=== PATIENT | female | born 1960 | race Caucasian/White ===

== ENCOUNTER → 2022-06-29 | Outpatient (CLI) | payer MEDICARE, MEDICAID, SELFPAY ==
--- NOTE | 2022-06-29 17:26 | RAD_ITS ---
STUDY: X-RAY - LUMBAR SPINE REASON FOR EXAM: Female, 61 years old. FALL WITH INJURY TECHNIQUE: XR Spine Lumbar Min 4 Views COMPARISON: None FINDINGS: Normal lumbar lordosis. There is no substantial scoliosis. There is a normal alignment of the vertebrae. There is multilevel endplate spondylosis of the lumbar vertebrae. There is multi-level degenerative disc disease with multi-level disc space narrowing. There are atherosclerotic vascular calcifications. The soft tissue structures are unremarkable. RAD/L/S Spine Min 4 Views IMPRESSION: Degenerative changes of the spine, as detailed above. Electronically Signed: Gustavo Higuera MD at 17:49 EDT ,
--- NOTE | 2022-06-29 17:26 | RAD_ITS ---
STUDY: X-RAY - PELVIS AND BILATERAL HIP REASON FOR EXAM: Female, 61 years old. FALL WITH INJURY TECHNIQUE: XR Hips Bilateral with Pelvis when performed; 2 Views COMPARISON: None. FINDINGS: There is a non-specific bowel gas pattern. There are multiple calcified phleboliths. There are degenerative changes of the lumbar spine. Normal bilateral iliac wings, sacroiliac joints and visualized sacrum. Normal bilateral superior and inferior pubic rami. Normal pubic symphysis. Normal bilateral ischial tuberosities. Normal visualized femoral head. Normal acetabulum. Normal hip joint. RAD/Hips B/L min 2 views w/ Pelvis IMPRESSION: No acute findings. Electronically Signed: Gustavo Higuera MD at 17:48 EDT ,
== END | disposition home or self-care (01) ==
LOC: MTRAD 17:23
PROVIDERS: PCP Family Medicine; Referring Provider Family Medicine; Visit Provider Family Medicine
DX: S79.911A Unspecified injury of right hip, initial encounter (principal); M47.816 Spondylosis without myelopathy or radiculopathy, lumbar region; M51.36 Other intervertebral disc degeneration, lumbar region; S79.912A Unspecified injury of left hip, initial encounter; S39.92XA Unspecified injury of lower back, initial encounter; I87.8 Other specified disorders of veins
CPT/HCPCS: 72110; 73521

== ENCOUNTER 2022-07-10 06:51 | Outpatient (RCR) | payer MEDICARE, MEDICAID, SELFPAY ==
--- NOTE | 2022-07-10 07:52 | HP.PTEVAL ---
Patient's Visit Information GERBER BANGURA is a 61 year old F referred to Physical Therapy by Dr. Aaron Chandler MD with a diagnosis of Back pain. Date of Evaluation: 07/10/22 Physical Therapist: Ciaran Chavez, DPT, OCS, CSCS - Visit Plan Frequency: 2-3x /Week Duration: 4-6 Weeks Plan: 2-3x/week for 4 weeks for(copay may be a problem for patient). 1. R hip STOM rollout (prirformis/ITB and paraspinals)A/PROM. 2. LB AROM and ROM ex and core strength. 3. Ensure appropriate balance once ambulating better. 4 TENS and MH as helpful to hip and LB(as helpful) - Subjective h/o Guillan Novelty. Feel two weeks ago and landed on R butt and it hurts. Had no feeling in her legs that morning(Guillan barre) and that is why she fell. 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 Uses cane all the time but had cat dish in hand. Has neurologist at [facility] and has appointment next month and every two months. Sleep is poor and wakes every two hours, once per night baseline. Had pain prior in LB and butt down R leg is chronic. This is far worse now. Had x rays and no breaks. Pain is different in that it grabs her in all positions and gets to 8/10. Is on pain meds hydrocodone and muscle relaxers due to this fall. Disabled form guillan barre. Lives alone, one story with no steps. Basic ADLs are done herself but more painful now. Lives in apartment for disabled and handicap accessible with grab bars. No hobbies, spends day sleeping. Has been going to [employer] but off since fall. Does crunches, sitting elliptical, machines for legs and stomach. - Pain LBP, R butt and leg Pain Intensity (Out of 10): 8 Pain Intensity Range: 8 Comment: baseline is 5/10 for her prior to fall - Objective Walks with cane slowly and painful especialy WB R but mod I on firm flat surface. Trasnfers I, painful to sit. LB AROM ext painful in R buttock and LB and max limited, L SB > R SB pain(soft tissue lateral hip), flexion 75% limited. Pt hard time lying on back but OK on L side. Pt does not wish to use a walker despite my education on its possible benefits of safety and taking weight off spine. reflexes 3/3 patella and achilles. sensation LE feels numby B LE distal but this is normal for her. strength LE L 4/5 and R 3+ knee flexion and ext and hip flexion and ankle Df limited due to pain more than any inability to contract. Very hard for her to move around and tolerate much today. - Balance/Special Test Scores Oswestry Low Back Score: 40 - Goals Goal 1:: Patient feel LBP back to baseline of 4-5/10 throughout day. Goal Time Frame: 2-4 Weeks Goal 2:: Pateint feel 75% better in overall mobnility and pain Goal Time Frame: 2-4 Weeks Goal 3:: Able to trasnition and walk back to PT without antalgia or facial evidence of discomfort Goal Time Frame: 2-4 Weeks Goal 4:: I management of condition Goal Time Frame: 2-4 Weeks Goal Time Frame: 6-8 Weeks - Rehabilitation Potential Physical Therapy Diagnosis: back pain and lateral hip pain from recent fall limiting mobility. Rehabilitation Potential: Fair - Anticipated Interventions Patient/Client Instruction: Educate patient on: Condition, Plan of Care For the Purpose of:: To decrease pain, To increase ROM, To improve muscle performance and motor function Therapeutic Exercise to Include: Strength training, Postural training, Flexibilty training, Passive ROM, Active ROM For the Purpose of:: To decrease pain, To increase ROM, To improve muscle performance and motor function Manual Therapy Techniques to Include: Mobilization, Passive ROM, Soft tissue mobilization For the Purpose of:: To decrease pain, To increase ROM TENS: Yes Thermo therapy (hot pack): Yes For the Purpose of:: To decrease pain Thank you for the opportunity to evaluate your patient. For Medicare and Medicare HMO plans, please review the plan of care and approve it. It will need to be FAXED BACK to us at [phone] for Medicare purposes. For Medicare only, by signing this I certify the plan of care. Please let me know if there are questions or concerns regarding this plan of care. Physician Signature: Date:
--- NOTE | 2022-07-13 13:11 | HP.PTDCNRP_ITS ---
GERBER BANGURA was seen in my office for initial evaluation on 07/10/22. The following Plan of Care was established for this patient: Initial Frequency: 2-3x /Week Initial Duration: 4-6 Weeks Patient/Client Instruction: Educate patient on: Condition, Plan of Care For the Purpose of:: To decrease pain, To increase ROM, To improve muscle performance and motor function Therapeutic Exercise to Include: Strength training, Postural training, Flexibilty training, Passive ROM, Active ROM For the Purpose of:: To decrease pain, To increase ROM, To improve muscle performance and motor function Manual Therapy Techniques to Include: Mobilization, Passive ROM, Soft tissue mobilization For the Purpose of:: To decrease pain, To increase ROM TENS: Yes Thermo therapy (hot pack): Yes For the Purpose of:: To decrease pain This patient was last seen in our office 07/10/22. Pertinent comments regarding their Physical therapy will appear below: Pt seen for initial evaluation and POC established. Pt called to cancel all visits stating she cannot afford therapy. I will discontinue her at her reques t. At this point I will be discontinuing this patient from physical therapy. I would be happy to see this patient again in the future if found appropriate by the physician. Thank you! Ciaran Chavez, DPT, OCS, CSCS Balance/Gait/Functional tests - Balance/Special Test Scores Oswestry Low Back Score: 40
== END 2022-07-10 19:00 | disposition home or self-care (01) ==
LOC: PT 06:51
PROVIDERS: PCP Family Medicine; Referring Provider Family Medicine; Visit Provider Family Medicine
DX: M54.9 Dorsalgia, unspecified (principal)
CPT/HCPCS: 97110; 97162

== ENCOUNTER → 2022-08-17 | Outpatient (CLI) | payer MEDICARE, MEDICAID, SELFPAY | END | disposition home or self-care (01) | LOC: LABSPEC 13:43 | PROVIDERS: PCP Family Medicine; Visit Provider Nurse Practitioner Family | DX: N39.0 Urinary tract infection, site not specified (principal) | CPT/HCPCS: 87086; 87088; 87186 ==

== ENCOUNTER → 2022-09-15 | Outpatient (CLI) | payer MEDICARE, SELFPAY ==
[2022-09-15 18:34] LABS: ALB/GLOB Ratio 0.8 RATIO (0.9-2.4); AST(SGOT) 64 U/L (15-37); Alanine Aminotransfer ALT/SGPT 90 U/L (13-56); Albumin, Serum 3.8 g/dL (3.2-5.0); Alkaline Phosphatase 139 U/L (45-117); Anion Gap 8 (5-15); BUN 17 mg/dL (7-18); BUN/Creat Ratio 24.3 RATIO (10-20); Calcium,Total 9.7 mg/dL (8.5-10.1); Chloride 103 mmol/L (98-107); Cholesterol 197 mg/dL (200); EST Glomerular Filtration Rate 90 mL/min (>60); Est Glom Filt Rate - Afr Amer 109 mL/min (>60); Globulin 4.5 g/dL (2.2-4.2); Glucose 118 mg/dL (74-106); High Density Lipoprotein 44 mg/dL; Potassium 4.3 mmol/L (3.5-5.1); Protein, Total 8.3 g/dL (6.4-8.2); Sodium Level 140 mmol/L (136-145); Triglycerides 243 mg/dL; Very Low Density Lipoprotein 49 mg/dL (5-40)
== END | disposition home or self-care (01) ==
LOC: MFPLAB 16:01
PROVIDERS: PCP Family Medicine; Visit Provider Family Medicine
DX: E11.9 Type 2 diabetes mellitus without complications (principal); E78.00 Pure hypercholesterolemia, unspecified
CPT/HCPCS: 36415; 80053; 80061

== ENCOUNTER → 2023-03-17 | Outpatient (CLI) | payer MEDICARE, SELFPAY ==
[2023-03-17 15:26] LABS: ALB/GLOB Ratio 0.8 RATIO (0.9-2.4); AST(SGOT) 60 U/L (15-37); Alanine Aminotransfer ALT/SGPT 71 U/L (13-56); Albumin, Serum 3.9 g/dL (3.2-5.0); Alkaline Phosphatase 111 U/L (45-117); Anion Gap 4 (5-15); BUN 13 mg/dL (7-18); BUN/Creat Ratio 16.3 RATIO (10-20); Calcium,Total 9.5 mg/dL (8.5-10.1); Chloride 104 mmol/L (98-107); Cholesterol 116 mg/dL (200); EST Glomerular Filtration Rate 77 mL/min (>60); Est Glom Filt Rate - Afr Amer 94 mL/min (>60); Glucose 96 mg/dL (74-106); High Density Lipoprotein 41 mg/dL; Potassium 3.9 mmol/L (3.5-5.1); Protein, Total 8.9 g/dL (6.4-8.2); Sodium Level 135 mmol/L (136-145); Triglycerides 189 mg/dL; Very Low Density Lipoprotein 38 mg/dL (5-40)
== END | disposition home or self-care (01) ==
LOC: MFPLAB 10:53
PROVIDERS: PCP Family Medicine; Visit Provider Family Medicine
DX: E11.9 Type 2 diabetes mellitus without complications (principal); E78.00 Pure hypercholesterolemia, unspecified
CPT/HCPCS: 36415; 80053; 80061

== ENCOUNTER 2023-06-11 22:47 | Emergency (ER) | payer MEDICARE, SELFPAY ==
[2023-06-11 22:50] VITALS: BP 129/84; PULSE 75; RESP 16; TEMP 36.8; O2SAT 95; BMI 28.0
--- NOTE | 2023-06-11 23:10 | EX.ED.VIS.HA ---
HPI History of Present Illness Chief Complaint: Headache Informant: patient Onset/Context/Timing Onset: Today Context: Gradual Timing: Continuous Quality -Headache: Positive for Similar Prior Headaches Current Severity: Moderate Maximum Severity: Moderate Associated Symptoms/Injury Associated Symptoms: Positive for Nausea Injury - BATISTA: Negative for Direct Trauma, Fall or Assault Narrative Narrative: 62-year-old female history of migraine headaches, diabetes and prior diabetic neuropathy. Onset of a left-sided headache about an hour ago. Associated nausea. No vomiting. No diarrhea. No fever. No recent trauma. She is on no blood thinners. She has had similar headaches in the past. She took one of her migraine medications at home called Anabelle but has not had any significant relief as of yet. No history of intracranial bleed nor stroke. No history of brain aneurysm. 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 Migraines Neuropathy Home Medications citalopram 40 mg tablet 40 mg PO DAILY 02/20/16 [History Last Taken Unknown] diphenhydramine HCl 25 mg capsule (Banophen) 25 mg PO Q6H ##30 02/20/16 [Rx Last Taken Unknown] epinephrine 0.3 mg/0.3 mL injection, auto-injector 0.3 mg (0.3 mL) IM X1 ##1 02/20/16 [Rx Last Taken Unknown] famotidine 20 mg tablet 20 mg PO BID ##10 02/20/16 [Rx Last Taken Unknown] prednisone 20 mg tablet 60 mg (3 x 20 mg) PO DAILY ##15 02/20/16 [Rx Last Taken Unknown] Allergy/AdvReac Type Severity Reaction Status Date / Time meperidine HCl [From Demerol] Allergy Hives Verified 06/11/23 22:52 gabapentin AdvReac HALLUCINATI Verified 06/11/23 22:52 ONS Social History Smoking Status: Never smoker ROS ROS ED ROS Narrative Headache. Nausea. No recent illness. Review of Systems ROS Unobtainable: Denies due to encephalopathy Constitutional Constitutional ED: Denies chills or fever(s) Eyes Eyes: Denies blurry vision ENT ENT ED: Denies ear pain Cardiovascular Cardiovascular: Denies chest pain Respiratory/Chest Respiratory/Chest: Denies cough or dyspnea Gastrointestinal Gastrointestinal: Reports nausea; Denies abdominal pain, constipation, diarrhea, melena or vomiting Genitourinary Genitourinary ED: Denies dysuria or hematuria Musculoskeletal Musculoskeletal: Denies arthralgias, back pain, myalgias or neck pain Integumentary Denies abscess, Abrasions or rash Neurologic Neurologic: Reports headache(s) Psychiatric Psychiatric: Denies anxiety or depression Endocrine Endocrinology: Denies polydipsia Hematologic/Lymphatic Hematologic/Lymphatic: Denies easy bleeding, easy bruising or lymphadenopathy Allergic/Immunologic Allergic/Immunologic ED: Denies mouth swelling, tongue swelling or urticaria EXAM Physical Exam Narrative Exam Narrative: 62-year-old female with her eyes covered with a wet rag. Sitting in darkened room. Vital signs are stable. She is afebrile. She does not look septic or toxic. HEENT exam unremarkable other than photophobia. Pupils round react light. Extra motions are intact. No facial droop. Normal speech. No signs of trauma to the face or scalp. Nontender. Neck nontender no meningismus. No lymphadenopathy. Lungs clear to auscultation bilaterally. Heart regular rhythm no murmur. Chest were nontender. Abdomen soft nontender. Moving all 4 extremities. Equal symmetrical 5-5 automatic spinning lathe setter strength. Dorsi plantarflexion intact. Neurologic exam she does have a diabetic neuropathies of her hands and feet as not new or changed. She has normal motor strength. She is awake alert. Answering questions following commands. Const Vital Signs: 06/11/23 22:50 06/12/23 02:48 Temperature 98.2 F Temperature Source Oral Pulse Rate 75 80 Respiratory Rate 16 16 Blood Pressure 129/84 H 122/70 H Blood Pressure Mean 99 87 Pulse Ox 95 98 Oxygen Delivery Method Room Air Room Air Positive well nourished and well developed; Negative for obese, cachectic, contractures or unkempt General Appearance ED: well developed and NAD; Negative for unkempt, cachectic, contractures, cyanotic or diaphoretic Nutritional Appearance: Negative for cachectic or obese HEENT Reports normocephalic and moist mucous membranes atraumatic; Negative for trauma, tenderness, temporal artery tenderness or vesicular rash Face and Sinus: Negative for sinus tenderness Eyes EOMs intact bilaterally General Eye ED: Negative for pale conjunctiva or scleral icterus Neck no lymphadenopathy, supple, no meningeal signs and no JVD General: Negative for tenderness Resp normal respiratory effort and clear to auscultation bilaterally Effort and Inspection: Negative for retractions Auscultation: Negative for rales, rhonchi or wheezes Cardio regular rate, regular rhythm, S1 normal heart sound, S2 normal heart sound and no murmurs Rate: Negative for bradycardia or tachycardic Rhythm: Negative for abnormal rhythm GI non-tender and non-distended Auscultation: normoactive bowel sounds Palpation: soft; Negative for firm or tender Back/Spine no CVA tenderness General Back: Negative for CVA tenderness Extremity normal to inspection and full ROM General Extremety ED: Negative for edema or tenderness General Extremity: Negative for edema Neuro oriented x3, CN's II-XII intact bilaterally and No no sensory deficits noted Neuro Narrative: Diabetic neuropathy disease of hand and feet. [place] Coma Scale: document GCS findings Sensorium / Orientation: awake, alert, oriented to person, oriented to place and oriented to time; Negative for orientation impaired, lethargic, stuporous or other Speech: speech normal Motor Exam: strength 5/5 throughout Psych mental status grossly normal Appearance: Negative for unkempt Attitude: No agitated Mood & Affect: Negative for depressed, anxious or tearful Skin General Skin Exam: elasticity normal Lesions: no lesions Rashes: no rashes Trauma: Negative for abrasion MDM MDM MDM Narrative Medical decision making narrative: 62-year-old female. Left-sided headache with a history of migraines. She will be treated as a migraine. Treated with IV fluid bolus, Toradol, Benadryl and Zofran. Reassessed. Repeat exam at 1:30 AM patient clinically looks well but states her headache is not significantly improved. Her neurologic exam remains normal. I am obtaining a CT of her brain. She did not want a thing additional at this time for pain. Exam at 3:36 AM. She is improving. She was given 25 mg IV of fentanyl for pain. Her headache is resolving. Her neurologic exam remains normal. Her CAT scan was unremarkable. No intracranial bleed. She will be discharged home with outpatient follow-up. History & Record Review Discussion w/independent historian: Patient Additional record(s) reviewed:: Prior inpatient record, Prior outpatient record, Prior ED visit and Prior labs Radiography Diagnostic Testing: Clinical Impression(s) from Imaging Studies Brain CT 10/07/23 01:30 IMPRESSION: No CT evidence of acute intracranial hemorrhage. Electronically Signed: Gabriella Bermudez MD at 3:22 EDT , Discharge Plan Triage Chief Complaint: Headache ED Provider: Juan Antonio Null Dx/Rx/DC Orders Clinical Impression: History of migraine, Headache, History of diabetes mellitus Instructions: ED Headache Unspecified Prescriptions: No Action citalopram 40 MG tablet 40 mg PO DAILY prednisone 20 MG tablet 60 mg PO DAILY Qty: 15 0RF famotidine 20 MG tablet 20 mg PO BID Qty: 10 0RF diphenhydramine HCl [Banophen] 25 MG capsule 25 mg PO Q6H Qty: 30 0RF Rx Instructions: take for 5 days for allergic reaction epinephrine 0.3 MG syringe 0.3 mg IM X1 Qty: 1 0RF Primary Care Provider: Arleen Lazar Referrals: Arleen Lazar, DO [Primary Care Provider] - 3-5 Days if not improving Activity Restrictions/Additional Instructions: Plenty of fluids and rest. Motrin and Tylenol for pain. With your doctor if not improving or return if feeling worse. Disposition Disposition: Home, Self Care
[2023-06-11] MEDS: DiphenhydrAMINE 50 MG/ML Syringe 25 MG IV (23:40)
[2023-06-11] MEDS: Ondansetron 4 MG/2 ML Vial IV (23:40)
[2023-06-11] MEDS: Ketorolac 15 MG/ML Vial IV (23:40)
[2023-06-11] MEDS: 0.9% Normal Saline (1000mL) 1,000 ML 1000 ML IV (23:40)
--- NOTE | 2023-06-12 01:30 | CT_ITS ---
STUDY: CT BRAIN WITHOUT CONTRAST REASON FOR EXAM: Female, 62 years old patient with headache. RADIATION DOSAGE (If Supplied By Facility): CTDIvol = ( 44.99 ) mGy, DLP = ( 812.98 ) mGycm TECHNIQUE: Transaxial CT imaging of the brain was performed without administration of intravenous contrast material. Multiplanar reformations are submitted for interpretation. Individualized dose optimization techniques were used for this CT. COMPARISON: No relevant priors. FINDINGS: Normal soft tissue structures. Normal calvarium. Normal size ventricles and extra-axial spaces for the patient''s age. Normal white matter tracts of the cerebral hemispheres. Normal basal ganglia and thalami. Normal brainstem. Normal cerebellum. There is no intracranial hemorrhage. There are no findings of an acute ischemic infarction. There is a left maxillary sinus mucous retention cyst. CT/Brain/Head without Contrast IMPRESSION: No CT evidence of acute intracranial hemorrhage. Electronically Signed: Gabriella Bermudez MD at 3:22 EDT ,
[2023-06-12 02:48] VITALS: BP 122/70; PULSE 80; RESP 16; O2SAT 98
[2023-06-12] MEDS: fentaNYL 100 MCG/2 ML Ampul 50 MCG IV (03:07)
[2023-06-12 03:49] VITALS: BP 117/65; PULSE 71; RESP 14; O2SAT 100
== END 2023-06-12 03:49 | disposition home or self-care (01) ==
PROVIDERS: Emergency Provider Emergency Medicine; PCP Family Medicine; Visit Provider Emergency Medicine
DX: G43.909 Migraine, unspecified, not intractable, without status migrainosus (principal); E11.40 Type 2 diabetes mellitus with diabetic neuropathy, unspecified; Z79.899 Other long term (current) drug therapy
CPT/HCPCS: 70450; 96361; 96374; 96375; 99285; J7030; A4216; J2405

== ENCOUNTER → 2023-11-08 | Outpatient (CLI) | payer MEDICARE, SELFPAY ==
--- NOTE | 2023-11-08 08:57 | RAD_ITS ---
STUDY: X-RAY - RIGHT WRIST REASON FOR EXAM: Female, 62 years old. Injury. TECHNIQUE: 3 views of the right wrist were obtained. COMPARISON: None. FINDINGS: There are smooth well ossified fragments adjacent to the ulnar styloid, probably the sequelae of old avulsion injuries. Normal visualized distal radius. Normal radiocarpal articulation. Normal distal radioulnar articulation. Normal carpal bones. Normal carpal articulations. Normal carpometacarpal articulation of the thumb. Normal second through fifth carpometacarpal articulations. Normal visualized metacarpal bones. The soft tissue structures are unremarkable. There is no demonstrated acute fracture. RAD/Wrist min 3 Views IMPRESSION: Smooth well ossified fragments adjacent to the ulnar styloid, probably the sequelae of old avulsion injuries. Electronically Signed: Tacos Naranjo MD at 9:32 EST ,
--- OUTSIDE RECORDS SUMMARY | 2023-11-08 09:16 | XMS RPT_ITS | CCD ---
Author Name Unknown Address [address] [place] [address] Organization [facility] Care Team Providers Care Transit [employer] Police Officer Name Role Phone Adam Dixon (Historical) Primary Care [facility] ider Unavailable Sultan MCKENZIE, Amy Unavailable Murray Campa Unavailable JUDY NIELSEN Referring Unavailable ADAM DIXON (HISTORICAL) Primary Care U navailable Murray Campa MD Unavailable YULIYA AGRAWAL Attending Unavailable ADAM DIXON (HISTORICAL) Primary Care U navailable UI, JUDY Pugh Referring Unavailable HILTON CUMMINS Attending Unavailable ADAM DIXON (HISTORICAL) Primary Care U navailable UI, JUDY Pugh Attending Unavailable ADAM DIXON (HISTORICAL) Primary Care U navailable DULCE, JUAN EDMONDS Referring Unavailable ADAM DIXON (HISTORICAL) Primary Care U navailable DULCE, JUAN EDMONDS Attending Unavailable ADAM DIXON (HISTORICAL) Primary Care U navailable DULCE, JUAN EDMONDS Attending Unavailable YULIYA AGRAWAL Referring Unavailable YULIYA AGRAWAL Attending Unavailable ADAM DIXON (HISTORICAL) Primary Care U navailable UI, JUDY Pugh Attending Unavailable ADAM DIXON (HISTORICAL) Primary Care U navailable UI, JUDY Pugh Attending Unavailable ADAM DIXON (HISTORICAL) Primary Care U navailable Allergies Allergy Classification Reported Allergen(s) Allergy Type Date of Onset Reaction(s) Facility (13 sources) Meperidine; Translations: [MEPERIDINE (PF)] Drug Allergy 01-05-2014 [facility] Medications Current Medications Medication Drug Class(es) Dates Sig (Normalized) Sig (Original) 1 ml erenumab-aooe 140 mg/ml auto-injector (10 sources) Start: 11-10-2022 End: 02-21-2024 inject 1 mL by subcutaneous injection every month erenumab-aooe (AIMOVIG AUTOINJECTOR) 140 mg/mL auto-injector Inject 1 mL under the skin once every month. Do not shake. 3 mL 3 02/26/2023 02/21/2024 Active Completed/Discontinued Medications Medication Drug Class(es) Dates Sig (Normalized) Sig (Original) acetaminophen 325 mg / HYDROcodone bitartrate 5 mg oral tablet (2 sources) Opioid Agonist End: 11-10-2022 take 1 tablet by mouth every six hours as needed HYDROcodone-acetami nophen (NORCO) 5-325 mg per tablet Take 1 tablet by mouth every 6 hours as needed. 0 11/10/2022 Discontinued Problems Problem Classification Problem Date Documented Da te Episodic/Chronic Diabetes mellitus with complications (5 sources) Type 2 diabetes mellitus; Translations: [Type 2 diabetes mellitus with diabetic neuropathy, unspecified] Onset: 12-01-2022 Chronic Headache; including migraine (2 sources) Refractory migraine without aura; Translations: [Chronic migraine without aura, intractable, with status migrainosus] Chronic Other hereditary and degenerative nervous system conditions (5 sources) Motor neuron disease; Translations: [Motor neuron disease, unspecified] Onset: 04-12-2023 04-12-2023 Chronic Other nervous system disorders (2 sources) Neuropathy; Translations: [Polyneuropathy, unspecified] Chronic Other nervous system disorders (2 sources) Polyneuropathy, unspecified; Translations: [Neuropathy] Onset: 12-01-2022 Chronic Other nervous system disorders (1 source) Idiopathic peripheral neuropathy; Translations: [Hereditary and idiopathic neuropathy, unspecified] 04-12-2023 Chronic Other nervous system disorders (5 sources) Inflammatory neuropathy ; 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] Onset: 04-12-2023 04-12-2023 Chronic Other nervous system disorders (1 source) Chronic pain; Translations: [Other chronic pain] 08-23-2023 Chronic Results Test Name Value Interpretation Reference Range Facil ity Vital Signs Date Time Vital Sign Value Performing Clinician Faci lity 08-23-2023 13:13-0500 Diastolic blood pressure 86 mm[Hg] Judy Nielsen MD Work Phone: [facility] 08-23-2023 13:13-0500 Systolic blood pressure 104 mm[Hg] Judy Nielsen MD Work Phone: [facility] 04-12-2023 12:22-0400 Diastolic blood pressure 77 mm[Hg] Judy Nielsen MD Work Phone: [facility] 04-12-2023 12:22-0400 Heart rate 87 /min Judy Nielsen MD Work Phone: [facility] 04-12-2023 12:22-0400 Systolic blood pressure 103 mm[Hg] Judy Nielsen MD Work Phone: [facility] 02-26-2023 09:24-0400 Body height 170.2 cm Mohammad Hamdan PARKING PATROLLER.REFRIGERATION UNIT REPAIRER Work Phone: [facility] 02-26-2023 09:24-0400 Body weight 83.92 kg Mohammad Hamdan PARKING PATROLLER.REFRIGERATION UNIT REPAIRER Work Phone: [facility] 02-26-2023 09:24-0400 Diastolic blood pressure 75 mm[Hg] Mohammad Hamdan PARKING PATROLLER.REFRIGERATION UNIT REPAIRER Work Phone: [facility] 02-26-2023 09:24-0400 Heart rate 80 /min Mohammad Pedrodan PARKING PATROLLER.REFRIGERATION UNIT REPAIRER Work Phone: [facility] 02-26-2023 09:24-0400 SaO2% (BldA) [Mass fraction] 100 % Mohammad Hamdan PARKING PATROLLER.REFRIGERATION UNIT REPAIRER Work Phone: [facility] 02-26-2023 09:24-0400 Systolic blood pressure 119 mm[Hg] Mohammad Hamdan PARKING PATROLLER.REFRIGERATION UNIT REPAIRER Work Phone: [facility] 12-01-2022 09:04-0400 Diastolic blood pressure 73 mm[Hg] Judy Nielsen MD Work Phone: [facility] 12-01-2022 09:04-0400 Heart rate 80 /min Judy Nielsen MD Work Phone: [facility] 12-01-2022 09:04-0400 Systolic blood pressure 125 mm[Hg] Judy Nielsen MD Work Phone: [facility] 11-10-2022 10:03-0500 Body weight 89.4 kg Juan Cardona MD Work Phone: [facility] 11-10-2022 10:03-0500 Diastolic blood pressure 71 mm[Hg] Juan Cardona MD Work Phone: [facility] 11-10-2022 10:03-0500 Heart rate 84 /min Juan Cardona MD Work Phone: [facility] 11-10-2022 10:03-0500 SaO2% (BldA) [Mass fraction] 95 % Juan Cardona MD Work Phone: [facility] 11-10-2022 10:03-0500 Systolic blood pressure 120 mm[Hg] Juan Cardona MD Work Phone: [facility] Encounters Encounter Date Encounter Type Care Provider Facility Start: 10-27-2023 E-mail encounter fro m caregiver Henny Saravia MD Work Phone: [facility] Start: 10-27-2023 Patient encounter procedure Henny Saravia MD Work Phone: Pain Management Procedures Date Procedure Procedure Detail Performing Clinician Start: 01-18-2020 Lipid 1996 panel - S libra or Plasma Judy Nielsen MD Work Phone: Plan of Treatment Date Care Activity Detail Author Start: 12-01-2025 [facility] Start: 12-01-2025 Diabetes Screening Diabetes Screenin g [facility] Start: 01-17-2025 Lipid panel Lipid Screening [facility] Start: 01-17-2025 LIPID SCREEN LIPID SCREEN [facility] Start: 09-06-2023 [facility] Start: 05-07-2023 Influenza vaccination [facility] Start: 12-01-2022 End: 01-31-2023 25-hydroxyvitamin D3 [Mass/volume] in Serum or Plasma [facility] Work Phone: Immunizations Immunization Date Immunization Notes Care Provider Sherman ortiz 06-10-2016 influenza virus vacc ine, unspecified formulation Judy Nielsen MD Work Phone: [facility] Payers Date Payer Category Payer Unknown [id number] 2022 Medicare [id number] 2022 Medicare [id number] Social History Date Type Detail Facility Tobacco smoking stat us NHIS Never smoked tobacco [facility] Start: 01-05-2014 End: 10-01-2023 Alcohol intake Current non-drinker of alcohol (finding) [facility] Start: 1960 Sex Assigned At Not on file [facility] Start: 1960 Sex Assigned At Female [facility] Start: 01-25-2023 End: 02-26-2023 History of Social function [facility] Start: 01-25-2023 End: 02-26-2023 Tobacco use panel [facility] Adult Depression Screening Assessment 4 [facility] Start: 11-26-2022 Gender identity Identifies as female gender (finding) [facility] Start: 11-26-2022 Sexual orientation Heterosexual (fin ding) [facility] Clinical Notes 09-24-2022 to 10-01-2023 Judy Nielsen MD - 08/23/2023 1:00 PM Judy Knapp MD - 04/12/2023 12:30 PM EDTTelephone Encounter - Rosa Jarvis - 03/30/2023 8:45 AM Laverne Agrawal APRN.CNP - 02/26/2023 9:30 AM EDT Note Date & Type Note Facility 10-01-2023 Note HNO ID: [id number] Author: JUAN CARDONA MD Service: ? Author Type: Physician Type: Progress Notes Filed: 10/01/2023 08:27 Note Text: Headache [facility] Facial [facility] [address] [place] [address] CC: chronic migraine Follow-up Visit Last visit: 09/02/2023 - Faheem prescribed Interval History: Faheem was denied due to formulary preference so she was switched to Emgality Has not started Emgality yet, will be taking it later this week She has been using Ubrelvy + Excedrin for rescue - this works sometimes but sometimes is not effective. Headaches start in the temples, and radiate down the back of the head Has been getting 1-20 headache days per month She has lost weight since last visit (intentional). Exercises regularly, eats healthy. Overall health is feeling better. Headache days per month: 15-20 Headache free days per month: 10 Current Headache Regimen: Preventative: Emgality - not yet started Cymbalta 60 Propranolol 10 daily Lyrica 100 TID Abortive: Ubrelvy Prior Therapies Duration of Use Dose Side effect Other Therapies Nerve blocks Analgesic Acetaminophen with codeine (Tylenol #3) Hydrocodone/Acetaminophen (Vicodin, Dendron) Anti-Convulsant Gabapentin (Neurontin) Pregabalin (Lyrica) Topiramate (Topamax, Trokendi XL, Qudexy) Anti-Depressant and Antipsychotic Amitriptyline (Elavil) Duloxetine (Cymbalta) Antiemetics Ondansetron Anti-Migraine Naratriptan (Amerge) Rizatriptan (Maxalt) Sumatriptan (Imitrex, Sumavel) Blood Pressure Lisinopril (Zestril) Propranolol (Inderal) MABs Erenumab (Aimovig) GEPANTS Ubrogepant (Ubrelvy) Rimegepant (Nurtec) Botulinum Toxin Onabotulinum Toxin A (Botox) March 2019. X 1 round. base of skull, temples, occipital/parietal area, frontal area. None in shoulder. 13 injections. Muscle Relaxer Baclofen (Lioresal) Cyclobenzaprine (Flexeril) Over the Counter Medications Acetaminophen (Tylenol) Naproxen sodium (Aleve) KP review: HEADACHE SCORES: Headache Questions 11/10/2022 09/02/2023 09/30/2023 ID Migraine Screener: 3 (Positive) - - ER visits in the last year: 0 - - ER visits since last office visit: - 1 - Hospital stays in the last year: 0 - - Hospital stays since last office visit - 15 - Limited ADLs in the last month: 18 15 - Days missed from work or school in the last month: 0 0 - Days headache pain free in the last month: 5 10 - Days per month with ALL of the following symptoms - decreased productivity, light sensitivity and nausea: - 15 - Initial improvement of headache after botox injection at last visit: - Not applicable, I did not have a botox injection at my last visit Not applicable, I did not have a botox injection at my last visit PRN medication usage in the last month: 18 15 - Patient impression of improvement since last visit: - Much worse Much worse HIT-6 11/10/2022 09/02/2023 09/30/2023 HIT-6 Incomplete 69 (Severe impact) 74 (Severe impact) KATHE - 2/7 SCORES 11/10/2022 09/02/2023 09/30/2023 KATHE-2 Score 5 5 4 KATHE-7 Score 19 12 14 Migraine Specific QOL - Higher scores indicate better HRQL 11/10/2022 09/02/2023 09/30/2023 Role Function-Restrictive Transformed Score (range: 0-100) 20 5.71 20 Role Function-Preventive Transformed Score (range: 0-100) 20 30 45 Emotional Function Transformed Score (range: 0-100) 20 80 66.67 PHQ-9 11/10/2022 09/02/2023 09/30/2023 Score 19 12 12 Physical Exam: Vital Signs: BP 103/69 (BP Site: Left Arm, BP Position: Sitting, BP Cuff Size: Regular Adult) Pulse 68 Wt 75.1 kg (165 lb 8 oz) BMI 25.92 kg/m? GENERAL: well appearing, in no acute distress, alert SKIN: Color, texture, turgor normal. No rashes or lesions HEAD: Normocephalic/atraumatic. RESP: normal respiratory effort MSK: No gross joint deformities. NEUROLOGICAL: Mental Status: Alert, oriented to person, place and time, Follows commands, and Speech fluent and appropriate. Cranial Nerves: PERRL, face symmetric, no dysarthria, hearing grossly intact Motor: moves all extremities equally Gait: normal-based. 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 At last visit she was prescribed Emgality and will be starting that this week. PLAN: Start Emgality - LD this week Depakote 10 day taper Continue Ubrelvy prn Follow-up: 3 months I spent a total of 20 minutes on the date of the service which included preparing to see the patient, [id number] patient care, completing clinical documentation, obtaining and/or reviewing separately obtained history, performing a medically appropriate examination, counseling (more content not included)... [facility] 09-02-2023 Note HNO ID: [id number] Author: Yuliya Agrawal APRN.TITA Service: ? Author Type: Nurse Practitioner Type: Progress Notes Filed: 09/02/2023 11:04 AM Note Text: Headache Center - Follow up Virtual Visit Patient's headache clinic evaluation was scheduled as a virtual visit using the following platform Zoom Felipa Hill was identified by name and and consented to the video evaluation and its limitations. Based on this evaluation it may be necessary for them to schedule a follow up evaluation with me or other neurologists for formal physical examination and if necessary, other studies. I have communicated my name and active licensure. The patient's identity and physical location were verified at the time of this visit. Either the patient or their legal lead customer service representative has been informed of the risks and benefits of -- and alternatives to -- treatment through a remote evaluation and consents to proceed with the evaluation remotely. 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 Her neurological examination is essentially normal at this visit. She reports >50% improvement in migraine frequency on Aimovig, denies any side effects or injection site reaction. She reports some wearing off after 2 weeks but can control her migraines with Ubrelvy as needed. If migraines worsen we can consider switching to different CGRP next visit in hopes of better efficacy. She would not like to make any changes at this time, plan to follow up in 6 months. Patient verbalized understanding and agreed to treatment plan. 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 Since the last visit, the patient states that her headaches are much worse. Went to ED in June for severe, debilitating migraine. Called 911, felt weak, couldn't move arms or legs, felt like head was ready to explode. Was given Toradol and had CT scan which was reportedly normal. Was told she was having a migraine. Aimovig does not seem to be as effective as it used to be. She reports about 15 migraines a month on average, with over 20 headache days total. Headache 1 Number of migraine headache days/month: 15 Number of headache free days/month: 10 Days missed from work or school in the last month: 0 days Preventative: Aimovig 140 mg Abortive: Ubrelvy 100 mg prn Medications effective? sometimes # of doses of abortive medications per month: 8 Other Therapies Nerve blocks Analgesic Acetaminophen with codeine (Tylenol #3) Hydrocodone/Acetaminophen (Vicodin, Dendron) Anti-Convulsant Gabapentin (Neurontin) Pregabalin (Lyrica) Topiramate (Topamax, Trokendi XL, Qudexy) Anti-Depressant and Antipsychotic Amitriptyline (Elavil) Duloxetine (Cymbalta) Antiemetics Ondansetron Anti-Migraine Naratriptan (Amerge) Rizatriptan (Maxalt) Sumatriptan (Imitrex, Sumavel) Blood Pressure Lisinopril (Zestril) Propranolol (Inderal) MABs Erenumab (Aimovig) GEPANTS Ubrogepant (Ubrelvy) Rimegepant (Nurtec) Botulinum Toxin Onabotulinum Toxin A (Botox) March 2019. X 1 round. base of skull, temples, occipital/parietal area, frontal area. None in shoulder. 13 injections. Muscle Relaxer Baclofen (Lioresal) Cyclobenzaprine (Flexeril) Over the Counter Medications Acetaminophen (Tylenol) Naproxen sodium (Aleve) PAST MEDICAL HISTORY Diagnosis Date Anxiety state CIDP (chronic inflammatory demyelinating polyneuropathy) ([facility]) 2019 Depression Diabetes mellitus ([facility]) Essential hypertension IBS (irritable bowel syndrome) Migraines Mixed hyperlipidemia Obesity History reviewed. No pertinent surgical history. ALLERGIES Allergen Reactions Demerol [Meperidine* Hives Current Medications: ubrogepant (UBRELVY) 100 mg tablet Take 1 tablet at migraine onset. May repeat dose in 2 hours if needed. Maximum 200 mg per 24 hours. fremanezumab-vfrm (AJOVY AUTOINJECTOR) 225 mg/1.5 mL auto-injector Inject 1.5 mL subcutaneously once every month. diclofenac (VOLTAREN) 1 % topical gel Apply to affected area twice daily. semaglutide (OZEMPIC) 0.25 mg or 0.5 mg (2 mg/3 mL) pen DULoxetine (CYMBALTA) 60 mg caps (more content not included)... [facility] 08-23-2023 Note HNO ID: [id number] Author: Judy Nielsen MD Service: ? Author Type: Physician Type: Progress Notes Filed: 08/23/2023 2:07 PM Note Text: Neurology Follow-Up - August 23, 2023 Felipa Hill is following up for neuropathy. She was last seen on 04/12/23. Notes from previous visits are as follows: 12/01/22: She was living in [place] in 2019, taking care of her mother since 2014. In Aug 2019, she fell as she was trying to get out of bed, no feeling/strength in the legs. She could not move anything from waist down. Her brother was visiting and was brought to a [facility](08/25/2019, [facility]). 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 She had no movement or feeling from waist down, numbness/tingling in both arms with weakness in the hands/fingers(could not remove cap of pen). She had an extensive w/u including imaging, CSF, blood work. MRI LS spine and thoracic spine w/wo contrast showed enhancement, CSF protein was 42. She was treated with 5 day course of IVIG. She was discharged to [facility](x 6 weeks). She had EMG (no results available in CareEverywhere). She was in the wheelchair upon discharge from [facility], was able to stand, arm strength was 50% better, able to maneuver wheelchair. She had 2nd EMG in Oct 2019 that showed improvement. She came home 10/16/2019, continued home PT and OT for at least 6 months. She was walking with a walker. She continued to receive IVIG monthly. She had an OP f/u in January 2020. Repeat EMG continued to show improvement but she was admitted for another course of a 5 day course of IVIG in January 2020 and received another IVIG in Feb 2020 and then discontinued. No prednisone or other medication given since. She continued with home PT/OT until the last part of 2019 and then went to OP PT/OT (Jun 2020 to Nov 2020). She moved to [facility] since Nov 2020. She continued to do her PT exercises at home. She started driving short distances(5 miles) in May 2020. 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 She is now establishing with physicians in [place]. Currently, she lives in an apartment alone. It is one floor, she managing and able to do her ADLs. She continues to walk with cane short distances(300-400 feet). She continues to fall, last fall was in Aug 2022 - she was walking in the living room when legs gave out and fell forward, no head trauma/LOC. She managed to get up with a friend's help. She feels she may still have some arm weakness - could not carry/lift anything heavier than a gallon of milk. She is currently driving. Since she moved to [place], she only had 1 PT session because of her co-pay($40). She is hoping to go to water therapy. She was going to [facility] since May 2022, went everyday until Aug 2022 and felt her legs were better but got lazy and has not gone back. She is currently on cymbalta(depression /anxiety), baclofen and pregabalin(for neuropathy). She mentions to have on and off pain from the neuropathy - stabbing pains in the legs with tightening up. 04/12/23: Blood work (nov 2022) showed low vit D(25), HBA1C was 7.4; had elevated kappa and lambda free light chains without evidence of M-protein. She is currently on B12, vit D replaced in the past. She mentions that HBA1C from last month with PCP was 5.4; unsure what her latest vit D level is. She fell on 03/17/23, she lost her balance on concrete, fell backwards. No head trauma or LOC. She called for help and a bystander came to help, managed to go back to the house with a cane. She continues to have balance issues, usually catches herself. She reports she goes to [facility] - machines for legs, arms); about to start going to the [facility]. She swims the [employer] 3 days/week. She does not feel she needs to see PT given the activity she is doing. Feet are constantly burning with numbness/tingling. Muscle spasms have been 'crazy'. She mentions arms may be tingling from the elbows without triggers since Feb 2023, may last x 10-20 minutes and recurs through the day. Prefers not to repeat EMG. She remains on cymbalta (60 mg qday), and pregabalin(100 mg tid) Interval history: She continues to have leg symptoms. Legs are worse x 1 month - excruciating pain - constant cold/pressure, pins and needles in the feet clothing feels like 'needles' on the skin', legs feel like 'jello', harder to walk, had a close call but no falls recently. She continues to go to [facility] - works on machines for legs/arms 3x/week. She remains on cymbalta 60 mg daily and pregabalin 100 mg tid - but still has symptoms. Medication tried; gabapentin(hallucinations) Current Outpatient Medications Medication Sig Dispense Refill diclofenac (VOLTAREN) 1 % topical gel Apply to affected area twice daily. (more content not included)... [facility] 08-23-2023 History of Presen t illness Narrative Neurology Follow-Up - August 23, 2023 Felipa Hill is following up for neuropathy. She was last seen on 04/12/23. Notes from previous visits are as follows: 12/01/22: She was living in [place] in 2018, taking care of her mother since 2014. In Aug 2019, she fell as she was trying to get out of bed, no feeling/strength in the legs. She could not move anything from waist down. Her brother was visiting and was brought to a [facility](08/25/2019, [facility]). 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 She had no movement or feeling from waist down, numbness/tingling in both arms with weakness in the hands/fingers(could not remove cap of pen). She had an extensive w/u including imaging, CSF, blood work. MRI LS spine and thoracic spine w/wo contrast showed enhancement, CSF protein was 42. She was treated with 5 day course of IVIG. She was discharged to [facility](x 6 weeks). She had EMG (no results available in CareEverywhere). She was in the wheelchair upon discharge from [facility], was able to stand, arm strength was 50% better, able to maneuver wheelchair. She had 2nd EMG in Oct 2019 that showed improvement. She came home 10/16/2019, continued home PT and OT for at least 6 months. She was walking with a walker. She continued to receive IVIG monthly. She had an OP f/u in January 2020. Repeat EMG continued to show improvement but she was admitted for another course of a 5 day course of IVIG in January 2020 and received another IVIG in Feb 2020 and then discontinued. No prednisone or other medication given since. She continued with home PT/OT until the last part of 2019 and then went to OP PT/OT (Jun 2020 to Nov 2020). [place]. She continued to do her PT exercises at home. She started driving short distances(5 miles) in May 2020. 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 She is now establishing with physicians in [place]. Currently, she lives in an apartment alone. It is one floor, she managing and able to do her ADLs. She continues to walk with cane short distances(300-400 feet). She continues to fall, last fall was in Aug 2022 - she was walking in the living room when legs gave out and fell forward, no head trauma/LOC. She managed to get up with a friend's help. She feels she may still have some arm weakness - could not carry/lift anything heavier than a gallon of milk. She is currently driving. Since she moved to [place], she only had 1 PT session because of her co-pay($40). She is hoping to go to water therapy. She was going to [facility] since May 2022, went everyday until Aug 2022 and felt her legs were better but got lazy and has not gone back. She is currently on cymbalta(depression /anxiety), baclofen and pregabalin(for neuropathy). She mentions to have on and off pain from the neuropathy - stabbing pains in the legs with tightening up. 04/12/23: Blood work (nov 2022) showed low vit D(25), HBA1C was 7.4; had elevated kappa and lambda free light chains without evidence of M-protein. She is currently on B12, vit D replaced in the past. She mentions that HBA1C from last month with PCP was 5.4; unsure what her latest vit D level is. She fell on 03/17/23, she lost her balance on concrete, fell backwards. No head trauma or LOC. She called for help and a bystander came to help, managed to go back to the house with a cane. She continues to have balance issues, usually catches herself. She reports she goes to [facility]([employer] - machines for legs, arms); about to start going to the [facility]. She swims the [place] 3 days/week. She does not feel she needs to see PT given the activity she is doing. Feet are constantly burning with numbness/tingling. Muscle spasms have been 'crazy'. She mentions arms may be tingling from the elbows without triggers since Feb 2023, may last x 10-20 minutes and recurs through the day. Prefers not to repeat EMG. She remains on cymbalta (60 mg qday), and pregabalin(100 mg tid) Interval history: She continues to have leg symptoms. Legs are worse x 1 month - excruciating pain - constant cold/pressure, pins and needles in the feet clothing feels like 'needles' on the skin', legs feel like 'jello', harder to walk, had a close call but no falls recently. She continues to go to [facility] - works on machines for legs/arms 3x/week. She remains on cymbalta 60 mg daily and pregabalin 100 mg tid - but still has symptoms. Medication tried; gabapentin(hallucinations) Current Outpatient Medications Medication Sig Dispense Refill diclofenac (VOLTAREN) 1 % topical gel Apply to affected area twice daily. ubrogepant (UBRELVY) 100 mg tablet Take 1 tablet at migraine onset. May repeat dose in 2 hours if needed. Maximum 200 mg per 24 hours. 16 tablet 5 semaglutide (OZEMPIC) 0.25 mg or 0.5 mg (2 mg/3 mL) pen erenumab-aooe (AIMOVIG AUTOINJECTOR) 140 mg/mL auto-injector Inject 1 mL under the skin once every month. Do not shake. 3 mL 3 DULoxetine (CYMBALTA) 60 mg capsule Take 60 mg by mouth once daily. atorvastatin (LIPITOR) 10 mg tablet Take 10 mg by mouth once daily. linaclotide (LINZESS) 145 mcg capsule Take 145 mcg by mouth DAILY (6 AM). propranolol (INDERAL) 10 mg tablet Take 10 mg by mouth once daily. dapagliflozin (FARXIGA) 10 mg tablet Take by mouth daily with breakfast. metFORMIN (GLUCOPHAGE) 500 mg tablet Take 500 mg by mouth twice daily with meals. SITagliptin phosphate (JANUVIA) 100 mg tablet Take 100 mg by mouth once daily. pregabalin (LYRICA) 100 mg capsule Take 100 mg by mouth three times daily. lisinopril 2.5 mg tablet Take 2.5 mg by mouth once daily. No current facility-administered medications for this visit. Family and social history reviewed, unchanged. REVIEW OF SYSTEMS: per HPI General: no wt. loss/gain, change in appetite, fever, malaise HEENT: no headache, problems with vision, hearing Cardiac: no chest pain, palpitation Respiratory: no shortness of breath, cough, cold GI: no change in bowel habits, abdominal pain : no incontinence, frequency, urgency Musculoskeletal: no joint/muscle pain, no swelling EXAMINATION: No interval change Vitals: BP 104/86 MSE: Awake, alert, oriented x 3, language intact, attention and concentration normal CN: EOMI, no nystagmus, V1-V3 intact, no facial weakness, normal hearing to communication, good elevation of soft palate, tongue midline with good strength, no dysarthria Motor: Gait: walks with a cane, able to tandem, toe and heel walk No pronator drift, rapid finger movements are symmetrical Normal tone and bulk No adventitious movements Power: Right Left Neck flexion 5/5 Neck extension 5/5 Trapezius 5/5 5/5 Deltoids 5/5 5/5 Biceps 5/5 5/5 Triceps 5/5 5/5 Wrist Ext 5/5 5/5 Wrist Flex 5/5 5/5 Finger Ext 5/5 5/5 FDI 5/5 5/5 ADM 5/5 5/5 APB 5/5 5/5 FDP 2,3 5/5 5/5 FDP 4,5 5/5 5/5 FPL 5 /5 5/5 Hip Flexors 5/5 5/5 Knee Extensors 5/5 5/5 Knee Flexors 5/5 5/5 Ankle DF 5/5 5/5 Ankle PF 5/5 5/5 Inversion 5/5 5/5 Eversion 5/5 5/5 Toe Flexion 5/5 5/5 Toe Extension 5/5 5/5 Coordination: intact finger to nose and heel to henderson Reflexes: B T Br K A Plantars R 2+ 2+ 2+ 2+ 2+ down L 2+ 2+ 2+ 2+ 2+ down Sensory: intact to light touch, pinprick, intact position and reduced vibration from ankles today Romberg's negative DIAGNOSTIC TESTS: MRI LS spine([facility]) - 01/27/21 Degenerative changes including right foraminal disc herniations at L2-L3 and L3-L4 and severe loss of disc height with degenerative endplate changes at L4-L5, stable compared to prior exam of 04/04/2020. No high grade spinal canal stenosis. MRI LS spine w/wo contrast([facility]) - 04/04/2020 Redemonstration of slight enhancement along the anterior nerve roots of the cauda quina, which could be seen with chronic inflammatory demyelinating polyneuropathy (CIDP). Mild to moderate degenerative changes are noted throughout the lumbar spine, most pronounced at L3-L4 and L4-L5. MRI LS spine w/wo contrast ([facility])- 01/18/20 1. Stable redemonstration of postcontrast enhancement of nerve roots within the cauda equina. Again, due to chronicity, this may represent CIDP. 2. Unchanged appearance of degenerative changes within the lumbosacral spine. MRI thoracic w/wo contrast ([facility])- 01/18/20 Stable redemonstration of anterior nerve root enhancement within the cauda equina. Given the chronicity of these findings, CIDP may be considered with a progressive granulomatous or neoplastic process felt less likely. MRI cervical spine w/wo contrast ([facility])- 01/18/20 Redemonstration of [id number] degenerative changes within the cervical spine, which is worst at C4-5 and C5-6. There is moderate to severe left foraminal stenosis at C4-5 and C5-6 with left C4-5 facet enhancing arthropathy MRI thoracic w/wo contrast ([facility]) - 08/29/2019 1. Enhancement of the anterior nerve roots comprising the cauda equina seen on the inferior most aspect of the sagittal postcontrast T1 weighted series. 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 Other inflammatory processes such as CIDP, granulomatous infectious processes as and neoplastic processes can cause this appearance, but are thought to be less likely. MRI LS spine w/wo contrast ([facility]) - 08/29/2019 1. 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 This appearance is much less suggestive of possible neoplastic processes such as CSF spread of intracranial neoplasm MRI c-spine w/wo contrast ([facility])- 08/30/2019 1. Mild degenerative changes within the cervical spine most prominent at the C4-5 and C5-6 levels. No cord signal abnormality or cord compression is appreciated. MRI brain w/wo contrast ([facility]) - 08/30/2019 No acute intracranial process. 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 Examination today reveals normal strength in the distal hand and leg muscles with intact reflexes and reduced sensation to multiple modalities distally. 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 Discussed about GBS, prognosis and treatment options. Get records of EMGs from [facility] - she will retry to get records EMG discussed but she defers repeating at this time Symptomatic treatment - cymbalta (60 mg qday), pregabalin (100 mg tid), given by PCP Pain management consult - does not want 'shots' Conservative measures for cramping: potassium rich foods, magnesium, calcium, trial of tonic water Better control of blood sugars, avoid fluctuations; last HBA1C was 7.4(nov 2022) Not up to date with ophthalmology and podiatry PT for balance training but defers- has concerns with co-pay Follow-up in 6-9 months or earlier if necessary. I spent a total of 30 minutes on the date of the service which included preparing to see the patient, [id number] patient care, completing clinical documentation, obtaining and/or reviewing separately obtained history, performing a medically appropriate examination, counseling and educating the patient/family/caregiver, and ordering medications, tests, or procedures. Judy Nielsen MD Neurology Please send a copy of note to: Felipa Hill [phone] [address] [facility] [id number] documented in this encounter [facility] 04-12-2023 Note HNO ID: [id number] Author: Judy Nielsen MD Service: ? Author Type: Physician Type: Progress Notes Filed: 04/12/2023 1:04 PM Note Text: Neurology Follow-Up - April 12, 2023 Felipa Hill is following up for neuropathy. She was last seen on 12/01/22. Notes from previous visits are as follows: 12/01/22: She was living in [place] in 2019, taking care of her mother since 2014. In Aug 2019, she fell as she was trying to get out of bed, no feeling/strength in the legs. She could not move anything from waist down. Her brother was visiting and was brought to a [facility](08/25/2019, [facility]). 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 She had no movement or feeling from waist down, numbness/tingling in both arms with weakness in the hands/fingers(could not remove cap of pen). She had an extensive w/u including imaging, CSF, blood work. MRI LS spine and thoracic spine w/wo contrast showed enhancement, CSF protein was 42. She was treated with 5 day course of IVIG. She was discharged to [facility](x 6 weeks). She had EMG (no results available in CareEverywhere). She was in the wheelchair upon discharge from [facility], was able to stand, arm strength was 50% better, able to maneuver wheelchair. She had 2nd EMG in Oct 2019 that showed improvement. She came home 10/16/2019, continued home PT and OT for at least 6 months. She was walking with a walker. She continued to receive IVIG monthly. She had an OP f/u in January 2020. Repeat EMG continued to show improvement but she was admitted for another course of a 5 day course of IVIG in January 2020 and received another IVIG in Feb 2020 and then discontinued. No prednisone or other medication given since. She continued with home PT/OT until the last part of 2019 and then went to OP PT/OT (Jun 2020 to Nov 2020). [place]. She continued to do her PT exercises at home. She started driving short distances(5 miles) in May 2020. 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 She is now establishing with physicians in [place]. Currently, she lives in an apartment alone. It is one floor, she managing and able to do her ADLs. She continues to walk with cane short distances(300-400 feet). She continues to fall, last fall was in Aug 2022 - she was walking in the living room when legs gave out and fell forward, no head trauma/LOC. She managed to get up with a friend's help. She feels she may still have some arm weakness - could not carry/lift anything heavier than a gallon of milk. She is currently driving. Since she moved to [place], she only had 1 PT session because of her co-pay($40). She is hoping to go to water therapy. She was going to [facility] since May 2022, went everyday until Aug 2022 and felt her legs were better but got lazy and has not gone back. She is currently on cymbalta(depression /anxiety), baclofen and pregabalin(for neuropathy). She mentions to have on and off pain from the neuropathy - stabbing pains in the legs with tightening up. Interval history: Blood work (nov 2022) showed low vit D(25), HBA1C was 7.4; had elevated kappa and lambda free light chains without evidence of M-protein. She is currently on B12, vit D replaced in the past. She mentions that HBA1C from last month with PCP was 5.4; unsure what her latest vit D level is. She fell on 03/17/23, she lost her balance on concrete, fell backwards. No head trauma or LOC. She called for help and a bystander came to help, managed to go back to the house with a cane. She continues to have balance issues, usually catches herself. She reports she goes to [facility]([employer] - machines for legs, arms); about to start going to the [facility]. She swims the [employer] 3 days/week. She does not feel she needs to see PT given the activity she is doing. Feet are constantly burning with numbness/tingling. Muscle spasms have been 'crazy'. She mentions arms may be tingling from the elbows without triggers since Feb 2023, may last x 10-20 minutes and recurs through the day. Prefers not to repeat EMG. She remains on cymbalta (60 mg qday), and pregabalin(100 mg tid) Current Outpatient Medications Medication Sig Dispense Refill ubrogepant (UBRELVY) 100 mg tablet Take 1 tablet at migraine onset. May repeat dose in 2 hours if needed. Maximum 200 mg per 24 hours. 16 tablet 5 semaglutide (OZEMPIC) 0.25 mg or 0.5 mg (2 mg/3 mL) pen erenumab-aooe (AIMOVIG AUTOINJECTOR) 140 mg/mL auto-injector Inject 1 mL under the skin once every month. Do not shake. 3 mL 3 DULoxetine (CYMBALTA) 60 mg capsule Take 60 mg by mouth once daily. atorvastatin (LIPITOR) 10 mg tablet Take 10 mg by mouth once daily. linaclotide (LINZESS) 145 mcg capsule Take 145 mcg by mouth DAILY (6 AM). baclofen (LIORESAL) (more content not included)... [facility] [place] 04-12-2023 History of Presen t illness Narrative Neurology Follow-Up - April 12, 2023 Felipa Hill is following up for neuropathy. She was last seen on 12/01/22. Notes from previous visits are as follows: 12/01/22: She was living in [place] in 2019, taking care of her mother since 2014. In Aug 2019, she fell as she was trying to get out of bed, no feeling/strength in the legs. She could not move anything from waist down. Her brother was visiting and was brought to a [facility](08/25/2019, [facility]). 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 She had no movement or feeling from waist down, numbness/tingling in both arms with weakness in the hands/fingers(could not remove cap of pen). She had an extensive w/u including imaging, CSF, blood work. MRI LS spine and thoracic spine w/wo contrast showed enhancement, CSF protein was 42. She was treated with 5 day course of IVIG. She was discharged to [facility](x 6 weeks). She had EMG (no results available in CareEverywhere). She was in the wheelchair upon discharge from [facility], was able to stand, arm strength was 50% better, able to maneuver wheelchair. She had 2nd EMG in Oct 2019 that showed improvement. She came home 10/16/2019, continued home PT and OT for at least 6 months. She was walking with a walker. She continued to receive IVIG monthly. She had an OP f/u in January 2020. Repeat EMG continued to show improvement but she was admitted for another course of a 5 day course of IVIG in January 2020 and received another IVIG in Feb 2020 and then discontinued. No prednisone or other medication given since. She continued with home PT/OT until the last part of 2019 and then went to OP PT/OT (Jun 2020 to Nov 2020). She moved to [facility] since Nov 2020. She continued to do her PT exercises at home. She started driving short distances(5 miles) in May 2020. 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 She is now establishing with physicians in [place]. Currently, she lives in an apartment alone. It is one floor, she managing and able to do her ADLs. She continues to walk with cane short distances(300-400 feet). She continues to fall, last fall was in Aug 2022 - she was walking in the living room when legs gave out and fell forward, no head trauma/LOC. She managed to get up with a friend's help. She feels she may still have some arm weakness - could not carry/lift anything heavier than a gallon of milk. She is currently driving. Since she moved to [place], she only had 1 PT session because of her co-pay($40). She is hoping to go to water therapy. She was going to [facility] since May 2022, went everyday until Aug 2022 and felt her legs were better but got lazy and has not gone back. She is currently on cymbalta(depression /anxiety), baclofen and pregabalin(for neuropathy). She mentions to have on and off pain from the neuropathy - stabbing pains in the legs with tightening up. Interval history: Blood work (nov 2022) showed low vit D(25), HBA1C was 7.4; had elevated kappa and lambda free light chains without evidence of M-protein. She is currently on B12, vit D replaced in the past. She mentions that HBA1C from last month with PCP was 5.4; unsure what her latest vit D level is. She fell on 03/17/23, she lost her balance on concrete, fell backwards. No head trauma or LOC. She called for help and a bystander came to help, managed to go back to the house with a cane. She continues to have balance issues, usually catches herself. She reports she goes to [facility]([employer] - machines for legs, arms); about to start going to the [facility]. She swims the [place] 3 days/week. She does not feel she needs to see PT given the activity she is doing. Feet are constantly burning with numbness/tingling. Muscle spasms have been 'crazy'. She mentions arms may be tingling from the elbows without triggers since Feb 2023, may last x 10-20 minutes and recurs through the day. Prefers not to repeat EMG. She remains on cymbalta (60 mg qday), and pregabalin(100 mg tid) Current Outpatient Medications Medication Sig Dispense Refill ubrogepant (UBRELVY) 100 mg tablet Take 1 tablet at migraine onset. May repeat dose in 2 hours if needed. Maximum 200 mg per 24 hours. 16 tablet 5 semaglutide (OZEMPIC) 0.25 mg or 0.5 mg (2 mg/3 mL) pen erenumab-aooe (AIMOVIG AUTOINJECTOR) 140 mg/mL auto-injector Inject 1 mL under the skin once every month. Do not shake. 3 mL 3 DULoxetine (CYMBALTA) 60 mg capsule Take 60 mg by mouth once daily. atorvastatin (LIPITOR) 10 mg tablet Take 10 mg by mouth once daily. linaclotide (LINZESS) 145 mcg capsule Take 145 mcg by mouth DAILY (6 AM). baclofen (LIORESAL) 10 mg tablet Take 10 mg by mouth three times daily. (Patient not taking: Reported on 02/26/2023) propranolol (INDERAL) 10 mg tablet Take 10 mg by mouth once daily. dapagliflozin (FARXIGA) 10 mg tablet Take by mouth daily with breakfast. metFORMIN (GLUCOPHAGE) 500 mg tablet Take 500 mg by mouth twice daily with meals. SITagliptin phosphate (JANUVIA) 100 mg tablet Take 100 mg by mouth once daily. pregabalin (LYRICA) 100 mg capsule Take 100 mg by mouth three times daily. lisinopril 2.5 mg tablet Take 2.5 mg by mouth once daily. naproxen sodium (ANAPROX) 220 mg tablet Take 220 mg by mouth twice daily with meals. (Patient not taking: Reported on 02/26/2023) No current facility-administered medications for this visit. Family and social history reviewed, unchanged. REVIEW OF SYSTEMS: per HPI General: no wt. loss/gain, change in appetite, fever, malaise HEENT: no headache, problems with vision, hearing Cardiac: no chest pain, palpitation Respiratory: no shortness of breath, cough, cold GI: no change in bowel habits, abdominal pain : no incontinence, frequency, urgency Musculoskeletal: no joint/muscle pain, no swelling EXAMINATION: No interval change Vitals: BP 103/77 (BP Site: Left Arm, BP Position: Sitting, BP Cuff Size: Large Adult) Pulse 87 MSE: Awake, alert, oriented x 3, language intact, attention and concentration normal CN: pupils are equal and reactive to light, funduscopy: clear disc margins, EOMI, no nystagmus, V1-V3 intact, no facial weakness, normal hearing to communication, good elevation of soft palate, tongue midline with good strength, no dysarthria Motor: Gait: walks with a cane, able to tandem, toe and heel walk No pronator drift, rapid finger movements are symmetrical Normal tone and bulk No adventitious movements Power: Right Left Neck flexion 5/5 Neck extension 5/5 Trapezius 5/5 5/5 Deltoids 5/5 5/5 Biceps 5/5 5/5 Triceps 5/5 5/5 Wrist Ext 5/5 5/5 Wrist Flex 5/5 5/5 Finger Ext 4+/5 4+/5 FDI 4+/5 4+/5 ADM 4+/5 4+/5 APB 4+/5 4+/5 FDP 2,3 4+/5 4+/5 FDP 4,5 4+/5 4+/5 FPL 4+/5 4+/5 Hip Flexors 5/5 5/5 Knee Extensors 5/5 5/5 Knee Flexors 5/5 5/5 Ankle DF 5/5 5/5 Ankle PF 5/5 5/5 Inversion 5/ 5/5 Eversion 5/ 5/5 Toe Flexion 4/5 4/5 Toe Extension /5 4/5 Coordination: intact finger to nose and heel to henderson Reflexes: B T Br K A Plantars R 2+ 2+ 2+ 2+ 2+ down L 2+ 2+ 2+ 2+ 2+ down Sensory: intact to light touch, reduced pinprick from ankles and mid palms, intact position and reduced vibration at toes(normal at ankles) Romberg's negative DIAGNOSTIC TESTS: MRI LS spine([facility]) - 01/27/21 Degenerative changes including right foraminal disc herniations at L2-L3 and L3-L4 and severe loss of disc height with degenerative endplate changes at L4-L5, stable compared to prior exam of 04/04/2020. No high grade spinal canal stenosis. MRI LS spine w/wo contrast([facility]) - 04/04/2020 Redemonstration of slight enhancement along the anterior nerve roots of the cauda quina, which could be seen with chronic inflammatory demyelinating polyneuropathy (CIDP). Mild to moderate degenerative changes are noted throughout the lumbar spine, most pronounced at L3-L4 and L4-L5. MRI LS spine w/wo contrast ([facility])- 01/18/20 1. Stable redemonstration of postcontrast enhancement of nerve roots within the cauda equina. Again, due to chronicity, this may represent CIDP. 2. Unchanged appearance of degenerative changes within the lumbosacral spine. MRI thoracic w/wo contrast ([facility])- 01/18/20 Stable redemonstration of anterior nerve root enhancement within the cauda equina. Given the chronicity of these findings, CIDP may be considered with a progressive granulomatous or neoplastic process felt less likely. MRI cervical spine w/wo contrast ([facility])- 01/18/20 Redemonstration of [id number] degenerative changes within the cervical spine, which is worst at C4-5 and C5-6. There is moderate to severe left foraminal stenosis at C4-5 and C5-6 with left C4-5 facet enhancing arthropathy MRI thoracic w/wo contrast ([facility]) - 08/29/2019 1. Enhancement of the anterior nerve roots comprising the cauda equina seen on the inferior most aspect of the sagittal postcontrast T1 weighted series. 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 Other inflammatory processes such as CIDP, granulomatous infectious processes as and neoplastic processes can cause this appearance, but are thought to be less likely. MRI LS spine w/wo contrast ([facility]) - 08/29/2019 1. 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 This appearance is much less suggestive of possible neoplastic processes such as CSF spread of intracranial neoplasm MRI c-spine w/wo contrast ([facility])- 08/30/2019 1. Mild degenerative changes within the cervical spine most prominent at the C4-5 and C5-6 levels. No cord signal abnormality or cord compression is appreciated. MRI brain w/wo contrast ([facility]) - 08/30/2019 No acute intracranial process. Laboratory([facility]): HBA1C(02/19/22) 8.2 Lyme IgG, IgM (08/29/2019)- neg B12/MMA (08/31/19) 535/0.23 Paraneoplastic panel (08/29/2019) - neg except for minimally elevate P/Q calcium channel Ab( normal of </= 0.02, her value was 0.03) GQ1B Ab (08/29/2019) neg CSF(08/29/19) WBC 1, RBC 1, gluc 60, protein 42 No bands, normal IgG index No malignant cells No growth on culture VZV PCR, HSV 1 PCR, HSV 2 PCR negative Lyme PCR neg Enterovirus PCR neg [place] neg Component Latest Ref Rng & Units 12/01/2022 Result ([facility]) No M protein is identified. No M protein is identified. Interpretation ([facility]) Not Applicable Staff Review ([facility]) Reviewed by Dr. Radha Kim MD IgG 700 - 1,600 mg/dL 1,808 (H) IgA 70 - 400 mg/dL 383 IgM 40 - 230 mg/dL 142 [place] Free, Serum 3.3 - 19.4 mg/L 67.2 (H) Lambda Free, Serum 5.7 - 26.3 mg/L 31.3 (H) K/L Ratio, Serum 0.26 - 1.65 2.15 (H) Hemoglobin A1C 4.3 - 5.6 % 7.4 (H) Estimated Average Glucose mg/dL 166 MPA Result No M protein is identified. No M protein is identified. Staff Review ([facility]) Reviewed by Dr. 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 Examination reveals distal hand and leg weakness with intact reflexes and reduced sensation to multiple modalities distally. 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 Discussed about GBS, prognosis and treatment options. Get records of EMGs from [facility] - she will be going there and will try to get records EMG discussed but she defers; trial of elbow pads Symptomatic treatment - cymbalta (60 mg qday), pregabalin (100 mg tid), baclofen(10 mg tid) - d/c by PCP Conservative measures for cramping: potassium rich foods, magnesium, calcium, trial of tonic water Better control of blood sugars, avoid fluctuations Not up to date with ophthalmology and podiatry PT - has concerns with co-pay Follow-up in 6 months or earlier if necessary. I spent a total of 30 minutes on the date of the service which included preparing to see the patient, [id number] patient care, completing clinical documentation, obtaining and/or reviewing separately obtained history, performing a medically appropriate examination, counseling and educating the patient/family/caregiver, and communicating results to the patient/family/caregiver. Judy Nielsen MD Neurology Please send a copy of note to: Felipa Hill [id number] [facility] [id number] documented in this encounter [facility] 03-30-2023 Miscellaneous Notes Patient requested a 90 day supply. Please advise. Patient has been identified by name and date of : Yes Requested Prescriptions Pending Prescriptions Disp Refills ubrogepant (UBRELVY) 100 mg tablet 16 tablet 5 Sig: Take 1 tablet at migraine onset. May repeat dose in 2 hours if needed. Maximum 200 mg per 24 hours. RX INSTRUCTIONS: Patient requesting a call when RX is approved and sent to the pharmacy. Please call patient at: [phone] Thank you, Rosa Jarvis documented in this encounter [facility] 02-26-2023 Note HNO ID: [id number] Author: Yuliya Agrawal APRN.REFRIGERATION UNIT REPAIRER Service: ? Author Type: Nurse Practitioner Type: Progress Notes Filed: 02/26/2023 10:22 AM Note Text: [facility] - Follow Up Visit Accompanied by: self Primary Problem List: There is no problem list on file for this patient. Chief Complaint: migraine LV: 11/10/22 Dr. 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 Her headaches are consistent with migraines - unilateral throbbing quality, severe intensity, associated nausea, vomiting, photophobia, phonophobia, as well as visual auras. She is currently on Ubrelvy 100 mg prn for abortive therapy which she says helps. She may also have medication overuse/rebound contributing to her pain, as she currently takes naproxen ~15 days out of the month, and recommended she limit naproxen use to no more than twice weekly to prevent medication overuse headache. She has tried many preventative therapies in the past, most of which where ineffective. She states she would like to continue Aimovig, as she has had the most success with it, and feels a lot better overall on it. Will plan to resume Aimovig monthly injections for preventative therapy. Patient will follow up in 3 months to reassess her symptoms. Plan: - Discussed all options for treatment. All questions answered. - Preventative: Aimovig 140 mg injections monthly - Abortive: Ubrelvy 100 mg prn; can also use naproxen prn but patient was advised to limit use to no more than 2 times per week to prevent medication overuse headache. - Patient advised to continue headache diary - Referral to [facility] for neuropathy management - Headache education done. Discussed lifestyle modification including increased oral hydration, exercise and stress management. Discussed all treatment options. Discussed medication side effects, adverse reactions and drug interactions. Written educational materials were given to the patient. - All questions and concerns from patient were addressed at today's visit. Patient is in agreement with above plan. 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 Since the last visit, the patient states that her headaches have improved. Seen in November to establish care with our department, plan at the time was to continue her current medication regimen, she also had a referral to [facility] for neuropathy management. Aimovig has reduced her migraine frequency and severity. She is virtually headache free for 2 weeks after injection before headaches begin to occur again. Ubrelvy is effective as her rescue medication when she needs it. Currently she is averaging about 12 headache days a month, with 8 days being migrainous. Prior to Aimovig she was having 22 headache days a month. Since her last visit she has greatly reduced her naproxen use, rarely using it now. She has also lost weight (37 pounds since December) on Ozempic with her PCP. 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 Days without treatment Number of headache days/month: 8 migraines/month, 4 tension-type headaches/month Onset of headache to peak: varies, usually gradually builds up Intensity: 7-8/10 on 0-10 scale. 10/10 on worst days (at least 7 days per month w/ 10/10 pain) Location: Start in L temporal, radiates to top of head then down back of head. Occasionally on R side. Character: throbbing and sharp. Most common time of day for headache to begin: Can happen at anytime. Wakes her up at night occasionally. Positional changes: worse with laying flat - cannot lay flat when she has a headache. Triggers: No known triggers Relieving factors: sleep in a dark room Associated symptoms: photophobia, phonophobia, nausea, vomiting. Prodrome: none. Aura: blurred vision, Dots, and Scotoma ( lighting bolts ). Vision changes occur with most migraines Allodynia: sometimes Time missed from work or school: Does not work, on disability. Affects her ability to work around the house due to the pain and need for laying down frequently. Preventative: Aimovig 140 mg Abortive: Ubrelvy 100 mg prn Medications with outs (more content not included)... [facility] 02-26-2023 History of Presen t illness Narrative Images from the original note were not included. Outpatient [facility] - Follow Up Visit Accompanied by: self Primary Problem List: There is no problem list on file for this patient. Chief Complaint: migraine LV: 11/10/22 Dr. 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 Her headaches are consistent with migraines - unilateral throbbing quality, severe intensity, associated nausea, vomiting, photophobia, phonophobia, as well as visual auras. She is currently on Ubrelvy 100 mg prn for abortive therapy which she says helps. She may also have medication overuse/rebound contributing to her pain, as she currently takes naproxen ~15 days out of the month, and recommended she limit naproxen use to no more than twice weekly to prevent medication overuse headache. She has tried many preventative therapies in the past, most of which where ineffective. She states she would like to continue Aimovig, as she has had the most success with it, and feels a lot better overall on it. Will plan to resume Aimovig monthly injections for preventative therapy. Patient will follow up in 3 months to reassess her symptoms. Plan: - Discussed all options for treatment. All questions answered. - Preventative: Aimovig 140 mg injections monthly - Abortive: Ubrelvy 100 mg prn; can also use naproxen prn but patient was advised to limit use to no more than 2 times per week to prevent medication overuse headache. - Patient advised to continue headache diary - Referral to [facility] for neuropathy management - Headache education done. Discussed lifestyle modification including increased oral hydration, exercise and stress management. Discussed all treatment options. Discussed medication side effects, adverse reactions and drug interactions. Written educational materials were given to the patient. - All questions and concerns from patient were addressed at today's visit. Patient is in agreement with above plan. 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 Since the last visit, the patient states that her headaches have improved. Seen in November to establish care with our department, plan at the time was to continue her current medication regimen, she also had a referral to [facility] for neuropathy management. Aimovig has reduced her migraine frequency and severity. She is virtually headache free for 2 weeks after injection before headaches begin to occur again. Ubrelvy is effective as her rescue medication when she needs it. Currently she is averaging about 12 headache days a month, with 8 days being migrainous. Prior to Aimovig she was having 22 headache days a month. Since her last visit she has greatly reduced her naproxen use, rarely using it now. She has also lost weight (37 pounds since December) on Ozempic with her PCP. 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 Days without treatment Number of headache days/month: 8 migraines/month, 4 tension-type headaches/month Onset of headache to peak: varies, usually gradually builds up Intensity: 7-8/10 on 0-10 scale. 10/10 on worst days (at least 7 days per month w/ 10/10 pain) Location: Start in L temporal, radiates to top of head then down back of head. Occasionally on R side. Character: throbbing and sharp. Most common time of day for headache to begin: Can happen at anytime. Wakes her up at night occasionally. Positional changes: worse with laying flat - cannot lay flat when she has a headache. Triggers: No known triggers Relieving factors: sleep in a dark room Associated symptoms: photophobia, phonophobia, nausea, vomiting. Prodrome: none. Aura: blurred vision, Dots, and Scotoma ( lighting bolts ). Vision changes occur with most migraines Allodynia: sometimes Time missed from work or school: Does not work, on disability. Affects her ability to work around the house due to the pain and need for laying down frequently. Preventative: Aimovig 140 mg Abortive: Ubrelvy 100 mg prn Medications with outside providers: Cymbalta (60 mg qday), baclofen(10 mg tid), pregabalin (100 mg tid) Medications effective? yes # of doses of abortive medications per month: 8 Prior Therapies Duration of Use Dose Reason for Discontinuation Other Therapies Nerve blocks Analgesic Acetaminophen with codeine (Tylenol #3) Hydrocodone/Acetaminophen (Vicodin, Dendron) Anti-Convulsant Gabapentin (Neurontin) Pregabalin (Lyrica) Topiramate (Topamax, Trokendi XL, Qudexy) Anti-Depressant and Antipsychotic Amitriptyline (Elavil) Duloxetine (Cymbalta) Antiemetics Ondansetron Anti-Migraine Naratriptan (Amerge) Rizatriptan (Maxalt) Sumatriptan (Imitrex, Sumavel) Blood Pressure Lisinopril (Zestril) Propranolol (Inderal) MABs Erenumab (Aimovig) GEPANTS Ubrogepant (Ubrelvy) Rimegepant (Nurtec) Botulinum Toxin Onabotulinum Toxin A (Botox) March 2019. X 1 round. base of skull, temples, occipital/parietal area, frontal area. None in shoulder. 13 injections. Muscle Relaxer Baclofen (Lioresal) Cyclobenzaprine (Flexeril) Over the Counter Medications Acetaminophen (Tylenol) Naproxen sodium (Aleve) PAST MEDICAL HISTORY Diagnosis Date Anxiety state CIDP (chronic inflammatory demyelinating polyneuropathy) ([facility]) 2020 Depression Diabetes mellitus ([facility]) Essential hypertension IBS (irritable bowel syndrome) Migraines Mixed hyperlipidemia Obesity History reviewed. No pertinent surgical history. ALLERGIES Allergen Reactions Demerol [Meperidine* Hives Current Medications: semaglutide (OZEMPIC) 0.25 mg or 0.5 mg (2 mg/3 mL) pen ubrogepant (UBRELVY) 100 mg tablet Take 1 tablet at migraine onset. May repeat dose in 2 hours if needed. Maximum 200 mg per 24 hours. DULoxetine (CYMBALTA) 60 mg capsule Take 60 mg by mouth once daily. atorvastatin (LIPITOR) 10 mg tablet Take 10 mg by mouth once daily. linaclotide (LINZESS) 145 mcg capsule Take 145 mcg by mouth DAILY (6 AM). propranolol (INDERAL) 10 mg tablet Take 10 mg by mouth once daily. dapagliflozin (FARXIGA) 10 mg tablet Take by mouth daily with breakfast. metFORMIN (GLUCOPHAGE) 500 mg tablet Take 500 mg by mouth twice daily with meals. SITagliptin phosphate (JANUVIA) 100 mg tablet Take 100 mg by mouth once daily. pregabalin (LYRICA) 100 mg capsule Take 100 mg by mouth three times daily. lisinopril 2.5 mg tablet Take 2.5 mg by mouth once daily. erenumab-aooe (AIMOVIG AUTOINJECTOR) 140 mg/mL auto-injector Inject 1 mL subcutaneously once every month. Do not shake. baclofen (LIORESAL) 10 mg tablet Take 10 mg by mouth three times daily. (Patient not taking: Reported on 02/26/2023) naproxen sodium (ANAPROX) 220 mg tablet Take 220 mg by mouth twice daily with meals. (Patient not taking: Reported on 02/26/2023) I have reviewed the Noah Status Assessment responses and discussed these with the patient: yes Yuliya Agrawal APRN.REFRIGERATION UNIT REPAIRER HEADACHE SCORES: Headache Questions 11/10/2022 ID Migraine Screener: 3 (Positive) ER visits in the last year: 0 Hospital stays in the last year: 0 Limited ADLs in the last month: 18 Days missed from work or school in the last month: 0 Days headache pain free in the last month: 5 PRN medication usage in the last month: 18 HIT-6 11/10/2022 HIT-6 Incomplete KATHE - 2/7 SCORES 11/10/2022 KATHE-2 Score 5 KATHE-7 Score 19 Migraine Specific QOL - Higher scores indicate better HRQL 11/10/2022 Role Function-Restrictive Transformed Score (range: 0-100) 20 Role Function-Preventive Transformed Score (range: 0-100) 20 Emotional Function Transformed Score (range: 0-100) 20 PHQ-9 11/10/2022 Score 19 Studies to Review: No Labs to Review No - Most recent CMP and CBC below New Health Issues: No New Family History: No Review of Systems: Review of system : unchanged from the previous visit (sleep patterns, mood, energy, appetite, stress, exercising). Physical Examination: VS: BP 119/75 (BP Site: Left Arm, BP Position: Sitting, BP Cuff Size: Large Adult) Pulse 80 Ht 170.2 cm (5' 7 ) Wt 83.9 kg (185 lb) SpO2 100% BMI 28.98 kg/m General: well appearing, in no acute distress, alert HEENT: Normocephalic/atraumatic. Skin: Color, texture, turgor normal. No rashes or lesions Lungs: normal breath sounds bilaterally CV: RRR, normal S1, S2 auscultated, no murmurs, and no JVD Musculoskeletal: No gross joint deformities. Neurological: Pain Behaviors: no pain behaviors observed Mental Status: Alert and oriented to person, place and time. Affect is normal and appropriate. Speech is spontaneous and fluent without dysarthria, normal in rate, volume and articulation, and clear, coherent, and relevant. Short and long-term memory, cognition and general fund of knowledge are good. Attention span and concentration are good. Cranial Nerves: II-Visual quijano are full. III, IV, - extraocular muscles intact bilaterally, PERRL, nystagmus absent, V-normal facial sensation to light touch. VII-face is symmetric without evidence of weakness. VIII-hearing intact. IX, X-palate elevates symmetrically. XI-SCM 5/5 with shoulder shrug. XII-tongue protrudes midline with normal movements. No atrophy or fasciculations of the tongue. Motor: Normal muscle tone and bulk. No evidence of atrophy or fasciculations. Strength is normal, 5/5. Sensation: normal light touch in the upper and lower extremities. Cerebellar: No ataxia. Normal finger to nose. Deep Tendon Reflexs: 2+. Gait examination is normal. 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 Her neurological examination is essentially normal at this visit. She reports >50% improvement in migraine frequency on Aimovig, denies any side effects or injection site reaction. She reports some wearing off after 2 weeks but can control her migraines with Ubrelvy as needed. If migraines worsen we can consider switching to different CGRP next visit in hopes of better efficacy. She would not like to make any changes at this time, plan to follow up in 6 months. Patient verbalized understanding and agreed to treatment plan. PLAN: -Continue Aimovig 140 mg for migraine prevention -Continue Ubrevly PRN -Follow up 6 months Future considerations: Ajovy, Emgality Prior Authorizations: Felipa Hill has been previously approved for Calcitonin Gene Related Peptide Monoclonal Antibody (CGRP MAB) (Erenumab). The patient has demonstrated the following: Patient reduction in overall migraine days: Yes Patient reduction in moderate-severe migraine days: Yes Individual has obtained clinical benefit deemed significant by individual or prescriber: Yes Patient's quality of life and ability to perform ADLs has improved: Yes We suggest the patient continue treatment with CGRP MAB Erenumab. The following preventative medications have been tried for three or more months without benefit: Anti-Convulsant Gabapentin (Neurontin) Pregabalin (Lyrica) Topiramate (Topamax, Trokendi XL, Qudexy) Anti-Depressant and Antipsychotic Amitriptyline (Elavil) Duloxetine (Cymbalta) Blood Pressure Lisinopril (Zestril) Propranolol (Inderal) MABs Erenumab (Aimovig) Botulinum Toxin Onabotulinum Toxin A (Botox) March 2019. X 1 round. base of skull, temples, occipital/parietal area, frontal area. None in shoulder. 13 injections. The following abortive medications have been tried but require high frequency use which can lead to Medication Overuse Headache: Analgesic Acetaminophen with codeine (Tylenol #3) Hydrocodone/Acetaminophen (Vicodin, Dendron) Anti-Migraine Naratriptan (Amerge) Rizatriptan (Maxalt) Sumatriptan (Imitrex, Sumavel) GEPANTS Ubrogepant (Ubrelvy) Rimegepant (Nurtec) Over the Counter Medications Acetaminophen (Tylenol) Naproxen sodium (Aleve) Felipa Pate Hill has been previously approved for an Oral Calcitonin Gene-Related Peptide Receptor Antagonist (GEPANT) Ubrogepant for the treatment of chronic migraine. The patient has demonstrated the following: Provider attests patient has had a positive clinical response: Yes Patient will not use with another Oral Calcitonin Gene-Related Peptide Receptor Antagonist (GEPANT): Yes Patient's quality of life and ability to perform ADLs has improved: Yes We suggest the patient continue treatment with GEPANT Ubrogepant. The following preventative medications have been tried for three or more months without benefit: Anti-Convulsant Gabapentin (Neurontin) Pregabalin (Lyrica) Topiramate (Topamax, Trokendi XL, Qudexy) Anti-Depressant and Antipsychotic Amitriptyline (Elavil) Duloxetine (Cymbalta) Blood Pressure Lisinopril (Zestril) Propranolol (Inderal) MABs Erenumab (Aimovig) Botulinum Toxin Onabotulinum Toxin A (Botox) March 2019. X 1 round. base of skull, temples, occipital/parietal area, frontal area. None in shoulder. 13 injections. The following abortive medications have been tried but require high frequency use which can lead to Medication Overuse Headache: Analgesic Acetaminophen with codeine (Tylenol #3) Hydrocodone/Acetaminophen (Vicodin, Dendron) Anti-Migraine Naratriptan (Amerge) Rizatriptan (Maxalt) Sumatriptan (Imitrex, Sumavel) GEPANTS Ubrogepant (Ubrelvy) Rimegepant (Nurtec) Over the Counter Medications Acetaminophen (Tylenol) Naproxen sodium (Aleve) HEADACHE MANAGEMENT: (You are the primary guardian of your health and headache. Keep track of all medications: This includes the reason for use, side effects and benefits.) MEDICATION TREATMENT: Medications to Start Taking erenumab-aooe (AIMOVIG AUTOINJECTOR) 140 mg/mL auto-injector Inject 1 mL subcutaneously once every month. Do not shake. Discussed pathophysiology of headache. Discussed use of headache diary. Discussed triggers and lifestyle modifications including limiting caffeine consumption. Discussed treatment options, both abortive and preventive medications. Instructed patient about medications. Discussed medication overuse headache and to limit use of analgesics to less than 2 doses per week. Headache education was done. Discussed lifestyle modification including increased oral hydration, decreased caffeine, exercise and stress management. Discussed treatment options including preventive and acute medications, natural supplements, and infusion therapy. Discussed medication overuse headache and to limit use of acute treatments to no more than 2 days/week or 10 days/month. Discussed medication side effects, adverse reactions and drug interactions. RESEARCH: None at this time Follow-up: 6 months Level of service: Est level 4 (30-39 min). Time spent 35 min on the day of service, which included preparing to see the patient, [id number] patient care, completing clinical documentation, obtaining and/or reviewing separately obtained history, performing a medically appropriate examination, counseling and educating the patient/family/caregiver, and ordering medications, tests, or procedures. Yuliya Agrawal APRN.TITA Headache Section [facility] February 26, 2023 documented in this encounter [facility] 01-26-2023 Note HNO ID: [id number] Author: Hilton Cummins OD Service: ? Author Type: FOUR SLIDE MACHINE OPERATOR Type: Progress Notes Filed: 01/26/2023 1:25 PM Note Text: Encounter Diagnosis ICD-10-CM 1. Type 2 diabetes mellitus without retinopathy (HCC) E11.9 2. Nuclear sclerotic cataract of both eyes H25.13 3. Bilateral presbyopia H52.4 Plan: It is important to have good glucose control in order to reduce the risks of vision loss from diabetes. Regular eye examinations are necessary to monitor for these changes. Call the office immediately if vision changes are noticed. Glasses prescription optional. Monitor early cataracts. Return to clinic 1 year full Diabetes Mellitus exam. [facility] [place] 12-24-2022 Miscellaneous Notes Last office note faxed to number provided. Confirmation of delivery received Felipa Hill is calling Judy Nielsen MD today to request last office visit notes from Dr Nielsen. Please fax to [phone]. Patient has been identified by name and birthdate. Person calling: Joseline @ Dr Lazar's office Was an appointment scheduled: No Closing statement: Results or non-symptom based questions: Thank you for calling [facility], your call will be returned within the next business day. Arleen Pleitez documented in this encounter [facility] 12-24-2022 Miscellaneous Notes Faxed last office note dated 11/10/[address] Lolis Lazar's office at [phone]. documented in this encounter [facility] 12-01-2022 Note HNO ID: [id number] Author: Judy Nielsen MD Service: ? Author Type: Physician Type: Progress Notes Filed: 12/01/2022 10:24 AM Note Text: Neurology Clinic - December 01, 2022 Reason for visit: Ms. Hill is referred by Juan Cardona for my opinion regarding neuropathy. My final recommendation will be communicated back to the requesting physician by way of shared medical record or letter. 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 She was living in [place] in 2018, taking care of her mother since 2014. In Aug 2019, she fell as she was trying to get out of bed, no feeling/strength in the legs. She could not move anything from waist down. Her brother was visiting and was brought to a [facility](08/25/2019, [facility]). 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 She had no movement or feeling from waist down, numbness/tingling in both arms with weakness in the hands/fingers(could not remove cap of pen). She had an extensive w/u including imaging, CSF, blood work. MRI LS spine and thoracic spine w/wo contrast showed enhancement, CSF protein was 42. She was treated with 5 day course of IVIG. She was discharged to [facility](x 6 weeks). She had EMG (no results available in CareEverywhere). She was in the wheelchair upon discharge from [facility], was able to stand, arm strength was 50% better, able to maneuver wheelchair. She had 2nd EMG in Oct 2019 that showed improvement. She came home 10/16/2019, continued home PT and OT for at least 6 months. She was walking with a walker. She continued to receive IVIG monthly. She had an OP f/u in January 2020. Repeat EMG continued to show improvement but she was admitted for another course of a 5 day course of IVIG in January 2020 and received another IVIG in Feb 2020 and then discontinued. No prednisone or other medication given since. She continued with home PT/OT until the last part of 2019 and then went to OP PT/OT (Jun 2020 to Nov 2020). [place] moved to [place] since Nov 2020. She continued to do her PT exercises at home. She started driving short distances(5 miles) in May 2020. 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 She is now establishing with physicians in [place]. Currently, she lives in an apartment alone. It is one floor, she managing and able to do her ADLs. She continues to walk with cane short distances(300-400 feet). She continues to fall, last fall was in Aug 2022 - she was walking in the living room when legs gave out and fell forward, no head trauma/LOC. She managed to get up with a friend's help. She feels she may still have some arm weakness - could not carry/lift anything heavier than a gallon of milk. She is currently driving. Since she moved to [place], she only had 1 PT session because of her co-pay($40). She is hoping to go to water therapy. She was going to [facility] since May 2022, went everyday until Aug 2022 and felt her legs were better but got lazy and has not gone back. She is currently on cymbalta(depression /anxiety), baclofen and pregabalin(for neuropathy). She mentions to have on and off pain from the neuropathy - stabbing pains in the legs with tightening up. Per note dated 01/18/2020 from [facility]: She was admitted to our facility in Aug, 2019 for the concern of GBS (ascending numbness and weakness for few weeks), LP with CSF basic studies unremarkable, initial NCS/EMG was suggestive of generalized neuropathy. MRI of the lumbar spine showed abnormal enhancement of the cauda nerve root anteriorly suggestive of AIDP with mild degenerative changes in the lumbar region and C4-C5/C5-C6 severe left foraminal stenosis on cervival spine MRI w/wo IV contrast. The patient received 2 gr IVIg treatment divided through 5 days with partial improvement in terms of her strength in the lower extremities, per the patient, however, while transitioning to the longterm where she stayed for a month she felt like her weakness had gotten worse. 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 She has currently been using a walker for inside the house and she uses a wheelchair for long distance ambulation. She continues to have weakness in the lower extremities associated with falls and recent R fibular fracture. She denies any respiratory issues, bowel or bladder incontinence. Of note, the patient has been receiving monthly IVIG therefore, she was admitted for an IVIg treatment of questionable underlying AIDP variant (AMSAN) vs. CIDP. BRIEF HOSPITAL NARRAT (more content not included)... [facility] [place] 12-01-2022 History of Presen t illness Narrative Neurology Clinic - December 01, 2022 Reason for visit: Ms. Hill is referred by Juan Cardona for my opinion regarding neuropathy. My final recommendation will be communicated back to the requesting physician by way of shared medical record or letter. 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 She was living in [place] in 2018, taking care of her mother since 2014. In Aug 2019, she fell as she was trying to get out of bed, no feeling/strength in the legs. She could not move anything from waist down. Her brother was visiting and was brought to a [facility](08/25/2019, [facility]). 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 She had no movement or feeling from waist down, numbness/tingling in both arms with weakness in the hands/fingers(could not remove cap of pen). She had an extensive w/u including imaging, CSF, blood work. MRI LS spine and thoracic spine w/wo contrast showed enhancement, CSF protein was 42. She was treated with 5 day course of IVIG. She was discharged to [facility](x 6 weeks). She had EMG (no results available in CareEverywhere). She was in the wheelchair upon discharge from [facility], was able to stand, arm strength was 50% better, able to maneuver wheelchair. She had 2nd EMG in Oct 2019 that showed improvement. She came home 10/16/2019, continued home PT and OT for at least 6 months. She was walking with a walker. She continued to receive IVIG monthly. She had an OP f/u in January 2020. Repeat EMG continued to show improvement but she was admitted for another course of a 5 day course of IVIG in January 2020 and received another IVIG in Feb 2020 and then discontinued. No prednisone or other medication given since. She continued with home PT/OT until the last part of 2019 and then went to OP PT/OT (Jun 2020 to Nov 2020). She moved to [facility] since Nov 2020. She continued to do her PT exercises at home. She started driving short distances(5 miles) in May 2020. 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 She is now establishing with physicians in [place]. Currently, she lives in an apartment alone. It is one floor, she managing and able to do her ADLs. She continues to walk with cane short distances(300-400 feet). She continues to fall, last fall was in Aug 2022 - she was walking in the living room when legs gave out and fell forward, no head trauma/LOC. She managed to get up with a friend's help. She feels she may still have some arm weakness - could not carry/lift anything heavier than a gallon of milk. She is currently driving. Since she moved to [place], she only had 1 PT session because of her co-pay($40). She is hoping to go to water therapy. She was going to [facility] since May 2022, went everyday until Aug 2022 and felt her legs were better but got lazy and has not gone back. She is currently on cymbalta(depression /anxiety), baclofen and pregabalin(for neuropathy). She mentions to have on and off pain from the neuropathy - stabbing pains in the legs with tightening up. Per note dated 01/18/2020 from [facility]: She was admitted to our facility in Aug, 2019 for the concern of GBS (ascending numbness and weakness for few weeks), LP with CSF basic studies unremarkable, initial NCS/EMG was suggestive of generalized neuropathy. MRI of the lumbar spine showed abnormal enhancement of the cauda nerve root anteriorly suggestive of AIDP with mild degenerative changes in the lumbar region and C4-C5/C5-C6 severe left foraminal stenosis on cervival spine MRI w/wo IV contrast. The patient received 2 gr IVIg treatment divided through 5 days with partial improvement in terms of her strength in the lower extremities, per the patient, however, while transitioning to the longterm where she stayed for a month she felt like her weakness had gotten worse. 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 She has currently been using a walker for inside the house and she uses a wheelchair for long distance ambulation. She continues to have weakness in the lower extremities associated with falls and recent R fibular fracture. She denies any respiratory issues, bowel or bladder incontinence. Of note, the patient has been receiving monthly IVIG therefore, she was admitted for an IVIg treatment of questionable underlying AIDP variant (AMSAN) vs. CIDP. BRIEF HOSPITAL NARRATIVE: The patient was admitted to general neurology with neuro checks, vitals, FVC/NIF and telelmetry. IVIg therapy was initiated with 2 gr dose. NCS/EMG was obtained to compare evaluate progression and this showed motor axonal neuropathy which improved compared to Feb study and continued show motor neuropathy. The etiology of the patient's progressive weakness is unclear at this time, however question whether related to chronic multifocal sensory motor inflammatory neuropathy in the setting of positive fibroblast growth factor receptor 3 antibody, and borderline high Q/P type Ca channel ab. We have repeated these studies this admission with pending result at the time of discharge. We also repeated MRI C-T-LS spine and these were unchanged compared to previous studies. Again postcontrast enhancement of nerve roots within the cauda equina is noted suggestive of CIDP. Given the patient's preserved reflexes with possible hyperreflexia we ordered Copper and heavy metal screening that are also pending on discharge. It was noticed that liver enzymes were abnormal, hepatitis virus panel, ammonia, aldolase, RF were negative except for evidence of resolved hepatitis B virus and positive MICHELLE (could also be false positive in setting of recent IVIG administration). She completed treatment IVIg 2gr divided through 5 days on 01/20. Follows with Dr. Cardona for migraines PAST MEDICAL HISTORY Diagnosis Date Anxiety state CIDP (chronic inflammatory demyelinating polyneuropathy) (HCC) 2020 Depression Diabetes mellitus (HCC) Essential hypertension IBS (irritable bowel syndrome) Migraines Mixed hyperlipidemia Obesity No past surgical history on file. MEDICATIONS: Current Outpatient Medications Medication Sig Dispense Refill ubrogepant (UBRELVY) 100 mg tablet Take 1 tablet at migraine onset. May repeat dose in 2 hours if needed. Maximum 200 mg per 24 hours. 16 tablet 5 DULoxetine (CYMBALTA) 60 mg capsule Take 60 mg by mouth once daily. atorvastatin (LIPITOR) 10 mg tablet Take 10 mg by mouth once daily. linaclotide (LINZESS) 145 mcg capsule Take 145 mcg by mouth DAILY (6 AM). baclofen (LIORESAL) 10 mg tablet Take 10 mg by mouth three times daily. propranolol (INDERAL) 10 mg tablet Take 10 mg by mouth once daily. dapagliflozin (FARXIGA) 10 mg tablet Take by mouth daily with breakfast. metFORMIN (GLUCOPHAGE) 500 mg tablet Take 500 mg by mouth twice daily with meals. SITagliptin phosphate (JANUVIA) 100 mg tablet Take 100 mg by mouth once daily. pregabalin (LYRICA) 100 mg capsule Take 100 mg by mouth three times daily. lisinopril (ZESTRIL) 2.5 mg tablet Take 2.5 mg by mouth once daily. erenumab-aooe (AIMOVIG AUTOINJECTOR) 140 mg/mL auto-injector Inject 1 mL subcutaneously once every month. Do not shake. 1 mL 5 naproxen sodium (ANAPROX) 220 mg tablet Take 220 mg by mouth twice daily with meals. No current facility-administered medications for this visit. ALLERGY: ALLERGIES Allergen Reactions Demerol [Meperidine* Hives No family history on file. Social History Tobacco Use Smoking status: Never Substance Use Topics Alcohol use: No Drug use: No DATA: Radiology: MRI LS spine([facility]) - 01/27/21 Degenerative changes including right foraminal disc herniations at L2-L3 and L3-L4 and severe loss of disc height with degenerative endplate changes at L4-L5, stable compared to prior exam of 04/04/2020. No high grade spinal canal stenosis. MRI LS spine w/wo contrast([facility]) - 04/04/2020 Redemonstration of slight enhancement along the anterior nerve roots of the cauda quina, which could be seen with chronic inflammatory demyelinating polyneuropathy (CIDP). Mild to moderate degenerative changes are noted throughout the lumbar spine, most pronounced at L3-L4 and L4-L5. MRI LS spine w/wo contrast ([facility])- 01/18/20 1. Stable redemonstration of postcontrast enhancement of nerve roots within the cauda equina. Again, due to chronicity, this may represent CIDP. 2. Unchanged appearance of degenerative changes within the lumbosacral spine. MRI thoracic w/wo contrast ([facility])- 01/18/20 Stable redemonstration of anterior nerve root enhancement within the cauda equina. Given the chronicity of these findings, CIDP may be considered with a progressive granulomatous or neoplastic process felt less likely. MRI cervical spine w/wo contrast ([facility])- 01/18/20 Redemonstration of [id number] degenerative changes within the cervical spine, which is worst at C4-5 and C5-6. There is moderate to severe left foraminal stenosis at C4-5 and C5-6 with left C4-5 facet enhancing arthropathy MRI thoracic w/wo contrast ([facility]) - 08/29/2019 1. Enhancement of the anterior nerve roots comprising the cauda equina seen on the inferior most aspect of the sagittal postcontrast T1 weighted series. 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 Other inflammatory processes such as CIDP, granulomatous infectious processes as and neoplastic processes can cause this appearance, but are thought to be less likely. MRI LS spine w/wo contrast ([facility]) - 08/29/2019 1. 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 This appearance is much less suggestive of possible neoplastic processes such as CSF spread of intracranial neoplasm MRI c-spine w/wo contrast ([facility])- 08/30/2019 1. Mild degenerative changes within the cervical spine most prominent at the C4-5 and C5-6 levels. No cord signal abnormality or cord compression is appreciated. MRI brain w/wo contrast ([facility]) - 08/30/2019 No acute intracranial process. Laboratory([facility]): HBA1C(02/19/22) 8.2 Lyme IgG, IgM (08/29/2019)- neg B12/MMA (08/31/19) 535/0.23 Paraneoplastic panel (08/29/2019) - neg except for minimally elevate P/Q calcium channel Ab( normal of </= 0.02, her value was 0.03) GQ1B Ab (08/29/2019) neg CSF(08/29/19) WBC 1, RBC 1, gluc 60, protein 42 No bands, normal IgG index No malignant cells No growth on culture VZV PCR, HSV 1 PCR, HSV 2 PCR negative Lyme PCR neg Enterovirus PCR neg [place] neg Other: REVIEW OF SYSTEMS: per HPI General: no wt. loss/gain, change in appetite, fever, malaise HEENT: no headache, problems with vision, hearing Cardiac: no chest pain, palpitation Respiratory: no shortness of breath, cough, cold GI: no change in bowel habits, abdominal pain : no incontinence, frequency, urgency Musculoskeletal: no joint/muscle pain, no swelling Skin: no rash Endocrine: no cold/hot intolerance, thyroid, diabetes Immunologic: no known immunologic disorders Neurologic/Psychiatric: no other known neurologic or psychiatric problems PHYSICAL EXAM: BP 125/73 Pulse 80 HEENT: atraumatic, normocephalic Neck: supple Extremities: good pulses NEUROLOGICAL EXAM: MSE: Awake, alert, oriented x 3, language intact, attention and concentration normal CN: pupils are equal and reactive to light, funduscopy: clear disc margins, EOMI, no nystagmus, V1-V3 intact, no facial weakness, normal hearing to communication, good elevation of soft palate, tongue midline with good strength, no dysarthria Motor: Gait: walks with a cane, able to tandem, toe and heel walk No pronator drift, rapid finger movements are symmetrical Normal tone and bulk No adventitious movements Power: Right Left Neck flexion 5/5 Neck extension 5/5 Trapezius 5/5 5/5 Deltoids 5/5 5/5 Biceps 5/5 5/5 Triceps 5/5 5/5 Wrist Ext 5/5 5/5 Wrist Flex 5/5 5/5 Finger Ext 4+/5 4+/5 FDI 4+/5 4+/5 ADM 4/5 4/5 APB 4+/5 4+/5 FDP 2,3 4+/5 4+/5 FDP 4,5 4+/5 4+/5 FPL 4+/5 4+/5 Hip Flexors 5/5 5/5 Knee Extensors 5/5 5/5 Knee Flexors 5/5 5/5 Ankle DF 5/5 5/5 Ankle PF 5/5 5/5 Inversion 5/5 5/5 Eversion 5/5 5/5 Toe Flexion 4/5 4/5 Toe Extension 4/5 4/5 Coordination: intact finger to nose and heel to henderson Reflexes: B T Br K A Plantars R 2+ 2+ 2+ 2+ 2+ down L 2+ 2+ 2+ 2+ 2+ down Sensory: intact to light touch, reduced pinprick from ankles and mid palms, intact position and reduced vibration at toes(normal at ankles) Romberg's negative ASSESSMENT AND PLAN: Miss Hill is a 61 y/o emale with history of migraines, anxiety, depression, IBS, 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 Examination reveals distal hand and leg weakness with intact reflexes and reduced sensation to multiple modalities distally. 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 Discussed about GBS, prognosis and treatment options. Get records of EMGs from [facility] Blood work - CBC, CMP, HBA1C, B12/MMA, MPA, urine monoclonal antibody, vit D EMG discussed but she defers Symptomatic treatment - cymbalta (60 mg qday), baclofen(10 mg tid), pregabalin (100 mg tid) Better control of blood sugars, avoid fluctuations Not up to date with ophthalmology and podiatry PT - has concerns with co-pay Follow-up in 4 months or earlier if necessary. I spent a total of 80 minutes on the date of the service which included preparing to see the patient, [id number] patient care, completing clinical documentation, obtaining and/or reviewing separately obtained history, performing a medically appropriate examination, counseling and educating the patient/family/caregiver, ordering medications, tests, or procedures, and communicating results to the patient/family/caregiver. My final recommendations will be communicated back to the requesting physician by way of shared medical record or letter via US mail. Judy Nielsen MD Neurology Please send a copy of clinic note to: 1. Felipa Hill [phone] [id number] [facility] [address] 2. Juan Edmonds Dul[place] [id number] [address] [facility] [id number] documented in this encounter [facility] 11-19-2022 Miscellaneous Notes Recall letter submitted. Prior auth completed via [facility] for Ubrelvy 100mg Drug Ubrelvy 100MG tablets Form [employer] Medicare Part D Electronic Prior Authorization Form (2016 MDPDP) Felipa Hill Blanco: [id number] - [place] Additional Information Required This medication or product was previously approved on [id number] from 2022-09-06 to 2023-09-05. Please note: This request was submitted electronically. Formulary lowering, tiering exception, cost reduction and/or pre-benefit determination review (including prospective Medicare hospice reviews) requests cannot be requested using this method of submission. Providers contact us at for further assistance. Lauren Michelle LPN November 18, 2022 2:37 PM Prior Authorization for Medications Requested by ([facility], Pharmacy, Patient Call, Fax) : Patient Call Pharmacy Name: [facility] Phone # : [phone] Name of Medication : Ubrelvy Dose : 100 mg tablet If renewal, auth date expiration: NA Prescribing Provider: Dulce Bean OV: 11/10/22 with Spni Insurance Provider : Cindi [facility] Is insurance card scanned in, including Rx info? Yes Rx ID number: [id number] Rx BIN: [id number] Rx PCN: [id number] Rx Grp: COS Insurance Phone : CoverMyMeds Blanco: LIV ACHARYA? Yes documented in this encounter [facility] 11-10-2022 Note HNO ID: [id number] Author: Juan Cardona MD Service: ? Author Type: Physician Type: Progress Notes Filed: 11/10/2022 12:38 PM Note Text: [facility] [address] [place] [address] Referring: SELF PCP: Adam Dixon (Historical) Accompanied by: unaccompanied CC: Migraine HPI: Felipa Hill is a 61 year old year old, right-handed woman who is here for the evaluation and management of the patient's migraines and establish care. 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 Previous records (physician notes, laboratory reports, and radiology reports) and imaging studies were reviewed and summarized. Patient was initially hospitalized at OSH in 2019 for ascending progressive sensory and motor changes. She was diagnosed with AIDP and treated with IVIG 2g over 5 days. She was then treated with additional monthly IVIG infusions thereafter but is not on it anymore. CSF from that admission was negative for infectious etiology. Paraneoplastic workup also negative. Hgb A1C 8.6. MRI lumbar spine in 2020 with right disc herniation at L2-L3 and L3-L4 and some degenerative changes. Lives in apartment by herself. Performs all ADLs independently but is in significant pain. Uses a cane to ambulate at baseline. 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 migraine with an oral small molecule CGRP antagonist GEPANT. The FDA has approved GEPANTS for the treatment of migraine. Specifically, the patient has 30 headaches per month, lasting 4 or more hours/day associated with photophobia, phonophobia, nausea for three or more months. Medication overuse headache has been ruled out.Patient will not use with another GEPANT. The patient has tried and failed the following : Anti-Migraine Naratriptan (Amerge) Rizatriptan (Maxalt) Sumatriptan (Imitrex, Sumavel) Analgesic Hydrocodone/Acetaminophen (Vicodin, Dendron) Acetaminophen with codeine (Tylenol #3) documented in this encounter [facility] 09-24-2022 Miscellaneous Notes I called and left the patient voice messages to the office. Left messages on phone# home# [phone] and # from referral [phone]. on file is a non-working number. Received referral for the patient to be seen for Neuropathy and Migraine. Left the patient a voice message to call the office at [phone] and schedule an appointment. Sent the referral and records to scanning. Received fax referral for Neurology: Dr. Polo. DX:Neuropathy, migraine without mention of intractable migraine Will route to Amy. 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)- Primary Type II or unspecified type diabetes mellitus with neurological manifestations, not stated as uncontrolled Neuropathy Mononeuritis of unspecified site [facility] Diagnosis Chronic migraine without aura, intractable, without status migrainosus- Primary [facility] Diagnosis Peripheral neuropathy, idiopathic- Primary Unspecified hereditary and idiopathic peripheral neuropathy 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 [facility] Diagnosis Other chronic pain- Primary 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 Motor neuron disorder (HCC) Amyotrophic lateral sclerosis documented in this encounter [facility] Reason for Referral Specialty Diagnoses / Procedures Referred By Contac t Referred To Contact Neurology Diagnoses Neuropathy Procedures CONSULT TO NEUROLOGY OFFICE/OUTPATIENT [facility] 60-[place] [address] [place] [address] Referral ID Status Reason Start Date Expiration Date Visits Requested Visits Authorized [id number] Authorized PCP Requested Referral 11/10/2022 11/10/2023 1 1 Specialty Diagnoses / Procedures Referred By Contac t Referred To Contact Ophthalmology Diagnoses 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) Procedures CONSULT TO OPHTHALMOLOGY OFFICE/OUTPATIENT [facility] 60-[place] [address] [place] [address] Referral ID Status Reason Start Date Expiration Date Visits Requested Visits Authorized [id number] Authorized PCP Requested Referral 12/01/2022 12/01/2023 1 1 Specialty Diagnoses / Procedures Referred By Contac t Referred To Contact Podiatry Diagnoses Neuropathy 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) Procedures CONSULT TO PODIATRY OFFICE/OUTPATIENT [facility] MDM 60-[place] [address] [place] [address] Referral ID Status Reason Start Date Expiration Date Visits Requested Visits Authorized [id number] Authorized PCP Requested Referral 12/01/2022 12/01/2023 1 1 Specialty Diagnoses / Procedures Referred By Contac t Referred To Contact [facility] Diagnoses Neuropathy 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) Procedures CONSULT TO PHYSICAL THERAPY PHYSICAL THERAPY EVALUATION HIGH COMPLEX [address] [place] [address] [place] [address] [facility] [place] [address] [place] [address] Referral ID Status Reason Start Date Expiration Date Visits Requested Visits Authorized [id number] Pending Review Auto-Generat ed Referral 12/01/2022 12/01/2023 1 1 Specialty Diagnoses / Procedures Referred By Contac t Referred To Contact Diagnoses Chronic migraine without aura, intractable, without status migrainosus Procedures PROVIDER ORDERED FOLLOW UP OFFICE/OUTPATIENT [facility] 60-74 MINUTES Yuliya Agrawal APRN.[employer] REPA[employer]ER [address] [place] [address] Referral ID Status Reason Start Date Expiration Date Visits Requested Visits Authorized [id number] Pending Review PCP Requested Referral 3 02/26/2024 1 1 Specialty Diagnoses / Procedures Referred By Contac t Referred To Contact Pain Management Diagnoses Other chronic pain Procedures CONSULT TO PAIN MGT OFFICE/OUTPATIENT NEW [facility]IGH MDM 60-[address] [place] [address] [place] [address] Referral ID Status Reason Start Date Expiration Date Visits Requested Visits Authorized [id number] Pending Review PCP Requested Referral 3 08/22/2024 1 1 Summary Purpose Family History No Family History Records FoundNo Family History Records Found Advance Directives No Advanced Directives Records FoundNo Advanced Directives Records Found Additional Source Comments Source Comments (unrecognize d section and content) In the event this informatio n is protected by the Federal Confidentiality of Alcohol and Drug Abuse Patient Records regulations: The Federal rules restrict any use of the information to criminally investigate or prosecute any alcohol or drug abuse patient.[facility] the event this information is protected by the Federal Confidentiality of Alcohol and Drug Abuse Patient Records regulations: The Federal rules restrict any use of the information to criminally investigate or prosecute any alcohol or drug abuse patient.[facility] the event this information is protected by the Federal Confidentiality of Alcohol and Drug Abuse Patient Records regulations: The Federal rules restrict any use of the information to criminally investigate or prosecute any alcohol or drug abuse patient.[facility] the event this information is protected by the Federal Confidentiality of Alcohol and Drug Abuse Patient Records regulations: The Federal rules restrict any use of the information to criminally investigate or prosecute any alcohol or drug abuse patient.[facility] the event this information is protected by the Federal Confidentiality of Alcohol and Drug Abuse Patient Records regulations: The Federal rules restrict any use of the information to criminally investigate or prosecute any alcohol or drug abuse patient.[facility] the event this information is protected by the Federal Confidentiality of Alcohol and Drug Abuse Patient Records regulations: The Federal rules restrict any use of the information to criminally investigate or prosecute any alcohol or drug abuse patient.[facility] the event this information is protected by the Federal Confidentiality of Alcohol and Drug Abuse Patient Records regulations: The Federal rules restrict any use of the information to criminally investigate or prosecute any alcohol or drug abuse patient.[facility] the event this information is protected by the Federal Confidentiality of Alcohol and Drug Abuse Patient Records regulations: The Federal rules restrict any use of the information to criminally investigate or prosecute any alcohol or drug abuse patient.[facility] the event this information is protected by the Federal Confidentiality of Alcohol and Drug Abuse Patient Records regulations: The Federal rules restrict any use of the information to criminally investigate or prosecute any alcohol or drug abuse patient.[facility] the event this information is protected by the Federal Confidentiality of Alcohol and Drug Abuse Patient Records regulations: The Federal rules restrict any use of the information to criminally investigate or prosecute any alcohol or drug abuse patient.[facility] the event this information is protected by the Federal Confidentiality of Alcohol and Drug Abuse Patient Records regulations: The Federal rules restrict any use of the information to criminally investigate or prosecute any alcohol or drug abuse patient.[facility] Reason for Visit (unrecogniz ed section and content) Reason Comments New Patient Reason Comments Insurance Authorization Ubrelvy Reason Comments New Patient Specialty Diagnoses / Procedures Referred By Contac t Referred To Contact Neurology Diagnoses Neuropathy Procedures CONSULT TO NEUROLOGY OFFICE/OUTPATIENT NEW [facility] MDM 60-[place] [address] [place] [id number] Referral ID Status Reason Start Date Expiration Date V isits Requested Visits Authorized [id number] Closed PCP Requested Referral 11/10/2022 11/10/2023 1 1 Reason Comments office note faxed Reason Comments Question Reason Comments Established Patient Follow-Up Chronic Migraine Reason Onset Date Comments Refill Request 03/30/2023 Reason Comments Established Patient Reason Comments Follow Up Patient states that she has been having a lot of numbness and tingling in her legs, hands, and fingers Care Teams (unrecognized sec tion and content) [employer] Officer Relationship Specialty Start Date End Date Adam Dixon (Historical) PCP - General 01/07/05 Amy Salgado MD [address] [place] [address] Neurology 06/10/[address] [place] [address] [id number] Referring Family Medicine 02/26/22 [employer] Police Officer Relationship Specialty Start Date End Date Adam Dixon (Historical) PCP - General 01/07/05 Amy Salgado MD [address] [place] [address] Neurology 06/10/[address] [place] [address] [address] Referring Family Medicine 02/26/22 [employer] Officer Relationship Specialty Start Date End Date Adam Dixon (Historical) PCP - General 01/07/05 Amy Salgado MD [address] [place] [address] Neurology 06/10/20 Murray Campa [address] [address] Referring Family Medicine 02/26/22 [employer] Officer Relationship Specialty Start Date End Date Adam Dixon (Historical) PCP - General 01/07/05 Amy Salgado MD [address] [facility] [place] [address] Neurology 06/10/20 Murray Campa [address] [place] [address] Referring Family Medicine 02/26/22 [employer] Officer Relationship Specialty Start Date End Date Adam Dixon (Historical) PCP - General 01/07/05 Amy Salgado MD [address] [facility] [place] [address] Neurology 06/10/20 Murray Campa [address] [place], [place] [phone] Referring Family Medicine 02/26/22 [employer] Officer Relationship Specialty Start Date End Date Adam Dixon (Historical) PCP - General 01/07/05 Amy Salgado MD [address] [facility] [address] [place], [place] [id number] Neurology 06/10/20 Murray Campa MD [address] [place] [id number] Referring Family Medicine 02/26/22 [employer] Officer Relationship Specialty Start Date End Date Adam Dixon (Historical) PCP - General 01/07/05 Amy Salgado MD [address] [facility] [place], [place] [id number] Neurology 06/10/20 Murray Campa MD [address] [place] [address] Referring Family Medicine 02/26/22 INFORMATION SOURCE (unrecogn ized section and content) DATE CREATED AUTHOR AUTHOR'S KARISSA FRANCKADRIANA 10/02/2023 [facility] FOR RECORDS PERTAINING TO PATIENTS WHO ARE OR HAVE BEEN ENROLLED IN A CHEMICAL DEPENDENCY/SUBSTANCEABUSE PROGRAM, SOME INFORMATION MAY BE OMITTED. This clinical summary was aggregated from multiple sources. Caution should be exercised in using it in the provision of clinical care. This summary normalizes information from multiple sources, and as a consequence, information in this document may materially change the coding, format and clinical context of patient data. In addition, data may be omitted in some cases. CLINICAL DECISIONS SHOULD BE BASED ON THE PRIMARY CLINICAL RECORDS. [employer] provides no warranty or guarantee of the accuracy or completeness of information in this document.
== END | disposition home or self-care (01) ==
PROVIDERS: PCP Family Medicine; Referring Provider Family Medicine; Visit Provider Family Medicine
DX: S69.91XA Unspecified injury of right wrist, hand and finger(s), initial encounter (principal); X58.XXXA Exposure to other specified factors, initial encounter
CPT/HCPCS: 73110

== ENCOUNTER 2023-12-04 20:55 | Emergency (ER) | payer MEDICARE, SELFPAY ==
[2023-12-04 20:56] VITALS: BP 123/78; PULSE 89; RESP 15; TEMP 36.2; O2SAT 99
[2023-12-04 21:16] VITALS: BP 124/87; PULSE 85; RESP 19; TEMP 36.7; O2SAT 97
[2023-12-04 21:17] VITALS: BMI 27.3; BMI 28.0
--- NOTE | 2023-12-04 21:30 | CT_ITS ---
INDICATION: ams EXAMINATION: CT BRAIN - CT Head or Brain W/O Contrast Injection TECHNIQUE: Multiple axial images were obtained of the head without intravenous contrast. A radiation dose optimization technique was used for this scan. IV Contrast dosage and agent: None. COMPARISON: June 12, 2023 CT head. FINDINGS: BRAIN PARENCHYMA: No intra- or extra-axial hemorrhage. No intracranial mass or mass effect. Cervantes/white matter differentiation is maintained and there is no blurring of the basal ganglia. There is no hyperdense vessel. Posterior fossa structures are unremarkable. CSF SPACES: Appropriate for age. No hydrocephalus. Basal cisterns are patent. CALVARIUM, SKULL BASE, PARANASAL SINUSES AND MASTOID AIR CELLS: Intact calvarium and skull base. No fracture or osseous lesion. Paranasal sinuses are clear. Mastoid air cells and middle ears are clear. ORBITS: Both globes, extraocular muscles, optic nerves and retrobulbar fat appear unremarkable. ASPECTS Score for Acute Strokes: 10 CT/Brain/Head without Contrast IMPRESSION: Negative Brain CT without contrast. Electronically Signed: Chandu Carballo DO at 23:32 EDT ,
[2023-12-04 21:55] LABS: Bacteria 0 SEEN /hpf (None Seen); Mucous, Urine 0 SEEN /hpf (<or=2+); Red Blood Cells-Urine 0 SEEN /hpf (0-5)
--- NOTE | 2023-12-04 21:55 | RAD_ITS ---
INDICATION: ams EXAMINATION/TECHNIQUE: X-RAY - XR Chest 1 View COMPARISON: Chest x-ray April 08, 2015. FINDINGS: LINES/DEVICES: None. LUNGS: Symmetric normal lung volumes. No airspace opacity or abnormal interstitial pattern. No nodule or mass. No pleural effusion or pneumothorax. MEDIASTINUM AND CARDIOVASCULAR STRUCTURES: Normal size and contour of the cardiomediastinal silhouette. No evidence of pulmonary vascular congestion. BONES AND SOFT TISSUES: No fracture or focal osseous lesion. Bilateral AC joint arthrosis. RAD/Chest 1 View (Portable) IMPRESSION: 1. No radiographic evidence of acute cardiopulmonary disease. Electronically Signed: Chandu Carballo DO at 22:24 EDT ,
[2023-12-04 21:59] LABS: Color, Urine Yellow (Yellow); Glucose, Dipstick 1000 mg/dl (Normal); Ketone-Dipstick 5 mg/dl (Negative); Leukocyte Esterase-Dipstick 25 /ul (Negative); Nitrite-Dipstick Negative (Negative); Occult Blood-Urine Negative /ul (Negative); Protein-Dipstick 15 mg/dl (Negative); Urine Clarity Clear (Clear); Urine Urobilinogen 1 mg/dl (Normal)
[2023-12-04 22:00] VITALS: BP 121/80; PULSE 80; RESP 15; TEMP 36.7; O2SAT 97
[2023-12-04 22:00] LABS: Absolute Lymphocyte Count 3.08 X10^3/uL (0.83-4.51); Absolute Neutrophil Count 2.6 X10^3/uL (2.0-7.7); Basophil% 1.4 % (0-1); Eosinophil# 0.59 X10^3/uL; Eosinophils% 8.5 % (0-5); Hematocrit 39.6 % (37-47); Hemoglobin 13.1 g/dL (12.0-15.0); Lymphocyte # 3.08 X10^3/ul (0.83-4.51); Lymphocyte % 44.4 % (19-41); Mean Corp Hgb Conc 33.1 g/dL (32-36); Mean Corpuscular Hgb 29.5 pg (27.0-32.0); Mean Corpuscular Volume 89.2 fL (81-99); Mean Platelet Vol. 9.2 fl (6.2-12.0); Monocyte# 0.58 X10^3/uL; Monocyte% 8.4 % (0-10); NRBC Flagged by Analyzer 0 % (0-5); Neutrophil # 2.57 X10^3/uL (2.7-7.7); Neutrophil % 37.2 % (47-70); Platelet Count 255 K/mm3 (150-450); RBC Distribution Width CV 13.4 % (11.6-14.6); RBC Distribution Width SD 44.1 fl (35.1-43.9); Red Blood Count 4.44 M/mm3 (4.2-5.4); White Blood Count 6.9 K/mm3 (4.4-11.0)
[2023-12-04 22:03] LABS: Urine Bilirubin Dipstick 1 mg/dL (Negative)
[2023-12-04 22:05] LABS: Squamous Epithelial Cells - UA 0-5 SEEN /hpf (5-10); White Blood Cells 0-5 SEEN /hpf (0-5)
[2023-12-04 22:06] LABS: International Normalized Ratio 1.1; Partial Thromboplast Time 29.8 Seconds (24.1-36.2); Prothrombin Time (Protime)PT. 13.8 SECONDS (11.7-14.9)
[2023-12-04 22:15] LABS: Amphetamine Urine VISTA NEGATIVE (<1000 ng/mL); Barbiturate Urine VISTA NEGATIVE (< 200 ng/mL); Benzodiazepine Urine VISTA NEGATIVE (< 200 ng/mL); Cocaine Urine VISTA NEGATIVE (< 300 ng/mL); Ecstacy Urine VISTA NEGATIVE (< 500 ng/mL); Methadone Urine VISTA NEGATIVE (< 300 ng/mL); PCP Urine VISTA NEGATIVE (< 25 ng/mL); THC Urine VISTA POSITIVE (< 50 ng/mL); Vista UDS pH Range 5
[2023-12-04 22:17] LABS: Alcohol, Blood (Medical)-Serum < 3.0 mg/dL
[2023-12-04 22:25] LABS: AST(SGOT) 38 U/L (15-37); Alanine Aminotransfer ALT/SGPT 44 U/L (13-56); Albumin, Serum 3.4 g/dL (3.2-5.0); Alkaline Phosphatase 87 U/L (45-117); Anion Gap 5 (5-15); BUN 31 mg/dL (7-18); BUN/Creat Ratio 31.6 RATIO (10-20); Bilirubin, Direct 0.14 mg/dL (0.00-0.30); Calcium,Total 9.2 mg/dL (8.5-10.1); Chloride 106 mmol/L (98-107); Creatinine, Serum 0.98 mg/dL (0.55-1.02); EST Glomerular Filtration Rate 61 mL/min (>60); Est Glom Filt Rate - Afr Amer 73 mL/min (>60); Estimated Creatinine Clearance 62.28 ml/min; Globulin 3.7 g/dL (2.2-4.2); Glucose 111 mg/dL (74-106); Lipase 129 U/L (13-75); Potassium 3.9 mmol/L (3.5-5.1); Protein, Total 7.1 g/dL (6.4-8.2); Sodium Level 139 mmol/L (136-145); Thyroid Stim Hormone (TSH) 0.87 uIU/mL (0.358-3.74); Troponin-I HS 5 pg/mL (3.0-54.0)
[2023-12-04 22:50] VITALS: BP 112/79; PULSE 77; RESP 16; TEMP 36.7; O2SAT 96
[2023-12-04 23:43] VITALS: BP 117/79; PULSE 80; RESP 13; TEMP 36.7; O2SAT 96
[2023-12-04 23:59] VITALS: BP 92/78; PULSE 78; RESP 16; TEMP 36.7; O2SAT 97
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
== END 2023-12-05 00:04 | disposition home or self-care (01) ==
PROVIDERS: Emergency Provider Emergency Medicine; PCP Family Medicine; Visit Provider Emergency Medicine
DX: F12.929 Cannabis use, unspecified with intoxication, unspecified (principal); E11.40 Type 2 diabetes mellitus with diabetic neuropathy, unspecified; R20.2 Paresthesia of skin; Z79.84 Long term (current) use of oral hypoglycemic drugs; Z79.85 Long-term (current) use of injectable non-insulin antidiabetic drugs; Z79.899 Other long term (current) drug therapy
CPT/HCPCS: 70450; 71045; 80048; 80076; 80307; 80320; 81001; 83690; 84443; 84484; 85025; 85610; 85730; 99284; A4216; G0480

== ENCOUNTER 2023-12-21 13:00 | Outpatient (RCR) | payer MEDICARE, SELFPAY ==
--- NOTE | 2023-11-09 12:33 | HP.PTEVAL ---
Patient's Visit Information Visit Information Visit Information: GERBER BANGURA is a 62 year old F referred to Physical Therapy by Dr. Henny Saravia MD with a diagnosis of DDD of L spine. Date of Evaluation: 11/09/23 Physical Therapist: LISA Charles Visit Plan Frequency: 2x /Week Duration: 2 Months Plan: Pt has a history of Guillian Elmer and LE neuropathy and back pain. Her legs do fatigue quicker. Looking for back pain relief 2X/ week for 8 weeks for AT for Neutral spine core stability, LE strength (including hip abd), Trunk ROM, stretching of piriformis B, general mobility with HEP Subjective Subjective: Pt here with pain management. She had an injury in . 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 The pain comes and goes now. Sometimes it is bad that she can not walk or sit and Alieve does not even help. She has LBP and thinks that it is all muscle related. Most of the time it is the left side and today is the R side. It causes pain down the legs. It is L4/L5 and S1. She was dx with GB in 2019 and left with neuropathy in her legs. She goes to [facility] and sometimes she can not do her routine there. Pain management wants to try the AT first and then if that does not help then do trigger injections. He will do an MRI after PT. She does not sleep well do to leg and back pain and she turns all night long. She takes muscle relaxor and cymbalta and sleeps maybe 4-6 hours good sleep. She is retired/disability. Steps are difficult and so is a curb step. She has to go 2 feet to a stair... if she goes recipical it causes leg pain. Pain R back pain: Pain Intensity (Out of 10): 6 Objective Objective: Gait: walks with occ step out to correct balance. otherwise normal gait pattern Trunk AROM: flexion 75% (coming back up to neutral increases across back pain), Ext 50% (pain across LB), SB B 75%, Rot B 75% (increase pain with rotation to the L). LE MMT: R hip flex 9.6# and L hip flex 5.4# R knee ext 12.2 and L 16 R knee flex 8.2 and L 6.9 Supine R hip abd 8.2 and L 9.1 Bridge: 1/2 normal ROM SLR.... increase pain B in B buttocks LTR is tight, piriformis is tight B Balance/Special Test Scores Oswestry Low Back Score: 25 Goals Goal 1:: I HEP Goal Time Frame: 6-8 Weeks Goal 2:: Decrease back pain during ADL's Goal Time Frame: 6-8 Weeks Goal 3:: Increase LE strength (R hip flex 9.6# and L hip flex 5.4# R knee ext 12.2 and L 16 R knee flex 8.2 and L 6.9 Supine R hip abd 8.2 and L 9.1 Bridge: 1/2 normal ROM) Goal Time Frame: 6-8 Weeks Goal 4:: Increase trunk AROM with no pain (Trunk AROM: flexion 75% (coming back up to neutral increases across back pain), Ext 50% (pain across LB), SB B 75%, Rot B 75% (increase pain with rotation to the L). Goal Time Frame: 6-8 Weeks Rehabilitation Potential Rehabilitation Potential: Good Anticipated Interventions Patient/Client Instruction: Educate patient on: Condition and Plan of Care For the Purpose of:: To decrease pain, To increase ROM, To improve nutrient delivery to tissue, To improve muscle performance and motor function, To improve ability to perform ADL's, To increase tolerance to activity/condition/position, To improve performance and independence with ADL's, To improve ability of physical actions for home/community/work/leisure, To improve health of tissue, To decrease soft tissue restriction and To increase flexibility/ROM Therapeutic Exercise to Include: Strength training, Body mechanics, Postural training, Flexibilty training, Gait and locomotor training, Neuromotor development, In an aquatic setting, Passive ROM, Active ROM and Dynamic Lumbar Stabilization For the Purpose of:: To decrease pain, To decrease swelling/inflammation, To increase ROM, To improve nutrient delivery to tissue, To improve muscle performance and motor function, To improve ability to perform ADL's, To increase tolerance to activity/condition/position, To improve performance and independence with ADL's, To improve gait and locomotor functions, To improve health of tissue and To increase flexibility/ROM Text: Thank you for the opportunity to evaluate your patient. For Medicare and Medicare HMO plans, please review the plan of care and approve it. It will need to be FAXED BACK to us at [phone] for Medicare purposes. For Medicare only, by signing this I certify the plan of care. Please let me know if there are questions or concerns regarding this plan of care. Physician Signature: Date:
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
== END 2023-12-21 19:00 | disposition home or self-care (01) ==
LOC: PT 13:00
PROVIDERS: PCP Family Medicine; Referring Provider Anesthesiology; Visit Provider Anesthesiology
DX: M51.36 Other intervertebral disc degeneration, lumbar region (principal)
CPT/HCPCS: 97113; 97161; 97530

== ENCOUNTER → 2024-06-02 | Outpatient (CLI) | payer MEDICARE, SELFPAY ==
[2024-06-02 13:19] LABS: Microalbumin,Random Urine 10.4 mg/L (NO RANGE EST.); Microalbumin:Creatinine Ratio 14.1 mg/g CRE (<30 mg/g CRE)
[2024-06-02 13:32] LABS: Anion Gap 4 (5-15); BUN 17 mg/dL (7-18); BUN/Creat Ratio 24.3 RATIO (10-20); Calcium,Total 9.4 mg/dL (8.5-10.1); Chloride 104 mmol/L (98-107); EST Glomerular Filtration Rate 89 mL/min (>60); Est Glom Filt Rate - Afr Amer 108 mL/min (>60); Glucose 94 mg/dL (74-106); Potassium 4.2 mmol/L (3.5-5.1); Sodium Level 138 mmol/L (136-145)
[2024-06-02 15:10] LABS: Hemoglobin A1c 5.5 % (3.8-5.6)
== END | disposition home or self-care (01) ==
LOC: MFPLAB 10:08
PROVIDERS: PCP Family Medicine; Visit Provider Family Medicine
DX: E11.9 Type 2 diabetes mellitus without complications (principal)
CPT/HCPCS: 36415; 80048; 82043; 82570; 83036

== ENCOUNTER → 2024-07-04 | Outpatient (CLI) | payer MEDICARE, SELFPAY ==
--- NOTE | 2024-07-04 14:44 | BD_ITS ---
STUDY: DUAL ENERGY X-RAY ABSORPTIOMETRY / DXA REASON FOR EXAM: Female, 63 years old. V76.12ScreeningBONE DENSITY REASON FOR EXAM TECHNIQUE: Bone Mineral Density (BMD) measurements of lumbar spine and bilateral hips were obtained. COMPARISON: None. FINDINGS: Lumbar Spine (L1-L4): g/cm2 (1.160) / T-score (1.0) / Z-score (2.8) Findings are suggestive of normal bone density with a low fracture risk. Left Femur Total: g/cm2 (0.968) / T-score (0.2) / Z-score (1.4) Left Femoral Neck: g/cm2 (0.828) / T-score (-0.2) / Z-score (1.3) Right Femur Total: g/cm2 (0.900) / T-score (-0.3) / Z-score (0.9) Right Femoral Neck: g/cm2 (0.792) / T-score (-0.5) / Z-score (1.0) BD/Dexa Bone Density Study IMPRESSION: The patient is considered normal as outlined below according to World Noah Organization (WHO) criteria with a low fracture risk. Reference Information: The T-score is the number of standard deviations above or below the standard which is normal for young adults at their peak bone mineral density. The World Health Organization (WHO) interprets the T-scores as follows: Above -1 Normal bone density Between -1 and -2.5 Osteopenia Equal to / or below -2.5 Osteoporosis As a practical clinical guideline, osteopenia may be graded as follows: Mild -1 through -1.5 Moderate -1.6 through -2.0 Severe -2.1 through -2.4 The Z-score is the number of standard deviations above or below age-matched controls. A Z-score of less than -1.5 would be considered abnormal. References: 1. NIH Osteoporosis and Related Bone Diseases www osteo.org 2. International Society for Clinical Densitometry www iscd.org 3. National Osteoporosis Foundation www nof.org Electronically Signed: Calos Antunez MD at 13:50 EDT ,
--- NOTE | 2024-07-04 14:58 | BI_ITS ---
MAMMOGRAPHY - BILATERAL SCREENING REASON FOR EXAM: Female, 63 years old. Routine annual screening examination. PERTINENT HISTORY: Non-contributory. TECHNIQUE: Digital bilateral breast paulo (3D mammographic acquisition) in the CC and MLO projections. 2-D mediolateral oblique (MLO) and craniocaudad (CC) views of both breasts were obtained. CAD: Full Field Digital Mammography with Computer Added Detection was performed. COMPARISON: Comparison is made with prior outside examination dated July 10, 2019. FINDINGS: Breast Composition: The breasts are almost entirely fatty. There are no dominant masses or suspicious calcifications. No other significant abnormalities are identified. There has been no significant change since the prior study. BI/SCRN MAMM (CAD)W/PAULO BILAT IMPRESSION: Stable bilateral screening mammogram. Yearly follow-up mammogram recommended. (A) ASSESSMENT CATEGORY: BIRADS Category 1: Negative. A letter regarding these results will be sent to the patient by the facility within 30 days. Approximately 10% of breast cancers are not detected by mammography. A normal mammogram should not delay biopsy of a clinically suspicious abnormality. [id number] Electronically Signed: Calos Antunez MD at 15:42 EDT ,
== END | disposition home or self-care (01) ==
LOC: OPBD 14:35
PROVIDERS: PCP Family Medicine; Referring Provider Family Medicine; Visit Provider Family Medicine
DX: Z13.820 Encounter for screening for osteoporosis (principal); Z78.0 Asymptomatic menopausal state; Z12.31 Encounter for screening mammogram for malignant neoplasm of breast
CPT/HCPCS: 77063; 77067; 77080

== ENCOUNTER 2024-07-15 06:24 | Emergency (ER) | payer OTHER, MEDICARE, SELFPAY ==
[2024-07-15 06:26] VITALS: BP 110/76; PULSE 81; RESP 18; TEMP 36.8; O2SAT 98; BMI 28.0
[2024-07-15] MEDS: Ketorolac 30 MG/ML Syringe IM (08:02)
[2024-07-15 10:11] VITALS: BP 137/66; PULSE 72; RESP 15; TEMP 36.8; O2SAT 99
== END 2024-07-15 10:13 | disposition home or self-care (01) ==
PROVIDERS: Emergency Provider Surgery; PCP Family Medicine; Visit Provider Surgery
DX: S80.02XA Contusion of left knee, initial encounter (principal); E11.40 Type 2 diabetes mellitus with diabetic neuropathy, unspecified; S80.01XA Contusion of right knee, initial encounter; W19.XXXA Unspecified fall, initial encounter
CPT/HCPCS: 73564; 96372; 99282

== ENCOUNTER → 2024-11-09 | Outpatient (CLI) | payer MEDICARE, SELFPAY ==
[2024-11-09 14:55] LABS: ALB/GLOB Ratio 1.1 RATIO (0.9-2.4); AST(SGOT) 33 U/L (<=31); Alanine Aminotransfer ALT/SGPT 23 U/L (<=34); Albumin, Serum 4.4 g/dL (3.4-4.8); Alkaline Phosphatase 77 U/L (35-104); Anion Gap 15 (5-15); BUN 25 mg/dL (4-19); BUN/Creat Ratio 27.1 RATIO (10-20); Calcium,Total 9.8 mg/dL (7.6-11.0); Chloride 102 mmol/L (98-108); Cholesterol 146 mg/dL (<=200); Creatinine, Serum 0.92 mg/dL (0.70-1.20); EST Glomerular Filtration Rate 70 (>60); Globulin 4.1 g/dL (2.2-4.2); Glucose 99 mg/dL (70-99); High Density Lipoprotein 51 mg/dL; Low Density Lipoprotein Calc. 68 mg/dL; Microalbumin,Random Urine 27.4 mg/L (NO RANGE EST.); Microalbumin:Creatinine Ratio 117.1 mg/g CRE; Potassium 3.9 mmol/L (3.3-5.1); Protein, Total 8.5 g/dL (5.9-8.4); Sodium Level 138 mmol/L (133-145); Total Bilirubin 0.66 mg/dL (0.00-1.30); Triglycerides 133 mg/dL; Very Low Density Lipoprotein 27 mg/dL (5-40); cholesterol:hdl ratio screen 2.85
== END | disposition home or self-care (01) ==
LOC: MFPLAB 11:54
PROVIDERS: PCP Family Medicine; Referring Provider Family Medicine; Visit Provider Family Medicine
DX: E11.9 Type 2 diabetes mellitus without complications (principal)
CPT/HCPCS: 36415; 80053; 80061; 82043; 82570

== ENCOUNTER 2024-11-26 02:30 | Emergency (ER) | payer MEDICARE, SELFPAY ==
[2024-11-26] VITALS (9 sets, daily range): BP systolic 98–203; BP diastolic 66–112; PULSE 65–78; RESP 12–20; TEMP 36.6–36.8; O2SAT 93–98; BMI 27.1
[2024-11-26] MEDS: Epi Pen (EQUIV) 0.3 MG Syringe IM (02:37)
[2024-11-26] MEDS: DiphenhydrAMINE 50 MG/ML Syringe IV (02:37)
[2024-11-26] MEDS: MethylPREDNISolone 125 MG/2 ML Vial IV (02:37)
[2024-11-26] MEDS: Famotidine 200 MG/20 ML MDV 40 MG in 0.9% Normal Saline (Pres. free 6 ML 300 MG IV (02:43)
--- NOTE | 2024-11-26 02:45 | EX.ED.DYSGE1 ---
HPI History of Present Illness Chief Complaint: Allergic Reaction Informant: patient Narrative Narrative: Patient is a 63-year-old female with past medical history of migraine headache diabetes and neuropathy. She states that this evening on 07/1130 she noticed there was some itching and tingling along the left side of her face/cheek. She states that as time passed that she noticed she was now having swelling to her cheek and lips. She states that she initially felt like it was slightly difficult to swallow when the symptoms first came on but she states that has resolved. She denies any shortness of breath but states she is concerned because the swelling is now progressing across her upper and lower lip. She denies any new exposures and states she has been taking her home medications as directed. 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 Neuropathy Migraines Home Medications ?Medication ?Instructions ?Recorded ?Last Taken ?Type famotidine 20 mg tablet 20 mg PO BID ##10 02/20/16 Unknown Rx atorvastatin 10 mg tablet 10 mg PO DAILY 12/04/23 Unknown History duloxetine 60 mg capsule,delayed 60 mg PO DAILY 12/04/23 Unknown History release linaclotide 145 mcg capsule 145 mcg PO DAILY 12/04/23 Unknown History (Linzess) lisinopril 2.5 mg tablet 2.5 mg PO DAILY 12/04/23 Unknown History metaxalone 800 mg tablet 800 mg PO BID PRN PRN muscle spasm 12/04/23 Unknown History pregabalin 100 mg capsule (Lyrica) 100 mg PO Q8H 12/04/23 Unknown History semaglutide 1 mg/dose (4 mg/3 mL) 1 mg subcut SA 12/04/23 Unknown History subcutaneous pen injector (Ozempic) sitagliptin phosphate 100 mg 100 mg PO DAILY 12/04/23 Unknown History tablet (Januvia) Held on 11/26/24. Instructions: MD Ordered prednisone 20 mg tablet 40 mg (2 x 20 mg) PO DAILY 5 days 11/26/24 Unknown Rx #10 tabs Allergy/AdvReac Type Severity Reaction Status Date / Time famotidine (From Pepcid) Allergy Severe rash Verified 11/26/24 06:08 meperidine HCl (From Demerol) Allergy Hives Verified 11/26/24 02:34 gabapentin AdvReac HALLUCINATI Verified 11/26/24 02:34 ONS Social History Smoking Status: Never smoker ROS ROS ED Constitutional Constitutional ED: Denies chills or fever(s) Eyes Eyes: Denies blurry vision or change in vision ENT ENT ED: Reports other Details: Positive facial/lip swelling ; Denies sore throat Cardiovascular Cardiovascular: Denies chest pain Respiratory/Chest Respiratory/Chest: Denies cough or dyspnea Gastrointestinal Gastrointestinal: Denies abdominal pain, diarrhea, nausea or vomiting Genitourinary Genitourinary ED: Denies dysuria Musculoskeletal Musculoskeletal: Denies myalgias Integumentary Denies rash Neurologic Neurologic: Denies headache(s) Hematologic/Lymphatic Hematologic/Lymphatic: Denies easy bleeding or easy bruising Allergic/Immunologic Allergic/Immunologic ED: Reports mouth swelling; Denies tongue swelling or urticaria EXAM Physical Exam Const Vital Signs: 11/26/24 02:31 11/26/24 02:56 11/26/24 03:00 Temperature 97.9 F Temperature Source Oral Pulse Rate 65 77 76 Respiratory Rate 12 20 H 16 Respiratory Pattern Normal Blood Pressure 147/84 H 203/112 H Blood Pressure Mean 105 142 Pulse Ox 96 98 Oxygen Delivery Method Room Air 11/26/24 03:23 11/26/24 03:54 11/26/24 04:27 Temperature 98.3 F 98.2 F Temperature Source Oral Oral Pulse Rate 78 72 71 Respiratory Rate 18 13 15 Respiratory Pattern Blood Pressure 171/103 H 108/74 98/67 Blood Pressure Mean 125 85 77 Pulse Ox 97 94 93 Oxygen Delivery Method Room Air Room Air Room Air 11/26/24 05:00 11/26/24 05:30 Temperature 98 F 98.1 F Temperature Source Oral Oral Pulse Rate 73 73 Respiratory Rate 16 15 Respiratory Pattern Blood Pressure 102/77 103/71 Blood Pressure Mean 85 81 Pulse Ox 94 94 Oxygen Delivery Method Room Air Room Air Positive well nourished and well developed General Appearance ED: well developed; Negative for pallor HEENT HEENT Narrative: Patient has swelling of the left cheek that extends into the chin and across the upper and lower lip consistent with angioedema. There are no oral lesions noted on internal exam. No obvious dental caries or signs of dental abscess No tongue swelling noted No swelling in the posterior pharynx to suggest acute airway compromise Eyes PERRL and EOMs intact bilaterally General Eye ED: Negative for scleral icterus Neck supple Neck Narrative: No subcutaneous emphysema noted Chest Wall palpation of chest normal Resp normal respiratory effort and clear to auscultation bilaterally Resp Narrative: No nasal flaring retractions tachypnea or accessory muscle use Cardio regular rate and regular rhythm Rate: other Other Details: Heart is regular rate and rhythm Radial and carotid pulses are equal and symmetric GI normal to inspection, nondistended, normoactive bowel sounds, non-tender, non-distended and no masses Auscultation: normoactive bowel sounds Palpation: soft Extremity normal to inspection Extremity Narrative: No asymmetric edema no pitting edema negative Homans' sign bilaterally Neuro oriented x3, CN's II-XII intact bilaterally and no sensory deficits noted Sensorium / Orientation: alert Motor Exam: strength 5/5 throughout Psych mental status grossly normal Skin Skin Narrative: Soft tissue swelling of the left sided face/cheek which extends across the upper and lower lip and into the chin as documented above No obvious abscess formation or cellulitis noted General Skin Exam: Negative for jaundice or pallor MDM MDM MDM Narrative Medical decision making narrative: Patient arrived to the ER with stable vitals and in no acute respiratory distress. She reported that the facial swelling began around 11 or 1130 and did not present until approximately 3 AM. Despite the prolonged timeframe and the exam showing facial swelling and lip swelling there was no tongue swelling or true airway compromise and no need for emergent stabilization with intubation. Chart review reveals that she is on lisinopril which is the most likely cause for her angioedema/allergic reaction. Because she had had facial and lip swelling she was given IM epinephrine in the generalized allergic reaction cocktail of Benadryl Solu-Medrol and Pepcid was added. After the patient received Pepcid she did developed a erythematous blanchable urticarial rash across the neck lower face chest and abdomen as well as upper arm most consistent with acute allergic reaction. As she is already been given Benadryl epinephrine and prednisone there is no further medication to provide at this time. As her history and exam does not suggest an infectious process and do not feel the need for laboratory studies. With the patient having angioedema she was also given 1 g of inhaled TXA. She was watched in the ER for slightly over 3 hours. After receiving all the medication and allowing time to progress the patient's swelling of the face and lips began to improve. On reevaluation there is no tongue swelling or signs of airway compromise. The patient states she feels much better at this time and as it has been approximately 6 hours since the onset of her symptoms and they are now starting to resolve without signs of rebound or airway compromise I do not feel need for admission or further observation in the ER and she is otherwise safe for discharge History & Record Review Discussion w/independent historian: Patient Discharge Plan Triage Chief Complaint: Allergic Reaction ED Provider: Luis Sheridan Dx/Rx/DC Orders Clinical Impression: Acute allergic reaction, Angioedema, Non-insulin dependent diabetes mellitus, Neuropathy Instructions: ED General Allergic Reactions, ED Angioedema Prescriptions: New prednisone 20 mg tablet 40 mg PO DAILY 5 Days Qty: 10 0RF No Action famotidine 20 MG tablet 20 mg PO BID Qty: 10 0RF atorvastatin 10 mg tablet 10 mg PO DAILY Ozempic 1 mg/dose (4 mg/3 mL) pen injector 1 mg subcut SA pregabalin [Lyrica] 100 mg capsule 100 mg PO Q8H lisinopril 2.5 mg tablet 2.5 mg PO DAILY metaxalone 800 mg tablet 800 mg PO BID PRN PRN (Reason: muscle spasm) duloxetine 60 mg capsule,delayed release(DR/EC) 60 mg PO DAILY Januvia 100 mg tablet 100 mg PO DAILY Linzess 145 mcg capsule 145 mcg PO DAILY Primary Care Provider: Aaron Chandler Referrals: Aaron Chandler MD [Primary Care Provider] - Activity Restrictions/Additional Instructions: Please stop taking your lisinopril and list this as an allergy as this is the most likely culprit for your facial and lip swelling. The swelling should continue to improve over the next 1 to 2 days. Continue with [id number] Benadryl for itching and swelling and use the steroid once a day as directed. If you develop difficulty swallowing or shortness of breath or have any further concerns please return to the ER for repeat evaluation Please also list Pepcid now as an allergy as you did develop a rash after the IV dose given in the ER Print Language: Citizen [place] Disposition Disposition: Home, Self Care
[2024-11-26] MEDS: TRANEXAMIC ACID 1,000 MG/10 ML ML 1000 MG OPERA.SITE (02:49)
--- NOTE | 2024-11-26 02:50 | NURSING ---
Pt c/o of pain with pepcid IVP. Soon after a rash was noted above IV site, across chest, and on chin. DR notified and evaluated at bedside. Pt also c/o of nausea and abd pain.
--- NOTE | 2024-11-26 02:57 | CPS ---
TXA aerosolized to help reduce swelling of lips and tongue due to an allergic reaction
[2024-11-26] MEDS: Ondansetron 4 MG/2 ML Vial IV (03:00)
== END 2024-11-26 06:13 | disposition home or self-care (01) ==
PROVIDERS: Emergency Provider Emergency Medicine; PCP Family Medicine; Visit Provider Emergency Medicine
DX: T78.40XA Allergy, unspecified, initial encounter (principal); E11.40 Type 2 diabetes mellitus with diabetic neuropathy, unspecified; Z79.899 Other long term (current) drug therapy; X58.XXXA Exposure to other specified factors, initial encounter
CPT/HCPCS: 94640; 96365; 96372; 96375; 99284; A4216; J2405

== ENCOUNTER → 2025-02-21 | Outpatient (CLI) | payer MEDICARE, MEDICAID, SELFPAY ==
--- NOTE | 2025-02-21 14:10 | RAD_ITS ---
PROCEDURE: FOOT MIN 3 VIEWS 02/21/2025 REASON FOR EXAM: FALL, INJURY Initial encounter TECHNIQUE: FOOT MIN 3 VIEWS COMPARISON: None. FINDINGS: Bones: Generalize osteopenia. No grossly evident acute displaced fracture. Vertical lucency in the base of the proximal phalanx of the 5th digit. If there is point tenderness at this location a nondisplaced fracture may be present. Joints: The performance in irregularity of the proximal phalanx of the 5th digit enters the MTP joint Soft tissues: Suggestive of lateral soft tissue swelling over this is MTP area Other: RAD/Foot min 3 Views IMPRESSION: Possible nondisplaced fracture of the phalanx of the 5th digit Reading Location: [facility]
== END | disposition home or self-care (01) ==
PROVIDERS: PCP Family Medicine; Referring Provider Family Medicine; Visit Provider Family Medicine
DX: S99.921A Unspecified injury of right foot, initial encounter (principal); W19.XXXA Unspecified fall, initial encounter
CPT/HCPCS: 73630

== ENCOUNTER → 2025-02-22 | Outpatient (CLI) | payer MEDICARE, MEDICAID, SELFPAY ==
--- NOTE | 2025-02-22 11:43 | RAD_ITS ---
PROCEDURE: KNEE 4 OR MORE VIEWS 02/22/2025 REASON FOR EXAM: PAIN TECHNIQUE: KNEE 4 OR MORE VIEWS RIGHT KNEE. COMPARISON: NONE. FINDINGS: Enthesophyte formation at the upper pole of the patella. Mild osteopenia of the visualized bones. Degenerative joint disease. No fracture or dislocation is seen. No lytic or blastic bone lesion is noted. RAD/Knee 4 or More Views IMPRESSION: No evidence for acute abnormality. Reading Location[facility]
== END | disposition home or self-care (01) ==
LOC: MTRAD 11:42
PROVIDERS: PCP Family Medicine; Referring Provider Family Medicine; Visit Provider Family Medicine
DX: M25.561 Pain in right knee (principal)
CPT/HCPCS: 73564

== ENCOUNTER → 2025-04-05 | Outpatient (CLI) | payer MEDICARE, MEDICAID, SELFPAY ==
--- NOTE | 2025-04-05 10:30 | RAD_ITS ---
PROCEDURE: SHOULDER MIN 2 VIEWS 04/05/2025 REASON FOR EXAM: Pain, decreased range of motion TECHNIQUE: SHOULDER MIN 2 VIEWS four views total COMPARISON: None FINDINGS: Bones: No fracture or suspicious osseous lesion Joints: Age consistent glenohumeral and acromioclavicular joint arthrosis. Soft tissues: No foreign body or suspicious soft tissue swelling Other: RAD/Shoulder min 2 Views IMPRESSION: Age consistent degenerative changes, no acute findings Reading Location: [id number]
--- NOTE | 2025-04-05 10:30 | RAD_ITS ---
PROCEDURE: WRIST MIN 3 VIEWS 04/05/2025 REASON FOR EXAM: PAIN TECHNIQUE: WRIST MIN 3 VIEWS COMPARISON: 11/08/2023 FINDINGS: No demonstrated fracture or suspicious osseous lesion. There are extra-articular calcifications adjacent to the ulnar styloid likely from previous trauma. Age consistent narrowing of the radioscaphoid joint space and at the base of the thumb. No suspicious soft tissue swelling or foreign body. Overall, no interval change RAD/Wrist min 3 Views IMPRESSION: Stable degenerative changes, no acute findings or significant interval change Reading Location: [id number]
--- NOTE | 2025-04-05 10:30 | RAD_ITS ---
PROCEDURE: HAND MIN 3 VIEWS 04/05/2025 REASON FOR EXAM: PAIN TECHNIQUE: HAND MIN 3 VIEWS COMPARISON: November 08, 2023 FINDINGS: There is no acute fracture or dislocation identified. There is moderate osteoarthritis of the distal interphalangeal joints radiocarpal articulation. There are multiple corticated osteochondral fragments of the ulnar styloid with the largest measuring 0.3 cm, unchanged. Mineralization is normal. There is no visible atherosclerosis. There is no focal soft tissue abnormality or visible radiopaque foreign body RAD/Hand Min 3 Views IMPRESSION: No acute fracture or dislocation is identified. Reading Location: [facility]
--- NOTE | 2025-04-05 10:30 | RAD_ITS ---
PROCEDURE: HUMERUS MIN 2 VIEWS 04/05/2025 REASON FOR EXAM: PAIN TECHNIQUE: HUMERUS MIN 2 VIEWS COMPARISON: None FINDINGS: There is no fracture or dislocation identified. Mineralization is normal. There is no visible atherosclerosis. RAD/Humerus min 2 Views IMPRESSION: No fracture or dislocation is identified. Reading Location: [facility]
== END | disposition home or self-care (01) ==
LOC: MTLAB 10:25 → MTRAD 10:27
PROVIDERS: PCP Family Medicine; Referring Provider Family Medicine; Visit Provider Family Medicine
DX: M79.601 Pain in right arm (principal)
CPT/HCPCS: 73030; 73060; 73110; 73130

== ENCOUNTER → 2025-04-18 | Outpatient (CLI) | payer MEDICARE, MEDICAID, SELFPAY ==
--- NOTE | 2025-04-18 10:01 | RAD_ITS ---
PROCEDURE: KNEE 4 OR MORE VIEWS 04/18/2025 REASON FOR EXAM: FALL TECHNIQUE: KNEE 4 OR MORE VIEWS Laterality: COMPARISON: 02/22/2025. FINDINGS: No evidence acute fracture or dislocation. Mild degenerative changes of the knee. No knee joint effusion. RAD/Knee 4 or More Views IMPRESSION: Mild osteoarthrosis. No acute osseous abnormalities. Reading Location: [id number]
== END | disposition home or self-care (01) ==
LOC: MTRAD 10:01
PROVIDERS: PCP Family Medicine; Referring Provider Family Medicine; Visit Provider Family Medicine
DX: S89.91XA Unspecified injury of right lower leg, initial encounter (principal); W19.XXXA Unspecified fall, initial encounter
CPT/HCPCS: 73564

== ENCOUNTER 2025-05-22 16:13 | Observation (INO) | payer MEDICARE, SELFPAY ==
[2025-05-22] VITALS (12 sets, daily range): BP systolic 95–129; BP diastolic 72–101; PULSE 65–79; RESP 18–25; TEMP 36.2–37.2; O2SAT 95–99; BMI 27.1; BMI 26.3
--- NOTE | 2025-05-22 16:51 | CT_ITS ---
PROCEDURE: STROKE CT BRAIN/HEAD WITHOUT CONTRAST 05/22/2025 REASON FOR EXAM: NEURO DEFICIT, ACUTE, STROKE SUSPECTED TECHNIQUE: Procedure Code: CTBR.ST Modality: CT Procedure: STROKE BRAIN/HEAD WITHOUT CONT Coronal and Sagittal reconstruction series were provided. One or more dose reduction techniques were used (e.g., Automated exposure control, adjustment of the mA and/or kV according to patient size, use of iterative reconstruction technique. RADIATION DOSE SUMMARY: CTDlvol: 44.99 mGy DLP: 779.24 mGycm COMPARISON: 12/04/2023 FINDINGS: No acute intracranial hemorrhage, extra-axial collection, mass effect or evidence of acute infarct. Ventricles and subarachnoid spaces are normal in size. Orbital contents are unremarkable. Intact skull base and calvarium. Clear paranasal sinuses and mastoid air cells. CT/STROKE Brain/Head without Cont IMPRESSION: No acute intracranial abnormality. Reading Location: [facility]
--- NOTE | 2025-05-22 16:51 | CT_ITS ---
PROCEDURE: STROKE CTA HEAD AND NECK W/CON 05/22/2025 REASON FOR EXAM: NEURO DEFICIT, ACUTE, STROKE SUSPECTED TECHNIQUE: Procedure Code: CTCTA.ST.HN Modality: CT Procedure: STROKE CTA HEAD AND NECK W/CON Multiplanar Sagittal and Coronal images were obtained. 3D post processing was performed. CONTRAST: Isovue 370 VOLUME: 100 mL One or more dose reduction techniques were used (e.g., Automated exposure control, adjustment of the mA and/or kV according to patient size, use of iterative reconstruction technique). RADIATION DOSE SUMMARY: DLP: 667.18 mGycm COMPARISON: None. FINDINGS: CTA HEAD: Patent intracranial arterial vasculature. No large vessel occlusion, flow- limiting stenosis, saccular aneurysm, or vascular malformation identified. Dural venous sinuses appear patent. CTA NECK: Conventional aortic arch branching. Bilateral cervical carotid and codominant vertebral arteries are patent without significant stenosis. No aneurysm or dissection. CT/STROKE CTA Head AND Neck W/Con IMPRESSION: Widely patent intracranial and cervical arterial vasculature. Reading Location: [facility]
--- NOTE | 2025-05-22 16:51 | EKG12_ITS ---
Test Reason : STROKE TEAM Blood Pressure : */* mmHG Vent. Rate : 74 BPM Atrial Rate : 74 BPM P-R Int : 140 ms QRS Dur : 82 ms QT Int : 382 ms P-R-T Axes : 66 41 32 degrees QTcB Int : 424 ms Normal sinus rhythm Normal ECG Confirmed by JOSE RAUL MCKENZIE, EDA ([id number]), offline editor KADEEM MOSER ([id number]) on 05/23/2025 9:41:39 AM Referred By: Confirmed By: EDA BLUNT MD
--- NOTE | 2025-05-22 16:53 | ED.VIS.STROK ---
HPI History of Present Illness Chief Complaint: Dizziness Narrative Narrative: Patient is a 64-year-old female presenting to the emergency department for an episode of diaphoresis, dizziness, double vision. Patient has a PMHX of diabetes, neuropathy and migraines. States this does not feel like her past migraines. Last known well was 2 PM. She is not on any oral anticoagulation. Patient states that this happened once before and it was because of low blood sugar. Patient states that she was getting ready for her podiatry visit this morning and around 215 she became very diaphoretic and felt like her skin was crawling. Shortly after when she got in the car to go to her podiatry appointment she blacked out. She does not remember actually driving to the appointment. She states when she got there she was very dizzy, lightheaded, diaphoretic and was seeing double. She states that her symptoms have improved somewhat but she has still seeing double intermittently. Denies any head trauma. 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 Home Medications ?Medication ?Instructions ?Recorded ?Last Taken ?Type atorvastatin 10 mg tablet 10 mg PO DAILY 12/04/23 Unknown History duloxetine 60 mg capsule,delayed 60 mg PO DAILY 12/04/23 Unknown History release linaclotide 145 mcg capsule 145 mcg PO DAILY 12/04/23 Unknown History (Linzess) lisinopril 2.5 mg tablet 2.5 mg PO DAILY 12/04/23 Unknown History metaxalone 800 mg tablet 800 mg PO BID PRN PRN muscle spasm 12/04/23 Unknown History pregabalin 100 mg capsule (Lyrica) 100 mg PO Q8H 12/04/23 Unknown History semaglutide 1 mg/dose (4 mg/3 mL) 2 mg subcut SA 12/04/23 Unknown History subcutaneous pen injector (Ozempic) sitagliptin phosphate 100 mg 50 mg PO DAILY 12/04/23 Unknown History tablet (Januvia) Held on 11/26/24. 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 No acute distress HEENT: Head is normocephalic and atraumatic, sinuses nontender, pupils equal round and reactive. Nares are patent. Oropharynx and throat exams normal. Neck: Supple without lymphadenopathy nontender Cardiovascular: Regular rate and rhythm, no murmurs. No rubs or gallops. Normal S1 and S2 Respiratory: Clear to auscultation bilaterally. No wheezes, rales, rhonchi Abdominal: Soft and nontender. Normal bowel sounds. No guarding or rebound. Nonsurgical abdomen Extremities: No tenderness. No bruising. Normal range of motion. Normal sensation. Skin: No rash or redness. The rest of the physical exam is unremarkable Const Vital Signs: 05/22/25 16:15 05/22/25 16:51 05/22/25 16:51 Temperature 98.2 F Temperature Source Oral Pulse Rate 79 75 Respiratory Rate 21 H 20 H Blood Pressure 103/73 95/72 Blood Pressure Mean 83 79 Pulse Ox 97 96 Oxygen Delivery Method Room Air Room Air Room Air 05/22/25 17:21 05/22/25 17:30 05/22/25 17:56 Temperature Temperature Source Pulse Rate 73 71 70 Respiratory Rate 25 H 19 H 19 H Blood Pressure 108/79 106/79 115/75 Blood Pressure Mean 88 88 88 Pulse Ox 96 96 97 Oxygen Delivery Method Room Air Room Air Room Air 05/22/25 18:17 05/22/25 18:30 Temperature 98.2 F Temperature Source Pulse Rate 69 68 Respiratory Rate 20 H 18 Blood Pressure 115/83 H 123/101 H Blood Pressure Mean 93 108 Pulse Ox 97 99 Oxygen Delivery Method Room Air MDM MDM MDM Narrative Medical decision making narrative: Patient is a 64-year-old female presenting to the emergency department for dizziness, diplopia, diaphoresis. Patient was seen and examined. Vitals are stable. Patient resting bed comfortably no acute distress. Differential includes but is not limited to: Stroke, TIA, hypoglycemia, ACS, cardiac dysrhythmia, vertigo On my evaluation of the patient with her complaints of diplopia, dizziness and her right sided sensation deficit and last known well of 2 PM, stroke team was called. Low NIH of 1. Lab work including CBC, BMP and troponin are unremarkable. EKG shows normal sinus rhythm, no ischemic changes. No dysrhythmia. CT of the brain with no acute intracranial abnormality. CTA head and neck are negative. Patient evaluated by stroke neurologist, Dr. Brandon Campo, who does not think this is secondary to a stroke. He did recommend 325 mg aspirin and admission for MRI for further stroke workup however. Discussed negative workup so far with the patient. Discussed admission for further stroke workup. Patient is agreeable. Patient admitted to Dr. Braden for further workup. Clinical impression: Diplopia diaphoresis Lab Data Attestation: I reviewed the patient's lab results. Labs: Laboratory Results - last 24 hr 05/22/25 16:30 WBC 7.3 RBC 5.31 Hgb 15.4 H Hct 46.3 MCV 87.2 MCH 29.0 MCHC 33.3 RDW Std Deviation 41.2 RDW Coeff of Arnoldo 13.0 Plt Count 282 MPV 9.5 Immature Gran % (Auto) 0.300 Neut % (Auto) 61.9 Lymph % (Auto) 26.5 [place] % (Auto) 7.5 Eos % (Auto) 2.7 Baso % (Auto) 1.1 H Absolute Neuts (auto) 4.5 Absolute Lymphs (auto) 1.94 Nucleated RBC % 0 PT 12.9 INR 1.0 APTT 25.5 Sodium 136 Potassium 3.5 Chloride 102 Carbon Dioxide 21.9 Anion Gap 13 BUN 23 H Creatinine 0.72 Estim Creat Clear Calc 73.19 Est GFR (MDRD) Non-Af 92 BUN/Creatinine Ratio 32.0 H Glucose 133 H Calcium 9.8 Troponin T High Sens 14 Radiography Diagnostic Testing: Clinical Impression(s) from Imaging Studies Brain CT 05/22/25 16:51 IMPRESSION: No acute intracranial abnormality. Reading Location: [facility] Head/Neck CTA 05/22/25 16:51 IMPRESSION: Widely patent intracranial and cervical arterial vasculature. Reading Location: [facility] Discharge Plan Disposition Disposition: Acute Care Hospital [facility] Discharge Date/Time: 05/22/25 19:10 NIHSS NIHSS 1a. Level of Consciousness: 0 - Alert; keenly responsive 1b. LOC Questions: 0 - Answers BOTH questions correctly 1c. LOC Commands: 0 - Performs BOTH tasks correctly 2. Best Gaze: 0 - Normal 3. Visual: 0 - No visual loss 4. Facial Palsy: 0 - Normal symmetrical movements 5a. Left Arm: 0 - No drift; arm holds 90 (or 45) degrees for full 10 seconds 5b. Right Arm: 0 - No drift; arm holds 90 (or 45) degrees for full 10 seconds 6a. Left Le - No drift; leg holds 30-degree position for full 5 seconds 6b. Right Le - No drift; leg holds 30-degree position for full 5 seconds 7. Limb Ataxia: 0 - Absent 8. Sensory: 1 - Hpke-dx-eqrzyyfm sensory loss; 9. Best Language: 0 - No aphasia; normal 10. Dysarthria: 0 - Normal 11. Extinction and Inattention: 0 - No abnormality Total: 1 Stroke Questions Stroke Team Activated: Yes Reviewed Inclusion/Exclusion criteria: Yes IV Thrombolytic Administered: No
[2025-05-22 17:04] LABS: Hematocrit 46.3 % (37-47); Hemoglobin 15.4 g/dL (12.0-15.0); Immature Granulocytes Count 0.020 X10^3/uL (0.0-0.0); Mean Corp Hgb Conc 33.3 g/dL (32-36); Mean Corpuscular Volume 87.2 fL (81-99); Mean Platelet Vol. 9.5 fl (6.2-12.0); NRBC Flagged by Analyzer 0 % (0-5); Platelet Count 282 K/mm3 (150-450); RBC Distribution Width CV 13.0 % (11.6-14.6); RBC Distribution Width SD 41.2 fl (35.1-43.9); Red Blood Count 5.31 M/mm3 (4.2-5.4); White Blood Count 7.3 K/mm3 (4.4-11.0)
[2025-05-22 17:23] LABS: Anion Gap 13 (5-15); BUN 23 mg/dL (4-19); BUN/Creat Ratio 32.0 RATIO (10-20); Calcium,Total 9.8 mg/dL (7.6-11.0); Carbon Dioxide 21.9 mmol/L (21.0-32.0); Chloride 102 mmol/L (98-108); Estimated Creatinine Clearance 73.19 ml/min (50-250); Glucose 133 mg/dL (70-99); Potassium 3.5 mmol/L (3.3-5.1); Troponin T High Sensitivity 14 ng/L (<=14)
[2025-05-22 17:25] LABS: Prothrombin Time (Protime)PT. 12.9 SECONDS (11.7-14.9)
[2025-05-22 17:26] LABS: Partial Thromboplast Time 25.5 Seconds (24.1-36.2)
[2025-05-22] MEDS: 0.9% Normal Saline (1000mL) 1,000 ML 1000 ML IV (17:52)
--- NOTE | 2025-05-22 18:49 | PCM.HP.STD ---
HPI - General General Date of Admission: 05/22/25 Date of Service: 05/22/25 Chief Complaint: Double vision HPI Narrative GERBER BANGURA, is a 64-year-old female history of depression, hypertension, diabetes, migraines presented to [facility] ED 05/22/2025 due to dizziness and double vision that does not feel like past migraines. Last known well was 2 PM. Reportedly she was getting for her podiatry visit when she became diaphoretic and felt like her skin was crawling, shortly after when she got to her car she blacked out and does not remember actually driving to the appointment. When she got there she was very dizzy, lightheaded, diaphoretic and was seeing double. Symptoms have improved somewhat in the ED but still seeing double intermittently. In the ED temp 98.2, heart rate 79, blood pressure 103/73, respiratory rate 21 and pulse ox 97% on room air. CBC with white count 7.3, hemoglobin 15.4, BMP with BUN of 23 and a creatinine 0.72, glucose 133. CTA head and neck no LVO. Hospitalist contacted for stroke rule out. Patient evaluated with granddaughter at bedside. Patient reports that she was getting ready for her podiatry appointment earlier today and was having trouble getting dressed and was feeling weak, she drove to her appointment got double vision while she was driving, she is unsure if she had any loss of consciousness while she was driving but was able to get to the appointment. When she walked in she was pale and diaphoretic and grabbed the desk they told her to sit down, glucose was 125, not hypotensive when she was brought to the ED. Patient still reports having some problems with intermittent double vision and feels little bit weak all over and her main complaint was feeling jittery inside. She notes she has problems with neuropathy and has had problems with intermittent tingling and burning in the left thigh as well as numbness below the knee on the right without any acute changes. Denies any chest pain or shortness of breath. Does note a headache that started a couple of hours ago, does have problems with migraines but reports that it is very different and is usually predominantly hallmarked by nausea and does not note any history of neurological symptoms. Also of note patient did get bit by her cat twice on her hand this morning, fairly superficial but carmona are noted. 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 Migraines Home Medications ?Medication ?Instructions ?Recorded ?Last Taken ?Type atorvastatin 10 mg tablet 10 mg PO DAILY 12/04/23 Unknown History duloxetine 60 mg capsule,delayed 60 mg PO DAILY 12/04/23 Unknown History release linaclotide 145 mcg capsule 145 mcg PO DAILY 12/04/23 Unknown History (Linzess) lisinopril 2.5 mg tablet 2.5 mg PO DAILY 12/04/23 Unknown History metaxalone 800 mg tablet 800 mg PO BID PRN PRN muscle spasm 12/04/23 Unknown History pregabalin 100 mg capsule (Lyrica) 100 mg PO Q8H 12/04/23 Unknown History semaglutide 1 mg/dose (4 mg/3 mL) 2 mg subcut SA 12/04/23 Unknown History subcutaneous pen injector (Ozempic) sitagliptin phosphate 100 mg 50 mg PO DAILY 12/04/23 Unknown History tablet (Januvia) Held on 11/26/24. Instructions: MD Ordered Allergy/AdvReac Type Severity Reaction Status Date / Time famotidine (From Pepcid) Allergy Severe rash Verified 05/22/25 16:14 meperidine HCl (From Demerol) Allergy Hives Verified 05/22/25 16:14 gabapentin AdvReac HALLUCINATI Verified 05/22/25 16:14 ONS Social History Smoking Status: Never smoker ROS ROS Narrative General: Denies fever/chills HENT: General headache, denies stuffy nose, denies sore throat EYES: Intermittent blurry vision Resp: Denies cough, denies shortness of breath Cardiac: Denies chest pain GI: Denies abdominal pain, denies changes in bowel, denies nausea/vomiting : Denies changes in urination Extremity: Denies swelling MSK: Some generalized weakness, no focal weakness Neuro: intermittent numbness in right leg below the knee and burning in left thigh, not new Heme: Denies any bleeding or bruising Skin: Does have 2 superficial Bites to her right hand Psychiatric: No complaints voiced Vital Signs Vital Signs Vital Signs: 05/22/25 16:15 05/22/25 16:51 05/22/25 16:51 Temperature 98.2 F Temperature Source Oral Pulse Rate 79 75 Respiratory Rate 21 H 20 H Blood Pressure 103/73 95/72 Blood Pressure Mean 83 79 Pulse Ox 97 96 Oxygen Delivery Method Room Air Room Air Room Air 05/22/25 17:21 05/22/25 17:30 05/22/25 17:56 Temperature Temperature Source Pulse Rate 73 71 70 Respiratory Rate 25 H 19 H 19 H Blood Pressure 108/79 106/79 115/75 Blood Pressure Mean 88 88 88 Pulse Ox 96 96 97 Oxygen Delivery Method Room Air Room Air Room Air 05/22/25 18:17 Temperature 98.2 F Temperature Source Pulse Rate 69 Respiratory Rate 20 H Blood Pressure 115/83 H Blood Pressure Mean 93 Pulse Ox 97 Oxygen Delivery Method Weight Weight: 76.374 kg Body Mass Index (BMI) 27.1 Physical Exam Narrative General: Alert, oriented, no apparent distress HEENT: Atraumatic, normocephalic Eyes: Anicteric, normal conjunctiva, extraocular movements intact, pupils equal Neck: Supple Respiratory: Clear to auscultation bilaterally, normal respiratory effort Cardiovascular: Regular rate and rhythm GI: Soft, nontender, nondistended Extremities: No edema Musculoskeletal: Strength 5 out of 5 in right upper extremity, 5 out of 5 left upper extremity, 5 out of 5 right lower extremity but would drop after period of time after, 5 out of 5 left lower extremity Neuro: cranial nerves II through XII intact, [id number] without significant difficulty bilaterally Skin: Does have superficial cat bites noted on right hand Psych: Cooperative Results Lab / Micro Data 05/22/25 16:30 05/22/25 16:30 Labs: Laboratory Results - last 24 hr 05/22/25 16:30: WBC 7.3, RBC 5.31, Hgb 15.4 H, Hct 46.3, MCV 87.2, MCH 29.0, MCHC 33.3, RDW Std Deviation 41.2, RDW Coeff of Arnoldo 13.0, Plt Count 282, MPV 9.5, Immature Gran % (Auto) 0.300, Neut % (Auto) 61.9, Lymph % (Auto) 26.5, [place] % (Auto) 7.5, Eos % (Auto) 2.7, Baso % (Auto) 1.1 H, Absolute Neuts (auto) 4.5, Absolute Lymphs (auto) 1.94, Nucleated RBC % 0, PT 12.9, INR 1.0, APTT 25.5, Sodium 136, Potassium 3.5, Chloride 102, Carbon Dioxide 21.9, Anion Gap 13, BUN 23 H, Creatinine 0.72, Estim Creat Clear Calc 73.19, Est GFR (MDRD) Non-Af 92, BUN/Creatinine Ratio 32.0 H, Glucose 133 H, Calcium 9.8, Troponin T High Sens 14 Imaging Radiology Impression Brain CT 05/22/25 16:51 IMPRESSION: No acute intracranial abnormality. Reading Location: [id number] Head/Neck CTA 05/22/25 16:51 IMPRESSION: Widely patent intracranial and cervical arterial vasculature. Reading Location: [id number] Assessment & Plan Assessment/Plan (1) Double vision: PLAN: Plan # Dizziness, double vision, generalized weakness -Vague waxing waning symptoms -Admit to tele -CT head w/ no acute process -CTA head and neck no acute process -MRI ordered -NIH q4hr -asa, statin -Echo -PT/OT/Speech eval -Teleneuro consult placed -Hold BP medications to allow for permissive hypertension for 24 hours unless SBP greater than 220 or DBP greater than 120 or until stroke is ruled out -Will check TSH and magnesium -Also check orthostats given patient's vague symptoms #Cat bite -Patient with 2 cat bite wounds, fairly superficial however they are over the hand and did break skin -Given location patient will qualify for cat bite infection prophylaxis with 3 days of Augmentin, this has been ordered -Tetanus booster also recommended as this was ordered #Type 2 diabetes mellitus -Glucose checks and sliding scale insulin -Check A1c in the a.m. #Depression/anxiety -Continue home medications #DVT ppx: SCDs Kamille Braden MD Charges/Coding Visit Charges Inpatient E&M: 31833 Init Hosp L2
--- NOTE | 2025-05-22 19:40 | ECHOD_ITS ---
Reason For Study Reason For Study: TIA/CVA Procedure This was a 2D Doppler, Color Flow transthoracic echocardiogram. Exam performed portable in patient room. Left Ventricle Normal LV size. Left ventricular systolic function is normal. The left ventricular ejection fraction is 60 %. Stage 1 diastolic dysfunction. No regional wall motion abnormalities noted. Right Ventricle Normal RV size. Normal systolic function. Atria Normal left atrium. Normal right atrium. Bubble contrast study is negative for PFO/ASD. Mitral Valve There is mild to moderate mitral annular calcification. Tricuspid Valve Normal tricuspid valve. Aortic Valve Trisinus/trileaflet aortic valve. Pulmonic Valve Normal pulmonic valve. Great Vessels Normal aortic root. The pulmonary artery is normal size. Inferior vena cava collapse with respiration. Pericardium/Pleural No pericardial effusion. Medication Performed a rapid injection of agitated mix of 9 cc saline and 1cc air to assess for atrial septal defect. MMode/2D Measurements & Calculations LVIDd: 3.9 cm IVSd: 0.99 cm LVOT diam: 1.9 cm LVIDs: 2.4 cm LVPWd: 0.97 cm RVDd: 3.0 cm FS: 38.9 % LVOT area: 2.8 cm2 asc Aorta Diam: 3.0 cm LAV(MOD-bp): 27.3 ml LVAd ap4: 14.8 cm2 LAV(MOD-bp) Indexed: 14.5 ml/m2 LVLd ap4: 6.3 cm LAV(MOD-sp2): 28.2 ml EDV(MOD-sp4): 29.0 ml LAV(MOD-sp4): 24.9 ml EDV(sp4-el): 29.4 ml LVAs ap4: 8.8 cm2 LVLs ap4: 5.7 cm ESV(MOD-sp4): 11.9 ml ESV(sp4-el): 11.6 ml EF(MOD-sp4): 58.9 % EF(sp4-el): 60.6 % LVAd ap2: 15.7 cm2 SV(MOD-sp4): 17.1 ml SV(MOD-sp2): 17.0 ml LVLd ap2: 6.8 cm SI(MOD-sp4): 9.1 ml/m2 SI(MOD-sp2): 9.1 ml/m2 EDV(MOD-sp2): 29.8 ml EDV(sp2-el): 30.8 ml LVAs ap2: 9.5 cm2 LVLs ap2: 5.9 cm ESV(MOD-sp2): 12.8 ml ESV(sp2-el): 13.0 ml EF(MOD-sp2): 57.1 % SV(sp4-el): 17.8 ml Ao sinus diam: 2.[address] Junction: 2.4 cm LA dimension(2D): 3.6 cm LA A4 area: 11.9 cm2 RA A4 area: 8.4 cm2 TAPSE: 1.7 cm Time Measurements MV dec time: 0.32 sec Doppler Measurements & Calculations MV E max rony: 62.8 cm/sec Lat Peak E' Rony: 8.1 cm/sec Med Peak E' Rony: 6.2 cm/sec MV A max rony: 106.7 cm/sec E/E' lat: 7.7 E/E' med: 10.2 MV E/A: 0.59 MV dec slope: 198.1 cm/sec2 Ao V2 max: 112.2 cm/sec LV V1 max: 94.6 cm/sec Ao max P.0 mmHg LV V1 max P.6 mmHg Ao V2 mean: 77.1 cm/sec LV V1 mean P.8 mmHg Ao mean P.7 mmHg LV V1 mean: 62.6 cm/sec Ao V2 VTI: 24.9 cm LV V1 VTI: 17.7 cm AV (velocity ratio): 0.71 CHANDU(I,D): 2.0 cm2 CHANDU(V,D): 2.4 cm2 SV(LVOT): 50.2 ml PA V2 max: 93.6 cm/sec TR max rony: 183.1 cm/sec TR max P.5 mmHg ECHO/Echo Complete Interpretation Summary Normal LV size. Left ventricular systolic function is normal. Bubble contrast study is negative for PFO/ASD. The left ventricular ejection fraction is 60 %. Stage 1 diastolic dysfunction. Ordering Physician: Kamille Braden Referring Physician: Aaron Chandler Performed By: Suad Lopez RDCS
[2025-05-22 20:05] LABS: Troponin T High Sens 2 HR 11 ng/L (<=14)
[2025-05-22 22:13] LABS: Troponin T High Sens 4 HR 12 ng/L (<=14)
--- OUTSIDE RECORDS SUMMARY | 2025-05-22 23:13 | XMS RPT_ITS | CCD ---
Author Organization [facility] Care Team Providers Care Chefs Name Role Phone Adam Dixon (Historical) Primary Care Prov ider Unavailable Sultan MCKENZIE, Amy Unavailable Lorena Campa Unavailable JUDY NIELSEN Referring Unavailable ADAM DIXON (HISTORICAL) Primary Care U navailable Lokesh MCKENZIE, Lorena Murphy Unavailable Adam Dixon (Historical) Primary Care Prov ider Unavailable Ramesh MCKENZIE, Dr. Walker Primary Care Provider [phone] Dr. Aaron Chandler MD Attending Provider Dr. Aaron Chandler MD Referring Provider Dr. Luis Sheridan DO Emergency Provider Dr. Luis Sheridan DO Attending Provider ADAM DIXON (HISTORICAL) Primary Care U navailable TAHER, MOI H Admitting Unavailable TAHER, MOI H Attending Unavailable LISBET LUCIANO Consulting Unavailable ADAM DIXON (HISTORICAL) Primary Care U navailable DULCE, SABI GALVIN Attending Unavailable ADAM DIXON (HISTORICAL) Primary Care U navailable DULCE, SABI GALVIN Referring Unavailable DULCE, SABI GALVIN Attending Unavailable ADAM DIXON (HISTORICAL) Primary Care U navailable DULCE, SABI GALVIN Referring Unavailable ADAM DIXON (HISTORICAL) Primary Care U navailable DULCE, SABI GALVIN Attending Unavailable ADAM DIXON (HISTORICAL) Primary Care U navailable DULCE, SABI GALVIN Referring Unavailable Dr. Aaron Chandler MD Primary Care Provider [phone] Dr. Aaron Chandler MD Attending Provider Dr. Aaron Chandler MD Referring Provider [phone] Ramesh, Aaron Attending Unavailable Chandler, Aaron Referring Unavailable Chandler, Aaron Primary Care Unavailable Chandler, Aaron Referring Unavailable Chandler, Aaron Attending Unavailable Chandler, Aaron Primary Care Unavailable Chandler, Aaron Referring Unavailable Chandler, Aaron Attending Unavailable Chandler, Aaron Primary Care Unavailable Chandler, Aaron Primary Care Unavailable Suraj Pedro Attending UnavailLuis Torres Attending Unavailable Chandler, Aaron Primary Care Unavailable Chandler, Aaron Referring Unavailable Chandler, Aaron Primary Care Unavailable Chandler, Aaron Attending Unavailable Chandler, Aaron Referring Unavailable Chandler, Aaron Primary Care Unavailable Chandler, Aaron Attending Unavailable Chandler, Aaron Primary Care Unavailable Chandler, Aaron Attending Unavailable Chandler, Aaron Referring Unavailable Chandler, Aaron Primary Care Unavailable Chandler, Aaron Attending Unavailable Chandler, Aaron Referring Unavailable Chandler, Aaron Attending Unavailable Chandler, Aaron Primary Care Unavailable Seun MCKENZIE, Dr. Cole Emergency Provider Unavailab annamarie Braden MD, Dr. Simental Admit Provider Sampson MCEKNZIE, Dr. Simental Attending Provider [phone] Allergies Allergy Classification Reported Allergen(s) Allergy Type Date of Onset Reaction(s) Facility (15 sources) Meperidine; Translations: [meperidine HCl] Drug Allergy 3 [facility] (20 sources) Meperidine; Translations: [MEPERIDINE (PF)] Drug Allergy 4 [facility] (12 sources) gabapentin; Translations: [GABAPENTIN] Drug Allergy 3 Other: See [facility] (8 sources) Famotidine; Translations: [FAMOTIDINE] Drug Allergy 5 [facility] (2 sources) Lisinopril; Translations: [LISINOPRIL] Drug Allergy 5 Angioed[facility] [place] [facility] (1 source) Famotidine Drug Allergy 5 [facility] (1 source) gabapentin Drug Allergy 5 [facility] Medications Current Medications Medication Drug Class(es) Dates Sig (Normalized) Sig (Original) atogepant (QULIPTA) 60 mg tablet (2 sources) Start: 06-18-2025 take 1 tablet by mouth once daily atogepant (QULIPTA) 60 mg tablet Indications: Intractable migraine without aura and without status migrainosus Take 1 tablet by mouth once daily. 30 tablet 2 02/21/2025 Active atorvastatin 10 mg oral tablet (20 sources) HMG-CoA Reductase Inhibitor Start: 12-04-2023 take 1 tablet by mouth once daily Atorvastatin 10 mg tablet Active 10 mg PO DAILY December 04, 2023 12:00am Comment on above: Take 10 mg by mouth once daily. dapagliflozin 10 mg oral tablet (18 sources) Sodium-Glucose Cotransporter 2 Inhibitor take 1 tablet by mouth once daily at breakfast dapagliflozin (FARXIGA) 10 mg tablet Take by mouth daily with breakfast. Active Comment on above: Take by mouth daily with breakfast. DULoxetine 60 mg delayed release oral capsule (20 sources) Serotonin and Norepinephrine Reuptake Inhibitor Start: 12-04-2023 take 1 capsule by mouth once daily Duloxetine 60 mg capsule,delayed release(DR/EC) Active 60 mg PO DAILY December 04, 2023 12:00am Comment on above: Take 60 mg by mouth once daily. 1 ml erenumab-aooe 140 mg/ml auto-injector (10 sources) Start: 11-10-2022 End: 02-21-2024 inject 1 mL by subcutaneous injection every month erenumab-aooe (AIMOVIG AUTOINJECTOR) 140 mg/mL auto-injector Inject 1 mL under the skin once every month. Do not shake. 3 mL 3 02/26/2023 02/21/2024 Active Comment on above: Inject 1 mL subcutan eously once every month. Do not shake. Inject 1 mL under th e skin once every month. Do not shake. linaclotide 0.145 mg oral capsule (20 sources) Guanylate Cyclase-C Agonist Start: 12-04-2023 take 1 capsule by mouth once daily Linaclotide (Linaclotide 145 Mcg Capsule) 145 mcg capsule Active 145 ug PO DAILY December 04, 2023 12:00am take 6 capsules by m outh once daily in the morning linaclotide (LINZESS) 145 mcg capsule Ta ke 145 mcg by mouth DAILY (6 AM). Active Comment on above: Take 145 mcg by mout h DAILY (6 AM). lisinopril 2.5 mg oral tablet (20 sources) Angiotensin Converting Enzyme Inhibitor Start: take 1 tablet by mouth once daily Lisinopril 2.5 mg tablet Active 2.5 mg PO DAILY December 04, 2023 12:00am Comment on above: Take 2.5 mg by mouth once daily. meclizine hydrochloride 25 mg oral tablet (1 source) Antiemetic Start: take 1 tablet by mouth every eight hours as needed meclizine (ANTIVERT) 25 mg tab Take 1 tablet by mouth three times a day as needed. 60 tablet 03/02/2025 Active metaxalone 800 mg oral tablet (14 sources) Start: End: take 1 tablet by mouth twice daily as needed for muscle spasms Metaxalone 800 mg tablet Active 800 mg PO TWICE DAILY NEEDED as needed for muscle spasm December 04, 2023 12:00am Comment on above: Take 1 tablet by juvencio two times a day as needed for pain (muscle spasm). mineral oil 0.319 mg/mg / petrolatum 0.577 mg/mg ophthalmic ointment (1 source) Start: End: white petrolatum-mineral oil (STYE LUBRICANT) 57.7-31.9 % oint Use 1 application in eyes three times a day as needed for up to 5 days. 3.5 g 03/02/2025 03/07/2025 Active OZEMPIC 1 mg/dose (4 mg/3 mL) pen (6 sources) inject 1 mg by subcutaneous injection every week OZEMPIC 1 mg/dose (4 mg/3 mL) pen Inject 1 mg subcutaneously one time a week. Active inject 1 mg by subcu taneous injection every week OZEMPIC 1 mg/dose (4 mg/3 mL) pen Inject 1 mg subcutaneously one time a week. 0 Active pregabalin 100 mg oral capsule (20 sources) Start: 03-02-2025 End: 04-01-2025 take 1 capsule by mouth twice daily pregabalin (LYRICA) 100 mg capsule Take 1 capsule by mouth two times a day for 30 days. 03/02/2025 04/01/2025 Active Start: 12-04-2023 take 1 capsule by mo uth every eight hours Pregabalin (Lyrica) 100 mg capsule Active 100 mg PO Q8H December 04, 2023 12:00am Start: 12-04-2023 take 1 capsule by mo ut twice daily Pregabalin (Lyrica) 100 mg capsule Active 100 mg PO TWICE A DAY December 04, 2023 12:00am take 1 capsule by mo uth three times daily pregabalin (LYRICA) 100 mg capsule Take 100 mg by mouth three times daily. Active Comment on above: Take 100 mg by mouth three times daily. 24 hr propranolol hydrochloride 60 mg extended release oral capsule (19 sources) beta-Adrenergic Bailee Start: End: take 1 capsule by mouth once daily propranolol ER (INDERAL LA) 60 mg 24 hr capsule Take 1 capsule by mouth once daily. 90 capsule 1 11/17/2024 05/16/2025 Active End: 11-17-2024 take 1 tablet by mouth once daily propranolol (INDERAL) 10 mg tablet Take 10 mg by mouth once daily. 11/17/2024 Discontinued Comment on above: Take 10 mg by mouth once daily. Semaglutide (9 sources) Start: 12-04-2023 Semaglutide (Ozempic) 1 mg/dose (4 mg/3 mL) pen injector Active 2 mg SC December 04, 2023 12:00am Start: 12-04-2023 Semaglutide (S emaglutide 1 Mg/Dose (4 Mg/3 Ml) Subcutaneous Pen Injector) 1 mg/dose (4 mg/3 mL) pen injector Active 1 mg SC December 04, 2023 12:00am Start: 12-04-2023 Semaglutide (S emaglutide 1 Mg/Dose (4 Mg/3 Ml) Subcutaneous Pen Injector) 1 mg/dose (4 mg/3 mL) pen injector Active 1 MG SC December 04, 2023 12:00am SITagliptin 100 mg oral tablet (20 sources) Dipeptidyl Peptidase 4 Inhibitor Start: 12-04-2023 Sitagliptin Phosphat e (Januvia) 100 mg tablet Active 50 mg PO DAILY December 04, 2023 12:00am On Hold: MD Petersen Start: 12-04-2023 End: 11-17-2024 take 1 tablet by mouth once daily Sitagliptin Phosphate (Sitagliptin Phosphate 100 Mg Tablet) 100 mg tablet Active 100 mg PO DAILY December 04, 2023 12:00am On Hold: MD Petersen Comment on above: Take 100 mg by mouth once daily. ubrogepant 100 mg oral tablet (20 sources) Start: 10-05-2023 End: 11-17-2024 ubrogepant (UBRELVY) 100 mg tablet Indications: Chronic migraine without aura, intractable, without status migrainosus Take 1 tablet at migraine onset. May repeat dose in 2 hours if needed. Maximum 200 mg per 24 hours. 16 tablet 5 11/17/2024 Active Start: 04-02-2023 ubrogepant (UB RELVY) 100 mg tablet Take 1 tablet at migraine onset. May repeat dose in 2 hours if needed. Maximum 200 mg per 24 hours. 16 tablet 5 04/02/2023 Active Start: 11-27-2022 End: 03-30-2023 ubrogepant (UBRELVY) 100 mg tablet Take 1 tablet at migraine onset. May repeat dose in 2 hours if needed. Maximum 200 mg per 24 hours. 16 tablet 5 11/27/2022 03/30/2023 Discontinued Start: 11-10-2022 End: 11-10-2022 ubrogepant (UBRELVY) 100 mg tablet Take 1 tablet at migraine onset. May repeat dose in 2 hours if needed. Maximum 200 mg per 24 hours. 16 tablet 5 11/10/2022 Active Comment on above: Take 1 tablet at armando khari onset. May repeat dose in 2 hours if needed. Maximum 200 mg per 24 hours. Take 100 mg by mouth as needed. 24 hr divalproex sodium 500 mg extended release oral tablet (12 sources) Mood Stabilizer, Anti-epileptic Agent Start: 01-11-2024 End: 11-17-2025 take 1 tablet by mouth once daily divalproex ER (DEPAKOTE ER) 500 mg 24 hr tablet Take 1 tablet by mouth once daily. 90 tablet 3 11/17/2024 11/17/2025 Active Start: 10-01-2023 End: 01-11-2024 divalproex ER (DEPAKOTE ER) 500 mg 24 hr tablet Take 2 tabs at bedtime for 5 days, then decrease to 1 tab at bedtime for 5 days then stop 15 tablet 0 10/01/2023 01/11/2024 Discontinued (Other) Comment on above: Take 2 tabs at bedti me for 5 days, then decrease to 1 tab at bedtime for 5 days then stop Completed/Discontinued Medications Medication Drug Class(es) Dates Sig (Normalized) Sig (Original) acetaminophen 325 mg / HYDROcodone bitartrate 5 mg oral tablet (2 sources) Opioid Agonist End: 11-10-2022 take 1 tablet by mouth every six hours as needed HYDROcodone-acetamin ophen (NORCO) 5-325 mg per tablet Take 1 tablet by mouth every 6 hours as needed. 0 11/10/2022 Discontinued Comment on above: Take 1 tablet by juvencio th every 6 hours as needed. baclofen 10 mg oral tablet (8 sources) gamma-Aminobutyri c Acid-ergic Agonist End: 04-12-2023 take 1 tablet by mouth three times daily baclofen (LIORESAL) 10 mg tablet Take 10 mg by mouth three times daily. 0 04/12/2023 Discontinued (Other) Comment on above: Take 10 mg by mouth three times daily. citalopram 40 mg oral tablet (15 sources) Serotonin Reuptake Inhibitor Start: 02-20-2016 End: 12-04-2023 take 1 tablet by mouth once daily Citalopram 40 MG tablet Discontinued 40 mg PO DAILY February 20, 2016 12:00am December 04, 2023 9:33pm cyclobenzaprine hydrochloride 5 mg oral tablet (2 sources) Muscle Relaxant End: 11-10-2022 take 1 tablet by mouth every eight hours as needed cyclobenzaprine (FLEXERIL) 5 mg tablet Take 5 mg by mouth three times daily as needed. 0 11/10/2022 Discontinued Comment on above: Take 5 mg by mouth t hree times daily as needed. diclofenac sodium 75 mg delayed release oral tablet (13 sources) Nonsteroidal Anti-inflammatory Drug Start: 11-01-2023 End: 11-26-2024 take 1 tablet by mouth twice daily Diclofenac Sodium 75 mg tablet,delayed release (DR/EC) Discontinued 75 mg PO TWICE A DAY December 04, 2023 12:00am November 26, 2024 2:43am diclofenac (VOLT AREN) 1 % topical gel Apply to affected area twice daily. 0 Active Comment on above: Apply to affected ar ea twice daily. Take 1 tablet by juvencio th two times a day. diphenhydrAMINE hydrochloride 25 mg oral capsule (15 sources) Histamine-1 Receptor Antagonist Start: 2015 End: 2023 take 1 capsule by mouth every six hours Diphenhydramine Hcl (Benadryl) 25 MG capsule Discontinued 25 mg PO EVERY 6 HOURS 30 February 20, 2016 12:00am December 04, 2023 9:33pm take for 5 days for allergic reaction [id number] 0.3 ml EPINEPHrine 1 mg/ml auto-injector (15 sources) alpha-Adrenergic Agonist, beta-Adrenergic Agonist, Catecholamine Start: 2015 End: 2023 inject 0.3 mg by intramuscular injection once Epinephrine 0.3 MG syringe Discontinued 0.3 mg IM ONE TIME 1 February 20, 2016 12:00am December 04, 2023 9:33pm famotidine 20 mg oral tablet (15 sources) Histamine-2 Receptor Antagonist Start: 2015 End: 2024 take 1 tablet by mouth twice daily Famotidine 20 MG tablet Discontinued 20 mg PO TWICE A DAY 10 February 20, 2016 12:00am May 22, 2025 6:13pm 1 ml galcanezumab-gnlm 120 mg/ml auto-injector (3 sources) Start: 2023 End: 2024 inject 1 mL by subcutaneous injection every month galcanezumab-gnlm (EMGALITY PEN) 120 mg/mL pen Indications: Chronic migraine without aura, intractable, without status migrainosus Inject 1 mL subcutaneously once every month. Refrigerate. Do not shake. 3 mL 3 09/16/2023 01/11/2024 Discontinued Comment on above: Inject 1 mL subcutan eously once every month. Refrigerate. Do not shake. 24 hr metFORMIN hydrochloride 500 mg extended release oral tablet (20 sources) Biguanide Start: 2023 End: 2024 take 1 tablet by mouth once daily Metformin 500 mg tablet extended release 24 hr Discontinued 500 mg PO DAILY December 04, 2023 12:00am November 26, 2024 2:44am End: 03-31-2024 take 1 tablet by mouth once daily at mealtime metFORMIN (GLUCOPHAGE) 500 mg tablet Take 500 mg by mouth two times a day with meals. One daily 0 03/31/2024 Discontinued take 1 tablet by juvencio twice daily at mealtime metFORMIN (GLUCOPHAGE) 500 mg tablet Take 500 mg by mouth twice daily with meals. 0 Active Comment on above: Take 500 mg by mouth twice daily with meals. Take 500 mg by mouth two times a day with meals. One daily naproxen sodium 220 mg oral tablet (9 sources) Nonsteroidal Anti-inflammatory Drug End: 3 take 1 tablet by mouth twice daily at mealtime naproxen sodium (ANAPROX) 220 mg tablet Take 220 mg by mouth twice daily with meals. 0 04/12/2023 Discontinued (Other) Comment on above: Take 220 mg by mouth twice daily with meals. predniSONE 20 mg oral tablet (20 sources) Start: End: 5 take 2 tablets by mouth once daily Prednisone 20 mg tablet Discontinued 40 mg PO DAILY 10 5 0 November 26, 2024 12:00am May 22, 2025 6:14pm Start: 02-20-2016 End: 12-04-2023 take 3 tablets by mouth once daily Prednisone 20 MG tablet Discontinued 60 mg PO DAILY 15 February 20, 2016 12:00am December 04, 2023 9:33pm Start: 02-20-2016 End: 12-04-2023 take 60 mg by mouth once daily Prednisone Discontinued 60 MG PO DAILY February 20, 2016 12:00am December 04, 2023 9:33pm semaglutide (OZEMPIC) 0.25 m g or 0.5 mg (2 mg/3 mL) pen (9 sources) Start: 12-08-2022 End: 03-31-2024 semaglutide (OZEMPIC) 0.25 m g or 0.5 mg (2 mg/3 mL) pen Start: 12-08-2022 semaglutide (O ZEMPIC) 0.25 mg or 0.5 mg (2 mg/3 mL) pen Problems Active Problems Problem Classification Problem Date Documented Da te Episodic/Chronic Allergic reactions (7 sources) Acute allergic reaction; Translations: [Allergy, unspecified, initial encounter] Onset: 12-01-2024 11-26-2024 Episodic Anxiety disorders (1 source) Anxiety state; Translations: [Generalized anxiety disorder] 02-28-2025 Chronic Blindness and vision defects (1 source) Presbyopia; Translations: [Presbyopia] 02-22-2024 Episodic Cataract (1 source) Nuclear sclerotic cataract; Translations: [Age-related nuclear cataract, bilateral] 02-22-2024 Chronic Conditions associated with dizziness or vertigo (1 source) Dizziness and giddiness; Translations: [Dizziness] Onset: 02-28-2025 Episodic Diabetes mellitus with complications (3 sources) Type 2 diabetes mellitus; Translations: [Type 2 diabetes mellitus with diabetic neuropathy, unspecified] Onset: 12-01-2022 Chronic Diabetes mellitus without complication (9 sources) Diabetes mellitus type 2 without retinopathy; Translations: [Type 2 diabetes mellitus without complications] Onset: 11-23-2024 02-22-2024 Chronic Disorders of lipid metabolism (1 source) Mixed hyperlipidemia; Translations: [Mixed hyperlipidemia] 02-28-2025 Chronic E Codes: Fall (8 sources) Unspecified fall, initial encounter; Translations: [Accident due to mechanical fall without injury] Onset: 04-08-2024 07-23-2024 Episodic Essential hypertension (1 source) Essential hypertension; Translations: [Essential (primary) hypertension] 02-28-2025 Chronic Fracture of lower limb (1 source) Closed fracture of phalanx of foot; Translations: [Displaced unspecified fracture of right lesser toe(s), initial encounter for closed fracture] Onset: 02-28-2025 03-01-2025 Episodic Headache; including migraine (12 sources) Refractory migraine without aura; Translations: [Chronic migraine without aura, intractable, with status migrainosus] Onset: 11-17-2024 Chronic Headache; including migraine (10 sources) Headache; Translations: [Headache] 06-20-2023 Episodic Mood disorders (1 source) Depressive disorder; Translations: [Depression] 02-28-2025 Chronic Other aftercare (2 sources) Patient encounter status; Translations: [Encounter for therapeutic drug level monitoring] 01-11-2024 Episodic Other connective tissue disease (1 source) Pain in right arm; Translations: [Pain in right arm] Onset: 04-12-2025 Episodic Other gastrointestinal disorders (1 source) Irritable bowel syndrome; Translations: [Irritable bowel syndrome without diarrhea] 03-01-2025 Chronic Other hereditary and degenerative nervous system conditions (13 sources) Motor neuron disease; Translations: [Motor neuron disease, unspecified] Onset: 04-12-2023 04-12-2023 Chronic Other injuries and conditions due to external causes (6 sources) Angioedema; Translations: [Angioneurotic edema, initial encounter] 11-26-2024 Episodic Other injuries and conditions due to external causes (1 source) Unspecified injury of right lower leg, initial encounter; Translations: [Unspecified injury of right lower leg, initial encounter] Onset: 04-26-2025 Episodic Other injuries and conditions due to external causes (1 source) Unspecified injury of right foot, initial encounter; Translations: [Unspecified injury of right foot, initial encounter] Onset: 02-26-2025 Episodic Other nervous system disorders (8 sources) Neuropathy; Translations: [Polyneuropathy, unspecified] Chronic Other nervous system disorders (1 source) Polyneuropathy, unspecified; Translations: [Neuropathy] Onset: 12-01-2022 Chronic Other nervous system disorders (1 source) Idiopathic peripheral neuropathy; Translations: [Hereditary and idiopathic neuropathy, unspecified] 04-12-2023 Chronic Other nervous system disorders (13 sources) Inflammatory neuropathy ; 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] Onset: 04-12-2023 04-12-2023 Chronic Other nervous system disorders (1 source) Chronic pain; Translations: [Other chronic pain] 08-23-2023 Chronic Other nervous system disorders (10 sources) H/O: migraine; Translations: [Personal history of other diseases of the nervous system and sense organs] 06-20-2023 Episodic Other nervous system disorders (9 sources) Paresthesia; Translations: [Paresthesia of skin] 12-05-2023 Episodic Other non-traumatic joint disorders (1 source) Pain in right knee; Translations: [Pain in right knee] Onset: 02-27-2025 Episodic Other nutritional; endocrine; and metabolic disorders (10 sources) H/O: diabetes mellitus; Translations: [Personal history of other endocrine, nutritional and metabolic disease] 06-20-2023 Episodic Other nutritional; endocrine; and metabolic disorders (1 source) Personal history of other endocrine, nutritional and metabolic disease; Translations: [History of diabetes mellitus] Onset: 02-28-2025 Episodic Other screening for suspected conditions (not mental disorders or infectious disease) (1 source) Abnormal findings on diagnostic imaging of other specified body structures; Translations: [Abnormal CT of the chest] Onset: 02-28-2025 Chronic Substance-related disorders (9 sources) Cannabis intoxication; Translations: [Cannabis use, unspecified with intoxication, unspecified] 12-05-2023 Episodic Superficial injury; contusion (14 sources) Contusion of left knee; Translations: [Contusion of left knee, initial encounter] 07-23-2024 Episodic Past or Other Problems Problem Classification Problem Date Documented Da te Episodic/Chronic Other aftercare (1 source) Encounter for therapeutic drug level monitoring; Translations: [Medication monitoring encounter] Onset: 03-31-2024 Episodic Other injuries and conditions due to external causes (1 source) Unspecified injury of head, initial encounter; Translations: [Injury of head, initial encounter] Onset: 04-08-2024 Episodic Other non-traumatic joint disorders (1 source) Pain in right hip; Translations: [Acute right hip pain] Onset: 04-08-2024 Episodic Other non-traumatic joint disorders (1 source) Pain in left knee; Translations: [Pain in left knee] Onset: 08-18-2024 Episodic Other screening for suspected conditions (not mental disorders or infectious disease) (2 sources) Other specified abnormal findings of blood chemistry; Translations: [Encounter for screening for osteoporosis] Onset: 07-24-2024 Episodic Syncope (3 sources) Syncope and collapse; Translations: [Near syncope] Onset: 02-28-2025 Resolved: 03-02-2025 03-02-2025 Episodic Results Test Name Value Interpretation Reference Range Facility Absolute lymphocyte countOrd ered By: Kelsey Kohli on 05-22-2025 Lymphocytes Auto (Unsp spec) [#/Vol] 1.94 10*3/uL 0.83-4.51 [facility] Absolute neutrophil countOrd ered By: Kelsey Kohli on 05-22-2025 Neutrophils (Bld) [#/Vol] 4.5 10*3/uL 2.0-7.7 [facility] Activated partial thrombopla stin time (aPTT) in platelet poor plasma by coagulation aOrdered By: Kelsey Kohli on 05-22-2025 aPTT Coag (PPP) [Time] 25.5 s 24.1-36.2 [facility] Anion gap in Serum or Plasma Ordered By: Kelsey Kohli on 05-22-2025 Anion gap [Moles/Vol] 13 mmol/L 5-15 [facility] Automated lymphocyte count a s percentage of total leukocytesOrdered By: Kelsey Kohli on 05-22-2025 Lymphocytes/100 WBC Auto (Unsp spec) 26.5 % 19-41 [facility] BUN/creatinine ratioOrdered By: Kelsey Kohli on 05-22-2025 Urea nitrogen/Creatinine [Mass ratio] 32.0 mg/mg High 10-20 [facility] Basophil percentageOrdered B y: Kelsey Kohli on 05-22-2025 Basophils/100 WBC (Bld) 1.1 % High 0-[address] [facility] Carbon dioxide, total [Moles /volume] in Central venous bloodOrdered By: Kelsey Kohli on 05-22-2025 CO2 [Moles/Vol] 21.9 mmol/L 21.0-32.0 [facility] Chloride assayOrdered By: Severino Kohli on 05-22-2025 Chloride [Moles/Vol] 102 mmol/L 98-108 [facility] Eosinophil percentageOrdered By: Kelsey Kohli on 05-22-2025 Eosinophils/100 WBC (Bld) 2.7 % 0-5 [facility] Erythrocyte distribution wid th ratioOrdered By: Kelsey Kohli on 05-22-2025 Erythrocyte distribution width (RBC) [Ratio] 13.0 % 11.6-14.6 [facility] Erythrocyte distribution wid th standard deviationOrdered By: Kelsey Kohli on 05-22-2025 Erythrocyte distribution width (RBC) [Ratio] 41.2 fl 35.1-43.9 [facility] Glomerular filtration rate ( GFR) estimation/1.73 sq m using serum, plasma, or whole bOrdered By: Kelsey Kohli on 05-22-2025 GFR/1.73 sq M.predicted among non-blacks MDRD (S/P/Bld) [Vol rate/Area] 92 mL/min/{1.73_m2} >60 [facility] Comment on above: mL/min/1.73m2 CKD-EP I Creatinine Equation (2020) Hematocrit Auto (Bld) [Volum e fraction]Ordered By: Kelsey Kohli on 05-22-2025 Hematocrit (Bld) [Volume fraction] 46.3 % 37-47 [facility] Hemoglobin measurementOrdere d By: Kelsey Kohli on 05-22-2025 Hemoglobin (Bld) [Mass/Vol] 15.4 g/dL High 12.0-15.0 [facility] Immature granulocytes/100 WB C Auto (Bld)Ordered By: Kelsey Kohli on 05-22-2025 Immature granulocytes/100 WBC (Bld) 0.300 % 0.0-0.9 [facility] Comment on above: IG% - Immature Granu locytes (promyelocytes, myelocytes and metamyelocytes) > 1% indicates that a LEFT SHIFT is Present. International normalized rat io (INR) calculationOrdered By: Kelsey Kohli on 05-22-2025 INR Coag (Bld) [Relative time] 1.0 {INR} [facility] MCV (mean corpuscular volume ) determinationOrdered By: Kelsey Kohli on 05-22-2025 MCV (RBC) [Entitic vol] 87.2 fL 81-99 [facility] Mean corpuscular hemoglobin (MCH) determinationOrdered By: Kelsey Kohli on 05-22-2025 MCH (RBC) [Entitic mass] 29.0 pg 27.0-32.0 [facility] Mean corpuscular hemoglobin concentration (MCHC) determinationOrdered By: Kelsey Kohli on 05-22-2025 MCHC (RBC) [Mass/Vol] 33.3 g/dL 32-36 [facility] Mean platelet volume determi nationOrdered By: Kelsey Kohli on 05-22-2025 Platelet mean volume (Bld) [Entitic vol] 9.5 fL 6.2-12.0 [facility] Monocyte percentageOrdered B y: Kelsey Kohli on 05-22-2025 Monocytes/100 WBC (Bld) 7.5 % 0-[address] [facility] Neutrophil percentageOrdered By: Kelsey Kohli on 05-22-2025 Neutrophils/100 WBC (Bld) 61.9 % 47-70 [facility] Nucleated red blood cell per centageOrdered By: Kelsey Kohli on 05-22-2025 Nucleated RBC/100 WBC (Bld) [Ratio] 0 % 0-5 [facility] Platelet countOrdered By: Severino Kohli on 05-22-2025 Platelets (Bld) [#/Vol] 282 10*3/uL 150-450 [facility] Potassium measurement (mass/ volume)Ordered By: Kelsey Kohli on 05-22-2025 Potassium (Unsp spec) [Mass/Vol] 3.5 mmol/L 3.3-5.1 [facility] Prothrombin timeOrdered By: Kelsey Kohli on 05-22-2025 PT Coag (PPP) [Time] 12.9 s 11.7-14.9 [facility] RBC Auto (Bld) [#/Vol]Ordere d By: Kelsey Kohli on 05-22-2025 RBC (Bld) [#/Vol] 5.31 10*6/uL 4.2-5.4 [facility] Serum creatinine measurement (mass/volume)Ordered By: Kelsey Kohli on 05-22-2025 Creatinine [Mass/Vol] 0.72 mg/dL 0.70-1.20 [facility] Serum glucose measurement (m ass/volume)Ordered By: Kelsey Kohli on 05-22-2025 Glucose [Mass/Vol] 133 mg/dL High 70-99 [facility] Serum or plasma calcium aguila urement (mass/volume)Ordered By: Kelsey Kohli on 05-22-2025 Calcium [Mass/Vol] 9.8 mg/dL 7.6-11.0 [facility] Serum or plasma urea nitroge n measurement (mass/volume)Ordered By: Kelsey Kohli on 05-22-2025 Urea nitrogen [Mass/Vol] 23 mg/dL High 4-19 [facility] Sodium levelOrdered By: Ciaran Kohli on 05-22-2025 Sodium [Moles/Vol] 136 mmol/L 133-145 [facility] Troponin T.cardiac [Mass/vol ume] in Serum or Plasma by High sensitivity methodOrdered By: Kelsey Kohli on 05-22-2025 Troponin T.cardiac High sensitivity method [Mass/Vol] 14 ng/L <14 [facility] White blood cell (WBC) count Ordered By: Kelsey Kohli on 05-22-2025 WBC (Bld) [#/Vol] 7.3 10*3/uL 4.4-11.0 [facility] Knee 4 or More Viewson 04-18 Knee 4 or More Views [facility] Imaging Services [address] [facility] [address] [place], [place] [address] Knee 4 or More Views MR#: [id number] Acct: [id number] Name: GERBER HILL Rep #: [id number] : 1960 F 64 From: Adam Alfonso MD PCP: Dr. Aaron Chandler MD Status: REG CLI Study: Knee 4 or More Views Date of Exam: 04/18/25 Exam# [id number] Ordering Dr: Aaron Chandler MD PROCEDURE: KNEE 4 OR MORE VIEWS 04/18/2025 REASON FOR EXAM: FALL TECHNIQUE: KNEE 4 OR MORE VIEWS Laterality: COMPARISON: 02/22/2025. FINDINGS: No evidence acute fracture or dislocation. Mild degenerative changes of the knee. No knee joint effusion. RAD/Knee 4 or More Views IMPRESSION: Mild osteoarthrosis. No acute osseous abnormalities. Reading Location: [facility] CC: Dr. Aaron Chandler MD Commercial Instructor Supervisor: Signed Normal [facility] Hand Min 3 Viewson Hand Min 3 Views [facility] Imaging Services [facility] [place] [address] Hand Min 3 Views MR#: [id number] Acct: [id number] Name: GERBER HILL Rep #: [id number] : 1960 F 64 From: Manish Richards MD PCP: Dr. Aaron Chandler MD Status: REG CLI Study: Hand Min 3 Views Date of Exam: 04/05/25 Exam# [id number] Ordering Dr: Aaron Chandler MD PROCEDURE: HAND MIN 3 VIEWS 04/05/2025 REASON FOR EXAM: PAIN TECHNIQUE: HAND MIN 3 VIEWS COMPARISON: November 08, 2023 FINDINGS: There is no acute fracture or dislocation identified. There is moderate osteoarthritis of the distal interphalangeal joints radiocarpal articulation. There are multiple corticated osteochondral fragments of the ulnar styloid with the largest measuring 0.3 cm, unchanged. Mineralization is normal. There is no visible atherosclerosis. There is no focal soft tissue abnormality or visible radiopaque foreign body RAD/Hand Min 3 Views IMPRESSION: No acute fracture or dislocation is identified. Reading Location: [facility] CC: Dr. Aaron Chandler MD Commercial Instructor Supervisor: Signed Normal [facility] Humerus min 2 Viewson 2024 Humerus min 2 Views [facility] Imaging Services [address] [place] [address] Humerus min 2 Views MR#: [id number] Acct: [id number] Name: GERBER HILL Rep #: [id number] : 1960 F 64 From: Manish Richards MD PCP: Dr. Aaron Chandler MD Status: REG CLI Study: Humerus min 2 Views Date of Exam: 04/05/25 Exam# [id number] Ordering Dr: Aaron Chandler MD PROCEDURE: HUMERUS MIN 2 VIEWS 04/05/2025 REASON FOR EXAM: PAIN TECHNIQUE: HUMERUS MIN 2 VIEWS COMPARISON: None FINDINGS: There is no fracture or dislocation identified. Mineralization is normal. There is no visible atherosclerosis. RAD/Humerus min 2 Views IMPRESSION: No fracture or dislocation is identified. Reading Location: [facility] CC: Dr. Aaron Chandler MD Commercial Instructor Supervisor: Signed Normal [facility] Shoulder min 2 Viewson 04-05 Shoulder min 2 Views [facility] Imaging Services [address] [place], [place] [address] Shoulder min 2 Views MR#: [id number] Acct: [id number] Name: GERBER HILL Rep #: [id number] : 1960 F 64 From: Isauro Calhoun MD PCP: Dr. Aaron Chandler MD Status: REG CLI Study: Shoulder min 2 Views Date of Exam: 04/05/25 Exam# [id number] Ordering Dr: Aaron Chandler MD PROCEDURE: SHOULDER MIN 2 VIEWS 04/05/2025 REASON FOR EXAM: Pain, decreased range of motion TECHNIQUE: SHOULDER MIN 2 VIEWS four views total COMPARISON: None FINDINGS: Bones: No fracture or suspicious osseous lesion Joints: Age consistent glenohumeral and acromioclavicular joint arthrosis. Soft tissues: No foreign body or suspicious soft tissue swelling Other: RAD/Shoulder min 2 Views IMPRESSION: Age consistent degenerative changes, no acute findings Reading Location: [facility] CC: Dr. Aaron Chandler MD Commercial Instructor Supervisor: Signed Normal [facility] Wrist min 3 Viewson 04-05-20 Wrist min 3 Views [facility] Imaging Services [address] [place], [place] [address], [place] [id number] Wrist min 3 Views MR#: [id number] Acct: [id number] Name: GERBER HILL Rep #: [id number] : 1960 F 64 From: Isauro Calhoun MD PCP: Dr. Aaron Chandler MD Status: REG CLI Study: Wrist min 3 Views Date of Exam: 04/05/25 Exam# [id number] Ordering Dr: Aaron Chandler MD PROCEDURE: WRIST MIN 3 VIEWS 04/05/2025 REASON FOR EXAM: PAIN TECHNIQUE: WRIST MIN 3 VIEWS COMPARISON: 11/08/2023 FINDINGS: No demonstrated fracture or suspicious osseous lesion. There are extra-articular calcifications adjacent to the ulnar styloid likely from previous trauma. Age consistent narrowing of the radioscaphoid joint space and at the base of the thumb. No suspicious soft tissue swelling or foreign body. Overall, no interval change RAD/Wrist min 3 Views IMPRESSION: Stable degenerative changes, no acute findings or significant interval change Reading Location: [facility] CC: Dr. Aaron Chandler MD Commercial Instructor Supervisor: Signed Normal [facility] Microalb:Creat Ratio,Random URon 04-02-2025 MALB:CREAT 11.7 mg/g CRE Normal <30 mg/g CRE [facility] Comment on above: Result Comment: AMENDED REPORT 04/02/252051 MALB:CREAT previously reported as: 117.1 mg/g CRE Performed By: #### L 502.0250, L500.4050, L500.4100 ####[facility] [id number] [place], [address] CNPNon 03-06-2025 CNPN Telephone (OKMNS2) -------- GERBER HILL ([id number]) 1960 F Date Time Provider Department 03/06/25 SABI CARDONA [facility] During your visit today, we recorded the following information about you: Uma Green 03/06/2025 11:08 AM Signed Allergies As of Date: 03/06/2025 Noted Allergy Reaction DEMEROL (MEPERIDINE (PF)) 01/05/2014 4 - Hives GABAPENTIN 03/01/2025 14 - Other: See Comments Comments: Hallucinations per pt LISINOPRIL 02/28/2025 18 - Angioedema PEPCID (FAMOTIDINE) 03/01/2025 4 - Hives Date Reviewed: 02/28/2025 Reviewed by: Ruba Pizano APRN.[facility] - Fully Assessed Reason for Visit: Insurance Authorization [[id number]] [employer], [employer] [Other] Prescriptions as of 03/06/2025 - pregabalin (LYRICA) 100 mg capsule Take 1 capsule by mouth two times a day for 30 days. - meclizine (ANTIVERT) 25 mg tab Take 1 tablet by mouth three times a day as needed. - white petrolatum-mineral oil (STYE LUBRICANT) 57.7-31.9 % oint Use 1 application in eyes three times a day as needed for up to 5 days. - atogepant (QULIPTA) 60 mg tablet Take 1 tablet by mouth once daily. - propranolol ER (INDERAL LA) 60 mg 24 hr capsule Take 1 capsule by mouth once daily. - divalproex ER (DEPAKOTE ER) 500 mg 24 hr tablet Take 1 tablet by mouth once daily. - ubrogepant (UBRELVY) 100 mg tablet Take 1 tablet at migraine onset. May repeat dose in 2 hours if needed. Maximum 200 mg per 24 hours. - OZEMPIC 1 mg/dose (4 mg/3 mL) pen Inject 1 mg subcutaneously one time a week. - DULoxetine (CYMBALTA) 60 mg capsule Take 60 mg by mouth once daily. - atorvastatin (LIPITOR) 10 mg tablet Take 10 mg by mouth once daily. - linaclotide (LINZESS) 145 mcg capsule Take 145 mcg by mouth DAILY (6 AM). - dapagliflozin (FARXIGA) 10 mg tablet Take by mouth daily with breakfast. 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] 04/12/2023 Multifocal sensory motor inflammatory neuropath*04/12/2023 Essential hypertension [I10] Mixed hyperlipidemia [E78.2] Depression [F32.A] Diabetes mellitus (HCC) [E11.9] Migraines [G43.909] Anxiety state [F41.1] IBS (irritable bowel syndrome) [K58.9] Near syncope [R55] 02/28/2025 03/02/2025 Closed fracture of phalanx of right fifth toe [*02/28/2025 Syncope, near [R55] 03/01/2025 03/02/2025 Encounter Status:Closed by UMA GREEN on 03/06/25 Normal [facility] Basic metabolic 2000 panelon 03-02-2025 Anion gap [Moles/Vol] 11 mmol/L Normal 8-15 [facility] Comment on above: Order Comment: Speci men Type: BLOOD SPECIMEN Ordering Facility: [facility] Address: [address] [place] [address] Performed By: #### 2 4321-2, 68674-0 #### [facility] CLIA [id number] [address] [place] [address] [place] Calcium [Mass/Vol] 9.2 mg/dL Normal 8.5-10.2 [facility] Comment on above: Order Comment: Speci men Type: BLOOD SPECIMEN Ordering Facility: [facility] Address: [address] [place] [address] Performed By: #### 2 4321-2, 07201-2 #### [facility] CLIA [id number] [address] [place], [place] [address] [place] Chloride [Moles/Vol] 104 mmol/L Normal 98-107 [facility] Comment on above: Order Comment: Speci men Type: BLOOD SPECIMEN Ordering Facility: [facility] Address: [address] [place] [address] Performed By: #### 2 4321-2, #### [facility] CLIA [id number] [address] [place], [place] [address] [place] CO2 [Moles/Vol] 25 mmol/L Normal 22-30 [facility] Comment on above: Order Comment: Speci men Type: BLOOD SPECIMEN Ordering Facility: [facility] Address: [address] [place] [address] Performed By: #### 2 4321-2, 49595-9 #### [facility] CLIA [id number] [address] [place], [place] [address] [place] Creatinine [Mass/Vol] 0.69 mg/dL Normal 0.58-0.96 [facility] Comment on above: Order Comment: Speci men Type: BLOOD SPECIMEN Ordering Facility: [facility] Address: [address] [place] [address] Performed By: #### 2 4321-2, #### [facility] CLIA [id number] [address] [place], [place] [address] [place] Creatinine and Glomerular filtration rate.predicted panel (S/P/Bld) 96 mL/min/1.73m??? Normal >=60 [facility] Comment on above: Order Comment: Speci men Type: BLOOD SPECIMEN Ordering Facility: [facility] Address: [address] [place] [address] Result Comment: Rebekah mated Glomerular Filtration Rate (eGFR) is calculated using the 2020 CKD-EPI creatinine equation. This equation utilizes serum creatinine, sex, and age as parameters. The creatinine assay has traceable calibration to isotope dilution-mass spectrometry. Refer to KDIGO guidelines for clinical interpretation. In patients with unstable renal function, e.g. those with acute kidney injury, the eGFR may not accurately reflect actual GFR. Performed By: #### 2 432-, #### [facility] [place] [id number] [address] [place], [place] [address] [place] Glucose [Mass/Vol] 80 mg/dL Normal 74-99 [facility] Comment on above: Order Comment: Ashlee pagan Type: BLOOD SPECIMEN Ordering Facility: [facility] Address: [address] [place] [address] Result Comment: The [place] Diabetes Association (ADA) provides guidance for cutoff values for fasting glucose and random glucose. The ADA defines fasting as no caloric intake for at least 8 hours. Fasting plasma glucose results between 100 to 125 mg/dL indicate increased risk for diabetes (prediabetes). Fasting plasma glucose results greater than or equal to 126 mg/dL meet the criteria for diagnosis of diabetes. In the absence of unequivocal hyperglycemia, results should be confirmed by repeat testing. In a patient with classic symptoms of hyperglycemia or hyperglycemic crisis, random plasma glucose results greater than or equal to 200 mg/dL meet the criteria for diagnosis of diabetes. Reference: Standards of Medical Care in Diabetes 2016, [place] Diabetes Association. Diabetes Care. 2016.39(Suppl 1). Performed By: #### 2 43209-07, #### [facility] [place] [id number] [address] [place], [place] [address] [place] Potassium [Moles/Vol] 4.6 mmol/L Normal 3.7-5.1 [facility] Comment on above: Order Comment: Ashlee pagan Type: BLOOD SPECIMEN Ordering Facility: [facility] Address: [address] [place] [address] Performed By: #### 2 432-, #### [facility] IA [id number] [address] [place], [place] [address] [place] Sodium [Moles/Vol] 140 mmol/L Normal 136-144 [facility] Comment on above: Order Comment: Speci men Type: BLOOD SPECIMEN Ordering Facility: [facility] Address: [address] [place] [address] Performed By: #### 2 4321-2, 14513-9 #### [facility] CLIA [id number] [address] [place], [place] [address] [place] Urea nitrogen [Mass/Vol] 14 mg/dL Normal 7-21 [facility] Comment on above: Order Comment: Speci men Type: BLOOD SPECIMEN Ordering Facility: [facility] Address: [address] [place] [address] Performed By: #### 2 4321-2, 29328-5 #### [facility] CLIA [id number] [address] [place] [address] [place] CBC panel Auto (Bld)on 03-02 Erythrocyte distribution width (RBC) [Ratio] 12.7 % Normal 11.5-15.0 [facility] Comment on above: Order Comment: Speci men Type: BLOOD SPECIMEN Ordering Facility: [facility] Address: [address] [place] [address] Performed By: #### 2 432-2, 78688-3 #### [facility] CLIA [id number] [address] [place] [address] [place] Hematocrit (Bld) [Volume fraction] 41.5 % Normal 36.0-46.0 [facility] Comment on above: Order Comment: Speci men Type: BLOOD SPECIMEN Ordering Facility: [facility] Address: [address] [place] [address] Performed By: #### 2 4321-2, #### [facility] CLIA [id number] [address] [place], [place] [address] [place] Hemoglobin (Bld) [Mass/Vol] 13.7 g/dL Normal 11.5-15.5 [facility] Comment on above: Order Comment: Speci men Type: BLOOD SPECIMEN Ordering Facility: [facility] Address: [address] [place] [address] Performed By: #### 2 4321-2, #### [facility] CLIA [id number] [address] [place] [address] MCH (RBC) [Entitic mass] 29.3 pg Normal 26.0-34.0 [facility] Comment on above: Order Comment: Speci men Type: BLOOD SPECIMEN Ordering Facility: [facility] Address: [address] [place] [address] Performed By: #### 2 432-2, #### [facility] CLIA [id number] [address] [place] [address] [place] MCHC (RBC) [Mass/Vol] 33.0 g/dL Normal 30.5-36.0 [facility] Comment on above: Order Comment: Speci men Type: BLOOD SPECIMEN Ordering Facility: [facility] Address: [address] [place] [address] Performed By: #### 2 4320-2, #### [facility] [place] [id number] [address] [place] [address] [place] MCV (RBC) [Entitic vol] 88.7 fL Normal 80.0-100.0 [facility] Comment on above: Order Comment: Speci men Type: BLOOD SPECIMEN Ordering Facility: [facility] Address: [address] [place] [address] Performed By: #### 2 4320-2, #### [facility] IA [id number] [address] [place] [address] [place] Nucleated RBC (Bld) [#/Vol] 10*3/uL Normal <0.01 [facility] Comment on above: Order Comment: Speci men Type: BLOOD SPECIMEN Ordering Facility: [facility] Address: [address] [place] [address] Performed By: #### 2 432-2, #### [facility] CLIA [id number] [address] [place] [address] [place] Platelet mean volume (Bld) [Entitic vol] 9.3 fL Normal 9.0-12.7 [facility] Comment on above: Order Comment: Speci men Type: BLOOD SPECIMEN Ordering Facility: [facility] Address: [address] [place] [address] Performed By: #### 2 4321-2, #### [facility] CLIA [id number] [address] [place], [place] [address] [place] Platelets (Bld) [#/Vol] 225 10*3/uL Normal 150-400 [facility] Comment on above: Order Comment: Speci men Type: BLOOD SPECIMEN Ordering Facility: [facility] Address: [address] [place] [address] Performed By: #### 2 4321-2, #### [facility] CLIA [id number] [address] [place] [address] [place] RBC (Bld) [#/Vol] 4.68 10*6/uL Normal 3.90-5.20 [facility] Comment on above: Order Comment: Speci men Type: BLOOD SPECIMEN Ordering Facility: [facility] Address: [address] [place] [address] Performed By: #### 2 4321-2, 58105-5 #### [facility] CLIA [id number] [address] [place], [place] [address] [place] WBC (Bld) [#/Vol] 5.22 10*3/uL Normal 3.70-11.00 [facility] Comment on above: Order Comment: Speci men Type: BLOOD SPECIMEN Ordering Facility: [facility] Address: [address] [place] [address] Performed By: #### 2 4321-2, #### [facility] CLIA [id number] [address] [place], [place] [address] [facility] [place] CNDSon 03-02-2025 CNDS HNO ID: [id number] Author: MOI CARSON MD Service: Hospital Medicine Author Type: Physician Type: Discharge Summary Filed: 03/02/2025 15:24 Note Text: DISCHARGE SUMMARY PATIENT NAME: Gerber Hill Code Status: Not on file Highest Readmission Risk Score: 13 The 30 day readmissions risk score is derived from an internally validated risk model which evaluates patient level characteristics, utilization history, medication orders and lab results up until the day of discharge. Patients with a score of 39 or above are considered highest risk for readmission. Specific patient level drivers will be listed at the bottom of the summary. Admission Information Admission Information ADMIT DATE: 02/28/2025 DISCHARGE DATE: 03/02/2025 MY DOCTORS AND MEDICAL TEAM: [facility] Doctor: Moi Carson MD Primary Care Provider: Adam Ayers) Destiny My Medical Team Members: Treatment Team: Attending Provider: Moi Carson MD Consulting: Fabricio Rockwell MD Consulting: Lisbet Luciano MD Physician Media Relations Director: Cuca Arrieta PA-C MY CONDITION AT DISCHARGE: Stable REASON I WAS IN THE HOSPITAL: near syncope SUMMARY OF WHAT HAPPENED WHILE I WAS IN THE HOSPITAL: Patient admitted for above. Diagnostic testing included labs, EKGs, CT scan. Given IV fluids and placed on tele monitor. CT scan showed concern for indeterminate pulmonary embolism. Given a dose of lovenox and CT repeated. PE ruled out. Lovenox stopped. Seen by Neurology, started on antivert. MRI ordered and completed which showed No acute intracranial abnormality. Also seen by Cardiology. Echocardiogram done. EF was 63%. Symptoms improved. Clinically stable. Cleared for discharge. Patient was informed about discharge today. All patient needs were discussed and patient verbalized understand of the instructions after discharge. Medication reconciliation was done with the agreement of the attending physician. Patient discharge instructions were completed and to be given to the patient by the nurse. 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) Essential hypertension Mixed hyperlipidemia Depression Diabetes mellitus (HCC) Migraines Anxiety state IBS (irritable bowel syndrome) Closed fracture of phalanx of right fifth toe Resolved Problems: Near syncope Syncope, near OPERATIONS PERFORMED WHILE IN THE HOSPITAL: None IMPORTANT TEST/PROCEDURES: Echocardiogram and MRI TEST RESULTS NOT AVAILABLE AT THIS TIME: No pending results Discharge Disposition Discharge Disposition: Home With Self Care Activity When You Leave the Hospital Activity Resume pre-hospital activity Diet Instructions Resume your pre-hospital diet Additional Provider to Provider Information: As above Treatment Team: Attending Provider: Moi Carson MD Consulting: Fabricio Rockwell MD Consulting: Lisbet Luciano MD Physician Media Relations Director: Cuca Arrieta PA-C FINAL DIAGNOSIS: Active Hospital Problems Diagnosis POA Closed fracture of phalanx of right fifth toe Yes Essential hypertension Yes Mixed hyperlipidemia Yes Depression Yes Diabetes mellitus (HCC) Yes Anxiety state Yes Migraines Yes IBS (irritable bowel syndrome) Yes Multifocal sensory motor inflammatory neuropathy (HCC) Yes Motor neuron disorder (HCC) Yes Resolved Hospital Problems Diagnosis POA Syncope, near Yes Near syncope Yes Transitions of Care Critical Issues: As above LABS AND PROCEDURES PENDING AT DISCHARGE: No pending results. FOLLOW-UP APPOINTMENTS ALREADY SCHEDULED WITH A [facility] PROVIDER: Future Appointments Date Time Provider Department Center 04/25/2025 2:00 PM Yovani Powres, OD [facility] [place] ALLERGIES Allergen Reactions Demerol [Meperidine* Hives Gabapentin Other: See Comments Hallucinations per pt Lisinopril Angioedema Pepcid [Famotidine] Hives DISCHARGE MEDICATION: Medication List START taking these medications meclizine 25 mg Tab Commonly known as: ANTIVERT Take 1 tablet by mouth three times a day as needed. STYE LUBRICANT 57.7-31.9 % Oint Generic drug: white petrolatum-mineral oil Use 1 application in eyes three times a day as needed for up to 5 days. CHANGE how you take these medications pregabalin 100 mg capsule Commonly known as: LYRICA Take 1 capsule by mouth two times a day for 30 days. What changed: when to take this CONTINUE taking these medications atorvastatin 10 mg tablet Commonly known as: LIPITOR dapagliflozin propanediol 10 mg tablet Commonly known as: FARXIGA divalproex ER 500 mg 24 hr tablet Commonly known as: DEPAKOTE ER Take 1 tablet by mouth once daily. DULoxetine 60 mg capsule Commonly known as: CYMBALTA linaclotide 145 mcg capsule Commonly known as: LINZESS OZEMPIC 1 mg/dose (4 mg/3 mL) pen Generic drug: semaglutide prop (more content not included)... Normal [facility] Magnesium SerPl-mCncon 03-02 Magnesium [Mass/Vol] 2.0 mg/dL Normal 1.7-2.3 [facility] Comment on above: Order Comment: Speci men Type: BLOOD SPECIMEN Ordering Facility: [facility] Address: [address] [place] [address] Performed By: #### 2 4321-2, 04995-8 #### [facility] CLIA [id number] [address] [place] [address] NUTRITIONon 03-02-2025 NUTRITION HNO ID: [id number] Author: EUSEBIA SALAZAR RD Service: ? Author Type: Registered Dietitian Type: Nutrition Filed: 03/02/2025 13:37 Note Text: NUTRITION THERAPY SCREEN NOTE SERVICE DATE: 03/02/2025 SERVICE TIME: Start Time: 1300 Care Plan: Continue current diet Supplements: Boost Glucose Control Medications: Sliding scale 1 Discharge Recommendations: Diet Diet: Carb controlled Monitor and Evaluation: Meet greater than 75% of estimated needs, Monitor bowel function, Monitor fluid/electrolyte balance, Monitor labs, I/Os, vital signs, weight Intake History: Nutrition Intake Prior to Admission: Greater than 75% estimated energy needs greater than or equal to 3 months Current Nutrition Intake: Greater than 75% estimated energy needs Current Intake Over time: (2 days (per I/O summary 75-100% of meals)) Diet Orders (From admission, onward) Start Ordered 02/28/252140 DIET CARBOHYDRATE CONTROLLED START NOW Question: Carbohydrate Control Answer: CONSISTENT CARBOHYDRATE 02/28/252142 Anthropometrics: Height: 170.2 cm (5' 7) Weight: 77.1 kg (169 lb 15.6 oz) Usual Weight: 76.7 kg (169 lb) 03/01/25 Usual Weight Obtained From: Chart Review Weight change percentage over time: Stable Weight Change: Stable weight(s) Lines, Drains, and Airways None MNT Billing: $ Routine Care : 1 unit Time Spent (mins): 5 SIGNATURE: Eusebia Salazar RD PATIENT NAME: Gerber Hill DATE: March 02, 2025 TIME: 1:36 PM [facility] ALLIED HEALTHon 03-01-2025 ALLIED HEALTH HNO ID: [id number] Author: CORA HAIRSTON Tech Service: Radiology Author Type: Technologist Type: Allied Health Filed: 03/01/2025 20:47 Note Text: Radiology Service Progress Note PATIENT NAME: Gerber Hill DATE OF SERVICE: March 01, 2025 TIME: 8:47 PM PATIENT IDENTITY VERIFICATION COMPLETED USING TWO (2) IDENTIFIERS: Name and Date of confirmed by patient verbally and Name and Date of confirmed by identification band. FALL SCREENING: Has the patient had 2 falls in the last year or 1 fall with injury or currently using an Ambulatory Assistive Device (Walker, Cane, Wheelchair, Crutches, etc.)? Inpatient: Screened on floor PATIENT GENDER DATA: Assigned female at . status: : No status: NO. PATIENT RELEVANT IMPLANT DATA REVIEWED: Yes PATIENT PRESENTS WITH AN IMPLANTABLE OR ATTACHED MUSIC AGENT: No RADIOLOGY DEPARTMENT: MR; Exam(s) Completed: Head: Routine Brain. Aromatherapy Administered: No PERIPHERAL IV DATA: Not applicable SIGNED BY: Pramod Navarrete March 01, 2025 8:47 PM [facility] HNO ID: [id number] Author: MITCH GARCIA RT(Anibal) Service: Radiology Author Type: Technologist Type: Allied Health Filed: 03/01/2025 19:06 Note Text: Radiology Service Progress Note PATIENT NAME: Gerber Hill DATE OF SERVICE: March 01, 2025 TIME: 7:06 PM PATIENT IDENTITY VERIFICATION COMPLETED USING TWO (2) IDENTIFIERS: Name and Date of confirmed by patient verbally and Name and Date of confirmed by identification band. FALL SCREENING: Has the patient had 2 falls in the last year or 1 fall with injury or currently using an Ambulatory Assistive Device (Walker, Cane, Wheelchair, Crutches, etc.)? Inpatient: Screened on floor PATIENT GENDER DATA: Assigned female at . status: : No status: NO. PATIENT RELEVANT IMPLANT DATA REVIEWED: Yes PATIENT PRESENTS WITH AN IMPLANTABLE OR ATTACHED MUSIC AGENT: No RADIOLOGY DEPARTMENT: CT; Exam(s) Completed: PE Study PERIPHERAL IV DATA: Inpatient: see LDA documentation SIGNED BY: RT Rui(Anibal) March 01, 2025 7:06 PM [facility] Basic metabolic 2000 panelon 03-01-2025 Anion gap [Moles/Vol] 10 mmol/L [place] 8[address] [facility] Comment on above: Order Comment: Speci men Type: BLOOD SPECIMEN Ordering Facility: [facility] Address: [address] [place] [address] Performed By: #### 2 4321-2, #### [facility] CLIA [id number] [address] [place], [place] [address] [place] Calcium [Mass/Vol] 8.9 mg/dL Normal 8.5-10.2 [facility] Comment on above: Order Comment: Speci men Type: BLOOD SPECIMEN Ordering Facility: [facility] Address: [address] [place] [address] Performed By: #### 2 432-2, #### [facility] CLIA [id number] [address] [place] [address] [place] Chloride [Moles/Vol] 107 mmol/L Normal 98-107 [facility] Comment on above: Order Comment: Speci men Type: BLOOD SPECIMEN Ordering Facility: [facility] Address: [address] [place] [address] Performed By: #### 2 4320-2, #### [facility] CLIA [id number] [address] [place], [place] [address] [place] CO2 [Moles/Vol] 25 mmol/L Normal 22-30 [facility] Comment on above: Order Comment: Speci men Type: BLOOD SPECIMEN Ordering Facility: [facility] Address: [address] [place] [address] Performed By: #### 2 4320-2, #### [facility] CLIA [id number] [address] [place], [place] [address] [place] Creatinine [Mass/Vol] 0.70 mg/dL Normal 0.58-0.96 [facility] Comment on above: Order Comment: Speci men Type: BLOOD SPECIMEN Ordering Facility: [facility] Address: [address] [place] [address] Performed By: #### 2 4321-2, #### [facility] CLIA [id number] [address] [place], [place] [address] [place] Creatinine and Glomerular filtration rate.predicted panel (S/P/Bld) 96 mL/min/1.73m??? Normal >=60 [facility] Comment on above: Order Comment: Ashlee pagan Type: BLOOD SPECIMEN Ordering Facility: [facility] Address: [address] [place] [address] Result Comment: Rebekah mated Glomerular Filtration Rate (eGFR) is calculated using the 2020 CKD-EPI creatinine equation. This equation utilizes serum creatinine, sex, and age as parameters. The creatinine assay has traceable calibration to isotope dilution-mass spectrometry. Refer to KDIGO guidelines for clinical interpretation. In patients with unstable renal function, e.g. those with acute kidney injury, the eGFR may not accurately reflect actual GFR. Performed By: #### 2 4321-2, 59513-5 #### [facility] CLIA [id number] [address] [place], [place] [address] [place] Glucose [Mass/Vol] 82 mg/dL Normal 74-99 [facility] Comment on above: Order Comment: Ashlee pagan Type: BLOOD SPECIMEN Ordering Facility: [facility] Address: [address] [place] [address] Result Comment: The [place] Diabetes Association (ADA) provides guidance for cutoff values for fasting glucose and random glucose. The ADA defines fasting as no caloric intake for at least 8 hours. Fasting plasma glucose results between 100 to 125 mg/dL indicate increased risk for diabetes (prediabetes). Fasting plasma glucose results greater than or equal to 126 mg/dL meet the criteria for diagnosis of diabetes. In the absence of unequivocal hyperglycemia, results should be confirmed by repeat testing. In a patient with classic symptoms of hyperglycemia or hyperglycemic crisis, random plasma glucose results greater than or equal to 200 mg/dL meet the criteria for diagnosis of diabetes. Reference: Standards of Medical Care in Diabetes 2016, [place] Diabetes Association. Diabetes Care. 2016.39(Suppl 1). Performed By: #### 2 4321-2, 94633-8 #### [facility] CLIA [id number] [address] [place], [place] [address] [place] Potassium [Moles/Vol] 4.3 mmol/L Normal 3.7-5.1 [facility] Comment on above: Order Comment: Ashlee pagan Type: BLOOD SPECIMEN Ordering Facility: [facility] Address: [address] [place] [address] Performed By: #### 2 4321-2, 66780-5 #### [facility] CLIA [id number] [address] [place], [place] [address] [place] Sodium [Moles/Vol] 142 mmol/L Normal 136-144 [facility] Comment on above: Order Comment: Speci men Type: BLOOD SPECIMEN Ordering Facility: [facility] Address: [address] [place] [address] Performed By: #### 2 4321-2, #### [facility] CLIA [id number] [address] [place] [address] [place] Urea nitrogen [Mass/Vol] 14 mg/dL Normal 7-21 [facility] Comment on above: Order Comment: Speci men Type: BLOOD SPECIMEN Ordering Facility: [facility] Address: [address] [place] [address] Performed By: #### 2 432-2, #### [facility] CLIA [id number] [address] [place] [address] [place] CBC panel Auto (Bld)on 03-01 Erythrocyte distribution width (RBC) [Ratio] 12.7 % Normal 11.5-15.0 [facility] Comment on above: Order Comment: Speci men Type: BLOOD SPECIMEN Ordering Facility: [facility] Address: [address] [place] [address] Performed By: #### 2 4321-2, 78463-7 #### [facility] CLIA [id number] [address] [place] [address] [place] Hematocrit (Bld) [Volume fraction] 39.7 % Normal 36.0-46.0 [facility] Comment on above: Order Comment: Speci men Type: BLOOD SPECIMEN Ordering Facility: [facility] Address: [address] [place] [address] Performed By: #### 2 4321-2, 04318-6 #### [facility] CLIA [id number] [address] [place] [address] [place] Hemoglobin (Bld) [Mass/Vol] 13.1 g/dL Normal 11.5-15.5 [facility] Comment on above: Order Comment: Speci men Type: BLOOD SPECIMEN Ordering Facility: [facility] Address: [address] [place] [address] Performed By: #### 2 4321-2, #### [facility] CLIA [id number] [address] [place] [address] [place] MCH (RBC) [Entitic mass] 29.6 pg Normal 26.0-34.0 [facility] Comment on above: Order Comment: Speci men Type: BLOOD SPECIMEN Ordering Facility: [facility] Address: [address] [place] [address] Performed By: #### 2 4321-2, #### [facility] CLIA [id number] [address] [place] [address] [place] MCHC (RBC) [Mass/Vol] 33.0 g/dL Normal 30.5-36.0 [facility] Comment on above: Order Comment: Speci men Type: BLOOD SPECIMEN Ordering Facility: [facility] Address: [address] [place] [address] Performed By: #### 2 4321-2, #### [facility] CLIA [id number] [address] [place] [address] [place] MCV (RBC) [Entitic vol] 89.6 fL Normal 80.0-100.0 [facility] Comment on above: Order Comment: Speci men Type: BLOOD SPECIMEN Ordering Facility: [facility] Address: [address] [place] [address] Performed By: #### 2 4321-2, #### [facility] CLIA [id number] [address] [place] [address] [place] Nucleated RBC (Bld) [#/Vol] 10*3/uL Normal <0.01 [facility] Comment on above: Order Comment: Speci men Type: BLOOD SPECIMEN Ordering Facility: [facility] Address: [address] [place] [address] Performed By: #### 2 4321-2, 73045-2 #### [facility] CLIA [id number] [address] [place], [place] [address] [place] Platelet mean volume (Bld) [Entitic vol] 9.4 fL Normal 9.0-12.7 [facility] Comment on above: Order Comment: Speci men Type: BLOOD SPECIMEN Ordering Facility: [facility] Address: [address] [place] [address] Performed By: #### 2 432-2, 70241-2 #### [facility] CLIA [id number] [address] [place] [address] [place] Platelets (Bld) [#/Vol] 226 10*3/uL Normal 150-400 [facility] Comment on above: Order Comment: Speci men Type: BLOOD SPECIMEN Ordering Facility: [facility] Address: [address] [place] [address] Performed By: #### 2 4320-2, #### [facility] CLIA [id number] [address] [place] [address] [place] RBC (Bld) [#/Vol] 4.43 10*6/uL Normal 3.90-5.20 [facility] Comment on above: Order Comment: Speci men Type: BLOOD SPECIMEN Ordering Facility: [facility] Address: [address] [place] [address] Performed By: #### 2 4320-2, #### [facility] CLIA [id number] [address] [place], [place] [address] [place] WBC (Bld) [#/Vol] 6.48 10*3/uL Normal 3.70-11.00 [facility] Comment on above: Order Comment: Speci men Type: BLOOD SPECIMEN Ordering Facility: [facility] Address: [address] [place] [address] Performed By: #### 2 432-2, 82832-9 #### [facility] CLIA [id number] [address] [place] [address] [place] CONSULTon 03-01-2025 CONSULT HNO ID: [id number] Author: FABRICIO ROCKWELL MD Service: Cardiovascular Disease Author Type: Physician Type: Consults Filed: 03/01/2025 15:46 Note Text: CONSULT: CARDIOLOGY SERVICE SERVICE DATE: 03/01/2025 SERVICE TIME: 3:25 PM CONSULTING PHYSICIAN: Fabricio Rockwell PCP: Adam Espinosa (Historical) [place] ATTENDING: Moi Carson MD REASON FOR CONSULT: dizziness. Subjective CHIEF COMPLAINT: Near syncope [R55] Syncope, near [R55] HISTORY OF PRESENT ILLNESS: Ms. Hill is a 64 year old female who presents for dizziness. Patient is stating that she went to work yesterday she was fine , after getting there she felt dizzy and shaky, She felt very hot but did not have any sweating, there was no air conditioning in the room she was in. Patient boss called EMS and patient was transported to [facility] ED and subsequently admitted with dizziness, symptoms of presyncope, and suspicion of vasovagal etiology. Patient denies having chest pain or shortness of breath. She is feeling back to normal. CT PE shows possibility of distal clot burden however definitive thromboembolic disease unable to be established based on imaging quality . Patient was started on Lovenox. Patient has a PMH of hypertension, DM, and hyperlipidemia . History of chronic inflammatory demyelinating polyneuropathy. Current labs ECGs and XRs reviewed. 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 No pertinent surgical history. FAMILY HISTORY Problem Relation Age of Onset Cancer Father Cancer Mother Heart Mother Cataract Mother Diabetes Sister Diabetes Brother Social History Tobacco Use Smoking status: Never Substance Use Topics Alcohol use: No Drug use: No Prior to Admission Medications Prescriptions Last Dose Informant Patient Reported? Taking? DULoxetine (CYMBALTA) 60 mg capsule 02/28/2025 Morning Yes Yes Sig: Take 60 mg by mouth once daily. OZEMPIC 1 mg/dose (4 mg/3 mL) pen 02/24/2025 Yes Yes Sig: Inject 1 mg subcutaneously one time a week. atogepant (QULIPTA) 60 mg tablet Unknown No No Sig: Take 1 tablet by mouth once daily. atorvastatin (LIPITOR) 10 mg tablet 02/27/2025 Evening Yes Yes Sig: Take 10 mg by mouth once daily. dapagliflozin (FARXIGA) 10 mg tablet 02/27/2025 Morning Yes Yes Sig: Take by mouth daily with breakfast. divalproex ER (DEPAKOTE ER) 500 mg 24 hr tablet Unknown No No Sig: Take 1 tablet by mouth once daily. linaclotide (LINZESS) 145 mcg capsule 02/28/2025 Morning Yes Yes Sig: Take 145 mcg by mouth DAILY (6 AM). lisinopril 2.5 mg tablet Unknown Yes No Sig: Take 2.5 mg by mouth once daily. pregabalin (LYRICA) 100 mg capsule 02/28/2025 Noon Yes Yes Sig: Take 100 mg by mouth three times daily. propranolol ER (INDERAL LA) 60 mg 24 hr capsule 02/28/2025 Morning No Yes Sig: Take 1 capsule by mouth once daily. ubrogepant (UBRELVY) 100 mg tablet Unknown No No Sig: Take 1 tablet at migraine onset. May repeat dose in 2 hours if needed. Maximum 200 mg per 24 hours. Facility-Administered Medications: None Current Facility-Administered Medications Medication Dose Route Frequency divalproex ER 500 mg tab(s) (DEPAKOTE ER) 500 mg ORAL DAILY atorvastatin 10 mg tab(s) (LIPITOR) 10 mg ORAL AT BEDTIME atogepant tab 60 mg (QULIPTA) 60 mg ORAL DAILY propranolol ER 60 mg cap(s) (INDERAL LA) 60 mg ORAL DAILY linaclotide 145 mcg cap(s) (LINZESS) 145 mcg ORAL DAILY (6 AM) DULoxetine 60 mg cap(s) (CYMBALTA) 60 mg ORAL DAILY NaCl 0.9% iv flush bag 20 mL INTRAVENOUS PRN lactated ringers iv infusion 75 mL/hr INTRAVENOUS CONTINUOUS aluminum-magnesium hydroxide-simethicone 200-200-20 mg/5 mL 30 mL 30 mL ORAL DAILY PRN ondansetron 4 mg tab(s) (ZOFRAN) 4 mg ORAL q 6 H PRN Or ondansetron (PF) 4 mg injection (ZOFRAN) 4 mg INTRAVENOUS q 6 H PRN acetaminophen 650 mg tab(s) (TYLENOL) 650 mg ORAL q 6 H PRN melatonin 3 mg tab(s) 3 mg ORAL DAILY (8 PM) sodium chloride 0.9 % (flush) 2-10 mL (BD POSIFLUSH) 2-10 mL INTRAVENOUS DIRECTED PRN And perflutren lipid microspheres 1.1 mg/mL 1.3 mL injection (DEFINITY) 1.3 mL INTRAVENOUS DIRECTED PRN dextrose 40 % 15 g 15 g ORAL PRN Or glucagon 1 mg injection 1 mg INTRAMUSCULAR PRN Or dextrose 10% iv bolus 12.5 g INTRAVENOUS PRN insulin lispro injection (rapid acting) (ADMElog) SUBCUTANEOUS w MEALS insulin lispro injection (rapid acting) (ADMElog) SUBCUTANEOUS AT BEDTIME pregabalin 100 mg cap(s) (LYRICA) 100 mg ORAL BID meclizine 25 mg tab(s) (ANTIVERT) 25 mg ORAL TID ALLERGIES Allergen Reactions Demerol [Meperidine* Hives Gabapentin Other: See Comments Hallucinations per pt Lisinopril Angioedema Pepcid [Famotidine] Hives CARDIAC STATUS: Chest Pain: Denies Dyspnea: Negative Ankle Ed (more content not included)... Normal [facility] CONSULT HNO ID: [id number] Author: LISBET LUCIANO MD Service: Neurology General Author Type: Physician Type: Consults Filed: 03/01/2025 09:55 Note Text: Vertigo Patient's neur exam non focal Start meclizine Check MRI Brain Cut the dose of Lyrica from tid to bid Check VPA level Normal [facility] CONSULT HNO ID: [id number] Author: LISBET LUCIANO MD Service: Neurology General Author Type: Physician Type: Consults Filed: 03/02/2025 13:57 Note Text: [facility] - Consultation GERBER HILL : 1960 AGE: 64 SEX: F CSN: [id number] HOSP SVC: ADT-Bed Requ LOCATION: [facility] ATTENDING PHYSICIAN: MOI CARSON DATE OF SERVICE: 03/01/2025 TIME OF SERVICE: 09:53 AM CONSULTING PHYSICIAN: Lisbet Luciano M.D. HISTORY OF PRESENT ILLNESS: The patient is a 64-year-old female, right- handed, with a past medical history significant for CIDP, depression, diabetes mellitus, hypertension, migraine headache, hyperlipidemia, irritable bowel syndrome. The patient had been admitted to [facility] with chief complaint of dizzy spell described by the patient as feeling of spinning of the surrounding for the last 2 days associated with feeling sick in stomach, but she denies any ringing or buzzing in the ear or focal weakness. Her symptoms associated with left temporal headache described by the patient as dull achy pain. EMS had been called for the patient as this symptom happened at work and a CAT scan of the brain without contrast had been obtained for the patient on admission, which was negative for any acute intracranial event. PAST MEDICAL HISTORY: As above. PSYCHOSOCIAL HISTORY: She is nonsmoker, nonalcoholic. No history of drug abuse. REVIEW OF SYSTEMS: As above. She denies any chest pain or palpitation, but dizziness, feeling of spinning of the surrounding nausea. WORKUP: CAT scan of the brain as above. Her sodium is 142, chloride 107, BUN is 14, creatinine 0.7, glucose is 82. White cell count is 6.48, hemoglobin is 13.1, hematocrit 39.7. CURRENT MEDICATIONS: She is on Lipitor, Depakote, Cymbalta, Lyrica 100 mg 3 times a day and insulin. PHYSICAL EXAMINATION: Vitals on admission: Blood pressure is 119/77, pulse rate was 85, temperature 36.8, respiratory rate was 17, pulse ox was 96%. The patient was alert, oriented x3. No facial asymmetry. Good range of eye movement. Tongue in the midline. Cranial nerves 2 through 12 are grossly intact. Naming, repetition, comprehension, writing, reading are intact. Motor power in upper and lower extremities is 4/5 bilateral. Sensory examination for vibration, position within normal. IMPRESSION: The patient admitted with dizziness consistent with vertigo. Suggests to start her on meclizine. At the meantime, we will cut the dose of her Lyrica from 100 t.i.d. to 100 b.i.d. Check Depakote level and check MRI of the brain to rule out any remote possibility of intracranial pathology, cause of her vertigo. Lisbet Luciano M.D. Neurology [id number] /[id number] [facility] CTA CHEST (NON GATED) W IVCO N PEon 03-01-2025 CTA CHEST (NON GATED) W IVCON PE * * *Final Report* * * DATE OF EXAM: Mar 01 2025 6:41PM [id number] [id number] - CTA CHEST (NON GATED) W IVCON PE / PROCEDURE REASON: Pulmonary embolism (PE) suspected, positive D-dimer * * * * Physician Interpretation * * * * EXAMINATION: CHEST CTA (NON GATED) WITH CONTRAST (PULMONARY EMBOLISM PROTOCOL) Clinical History: Elevated d-dimer Technique: Spiral CT acquisition of the chest from the thoracic inlet to the upper abdomen following IV contrast. Axial 1 and 3 mm thick slices plus coronal and sagittal reformatted images. MQ: CTCP_5 Contrast: 100 mL Omnipaque [address] Radiation dose: Integrated Dose-length product (DLP) for this visit = 461 mGy*cm CT Dose Reduction Employed: Automated exposure control(AEC) and iterative recon CTA:Post-processed images (Maximum intensity Projection (MIP), Volume-rendered (VR), or Surface shaded display images (SSD) were created, reviewed and archived. Comparison: 02/28/2025 RESULT: Limitations: None. Evaluation for thromboembolic disease: - Right heart chambers: No thromboembolic disease. - Main pulmonary arteries: No thromboembolic disease. - Lobar pulmonary arteries: No thromboembolic disease. - Segmental pulmonary arteries: No thromboembolic disease. - Subsegmental pulmonary arteries: No thromboembolic disease. - Additional pulmonary artery findings: The main pulmonary artery is normal in caliber. Lines, tubes, and devices: None. Lung parenchyma and airways: Evaluation of lung parenchyma demonstrates minimal lower lobe groundglass attenuation, likely in the setting of low inspiratory volume. This is unchanged since previous exam. No suspicious pulmonary mass/nodule is identified. There is no bronchiectasis. Pleural space: No pleural effusion. No pleural thickening. Lower neck, lymph nodes, and mediastinum: The imaged thyroid gland is normal. No lymphadenopathy in the supraclavicular, axillary, mediastinal, or hilar regions. Heart, pericardium, and thoracic vessels: The thoracic aorta is normal in caliber. The cardiac chambers are normal in size. No coronary artery atherosclerotic calcifications are noted, although the study is not optimized for coronary assessment. No pericardial effusion or thickening. Bones and soft tissues: No destructive bone lesion. Chest wall is unremarkable. Upper abdomen: No abnormality in the imaged upper abdomen. Localizer images: No additional findings. IMPRESSION: No CT evidence of pulmonary embolism. No evidence of acute intrathoracic pathology. Commercial Instructor Supervisor: EVETTE Transcribe Date/Time: Mar 01 2025 7:41P Dictated by : CHANTELLE JOHNSON MD This examination was interpreted and the report reviewed and electronically signed by: CHANTELLE JOHNSON MD on Mar 01 2025 7:55PM EST [id number] Normal [facility] ECHOon 03-01-2025 Echocardiography Echocardiography Rep ort: Transthoracic Echo [facility] Date of service: 03/01/2025 2:21:15 PM Ordering physician: RUBA PIZANO Exam indication: Syncope Technologist: Joya Watt RD Interpreting physician: Dain Rockwell MD PATIENT: Name: MS. GERBER HILL : 1960 Age: 64 years Gender: F Primary rhythm: sinus. Height: 170.18 cm BSA: 1.88 m Weight: 74.84 kg BMI: 25.8 kg/m Heart rate 67 bpm Blood pressure 100/63 mmHg Color Doppler was utilized to interrogate the cardiac valves assessed and spectral Doppler was utilized to determine the flow velocities and pressure gradients reported in this exam. MEASUREMENTS: Value Indexed Normal Max aortic dimension 2.6 cm Ao < 3.8 Left atrial volume 56 ml (Francis's) 30 ml/m Nicolas <= 34 LV ID (diastole) 4.1 cm (2D) 2.18 cm/m LV ID (systole) 2.8 cm (2D) 1.49 cm/m IVS, leaflet tips 1.4 cm (2D) Posterior wall thickness 0.7 cm (2D) Left ventricular mass 142 g (2D) 75 g/m LV stroke volume 53 ml (2D biplane) LVOT stroke volume 87 ml 47 ml/m LV end diastolic volume 84 ml (2D biplane) 44.6 ml/m 29<=EDVi<62 LV end systolic volume 31 ml (2D biplane) 16.3 ml/m Ejection Fraction 63 % (2D biplane) EF > 54 FINDINGS: LEFT VENTRICLE The left ventricle is normal in size. Left ventricular systolic function is normal. Grade I left ventricular diastolic dysfunction. Mitral annular lateral E/e': 10.5. Mitral annular septal E/e': 13.0. Wall Motion: All scored segments are normal. RIGHT VENTRICLE The right ventricle is normal in size. Right ventricular systolic function is normal. Estimated right ventricular systolic pressure is 17 mmHg consistent with normal pulmonary artery pressures. Estimated right atrial pressure is 3 mmHg based on IVC assessment. LEFT ATRIUM The left atrial cavity is normal in size. RIGHT ATRIUM The right atrial cavity is normal in size. Inferior Vena Cava: The inferior vena cava appears normal measuring 1.6 cm. The vessel decreases greater than 50 percent with inspiration. MITRAL VALVE The mitral valve leaflets are structurally normal. There is trace mitral valve regurgitation. There is mild thickening. There is mild calcification. The peak valve gradient is 6 mmHg. The mean valve gradient is 2 mmHg. The pressure half time is 77 msec. The peak mitral E/A ratio is 0.65. The average mitral E/e' ratio is 11.7. The mitral flow deceleration time is 267 msec. TRICUSPID VALVE The tricuspid valve leaflets are structurally normal. [place] tricuspid valve. There is trace tricuspid valve regurgitation. AORTIC VALVE The aortic valve cusps are structurally normal. There is no aortic valve stenosis. There is no aortic valve regurgitation. Tricuspid aortic valve. The peak gradient is 7 mmHg (peak velocity = 136.0 cm/s). The mean gradient is 4 mmHg. The LVOT mean velocity is 83.9 cm/s. The LVOT diameter is 2.0 cm. The aortic VTI is 28.6 cm. The mean velocity in the aortic valve is 89.6 cm/s. The dimensionless valve index is 0.97. AV area is 3.05 cm (1.62 cm /m ) by continuity, VTI. The LVOT stroke volume index is 47 ml/m . PULMONIC VALVE The pulmonic valve cusps are structurally normal. There is no pulmonic valve regurgitation. AORTA The visualized aorta is normal in size. Measurements - Sinus: 2.6 cm. Mid ascending aorta 2.5 cm. PULMONARY ARTERIES The pulmonary arteries are unseen or not interrogated. INTERATRIAL SEPTUM There is no evidence of intracardiac shunting as detected by Doppler. INTERVENTRICULAR SEPTUM There is no flow through the interventricular septum as detected by Doppler. PERICARDIUM The pericardium is normal. There is no pericardial effusion. CONCLUSIONS: - Exam indication: Syncope - The left ventricle is normal in size. Left ventricular systolic function is normal. EF = 63 5% (2D biplane) Grade I left ventricular diastolic dysfunction. - The right ventricle is normal in size. Right ventricular systolic function is normal. - There are no significant valvular abnormalities. - The patient has not had a prior CC echocardiographic exam for comparison. * * * Final * * * [facility] : [id number] ID Normal [facility] HISTORY PHYSICALon HISTORY PHYSICAL HNO ID: [id number] Author: MOI CARSON MD Service: Hospital Medicine Author Type: Physician Type: H&P Filed: 03/01/2025 17:14 Note Text: HISTORY AND PHYSICAL EXAMINATION PRIMARY CARE PHYSICIAN: Adam Espinosa (Historical) Destiny Subjective CHIEF COMPLAINT: Near syncope, indeterminate pulmonary embolism on CTA HPI: 64 year old female PMH; right fifth toe fracture, DMII, anxiety, depression, HTN, IBS, migraines, HLD, motor neuron disorder, multifocal sensorimotor inflammatory neuropathy, DMII Patient presents to the ED via EMS for concerns due to dizziness and near syncope. Patient reports she was working at the [employer] outdoors when she felt overheated, dizzy and shaky. She thought her blood sugar was low at the time however EMS noted blood sugar was 170 in transit. Denies any precipitating factors. Denies any recent illness or changes in medication. Reports feeling like her breathing was heavy and her could not respond to questions during episode. Although she felt syncopal, denies fully passing out. States that this has never happened previously. Denies any chest pain or shortness of breath. Did recently fractured her right fifth toe and is currently immobilized in a walking boot. No history of DVT or anticoagulation. Denies any illicit drug use or daily EtOH use. D-dimer elevated on labs prompting CT PE study. CT PE shows possibility of distal clot burden however definitive f thromboembolic disease unable to be established based on imaging quality. Patient empirically treated with 24-hour Lovenox in the setting of recent immobilization. On exam, she denies any CP or shortness of breath. Deniesany further dizziness. Admitted to [facility] for further management with a consult placed to cardiology and neurology. PAST MEDICAL HISTORY Diagnosis Date Anxiety state CIDP (chronic inflammatory demyelinating polyneuropathy) ([facility]) 2020 Depression Diabetes mellitus (HCC) Essential hypertension IBS (irritable bowel syndrome) Migraines Mixed hyperlipidemia Obesity History reviewed. No pertinent surgical history. FAMILY HISTORY Problem Relation Age of Onset Cancer Father Cancer Mother Heart Mother Cataract Mother Diabetes Sister Diabetes Brother Social History Tobacco Use Smoking status: Never Substance Use Topics Alcohol use: No Drug use: No propranolol ER (INDERAL LA) 60 mg 24 hr capsule, Take 1 capsule by mouth once daily., Disp: 90 capsule, Rfl: 1, 02/28/2025 Morning OZEMPIC 1 mg/dose (4 mg/3 mL) pen, Inject 1 mg subcutaneously one time a week., Disp: , Rfl: , 02/24/2025 DULoxetine (CYMBALTA) 60 mg capsule, Take 60 mg by mouth once daily., Disp: , Rfl: , 02/28/2025 Morning atorvastatin (LIPITOR) 10 mg tablet, Take 10 mg by mouth once daily., Disp: , Rfl: , 02/27/2025 Evening linaclotide (LINZESS) 145 mcg capsule, Take 145 mcg by mouth DAILY (6 AM)., Disp: , Rfl: , 02/28/2025 Morning dapagliflozin (FARXIGA) 10 mg tablet, Take by mouth daily with breakfast., Disp: , Rfl: , 02/27/2025 Morning pregabalin (LYRICA) 100 mg capsule, Take 100 mg by mouth three times daily., Disp: , Rfl: , 02/28/2025 Noon atogepant (QULIPTA) 60 mg tablet, Take 1 tablet by mouth once daily., Disp: 30 tablet, Rfl: 2, Unknown divalproex ER (DEPAKOTE ER) 500 mg 24 hr tablet, Take 1 tablet by mouth once daily., Disp: 90 tablet, Rfl: 3, Unknown ubrogepant (UBRELVY) 100 mg tablet, Take 1 tablet at migraine onset. May repeat dose in 2 hours if needed. Maximum 200 mg per 24 hours., Disp: 16 tablet, Rfl: 5, Unknown lisinopril 2.5 mg tablet, Take 2.5 mg by mouth once daily., Disp: , Rfl: , Unknown ALLERGIES Allergen Reactions Demerol [Meperidine* Hives Gabapentin Other: See Comments Hallucinations per pt Lisinopril Angioedema Pepcid [Famotidine] Hives COMPLETE REVIEW OF SYSTEMS: 12 systems were reviewed and pertinent findings were addressed in HPI. Objective PHYSICAL EXAM: Constitutional: No acute distress, Responsive. Eyes: Conjunctiva clear and PERRL Ear, Nose, and Throat: No acute finding. RUBY. Neck: Trachea midline, No jugular venous distension Cardiovascular: Regular rate and rhythm, normal S1 and S2, no murmurs, rubs, or gallops, No peripheral edema Respiratory: Normal respiratory effort. Lungs clear bilaterally. Abdomen: Soft, non-tender, non-distended. Musculoskeletal: No clubbing or cyanosis of digits, no joint tenderness, or joint effusions. Neurologic: No focal deficit. Psychiatric: Normal mood/affect BP 121/61 Pulse 74 Temp (Src) 98.2 (Oral) Resp 18 Ht 5' 7 (1.70m) Wt 169 lb 15.6 oz (77.1kg) SpO2 97% BMI 26.62 kg/(m2). O2 Therapy: Room Air DATA: Diagnostic tests reviewed for today's visit: @[facility]@ Impression/Recommendatio ns IMPRESSION: Problem List Motor neuron disorder (HCC) (POA: Yes) Multifocal sensory motor inflammatory neuropathy (HCC) (POA: Yes) Essential hypertension (P (more content not included)... Normal [facility] MRI BRAIN WO IVCONon 025 MRI BRAIN WO IVCON * * *Final Report* * * DATE OF EXAM: Mar 01 2025 8:51PM LUM 0294 - MRI BRAIN WO IVCON / PROCEDURE REASON: Dizziness, non-specific * * * * Physician Interpretation * * * * EXAMINATION: MRI BRAIN WO IVCON CLINICAL HISTORY: Dizziness, nonspecific. TECHNIQUE: Routine noncontrast MRI protocol including diffusion images. MQ: [id number] COMPARISON: CT brain 04/08/2024. RESULT: Acute Change: There is no evidence of restricted diffusion to suggest an acute infarct. Hemorrhage: No evidence of prior parenchymal hemorrhage on the susceptibility weighted images. Mass Lesion/ Mass Effect: No evidence of an intracranial mass or extra-axial fluid collection. No significant mass effect. Chronic Change: Scattered punctate foci of increased T2 and FLAIR signal are noted in the supratentorial white matter which is a nonspecific finding, but likely represents minimal chronic microvascular ischemia. Parenchyma: No significant volume loss for age. The brain parenchyma is otherwise within normal limits of signal intensity and morphology. Ventricles: Normal caliber and morphology. Skull Base: Hypothalamic and pituitary region are grossly normal. Craniocervical junction is normal. No significant marrow replacement process. Vasculature: Major intracranial arterial structures, and dural venous sinuses show typical flow void, suggesting patency by spin echo criteria. Other: Millimeters retention cyst or polyp in left maxillary sinus inferiorly. The remainder the paranasal sinuses demonstrate minimal mucosal thickening. Mastoid air cells and middle ear cavities are clear. The orbits and extracranial soft tissues are unremarkable. IMPRESSION: No acute intracranial abnormality. Chronic findings as detailed above. Commercial Instructor Supervisor: EVETTE Transcribe Date/Time: Mar 01 2025 8:55P Dictated by : KEZIA PARIKH MD This examination was interpreted and the report reviewed and electronically signed by: KEZIA PARIKH MD on Mar 01 2025 8:57PM EST [id number] Normal [facility] Magnesium SerPl-ncon 03-01 Magnesium [Mass/Vol] 2.1 mg/dL Normal 1.7-2.3 [facility] Comment on above: Order Comment: Speci men Type: BLOOD SPECIMEN Ordering Facility: [facility] Address: [address] [place] [address] Performed By: #### 2 4321-2, 66715-8 #### [facility] CLIA [id number] [address] [place] [address] [place] ALLIED HEALTHon 02-28-2025 ALLIED HEALTH HNO ID: [id number] Author: MITCH GARCIA RT(R) Service: Radiology Author Type: Technologist Type: Allied Health Filed: 02/28/2025 17:06 Note Text: Radiology Service Progress Note PATIENT NAME: Gerber Hill DATE OF SERVICE: February 28, 2025 TIME: 5:05 PM PATIENT IDENTITY VERIFICATION COMPLETED USING TWO (2) IDENTIFIERS: Name and Date of confirmed by patient verbally and Name and Date of confirmed by identification band. FALL SCREENING: Has the patient had 2 falls in the last year or 1 fall with injury or currently using an Ambulatory Assistive Device (Walker, Cane, Wheelchair, Crutches, etc.)? Emergency Room Patient: Screened in ED PATIENT GENDER DATA: Assigned female at . status: : No status: NO. PATIENT RELEVANT IMPLANT DATA REVIEWED: Yes PATIENT PRESENTS WITH AN IMPLANTABLE OR ATTACHED MUSIC AGENT: No RADIOLOGY DEPARTMENT: CT; Exam(s) Completed: PE Study PERIPHERAL IV DATA: Inpatient: see LDA documentation SIGNED BY: RT Rui(R) February 28, 2025 5:05 PM [facility] CBC W Auto Differential pane l (Bld)on 02-28-2025 Basophils (Bld) [#/Vol] 0.09 10*3/uL Normal <0.11 [facility] Comment on above: Order Comment: Speci men Type: BLOOD SPECIMEN Ordering Facility: [facility] Address: [address] [place] [address] Performed By: #### 5 7021-8 #### [facility] CLIA [id number] [address] [place] [address] [place] Basophils/100 WBC (Bld) 1.0 % Normal [facility] Comment on above: Order Comment: Speci men Type: BLOOD SPECIMEN Ordering Facility: [facility] Address: [address] [place] [address] Performed By: #### 5 7021-8 #### [facility] CLIA [id number] [address] [place] [address] [place] Differential cell count method Nom (Bld) Auto Normal [facility] Comment on above: Order Comment: Speci men Type: BLOOD SPECIMEN Ordering Facility: [facility] Address: [address] [place] [address] Performed By: #### 5 7021-8 #### [facility] CLIA [id number] [address] [place] [address] [place] Eosinophils (Bld) [#/Vol] 0.35 10*3/uL Normal <0.46 [facility] Comment on above: Order Comment: Speci men Type: BLOOD SPECIMEN Ordering Facility: [facility] Address: [address] [place] [address] Performed By: #### 5 7021-8 #### [facility] CLIA [id number] [address] [place] [address] [place] Eosinophils/100 WBC (Bld) 3.9 % Normal [facility] Comment on above: Order Comment: Speci men Type: BLOOD SPECIMEN Ordering Facility: [facility] Address: [address] [place] [address] Performed By: #### 5 7021-8 #### [facility] CLIA [id number] [address] [place] [address] [place] Erythrocyte distribution width (RBC) [Ratio] 12.7 % Normal 11.5-15.0 [facility] Comment on above: Order Comment: Speci men Type: BLOOD SPECIMEN Ordering Facility: [facility] Address: [address] [place] [address] Performed By: #### 5 7021-8 #### [facility] [place] [id number] [address] [place] [address] [place] Hematocrit (Bld) [Volume fraction] 45.3 % Normal 36.0-46.0 [facility] Comment on above: Order Comment: Speci men Type: BLOOD SPECIMEN Ordering Facility: [facility] Address: [address] [place] [address] Performed By: #### 5 7021-8 #### [facility] IA [id number] [address] [place], [place] [address] [place] Hemoglobin (Bld) [Mass/Vol] 14.8 g/dL Normal 11.5-15.5 [facility] Comment on above: Order Comment: Speci men Type: BLOOD SPECIMEN Ordering Facility: [facility] Address: [address] [place] [address] Performed By: #### 5 7021-8 #### [facility] CLIA [id number] [address] [place] [address] [place] Immature granulocytes (Bld) [#/Vol] 10*3/uL Normal <0.10 [facility] Comment on above: Order Comment: Speci men Type: BLOOD SPECIMEN Ordering Facility: [facility] Address: [address] [place] [address] Performed By: #### 5 7021-8 #### [facility] CLIA [id number] [address] [place] [address] [place] Immature granulocytes/100 WBC (Bld) 0.2 % Normal [facility] Comment on above: Order Comment: Speci men Type: BLOOD SPECIMEN Ordering Facility: [facility] Address: [address] [place] [address] Performed By: #### 5 7021-8 #### [facility] CLIA [id number] [address] [place] [address] [place] Lymphocytes (Bld) [#/Vol] 2.22 10*3/uL Normal 1.00-4.00 [facility] Comment on above: Order Comment: Speci men Type: BLOOD SPECIMEN Ordering Facility: [facility] Address: [address] [place] [address] Performed By: #### 5 7021-8 #### [facility] [place] [id number] [address] [place] [address] [place] Lymphocytes/100 WBC (Bld) 24.7 % Normal [facility] Comment on above: Order Comment: Speci men Type: BLOOD SPECIMEN Ordering Facility: [facility] Address: [address] [place] [address] Performed By: #### 5 7021-8 #### [facility] CLIA [id number] [address] [place] [address] [place] MCH (RBC) [Entitic mass] 29.1 pg Normal 26.0-34.0 [facility] Comment on above: Order Comment: Speci men Type: BLOOD SPECIMEN Ordering Facility: [facility] Address: [address] [place] [address] Performed By: #### 5 7021-8 #### [facility] CLIA [id number] [address] [place] [address] [place] MCHC (RBC) [Mass/Vol] 32.7 g/dL Normal 30.5-36.0 [facility] Comment on above: Order Comment: Speci men Type: BLOOD SPECIMEN Ordering Facility: [facility] Address: [address] [place] [address] Performed By: #### 5 7021-8 #### [facility] CLIA [id number] [address] [place] [address] [place] MCV (RBC) [Entitic vol] 89.0 fL Normal 80.0-100.0 [facility] Comment on above: Order Comment: Speci men Type: BLOOD SPECIMEN Ordering Facility: [facility] Address: [address] [place] [address] Performed By: #### 5 7021-8 #### [facility] IA [id number] [address] [place] [address] [place] Monocytes (Bld) [#/Vol] 0.78 10*3/uL Normal <0.87 [facility] Comment on above: Order Comment: Speci men Type: BLOOD SPECIMEN Ordering Facility: [facility] Address: [address] [place] [address] Performed By: #### 5 7021-8 #### [facility] IA [id number] [address] [place] [address] [place] Monocytes/100 WBC (Bld) 8.7 % Normal [facility] Comment on above: Order Comment: Speci men Type: BLOOD SPECIMEN Ordering Facility: [facility] Address: [address] [place] [address] Performed By: #### 5 7021-8 #### [facility] CLIA [id number] [address] [place] [address] [place] Neutrophils (Bld) [#/Vol] 5.54 10*3/uL Normal 1.45-7.50 [facility] Comment on above: Order Comment: Speci men Type: BLOOD SPECIMEN Ordering Facility: [facility] Address: [address] [place] [address] Performed By: #### 5 7021-8 #### [facility] CLIA [id number] [address] [place] [address] [place] Neutrophils/100 WBC (Bld) 61.5 % Normal [facility] Comment on above: Order Comment: Speci men Type: BLOOD SPECIMEN Ordering Facility: [facility] Address: [address] [place] [address] Performed By: #### 5 7021-8 #### [facility] IA [id number] [address] [place] [address] [place] Nucleated RBC (Bld) [#/Vol] 10*3/uL Normal <0.01 [facility] Comment on above: Order Comment: Speci men Type: BLOOD SPECIMEN Ordering Facility: [facility] Address: [address] [place] [address] Performed By: #### 5 7021-8 #### [facility] IA [id number] [address] [place] [address] [place] Nucleated RBC/100 WBC (Bld) [Ratio] 0.0 /100 WBC Normal [facility] Comment on above: Order Comment: Speci men Type: BLOOD SPECIMEN Ordering Facility: [facility] Address: [address] [place] [address] Performed By: #### 5 7021-8 #### [facility] IA [id number] [address] [place] [address] [place] Platelet mean volume (Bld) [Entitic vol] 9.0 fL Normal 9.0-12.7 [facility] Comment on above: Order Comment: Speci men Type: BLOOD SPECIMEN Ordering Facility: [facility] Address: [address] [place] [address] Performed By: #### 5 7021-8 #### [facility] IA [id number] [address] [place] [address] [place] Platelets (Bld) [#/Vol] 288 10*3/uL Normal 150-400 [facility] Comment on above: Order Comment: Speci men Type: BLOOD SPECIMEN Ordering Facility: [facility] Address: [address] [place] [address] Performed By: #### 5 7021-8 #### [facility] IA [id number] [address] [place], [place] [address] [place] RBC (Bld) [#/Vol] 5.09 10*6/uL Normal 3.90-5.20 [facility] Comment on above: Order Comment: Speci men Type: BLOOD SPECIMEN Ordering Facility: [facility] Address: [address] [place] [address] Performed By: #### 5 7021-8 #### [facility] IA [id number] [address] [place], [place] [address] [place] WBC (Bld) [#/Vol] 9.00 10*3/uL Normal 3.70-11.00 [facility] Comment on above: Order Comment: Speci men Type: BLOOD SPECIMEN Ordering Facility: [facility] Address: [address] [place] [address] Performed By: #### 5 7021-8 #### [facility] [place] [id number] [address] [place], [place] [address] [place] CTA CHEST (NON GATED) W IVCO N PEon 02-28-2025 CTA CHEST (NON GATED) W IVCON PE * * *Final Report* * * DATE OF EXAM: Feb 28 2025 5:06PM [facility]HT[facility] [id number] - CTA CHEST (NON GATED) W IVCON PE / PROCEDURE REASON: Pulmonary embolism (PE) suspected, high prob * * * * Physician Interpretation * * * * EXAMINATION: CHEST CTA (NON GATED) WITH CONTRAST (PULMONARY EMBOLISM PROTOCOL) Clinical History: concern for pulmonary embolism Technique: Spiral CT acquisition of the chest from the thoracic inlet to the upper abdomen following IV contrast. Axial 1 and 3 mm thick slices plus coronal and sagittal reformatted images. MQ: CTCP_5 Contrast: 100 mL Omnipaque [address] Radiation dose: Integrated Dose-length product (DLP) for this visit = 542 mGy*cm CT Dose Reduction Employed: Automated exposure control(AEC) and iterative recon CTA: Post-processed images (Maximum intensity Projection (MIP), Volume-rendered (VR), or Surface shaded display images (SSD) were created, reviewed and archived. Comparison: No similar prior studies from [facility] available. Limited comparison outside CT abdomen 11/03/[address] chest 04/04/2020 RESULT: Limitations: There is substantial banding artifact better seen on the coronal images, and some limitations to bolus characteristics in the distal levels. Evaluation for thromboembolic disease: - Right heart chambers: No thromboembolic disease. - Main pulmonary arteries: No thromboembolic disease. - Lobar pulmonary arteries: No thromboembolic disease. - Segmental pulmonary arteries: No thromboembolic disease proximally, with mild limitation and questionable findings distally. - Subsegmental pulmonary arteries: Inconclusive findings for possible embolic disease, noting substantial banding artifacts. Heterogeneity in right lower lobe subsegmental vessels for example image 2:100, and similar findings in some left lower lobe subsegmental vessels, are possibly artifactual rather than representing small clot burden very distal pulmonary embolism - Additional pulmonary artery findings: The main pulmonary artery is normal in caliber. Lines, tubes, and devices: None. Lung parenchyma and airways: The central airways are patent. There are no large areas of dense consolidation. However the bilateral lower lobes with mosaic attenuation, this likely partly relates to artifact from breathing, but could be associated with air trapping or developing airspace opacities. Pleural space: No pleural effusion. No pleural thickening. Lower neck, lymph nodes, and mediastinum: The imaged thyroid gland is normal. No lymphadenopathy in the supraclavicular, axillary, mediastinal, or hilar regions. Heart, pericardium, and thoracic vessels: The thoracic aorta is normal in caliber. The cardiac chambers are normal in size. No definite coronary artery atherosclerotic calcifications are noted, although the study is not optimized for coronary assessment. No pericardial effusion or thickening. Heavy calcification of the mitral annulus is noted. There is some heterogeneity of the left ventricular myocardium, although noting that this is a highly nonspecific finding on a nongated examination. Bones and soft tissues: No destructive bone lesion. Chest wall is unremarkable. Upper abdomen: The liver is nodular worrisome for cirrhosis, and noting that this is a change from prior imaging. Bilateral kidneys with no specific pathology. The common bile duct not dilated. Adrenal glands no visualized masses. There are periportal prominent nodes, these appear more prominent than on outside study of 2019, up to 15 mm short axis on the current study. Localizer images: No additional findings. IMPRESSION: Questionable findings of possible small clot burden distal pulmonary embolism, noting that these are not considered definite. No evidence of abnormality proximal to the distal segmental level. If there is continuing high clinical suspicion for acute pulmonary embolism, recommend repeat study and risk-benefit analysis of treatment. With a high degree of confidence there is no large or central embolism, and no embolus to the proximal segmental levels. If the indeterminate findings are confirmed, these would still represent at most a minimal clot burden. No evidence of right heart strain. Current study is greatly limited for evaluation of the heart, clinical correlation regarding need for a better dedicated cardiac evaluation. Nodularity of the liver which is a change from imaging of 2019 and is suspicious for developing cirrhosis. Abdominal adenopathy as above. No dense consolidation, however some mosaic attenuation in the bilateral lower lobes could represent changes from air-trapping or from a developing infectious process. URGENT RESULTS Acuity: Urgent Communication: Communicated with LORENA RAWLS on 02/28/2025 6:10 PM via verbal communication. --END OF FINDING-- Commercial Instructor Supervisor: EVETTE Transcribe Date/Time: Feb 28 2025 5:47P (more content not included)... Normal [facility] Comprehensive metabolic 2000 panelon 02-28-2025 Albumin [Mass/Vol] 4.2 g/dL Normal 3.9-4.9 [facility] Comment on above: Order Comment: Ashlee pagan Type: BLOOD SPECIMEN Ordering Facility: [facility] Address: [address] [place] [address] Performed By: #### L [id number], 76339-4, 21926-6, 13695-9 #### [facility] CLIA [id number] [address] [place] [address] [place] ALP [Catalytic activity/Vol] 92 U/L Normal 34-123 [facility] Comment on above: Order Comment: Ashlee pagan Type: BLOOD SPECIMEN Ordering Facility: [facility] Address: [address] [place] [address] Performed By: #### L [id number], 93072-4, 53475-0, 36399-2 #### [facility] CLIA [id number] [address] [place] [address] [place] ALT [Catalytic activity/Vol] 27 U/L Normal 7-38 [facility] Comment on above: Order Comment: Speci men Type: BLOOD SPECIMEN Ordering Facility: [facility] Address: [address] [place] [address] Performed By: #### L [id number], 75931-0, 84542-3, 85499-3 #### [facility] CLIA [id number] [address] [place], [place] [address] [place] Anion gap [Moles/Vol] 11 mmol/L Normal 8-15 [facility] Comment on above: Order Comment: Speci men Type: BLOOD SPECIMEN Ordering Facility: [facility] Address: [address] [place] [address] Performed By: #### L [id number], 59619-7, 36126-9, 29744-8 #### [facility] CLIA [id number] [address] [place] [address] [place] AST [Catalytic activity/Vol] 33 U/L Normal 13-35 [facility] Comment on above: Order Comment: Speci men Type: BLOOD SPECIMEN Ordering Facility: [facility] Address: [address] [place] [address] Performed By: #### L [id number], 69892-5, 56879-7, 08658-6 #### [facility] CLIA [id number] [address] [place] [address] [place] Bilirubin [Mass/Vol] 0.4 mg/dL Normal 0.2-1.3 [facility] Comment on above: Order Comment: Speci men Type: BLOOD SPECIMEN Ordering Facility: [facility] Address: [address] [place] [address] Performed By: #### L [id number], 29146-7, 42210-1, 23797-8 #### [facility] CLIA [id number] [address] [place] [address] [place] Calcium [Mass/Vol] 9.6 mg/dL Normal 8.5-10.2 [facility] Comment on above: Order Comment: Speci men Type: BLOOD SPECIMEN Ordering Facility: [facility] Address: [address] [place] [address] Performed By: #### L [id number], 54152-9, 57040-7, 48084-5 #### [facility] CLIA [id number] [address] [place], [place] [address] [place] Chloride [Moles/Vol] 105 mmol/L Normal 98-107 [facility] Comment on above: Order Comment: Speci men Type: BLOOD SPECIMEN Ordering Facility: [facility] Address: [address] [place] [address] Performed By: #### L [id number], 15721-2, 00008-4, 65399-9 #### [facility] CLIA [id number] [address] [place], [place] [address] [place] CO2 [Moles/Vol] 25 mmol/L Normal 22-30 [facility] Comment on above: Order Comment: Speci men Type: BLOOD SPECIMEN Ordering Facility: [facility] Address: [address] [place] [address] Performed By: #### L [id number], 61506-6, 12625-9, 25951-5 #### [facility] CLIA [id number] [address] [place], [place] [address] [place] Creatinine [Mass/Vol] 0.93 mg/dL Normal 0.58-0.96 [facility] Comment on above: Order Comment: Speci men Type: BLOOD SPECIMEN Ordering Facility: [facility] Address: [address] [place] [address] Performed By: #### L [id number], 55235-8, 33877-7, 27813-7 #### [facility] CLIA [id number] [address] [place], [place] [address] [place] Creatinine and Glomerular filtration rate.predicted panel (S/P/Bld) 68 mL/min/1.73m??? Normal >=60 [facility] Comment on above: Order Comment: Speci men Type: BLOOD SPECIMEN Ordering Facility: [facility] Address: [address] [place] [address] Result Comment: Rebekah mated Glomerular Filtration Rate (eGFR) is calculated using the 2020 CKD-EPI creatinine equation. This equation utilizes serum creatinine, sex, and age as parameters. The creatinine assay has traceable calibration to isotope dilution-mass spectrometry. Refer to KDIGO guidelines for clinical interpretation. In patients with unstable renal function, e.g. those with acute kidney injury, the eGFR may not accurately reflect actual GFR. Performed By: #### L [id number], 75567-3, 43727-3, 38553-4 #### [facility] CLIA [id number] [address] [place], [place] [address] [place] Glucose [Mass/Vol] 67 mg/dL Low 74-99 [facility] Comment on above: Order Comment: Ashlee pagna Type: BLOOD SPECIMEN Ordering Facility: [facility] Address: [address] [place] [address] Result Comment: The [place] Diabetes Association (ADA) provides guidance for cutoff values for fasting glucose and random glucose. The ADA defines fasting as no caloric intake for at least 8 hours. Fasting plasma glucose results between 100 to 125 mg/dL indicate increased risk for diabetes (prediabetes). Fasting plasma glucose results greater than or equal to 126 mg/dL meet the criteria for diagnosis of diabetes. In the absence of unequivocal hyperglycemia, results should be confirmed by repeat testing. In a patient with classic symptoms of hyperglycemia or hyperglycemic crisis, random plasma glucose results greater than or equal to 200 mg/dL meet the criteria for diagnosis of diabetes. Reference: Standards of Medical Care in Diabetes 2016, [place] Diabetes Association. Diabetes Care. 2016.39(Suppl 1). Performed By: #### L [id number], 34478-1, , #### [facility] CLIA [id number] [address] [place], [place] [address] [place] Potassium [Moles/Vol] 4.2 mmol/L Normal 3.7-5.1 [facility] Comment on above: Order Comment: Ashlee pagan Type: BLOOD SPECIMEN Ordering Facility: [facility] Address: [address] [place] [address] Performed By: #### L [id number], 68013-4, , 08196-5 #### [facility] CLIA [id number] [address] [place], [place] [address] [place] Protein [Mass/Vol] 8.0 g/dL Normal 6.3-8.0 [facility] Comment on above: Order Comment: Speci men Type: BLOOD SPECIMEN Ordering Facility: [facility] Address: [address] [place] [address] Performed By: #### L [id number], 12972-0, 77086-8, 17304-2 #### [facility] CLIA [id number] [address] [place] [address] [place] Sodium [Moles/Vol] 141 mmol/L Normal 136-144 [facility] Comment on above: Order Comment: Speci men Type: BLOOD SPECIMEN Ordering Facility: [facility] Address: [address] [place] [address] Performed By: #### L [id number], 48919-2, 47261-6, 09180-1 #### [facility] CLIA [id number] [address] [place] [address] [place] Urea nitrogen [Mass/Vol] 20 mg/dL Normal 7-21 [facility] Comment on above: Order Comment: Speci men Type: BLOOD SPECIMEN Ordering Facility: [facility] Address: [address] [place] [address] Performed By: #### L [id number], 70586-1, 73093-5, 89392-4 #### [facility] CLIA [id number] [address] [place] [address] [place] D dimer FEU PPP-mCncon 02-28 Fibrin D-dimer FEU (PPP) [Mass/Vol] 1030 ng/mL FEU High <500 [facility] Comment on above: Order Comment: Speci men Type: BLOOD SPECIMEN Ordering Facility: [facility] Address: [address] [place] [address] Performed By: #### L [id number], 62131-8, 89295-2, 17149-5 #### [facility] CLIA [id number] [address] [place], [place] [address] [place] ED NOTEon 02-28-2025 ED NOTE HNO ID: [id number] Author: ELVIS CANCINO RN Service: ? Author Type: Registered Nurse Type: ED Notes Filed: 02/28/2025 19:30 Note Text: Food provided [facility] ED NOTE HNO ID: [id number] Author: JESSICA CARDONA RN Service: ? Author Type: Registered Nurse Type: ED Notes Filed: 02/28/2025 14:36 Note Text: Pt reports feeling dizzy and shaky while at work. 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 [facility] ED PROV NOTEon 02-28-2025 ED PROV NOTE HNO ID: [id number] Author: LORENA RAWLS MD Service: Emergency Medicine Author Type: Physician Type: ED Provider Notes Filed: 02/28/2025 19:00 Note Text: ED Provider Note Patient Name: Gerber Hill : 1960 SERVICE DATE: 02/28/25 History Patient presents with: Dizziness HPI Gerber Hill is a 64 year old female with PMH including neuropathy, motor neuron disorder, anxiety, depression who presents to the ED today due to concerns for dizziness. Patient reports having a typical morning, presenting to work at the [employer] where she was in an air conditioned space. She states she began to felt overheated, dizzy, shaky. She had concern that her blood sugar was low and additionally requested for a fan to be brought to her. She states after multiple minutes of exposure her boss contacted EMS noted elevated blood sugar of 170 in transit. She reports mild improvement of symptoms however continues to feel as though she is experiencing a twilight. She denies any episode of fully passing out. She states this is never happened previously. She denies any chest pain, shortness of breath. She did recently fracture a right toe is currently immobilized in a walking boot. No history of DVT or use of anticoagulation. 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 No pertinent surgical history. FAMILY HISTORY Problem Relation Age of Onset Cancer Father Cancer Mother Heart Mother Cataract Mother Diabetes Sister Diabetes Brother Social History Tobacco Use Smoking status: Never Smokeless tobacco: Not on file Substance and Sexual Activity Alcohol use: No Drug use: No Sexual activity: Not on file Comment: did not ask ALLERGIES Allergen Reactions Demerol [Meperidine* Hives Review of Systems Constitutional: Negative for fever. Respiratory: Negative for cough, shortness of breath and stridor. Cardiovascular: Negative for chest pain. Gastrointestinal: Positive for nausea. Negative for abdominal pain, diarrhea and vomiting. Allergic/Immunologic: Negative for immunocompromised state. Neurological: Positive for dizziness, tremors and syncope (near syncope). Negative for seizures, weakness and headaches. Hematological: Does not bruise/bleed easily. Physical Exam Vitals [02/28/25 1432] BP Pulse Temp Temp src Resp SpO2 Weight Height 119/77 85 36.8 ?C (98.2 ?F) Oral 17 96 % 74.8 kg (165 lb) -- Physical Exam Constitutional: General: She is not in acute distress. Appearance: She is not ill-appearing, toxic-appearing or diaphoretic. HENT: Head: Normocephalic. Cardiovascular: Rate and Rhythm: Normal rate and regular rhythm. Heart sounds: No murmur heard. No friction rub. Pulmonary: Effort: Pulmonary effort is normal. Breath sounds: No wheezing or rales. Abdominal: General: There is no distension. Palpations: There is no mass. Tenderness: There is no abdominal tenderness. There is no guarding. Musculoskeletal: General: Deformity present. Cervical back: Normal range of motion. Right lower leg: No edema. Left lower leg: No edema. Skin: General: Skin is warm. Psychiatric: Mood and Affect: Mood normal. Diagnostic Testing ED Labs Ordered and Reviewed COMPREHENSIVE METABOLIC PANEL - Abnormal; Notable for the following components: Result Value Ref Range Glucose 67 (*) 74 - 99 mg/dL All other components within normal limits D-DIMER - Abnormal; Notable for the following components: D Dimer 1,030 (*) <500 ng/mL FEU All other components within normal limits Narrative: 500 ng/mL FEU is the D Dimer cutoff to exclude DVT (deep vein thrombosis) and PE (pulmonary embolism) in patients with a low pre test probability. Supplemental Comment: In patients over 50 years with a low pre test probability for DVT and/or PE, an age adjusted D dimer cutoff can be calculated as [age x 10] ng/mL FEU. For example, a patient of 88 years would have an age adjusted D dimer cutoff of 880 ng/mL FEU. For patients with a suspected DVT, a D dimer level below 500 ng/mL FEU has a negative predictive value of >98.9%, a sensitivity of >96.9% and a specificity of >35.7%. For patients with a suspected PE, a D dimer level below 500 ng/mL FEU has a negative predictive value of >98.5%, and a sensitivity of >96.5% and a specificity of >38.8%. Reference: Eric M, et al. ANA 2014 311:1117 and Tanner Barillas N et al. [place] Int Med 2016 165:253. PROTHROMBIN TIME - Normal MAGNESIUM - Normal COMPLETE BLOOD COUNT AND DIFFERENTIAL HIGH SENSITIVITY TROPONIN T (INITIAL) NT PRO BNP Results for orders placed or performed during the hospital encounter of 02/28/25 EKG Impression Sinus rhythm Probable left atria (more content not included)... [facility] EKGon 02-28-2025 Electrocardiogram Ventricular Rate : 8 2 BPM Atrial Rate : 82 BPM P-R Interval : 153 ms QRS Duration : 83 ms Q-T Interval : 360 ms QTC Calculation(Bazett) : 421 ms Calculated P [place] : 53 degrees Calculated R [place] : 39 degrees Calculated T [place] : 23 degrees Sinus rhythm Probable left atrial enlargement Borderline ECG No STEMII Confirmed by MD ESQUIVEL BRENT ([id number]) on 02/28/2025 2:45:27 PM NAME : GERBER HILL PID : [id number] : 1960 Gender : Female Race : ORD : Procedure Date : Feb 28 2025 14:41:31 Edit Date : Feb 28 2025 14:45:29 Diagnosis: Sinus rhythm Probable left atrial enlargement Borderline ECG No STEMII Confirmed by MD ESQUIVEL BRENT ([id number]) on 02/28/2025 2:45:27 PM Test Reason : Location : [address] : [place] [address] Overread By : MD ESQUIVEL BRENT Edited By : MD ESQUIVEL BRENT Referred By : , Acquired by : [id number], [facility] Fibrin D-dimer FEU (PPP) [Ma ss/Vol]on 02-28-2025 D DIMER AGE-RELATED CUTOFF 650 ng/mL FEU [facility] Comment on above: Order Comment: Speci men Type: BLOOD SPECIMEN Ordering Facility: [facility] Address: [address] [place] [address] Performed By: #### L [id number], 19732-1, 34852-6, 10418-7 #### [facility] CLIA [id number] [address] [place], [place] [address] [place] HIGH SENSITIVITY TROPONIN T (INITIAL)on 02-28-2025 Troponin T.cardiac High sensitivity method [Mass/Vol] 17 ng/L High <12 [facility] Comment on above: Order Comment: Speci men Type: BLOOD SPECIMEN Ordering Facility: [facility] Address: [address] [place] [address] Performed By: #### L [id number], 89325-1, 94607-3, 73263-5 #### [facility] CLIA [id number] [address] [place] [address] [place] HIGH SENSITIVITY TROPONIN T (SECOND)on 02-28-2025 Troponin T.cardiac High sensitivity method [Mass/Vol] 14 ng/L High <12 [facility] Comment on above: Order Comment: Speci men Type: BLOOD SPECIMEN Ordering Facility: [facility] Address: [address] [place] [address] Performed By: #### L [id number], 58148-0, 96065-2, 57506-2 #### [facility] CLIA [id number] [address] [place], [place] [address] [place] HIGH SENSITIVITY TROPONIN T (THIRD) 3 HRS AFTER INITIALon 02-28-2025 Troponin T.cardiac High sensitivity method [Mass/Vol] 13 ng/L High <12 [facility] Comment on above: Order Comment: Speci men Type: BLOOD SPECIMEN Ordering Facility: [facility] Address: [address] [place] [address] Performed By: #### L [id number] #### [facility] CLIA [id number] [address] [place], [place] [address] [place] Magnesium SerPl-mCncon 02-28 Magnesium [Mass/Vol] 2.3 mg/dL Normal 1.7-2.3 [facility] Comment on above: Order Comment: Ashlee pagan Type: BLOOD SPECIMEN Ordering Facility: [facility] Address: [address] [place] [address] Performed By: #### L [id number], 33968-6, 73455-0, 24675-7 #### [facility] CLIA [id number] [address] [place], [place] [address] [facility] NT-proBNP [facility] 02-28 Natriuretic peptide.B prohormone N-Terminal [Mass/Vol] 42 pg/mL Normal <125 [facility] Comment on above: Order Comment: Ashlee pagan Type: BLOOD SPECIMEN Ordering Facility: [facility] Address: [address] [place] [address] Performed By: #### L [id number], 78079-2, 26188-1, 80412-4 #### [facility] CLIA [id number] [address] [place] [address] [place] PT panel Coag (PPP)on 2024 INR Coag (PPP) [Relative time] 1.0 {INR} Normal 0.9-1.3 [facility] Comment on above: Order Comment: Ashlee pagan Type: BLOOD SPECIMEN Ordering Facility: [facility] Address: [address] [place] [address] Result Comment: Kim min K Antagonist (VKA) Therapeutic Range: INR 2 to 3 (Target INR of 2.5) Note: For patients treated with VKA drugs, such as warfarin, the [place] [employer] 2012 Guideline recommends a therapeutic INR range of 2 to 3 (target INR of 2.5). This recommendation includes high-risk patients with antiphospholipid syndrome with previous arterial or venous thromboembolism, current-generation mechanical or bioprosthetic aortic heart valve replacement. Note: Patients with mechanical aortic valve replacement and additional risk factors for thromboembolic events (atrial fibrillation, previous thromboembolism, LV dysfunction, hypercoagulable conditions) or an older generation mechanical AVR (i.e., ball in-Cage) or any mechanical MVR should have a INR therapeutic range of 2.5 to 3.5 (target INR of 3). Sanya COX, et al. Chest 2012, 141:7S-47S Koko SULLIVAN, et al. [facility] 2017, 70: 252-289 Performed By: #### L [id number], 14004-0, 02832-5, 11402-1 #### [facility] CLIA [id number] [address] [place], [place] [address] [place] GRACE PT Coag (PPP) [Time] 11.1 s Normal 9.7-13.0 [facility] Comment on above: Order Comment: Speci men Type: BLOOD SPECIMEN Ordering Facility: [facility] Address: [address] [place] [address] Performed By: #### L [id number], 80580-2, 23503-5, 63265-8 #### [facility] CLIA [id number] [address] [place], [place] [id number] [place] Knee 4 or More Viewson 02-22 Knee 4 or More Views [facility] Imaging Services [address] [place] [address] Knee 4 or More Views MR#: [id number] Acct: [id number] Name: GERBER HILL TRINIDAD Rep #: [id number] : 1960 F 64 From: Lissett askew MD PCP: Dr. Aaron Chandler MD Status: [facility] CLI Study: Knee 4 or More Views Date of Exam: 02/22/25 Exam# [id number] Ordering Dr: Aaron Chandler MD PROCEDURE: KNEE 4 OR MORE VIEWS 02/22/2025 REASON FOR EXAM: PAIN TECHNIQUE: KNEE 4 OR MORE VIEWS RIGHT KNEE. COMPARISON: NONE. FINDINGS: Enthesophyte formation at the upper pole of the patella. Mild osteopenia of the visualized bones. Degenerative joint disease. No fracture or dislocation is seen. No lytic or blastic bone lesion is noted. RAD/Knee 4 or More Views IMPRESSION: No evidence for acute abnormality. Reading Location: [place] [address] CC: Dr. Aaron Chandler MD Commercial Instructor Supervisor: Signed Normal [facility] Foot min 3 Viewson 5 Foot min 3 Views [facility] Imaging Services [address] [place] [address] Foot min 3 Views MR#: [id number] Acct: [id number] Name: GERBER HILL Rep #: [id number] : 1960 F 64 From: Lincoln Shi DO PCP: Dr. Aaron Chandler MD Status: REG CLI Study: Foot min 3 Views Date of Exam: 02/21/25 Exam# [id number] Ordering Dr: Aaron Chandler MD PROCEDURE: FOOT MIN 3 VIEWS 02/21/2025 REASON FOR EXAM: FALL, INJURY Initial encounter TECHNIQUE: FOOT MIN 3 VIEWS COMPARISON: None. FINDINGS: Bones: Generalize osteopenia. No grossly evident acute displaced fracture. Vertical lucency in the base of the proximal phalanx of the 5th digit. If there is point tenderness at this location a nondisplaced fracture may be present. Joints: The performance in irregularity of the proximal phalanx of the 5th digit enters the MTP joint Soft tissues: Suggestive of lateral soft tissue swelling over this is MTP area Other: RAD/Foot min 3 Views IMPRESSION: Possible nondisplaced fracture of the phalanx of the 5th digit [facility] CC: Dr. Aaron Chandler MD Commercial Instructor Supervisor: Signed Normal [facility] GERBER HILL ([id number]) 1960 F Date Time Provider Department 01/02/25 SABI CARDONA During your visit today, we recorded the following information about you: Nabil Nickerson 01/02/2025 3:28 PM Signed Called and left PT a VM in regards to her appointment on 02/23/25. Dr Cardona, will not be in clinic and will have to rescheduled. Patient can be added on for February 21 virtually on at 10:30,11 or 11:30AM. Or if patient wishes to be seen in Person she can be added on at February 16 for in-person or virtually after 8:30AM Allergies As of Date: 01/02/2025 Noted Allergy Reaction DEMEROL (MEPERIDINE (PF)) 01/05/2014 4 - Hives Date Reviewed: 11/17/2024 Reviewed by: Sabi Cardona MD - Fully Assessed Reason for Visit: Appointment [186] Prescriptions as of 01/02/2025 - propranolol ER (INDERAL LA) 60 mg 24 hr capsule Take 1 capsule by mouth once daily. - divalproex ER (DEPAKOTE ER) 500 mg 24 hr tablet Take 1 tablet by mouth once daily. - ubrogepant (UBRELVY) 100 mg tablet Take 1 tablet at migraine onset. May repeat dose in 2 hours if needed. Maximum 200 mg per 24 hours. - OZEMPIC 1 mg/dose (4 mg/3 mL) pen Inject 1 mg subcutaneously one time a week. - DULoxetine (CYMBALTA) 60 mg capsule Take 60 mg by mouth once daily. - atorvastatin (LIPITOR) 10 mg tablet Take 10 mg by mouth once daily. - linaclotide (LINZESS) 145 mcg capsule Take 145 mcg by mouth DAILY (6 AM). - dapagliflozin (FARXIGA) 10 mg tablet Take by mouth daily with breakfast. - pregabalin (LYRICA) 100 mg capsule Take 100 mg by mouth three times daily. - lisinopril 2.5 mg tablet Take 2.5 mg by mouth once daily. 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 Aaron Chandler MD Status:REG ER Location: ED HPI History of Present Illness Chief Complaint: Allergic Reaction Informant: patient Narrative Narrative: Patient is a 63-year-old female with past medical history of migraine headache diabetes and neuropathy. She states that this evening on 07/1130 she noticed there was some itching and tingling along the left side of her face/cheek. She states that as time passed that she noticed she was now having swelling to her cheek and lips. She states that she initially felt like it was slightly difficult to swallow when the symptoms first came on but she states that has resolved. She denies any shortness of breath but states she is concerned because the swelling is now progressing across her upper and lower lip. She denies any new exposures and states she has been taking her home medications as directed. 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 Neuropathy Migraines Home Medications ???Medication ???Instructions ???Recorded ???Last Taken ???Type famotidine 20 mg tablet 20 mg PO BID ##10 02/20/16 Unknown Rx atorvastatin 10 mg tablet 10 mg PO DAILY 12/04/23 Unknown Hi story duloxetine 60 mg capsule,delayed 60 mg PO DAILY 12/04/23 Unknown Hi story release linaclotide 145 mcg capsule 145 mcg PO DAILY 12/04/23 Unknown History (Linzess) lisinopril 2.5 mg tablet 2.5 mg PO DAILY 12/04/23 Unknown H istory metaxalone 800 mg tablet 800 mg PO BID PRN PRN muscle spasm 12/04/23 Unknown History pregabalin 100 mg capsule (Lyrica) 100 mg PO Q8H 12/04/23 Unknown H istory semaglutide 1 mg/dose (4 mg/3 mL) 1 mg subcut SA 12/04/23 Unknown H istory subcutaneous pen injector (Ozempic) sitagliptin phosphate 100 mg 100 mg PO DAILY 12/04/23 Unknown H istory tablet (Januvia) Held on 11/26/24. Instructions: MD Ordered prednisone 20 mg tablet 40 mg (2 x 20 mg) PO DAILY 5 days 11/26/24 Unknown Rx #10 tabs Allergy/AdvReac Type Severity Reaction Status Date / Time famotidine (From Pepcid) Allergy Severe rash Verified 11/26/24 06:08 meperidine HCl (From Demerol) Allergy Hives Verified 11/26/24 02:34 gabapentin AdvReac HALLUCINATI Verified 11/26/24 02:34 ONS Social History Smoking Status: Never smoker ROS ROS ED Constitutional Constitutional ED: Denies chills or fever(s) Eyes Eyes: Denies blurry vision or change in vision ENT ENT ED: Reports other Details: Positive facial/lip swelling ; Denies sore throat Cardiovascular Cardiovascular: Denies chest pain Respiratory/Chest Respiratory/Chest: Denies cough or dyspnea Gastrointestinal Gastrointestinal: Denies abdominal pain, diarrhea, nausea or vomiting Genitourinary Genitourinary ED: Denies dysuria Musculoskeletal Musculoskeletal: Denies myalgias Integumentary Denies rash Neurologic Neurologic: Denies headache(s) Hematologic/Lymphatic Hematologic/Lymphatic: Denies easy bleeding or easy bruising Allergic/Immunologic Allergic/Immunologic ED: Reports mouth swelling; Denies tongue swelling or urticaria EXAM Physical Exam Const Vital Signs: 11/26/24 02:31 11/26/24 02:56 11/26/24 03:00 Temperature 97.9 F Temperature Source Oral Pulse Rate 65 77 76 Respiratory Rate 12 20 H 16 Respiratory Pattern Normal Blood Pressure 147/84 H 203/112 H Blood Pressure Mean 105 142 Pulse Ox 96 98 Oxygen Delivery Method Room Air 11/26/24 03:23 11/26/24 03:54 11/26/24 04:27 Temperature 98.3 F 98.2 F Temperature Source Oral Oral Pulse Rate 78 72 71 Respiratory Rate 18 13 15 Respiratory Pattern Blood Pressure 171/103 H 108/74 98/67 Blood Pressure Mean 125 85 77 Pulse Ox 97 94 93 Oxygen Delivery Method Room Air Room Air Room Air 11/26/24 05:00 11/26/24 05:30 Temperature 98 F 98.1 F Temperature Source Oral Oral Pulse Rate 73 73 Respiratory Rate 16 15 Respiratory Pattern Blood Pressure 102/77 103/71 Blood Pressure Mean 85 81 Pulse Ox 94 94 Oxygen Delivery Method Room Air Room Air Positive well nourished and well developed General Appearance ED: well developed; Negative for pallor HEENT HEENT Narrative: Patient has swelling of the left cheek that extends into the chin and across the upper and lower lip consistent with angioedema. There are no oral lesions noted on internal exam. No obvious dental caries or signs of dental abscess No tongue swellin (more content not included)... Normal [facility] CNOVon 11-17-2024 CNOV Office Visit (NHMNS2 ) -------- GERBER HILL ([id number]) 1960 F Date Time Provider Department 11/17/24 1:00 PM SABI CARDONA [facility] During your visit today, we recorded the following information about you: Pulse Blood pressure Weight 100/minute 120/68 74.9 kg Sabi Cardona MD 11/17/2024 2:03 PM Signed [facility] [place] [address] [address] CC: Migraine Follow-up Visit Last visit: 03/31/2024 - depakote dose increased Interval History: She reports that overall she has been doing well After the initial depakote increase, headaches subsided for a few months with rare breakthrough headache. Headaches have been increasing in the last 2 months Headaches now occurring 3x/week. Usually triggered when she is feeling more overwhelmed Some increased anxiety/psychosocial stressors, lacking community support. She will be starting counseling Headaches start in the frontal region and radiate back, worse on the left side Stabbing and constant Usually lasts a few hours She uses Ubrelvy for rescue and it helps but does not always relieve the pain She is having increased tremor and imbalance. Few falls in the last few months. Headache days per month: 10-12 Headache free days per month: 20 Current Headache Regimen: Preventative: Depakote 1000 mg daily Cymbalta 60 mg daily Propranolol 10 mg daily Lyrica 100 mg TID Abortive: Ubrelvy Prior Therapies Duration of Use Dose Side effect Other Therapies Nerve blocks Analgesic Acetaminophen with codeine (Tylenol #3) Hydrocodone/Acetaminophe n (Vicodin, [place]) Anti-Convulsant Divalproex sodium (Depakote) Gabapentin (Neurontin) Pregabalin (Lyrica) Topiramate (Topamax, Trokendi XL, Qudexy) Anti-Depressant and Antipsychotic Amitriptyline (Elavil) Duloxetine (Cymbalta) Antiemetics Ondansetron Anti-Migraine Naratriptan (Amerge) Rizatriptan (Maxalt) Sumatriptan (Imitrex, Sumavel) Blood Pressure Lisinopril (Zestril) Propranolol (Inderal) MABs Erenumab (Aimovig) Fremanezumab (Ajovy) Galcanezumab (Emgality) GEPANTS Ubrogepant (Ubrelvy) Rimegepant (Nurtec) Botulinum Toxin Onabotulinum Toxin A (Botox) March 2019. X 1 round. base of skull, temples, occipital/parietal area, frontal area. None in shoulder. 13 injections. Muscle Relaxer Baclofen (Lioresal) Cyclobenzaprine (Flexeril) Over the Counter Medications Acetaminophen (Tylenol) Naproxen sodium (Aleve) KP review: HEADACHE SCORES: 01/08/2024 03/31/2024 10/12/2024 Headache Questions ER visits since last office visit: 1 1 0 Hospital stays since last office visit 0 0 4 Limited ADLs in the last month: 7 15 5 Days missed from work or school in the last month: 0 0 0 Days headache pain free in the last month: 4 15 Days per month with ALL of the following symptoms - decreased productivity, light sensitivity and nausea: 4 10 6 Initial improvement of headache after botox injection at last visit: Not applicable, I did not have a botox injection at my last visit Not applicable, I did not have a botox injection at my last visit Minimally improved PRN medication usage in the last month: 6 Patient impression of improvement since last visit: Much worse No change Minimally improved 01/08/2024 03/31/2024 10/12/2024 HIT-6 HIT-6 72 (Severe impact) 68 (Severe impact) 62 (Severe impact) 01/08/2024 03/31/2024 10/12/2024 KATHE - 2/7 SCORES KATHE-2 Score 2 4 2 KATHE-7 Score 14 01/08/2024 03/31/2024 10/12/2024 Migraine Specific QOL - Higher scores indicate better HRQL Role Function-Restrictive Transformed Score (range: 0-100) 20 28.57 42.86 Role Function-Preventive Transformed Score (range: 0-100) 50 40 50 Emotional Function Transformed Score (range: 0-100) 80 40 80 01/08/2024 03/31/2024 10/12/2024 PHQ-9 Score 8 11 13 Physical Exam: Vital Signs: BP 120/68 (BP Position: Sitting) Pulse 100 Wt 74.9 kg (165 lb 2 oz) SpO2 96% BMI 25.86 kg/m? GENERAL: well appearing, in no acute distress, alert SKIN: Color, texture, turgor normal. No rashes or lesions HEAD: Normocephalic/atraumatic . RESP: normal respiratory effort MSK: No gross joint deformities. NEUROLOGICAL: Mental Status: Alert, oriented to person, place and time, Follows commands, and Speech fluent and appropriate. Cranial Nerves: PERRL, face symmetric, no dysarthria, hearing grossly intact Motor: moves all extremities equally Gait: normal-based. 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 She had initially done well with the increase in Depakote with reduction in headache frequency and severity, but now reporting increased headaches in the last 2 month. P (more content not included)... Normal [facility] Albumin DL <= 20 mg/L (U) [M ass/Vol]Ordered By: Aaron Chandler on 11-09-2024 Urine Random Microalbumin 27.4 mg/L NO RANGE EST. [facility] Anion gap in Serum or Plasma Ordered By: Aaron Chandler on 11-09-2024 Anion gap [Moles/Vol] 15 mmol/L 5-15 [facility] BUN/creatinine ratioOrdered By: Aaron Chandler on 11-09-2024 Urea nitrogen/Creatinine [Mass ratio] 27.1 mg/mg High 10-20 [facility] Bilirubin, totalOrdered By: Aaron Chandler on 11-09-2024 Bilirubin [Mass/Vol] 0.66 mg/dL 0.00-1.30 [facility] Calculated very low density lipoprotein (VLDL) cholesterol measurementOrdered By: Aaron Chandler on 11-09-2024 Calculated very low density lipoprotein (VLDL) cholesterol measurement 27 mg/dL - [facility] VLDL Cholesterol 27 mg/dL - [facility] Carbon dioxide, total [Moles /volume] in Central venous bloodOrdered By: Aaron Chandler on 11-09-2024 CO2 [Moles/Vol] 21.0 mmol/L 21.0-32.0 [facility] Chloride assayOrdered By: Marlon Chandler on 11-09-2024 Chloride [Moles/Vol] 102 mmol/L 98-108 [facility] Comprehensive Metabolic Prof ilon 11-09-2024 Albumin [Mass/Vol] 4.4 g/dL Normal 3.4-4.8 [facility] Comment on above: Performed By: #### L 502.0250, L500.4050, L500.4100 ####[facility] [address] [place], [address] Albumin/Globulin [Mass ratio] 1.1 {ratio} Normal 0.9-2.4 [facility] Comment on above: Performed By: #### L 502.0250, L500.4050, L500.4100 ####[facility] [address] [place], [address] ALK PHOS 77 U/L Normal 35-104 [facility] Comment on above: Performed By: #### L 502.0250, L500.4050, L500.4100 ####[facility] [address] [place], [address] ALT [Catalytic activity/Vol] 23 U/L Normal <=34 [facility] Comment on above: Performed By: #### L 502.0250, L500.4050, L500.4100 ####[facility] [address] [place], [address] AST [Catalytic activity/Vol] 33 U/L High <=31 [facility] Comment on above: Performed By: #### L 502.0250, L500.4050, L500.4100 ####[facility] [address] [place], [address] Bilirubin [Mass/Vol] 0.66 mg/dL Normal 0.00-1.30 [facility] Comment on above: Performed By: #### L 502.0250, L500.4050, L500.4100 ####[facility] [address] [place], [address] BUN/CRE 27.1 RATIO High 10-20 [facility] Comment on above: Performed By: #### L 502.0250, L500.4050, L500.4100 ####[facility] [address] [place], [address] Calcium [Mass/Vol] 9.8 mg/dL Normal 7.6-11.0 [facility] Comment on above: Performed By: #### L 502.0250, L500.4050, L500.4100 ####[facility] [address] [place], [address] Chloride [Moles/Vol] 102 mmol/L Normal 98-108 [facility] Comment on above: Performed By: #### L 502.0250, L500.4050, L500.4100 ####[facility] [address] [place], [address] CO2 [Moles/Vol] 21.0 mmol/L Normal 21.0-32.0 [facility] Comment on above: Performed By: #### L 502.0250, L500.4050, L500.4100 ####[facility] [address] [place], [address] Creatinine [Mass/Vol] 0.92 mg/dL Normal 0.70-1.20 [facility] Comment on above: Performed By: #### L 502.0250, L500.4050, L500.4100 ####[facility] [address] [place], [address] GAP 15 Normal 5-15 [facility] Comment on above: Performed By: #### L 502.0250, L500.4050, L500.4100 ####[facility] [address] [place], [address] GFR/1.73 sq M.predicted among non-blacks MDRD (S/P/Bld) [Vol rate/Area] 70 mL/min/{1.73_m2} Normal >60 [facility] Comment on above: Result Comment: mL/m in/1.73m2 CKD-EPI Creatinine Equation (2020) Performed By: #### L 502.0250, L500.4050, L500.4100 ####[facility] [address] [place], [address] Globulin (S) [Mass/Vol] 4.1 g/dL Normal 2.2-4.2 [facility] Comment on above: Performed By: #### L 502.0250, L500.4050, L500.4100 ####[facility] [address] [place], [address] Glucose [Mass/Vol] 99 mg/dL Normal 70-99 [facility] Comment on above: Performed By: #### L 502.0250, L500.4050, L500.4100 ####[facility] [address] [place], [address] Potassium [Moles/Vol] 3.9 mmol/L Normal 3.3-5.1 [facility] Comment on above: Performed By: #### L 502.0250, L500.4050, L500.4100 ####[facility] [address] [place], [address] Sodium [Moles/Vol] 138 mmol/L Normal 133-145 [facility] Comment on above: Performed By: #### L 502.0250, L500.4050, L500.4100 ####[facility] [address] [place], [address] T PROT 8.5 g/dL High 5.9-8.4 [facility] Comment on above: Performed By: #### L 502.0250, L500.4050, L500.4100 ####[facility] [address] [place], [address] Urea nitrogen [Mass/Vol] 25 mg/dL High 4-19 [facility] Comment on above: Performed By: #### L 502.0250, L500.4050, L500.4100 ####[facility] [address] [place], [address] Creatinine Unsp time (U) [Ma ss/Vol]Ordered By: Aaron Chandler on 11-09-2024 Creatinine (U) [Mass/Vol] 234.00 mg/dL High 28-217 [facility] GFR/1.73 sq M.predicted uriah g non-blacks MDRD (S/P/Bld) [Vol rate/Area]Ordered By: Aaron Chandler on 11-09-2024 Estimated GFR (MDRD) Non-Af Amer 70 >60 [facility] Comment on above: mL/min/1.73m2 CKD-EP I Creatinine Equation (2020) Glomerular filtration rate ( GFR) estimation/1.73 sq m using serum, plasma, or whole bOrdered By: Aaron Chandler on 11-09-2024 GFR/1.73 sq M.predicted among non-blacks MDRD (S/P/Bld) [Vol rate/Area] 70 mL/min/{1.73_m2} >60 [facility] Comment on above: mL/min/1.73m2 CKD-EP I Creatinine Equation (2020) LDL calc ser/plasOrdered By: Aarno Chandler on 11-09-2024 Cholesterol in LDL [Mass/Vol] 68 mg/dL [facility] Comment on above: Kgdmtxupbq=447-845 m g/dL & Higher Hryt=199 mg/dL or greater LDL Cholesterol, Calculated 68 mg/dL [facility] Comment on above: Imqptyzweg=161-993 m g/dL & Higher Zfoi=033 mg/dL or greater Laboratory - Chemistry and C hemistry - challengeOrdered By: Aaron Chandler on 11-09-2024 AST [Catalytic activity/Vol] 33 U/L High <32 [facility] Lipid Profileon 11-09-2024 CHOL:HDL 2.85 Normal [facility] Comment on above: Performed By: #### L 502.0250, L500.4050, L500.4100 ####[facility] [address] [place], [place], [address] Cholesterol [Mass/Vol] 146 mg/dL Normal <=200 [facility] Comment on above: Result Comment: Chol esterol level, Desirable <200 mg/dL Borderline high cholesterol 200-239 mg/dL High cholesterol >=240 mg/dL Recommendations of the NCEP Adult Treatment Panel for the following risk-cutoff thresholds for the [place] population. Performed By: #### L 502.0250, L500.4050, L500.4100 ####[facility] [address] [place], [place], [address] Cholesterol in HDL [Mass/Vol] 51 mg/dL Normal [facility] Comment on above: Result Comment: Soraida onal Cholesterol Education Program (NCEP) guidelines: <40 mg/dL: Low HDL-cholesterol (major risk factor for CHD) >= 60 mg/dL: High HDL-cholesterol (negative risk factor for CHD) HDL-cholesterol is affected by a number of factors, e.g. smoking, exercise, hormones, sex and age. Performed By: #### L 502.0250, L500.4050, L500.4100 ####[facility] [address] [place], [address] Cholesterol in LDL [Mass/Vol] 68 mg/dL Normal [facility] Comment on above: Result Comment: Bord inebva=016-404 mg/dL Higher Mqod=226 mg/dL or greater Performed By: #### L 502.0250, L500.4050, L500.4100 ####[facility] [address] [place], [address] Cholesterol in VLDL [Mass/Vol] 27 mg/dL Normal 5-40 [facility] Comment on above: Performed By: #### L 502.0250, L500.4050, L500.4100 ####[facility] [address] [place], [address] Triglyceride [Mass/Vol] 133 mg/dL Normal [facility] Comment on above: Result Comment: The drugs N-Acetylcysteine and Metamizole may falsely depress this assay. Normal range: <150 mg/dL Borderline High: 150-199 mg/dL High: 200-499 mg/dL Very High: >500 mg/dL Performed By: #### L 502.0250, L500.4050, L500.4100 ####[facility] [address] [place], [address] Microalbumin/creat ratio urO rdered By: Aaron Chandler on 11-09-2024 Urine Microalbumin/Creatinine Ratio 117.1 mg/g CRE [facility] Potassium (Unsp spec) [Mass/ Vol]Ordered By: Aaron Chandler on 11-09-2024 Potassium [Moles/Vol] 3.9 mmol/L 3.3-5.1 [facility] Potassium measurement (mass/ volume)Ordered By: Aaron Chandler on 11-09-2024 Potassium (Unsp spec) [Mass/Vol] 3.9 mmol/L 3.3-5.1 [facility] Random urine creatinine aguila urement (mass/volume)Ordered By: Aaron Chandler on 11-09-2024 Creatinine Unsp time (U) [Mass/Vol] 234.00 mg/dL High 28-217 [facility] Screening total cholesterol/ high density lipoprotein (HDL) cholesterol ratioOrdered By: Aaron Chandler on 11-09-2024 Cholesterol.total/Juana sterol in HDL [Mass ratio] 2.85 {ratio} [facility] Serum creatinine measurement (mass/volume)Ordered By: Aaron Chandler on 11-09-2024 Creatinine [Mass/Vol] 0.92 mg/dL 0.70-1.20 [facility] Serum globulin measurementOr dered By: Aaron Chandler on 11-09-2024 Globulin (S) [Mass/Vol] 4.1 g/dL 2.2-4.[address] [facility] Serum glucose measurement (m ass/volume)Ordered By: Aaron Chandler on 11-09-2024 Glucose [Mass/Vol] 99 mg/dL 70-99 [facility] Serum or plasma alanine cash otransferase (ALT) measurementOrdered By: Aaron Chandler on 11-09-2024 ALT [Catalytic activity/Vol] 23 U/L <35 [facility] Serum or plasma albumin aguila urement (mass/volume)Ordered By: Aaron Chandler on 11-09-2024 Albumin [Mass/Vol] 4.4 g/dL 3.4-4.8 [facility] Serum or plasma albumin/glob ulin mass ratioOrdered By: Aaron Chandler on 11-09-2024 Albumin/Globulin [Mass ratio] 1.1 {ratio} 0.9-2.4 [facility] Serum or plasma alkaline lalo sphatase measurementOrdered By: Aaron Chandler on 11-09-2024 ALP [Catalytic activity/Vol] 77 U/L 35-104 [facility] Serum or plasma calcium aguila urement (mass/volume)Ordered By: Aaron Chandler on 11-09-2024 Calcium [Mass/Vol] 9.8 mg/dL 7.6-11.0 [facility] Serum or plasma cholesterol in HDL measurement (mass/volume)Ordered By: Aaron Chandler on 11-09-2024 Cholesterol in HDL [Mass/Vol] 51 mg/dL >40 [facility] Comment on above: National Cholesterol Education Program (NCEP) guidelines:<40 mg/dL: Low HDL-cholesterol (major risk factor for CHD)>= 60 mg/dL: High HDL-cholesterol (negative risk factor for CHD)HDL-cholesterol is affected by a number of factors, e.g. smoking, exercise, hormones, sex and age. Serum or plasma cholesterol measurement (mass/volume)Ordered By: Aaron Chandler on 11-09-2024 Cholesterol [Mass/Vol] 146 mg/dL <201 [facility] Comment on above: Cholesterol level, D esirable <200 mg/dLBorderline high cholesterol 200-239 mg/dLHigh cholesterol >=240 mg/dLRecommendations of the NCEP Adult Treatment Panel for the following risk-cutoff thresholds for the [place] population. Serum or plasma urea nitroge n measurement (mass/volume)Ordered By: Aaron Chandler on 11-09-2024 Urea nitrogen [Mass/Vol] 25 mg/dL High 4-19 [facility] Sodium levelOrdered By: Aaron Chandler on 11-09-2024 Sodium [Moles/Vol] 138 mmol/L 133-145 [facility] Total proteinOrdered By: Mary Chandler on 11-09-2024 Protein [Mass/Vol] 8.5 g/dL High 5.9-8.4 [facility] Triglycerides measurementOrd ered By: Aaron Chandler on 11-09-2024 Triglyceride [Mass/Vol] 133 mg/dL <[address] [facility] Comment on above: The drugs N-Acetylcy steine and Metamizole may falsely depress this assay. Normal range: <150 mg/dLBorderline High: 150-199 mg/dLHigh: 200-499 mg/dLVery High: >500 mg/dL Urine albumin measurement [facility] detection limit of 20 mg/L or less (mass/volume)Ordered By: Aaron Chandler on 11-09-2024 Albumin DL <= 20 mg/L (U) [Mass/Vol] 27.4 mg/L NO RANGE EST. [facility] Emergency Department Summary on 07-15-2024 Emergency Department Summary [facility] Medical Records Department [address] [place] [address] Emergency Department Summary 07/15/24 MR#: [id number] Acct: [id number] Name: GERBER HILL Rep #: [id number] : 1960 63 From: Suraj Pedro DO PCP: Dr. Aaron Chandler MD Status:REG ER Location: ED HPI History of Present Illness Chief Complaint: Lower Extremity Injury Narrative Narrative: Chief complaint and HPI: Bilateral knee pain. 63-year-old female with history of Zoë Snyder???, neuropathy presents for evaluation of bilateral knee pain. Patient state she has a chronic history of unsteadiness with frequent falls due to her previous history of Zoë Snyder???. She states she was at work yesterday when she fell on her knees. She states since that she has been having bilateral knee pain. She was able to ambulate with a cane into the emergency department. She has not taken anything for the pain. She has tried ice. She denies any numbness or tingling. Denies any injury other than her knees. Review of systems: See HPI Medications: As listed on the chart Allergies: As listed on the chart PFSH: Per chart Vital signs: As listed on the chart. Reviewed. Physical exam: Gen: A O x3, NAD Head: Normocephalic, atraumatic Eyes: No sclera icterus, conjunctiva clear ENT: Moist mucous membranes Neck: Full range of motion CV: Regular rate Resp: Nonlabored respiration GI: Abd soft, non-distended, non-tender, no r/r/g Musc: Full ROM, pelvis stable, no deformity, diffuse tenderness to palpation of the bilateral knees, no instability of the knees, no grinding/popping/clickin g, no erythema/swelling/ecchym osis/warmth, compartments soft, no thigh or calf tenderness or swelling, foot and ankle exam unremarkable, DP/PT pulses plus 2 out of 4 bilaterally Skin: Warm, dry Neuro: Alert, oriented, grossly intact, sensation intact Psych: Cooperative, appropriate mood and affect 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 Neuropathy Home Medications ???Medication ???Instructions ???Recorded ???Last Taken ???Type famotidine 20 mg tablet 20 mg PO BID ##10 02/20/16 Unknown Rx atorvastatin 10 mg tablet 10 mg PO DAILY 12/04/23 Unknown History diclofenac sodium 75 mg 75 mg PO BID 12/04/23 Unknown History tablet,delayed release duloxetine 60 mg capsule,delayed 60 mg PO DAILY 12/04/23 Unknown History release linaclotide 145 mcg capsule 145 mcg PO DAILY 12/04/23 Unknown History (Linzess) lisinopril 2.5 mg tablet 2.5 mg PO DAILY 12/04/23 Unknown History metaxalone 800 mg tablet 800 mg PO BID PRN PRN muscle spasm 12/04/23 Unknown History metformin 500 mg tablet,extended 500 mg PO DAILY 12/04/23 Unknown History release 24 hr pregabalin 100 mg capsule (Lyrica) 100 mg PO BID 12/04/23 Unknown History semaglutide 1 mg/dose (4 mg/3 mL) 1 mg subcut SA 12/04/23 Unknown History subcutaneous pen injector (Ozempic) sitagliptin phosphate 100 mg 100 mg PO DAILY 12/04/23 Unknown History tablet (Januvia) Allergy/AdvReac Type Severity Reaction Status Date / Time meperidine HCl (From Demerol) Allergy Hives Verified 07/15/24 06:33 gabapentin AdvReac HALLUCINATI Verified 07/15/24 06:33 ONS Social History Smoking Status: Never smoker EXAM Physical Exam Const Vital Signs: 07/15/24 06:26 Temperature 98.2 F Temperature Source Oral Pulse Rate 81 Respiratory Rate 18 Blood Pressure 110/76 Blood Pressure Mean 87 Pulse Ox 98 Oxygen Delivery Method Room Air MDM MDM MDM Narrative Medical decision making narrative: 63-year-old female with history of neuropathy and unsteady gait presents for evaluation of bilateral knee pain after a fall. Denies injury elsewhere. See physical exam findings. Differential diagnosis includes bilateral knee contusion, bilateral knee sprain, fracture. IM Toradol given for pain. Bilateral x-rays of the knees ordered. X-rays of the bilateral knees interpreted by myself, ED physician. No fracture or dislocation. Patient is stable to discharge home. On reexamination, patient's pain improved. Patient symptoms are likely secondary to bilateral knee contusion. She was educated on Tylenol and ibuprofen as needed for pain. Ice and heat as needed. She is given education on RICE therapy. Follow-up with her Worker's Comp. or PCP. She confirmed understanding the plan. Impression: 1. Bilateral knee contusions 2. Fall at work Radiography Diagnostic Testing: Clinical Impression(s) from Imaging Studies Knee X-Ray 07/15/24 07:16 IMPRESSION: Mild degenerative change. Electronically Signed: Henrique Noguera MD at 9:43 EST Reading Location ID and State: (more content not included)... Normal [facility] Knee 4 or More Viewson 07-15 Knee 4 or More Views [facility] Imaging Services [address] [place] [address] Knee 4 or More Views MR#: [id number] Acct: [id number] Name: GERBER HILL Rep #: [id number] : 1960 F 63 From: Henirque Noguera MD PCP: Dr. Aaron Chandler MD Status: REG ER Study: Knee 4 or More Views Date of Exam: 07/15/24 Exam# [id number] Ordering Dr: Suraj Pedro DO [id number] STUDY: X-RAY - RIGHT KNEE REASON FOR EXAM: Female, 63 years old. Pain, fall TECHNIQUE: 4 view(s) of the knee. COMPARISON: None. FINDINGS: Normal visualized distal femur. Normal visualized proximal tibia and fibula. Normal proximal tibiofibular articulation. There is no demonstrated fracture. Normal medial femorotibial compartment. Normal lateral femorotibial compartment. There is mild degenerative arthrosis of the patellofemoral articulation. There is a soft tissue prominence in the suprapatellar region suggesting a small volume joint effusion. The soft tissue structures are unremarkable. RAD/Knee 4 or More Views IMPRESSION: Mild degenerative change. Joint effusion. Electronically Signed: Henrique Noguera MD at 9:45 EST , CC: Dr. Suraj Pedro DO; Dr. Aaron Chandler MD Commercial Instructor Supervisor: Signed Normal [facility] Knee 4 or More Views [facility] Imaging Services [address] [place] [address] Knee 4 or More Views MR#: [id number] Acct: [id number] Name: GERBER HILL Rep #: [id number] : 1960 F 63 From: Henrique Noguera MD PCP: Dr. Aaron Chandler MD Status: REG ER Study: Knee 4 or More Views Date of Exam: 07/15/24 Exam# [id number] Ordering Dr: Eddie Borja. [id number] STUDY: X-RAY - LEFT KNEE REASON FOR EXAM: Female, 63 years old. INJURY TECHNIQUE: 4 view(s) of the knee. COMPARISON: None. FINDINGS: Normal visualized distal femur. Normal visualized proximal tibia and fibula. Normal proximal tibiofibular articulation. There is no demonstrated fracture. Normal medial femorotibial compartment. Normal lateral femorotibial compartment. There is mild degenerative arthrosis of the patellofemoral articulation. The soft tissue structures are unremarkable. RAD/Knee 4 or More Views IMPRESSION: Mild degenerative change. Electronically Signed: Henrique Noguera MD at 9:43 EST Reading Location ID and State: [address] [place] [address] , Service support , CC: Dr. Aaron Chandler MD; ED PHYSICIAN PROVIDER Commercial Instructor Supervisor: Signed Normal [facility] Dexa Bone Density Studyon Dexa Bone Density Study [facility] Imaging Services [address] [place] [address] Dexa Bone Density Study MR#: [id number] Acct: [id number] Name: GERBER HILL Rep #: [id number] : 1960 F 63 From: Calos worthy MD PCP: Dr. Aaron Chandler MD Status: REG CLI Study: Dexa Bone Density Study Date of Exam: 07/04/24 Exam# [id number] Ordering Dr: Aaron Chandler MD [id number] STUDY: DUAL ENERGY X-RAY ABSORPTIOMETRY / DXA REASON FOR EXAM: Female, 63 years old. V76.12ScreeningBONE DENSITY REASON FOR EXAM TECHNIQUE: Bone Mineral Density (BMD) measurements of lumbar spine and bilateral hips were obtained. COMPARISON: None. FINDINGS: Lumbar Spine (L1-L4): g/cm2 (1.160) / T-score (1.0) / Z-score (2.8) Findings are suggestive of normal bone density with a low fracture risk. Left Femur Total: g/cm2 (0.968) / T-score (0.2) / Z-score (1.4) Left Femoral Neck: g/cm2 (0.828) / T-score (-0.2) / Z-score (1.3) Right Femur Total: g/cm2 (0.900) / T-score (-0.3) / Z-score (0.9) Right Femoral Neck: g/cm2 (0.792) / T-score (-0.5) / Z-score (1.0) BD/Dexa Bone Density Study IMPRESSION: The patient is considered normal as outlined below according to World Noah Organization (WHO) criteria with a low fracture risk. Reference Information: The T-score is the number of standard deviations above or below the standard which is normal for young adults at their peak bone mineral density. The World Health Organization (WHO) interprets the T-scores as follows: Above -1 Normal bone density Between -1 and -2.5 Osteopenia Equal to / or below -2.5 Osteoporosis As a practical clinical guideline, osteopenia may be graded as follows: Mild -1 through -1.5 Moderate -1.6 through -2.0 Severe -2.1 through -2.4 The Z-score is the number of standard deviations above or below age-matched controls. A Z-score of less than -1.5 would be considered abnormal. References: 1. NIH Osteoporosis and Related Bone Diseases www osteo.org 2. International Society for Clinical Densitometry www iscd.org 3. National Osteoporosis Foundation www nof.org Electronically Signed: Calos Antunez MD at 13:50 EDT , CC: Dr. Aaron Chandler MD Commercial Instructor Supervisor: Signed Normal [facility] SCRN MAMM (CAD)W/PAULO BILATo n 07-04-2024 SCRN MAMM (CAD)W/PAULO BILAT [facility] Imaging Services [address] [place] [address] SCRN MAMM (CAD)W/PAULO BILAT MR#: [id number] Acct: [id number] Name: GERBER HILL Rep #: [id number] : 1960 F 63 From: Calos worthy MD PCP: Dr. Aaron Chandler MD Status: REG [facility] Study: SCRN MAMM (CAD)W/PAULO BILAT Date of Exam: 06/07 05/30 Exam# [id number] Ordering Dr: Aaron Chandler MD [id number] MAMMOGRAPHY - BILATERAL SCREENING REASON FOR EXAM: Female, 63 years old. Routine annual screening examination. PERTINENT HISTORY: Non-contributory. TECHNIQUE: Digital bilateral breast paulo (3D mammographic acquisition) in the CC and MLO projections. 2-D mediolateral oblique (MLO) and craniocaudad (CC) views of both breasts were obtained. CAD: Full Field Digital Mammography with Computer Added Detection was performed. COMPARISON: Comparison is made with prior outside examination dated July 10, 2019. FINDINGS: Breast Composition: The breasts are almost entirely fatty. There are no dominant masses or suspicious calcifications. No other significant abnormalities are identified. There has been no significant change since the prior study. BI/SCRN MAMM (CAD)W/PAULO BILAT IMPRESSION: Stable bilateral screening mammogram. Yearly follow-up mammogram recommended. (A) ASSESSMENT CATEGORY: BIRADS Category 1: Negative. A letter regarding these results will be sent to the patient by the facility within 30 days. Approximately 10% of breast cancers are not detected by mammography. A normal mammogram should not delay biopsy of a clinically suspicious abnormality. [id number] Electronically Signed: Calos Antunez MD at 15:42 EDT , CC: Dr. Aaron Chandler MD Commercial Instructor Supervisor: Signed Normal [facility] Basic Metabolic Profile (BMP )on 06-02-2024 BUN/CRE 24.3 RATIO High 10-20 [facility] Comment on above: Performed By: #### L 501.9985, L502.0250, L500.2500 ####[facility] [address] [place], [address] CA,Total 9.4 mg/dL Normal 8.5-10.1 [facility] Comment on above: Performed By: #### L 501.9985, L502.0250, L500.2500 ####[facility] [address] [place], [place], [address](013) Chloride [Moles/Vol] 104 mmol/L Normal 98-107 [facility] Comment on above: Performed By: #### L 501.9985, L502.0250, L500.2500 ####[facility] [address] [place], [address] CO2 [Moles/Vol] 31.0 mmol/L Normal 21.0-32.0 [facility] Comment on above: Performed By: #### L 501.9985, L502.0250, L500.2500 ####[facility] [address] [place], [address] Creatinine [Mass/Vol] 0.70 mg/dL Normal 0.55-1.02 [facility] Comment on above: Result Comment: The validity of the calculated GFR GFRAA in patients over 70 years has not been determined. Clinical correlation is essential. Performed By: #### L 501.9985, L502.0250, L500.2500 ####[facility] [address] [place], [address] EST GFR - AA 108 mL/min Normal >60 [facility] Comment on above: Result Comment: Afri can Dutch GFR Calc Performed By: #### L 501.9985, L502.0250, L500.2500 ####[facility] [address] [place], [address] GAP 4 Low 5-15 [facility] Comment on above: Performed By: #### L 501.9985, L502.0250, L500.2500 ####[facility] [address] [place], [address] GFR/1.73 sq M.predicted among non-blacks MDRD (S/P/Bld) [Vol rate/Area] 89 mL/min/{1.73_m2} Normal >60 [facility] Comment on above: Result Comment: Non- GFR Calc Performed By: #### L 501.9985, L502.0250, L500.2500 ####[facility] [address] [place], [address] Glucose [Mass/Vol] 94 mg/dL Normal 74-106 [facility] Comment on above: Performed By: #### L 501.9985, L502.0250, L500.2500 ####[facility] [address] [place], [address] Potassium [Moles/Vol] 4.2 mmol/L Normal 3.5-5.1 [facility] Comment on above: Performed By: #### L 501.9985, L502.0250, L500.2500 ####[facility] [address] [place], [address] Sodium [Moles/Vol] 138 mmol/L Normal 136-145 [facility] Comment on above: Performed By: #### L 501.9985, L502.0250, L500.2500 ####[facility] [address] [place], [address] Urea nitrogen [Mass/Vol] 17 mg/dL Normal 7-18 [facility] Comment on above: Performed By: #### L 501.9985, L502.0250, L500.2500 ####[facility] [address] [place], [address] Hemoglobin A1con 06-02-2024 HbA1c (Bld) [Mass fraction] 5.5 % Normal 3.8-5.6 [facility] Comment on above: Result Comment: Norm al < 5.7 % Prediabetic 5.7 - 6.4 % Diabetic >or= 6.5 % Please note range changes. Performed By: #### L 501.9985, L502.0250, L500.2500 ####[facility] [address] [place], [address] Microalb:Creat Ratio,Random URon 06-02-2024 Creatinine [Mass/Vol] 73.80 mg/dL Normal NO RAN GE EST. [facility] Comment on above: Performed By: #### L 501.9985, L502.0250, L500.2500 ####[facility] [address] [place], [place], [address] MALB:CRE 14.1 mg/g CRE Normal <30 mg/g CRE [facility] Comment on above: Performed By: #### L 501.9985, L502.0250, L500.2500 ####[facility] [address] [place], [place], [address] MICROALBUMIN,UR 10.4 mg/L Normal NO RANGE EST. [facility] Comment on above: Performed By: #### L 501.9985, L502.0250, L500.2500 ####[facility] [address] [place], [place], [address] ALLIED HEALTHon 04-08-2024 [facility] HNO ID: [id number] Author: ISA VALDEZ RT(R) Service: Radiology Author Type: Technologist Type: Allied Health Filed: 04/08/2024 13:27 Note Text: Radiology Service Progress Note PATIENT NAME: Gerber Hill DATE OF SERVICE: April 08, 2024 TIME: 1:27 PM PATIENT IDENTITY VERIFICATION COMPLETED USING TWO (2) IDENTIFIERS: Name and Date of confirmed by patient verbally. FALL SCREENING: Has the patient had 2 falls in the last year or 1 fall with injury or currently using an Ambulatory Assistive Device (Walker, Cane, Wheelchair, Crutches, etc.)? No PATIENT GENDER DATA: Female. status: : No status: NO. PATIENT RELEVANT IMPLANT DATA REVIEWED: Yes RADIOLOGY DEPARTMENT: CT; Exam(s) Completed: Brain and Spine : C AND L PERIPHERAL IV DATA: Not applicable SIGNED BY: Isa Valdez RT(R)(CT)(MR) [facility] CT BRAIN WO IVCONon 04-08-[address] BRAIN WO IVCON * * *Final Report* * * DATE OF EXAM: Apr 08 2024 1:34PM [facility] 0504 - CT BRAIN WO IVCON / PROCEDURE REASON: Head trauma, moderate-severe * * * * Physician Interpretation * * * * EXAMINATION: CT BRAIN WO IVCON CLINICAL HISTORY: Trauma TECHNIQUE: Serial axial images without IV contrast were obtained from the vertex to the foramen magnum. MQ: CTBWO_3 CT Radiation dose: Integrated Dose-Length Product (DLP) for this visit = 1857 mGy*cm CT Dose Reduction Employed: Automated exposure control(AEC) and iterative recon COMPARISON: None. RESULT: Post-operative change: None. Acute change: No evidence of an acute infarct or other acute parenchymal process. Hemorrhage: No evidence of acute intracranial hemorrhage. ECASS hemorrhagic transformation score: Not Applicable Mass Lesion / Mass Effect: There is no evidence of an intracranial mass or extraaxial fluid collection. No significant mass effect. Chronic change: None apparent. Parenchyma: There is no significant volume loss. The brain parenchyma is otherwise within normal limits for age. Ventricles: The ventricles are within normal limits of size and configuration for age. Paranasal sinuses and skull base: The visualized paranasal sinuses are grossly clear. The skull base and imaged soft tissues are unremarkable. Localizer images: No additional findings. IMPRESSION: No acute intracranial hemorrhage identified. Commercial Instructor Supervisor: EVETTE Transcribe Date/Time: Apr 08 2024 2:01P Dictated by : ARIANNE BURROWS MD This examination was interpreted and the report reviewed and electronically signed by: ARIANNE BURROWS MD on Apr 08 2024 2:05PM EST [id number] [facility] CT CERVICAL SPINE WO IVCONon 04-08-2024 CT CERVICAL SPINE WO IVCON * * *Final Report* * * DATE OF EXAM: Apr 08 2024 1:34PM [facility] 0505 - CT CERVICAL SPINE WO IVCON / PROCEDURE REASON: Spine fracture, cervical, traumatic * * * * Physician Interpretation * * * * EXAMINATION: CT CERVICAL SPINE WO IVCON CLINICAL HISTORY: Spine fracture, cervical, traumatic TECHNIQUE: Spiral, high resolution axial unenhanced images were obtained from the skull base to the cervicothoracic junction with sagittal and coronal planar reconstructions. MQ: CTCSPWO_5 CT Radiation dose: Integrated CT Dose-Length Product (DLP) for this visit = 1857 mGy*cm CT Dose Reduction Employed: Automated exposure control(AEC) and iterative recon COMPARISON: None. RESULT: Counting reference: Craniocervical junction. Anatomic Variants: None. Ethical Hacker (topogram) images: No additional findings. Alignment: Alignment is anatomic. No jumped facet. Craniocervical junction: Craniocervical junction is normal. Osseous structures/fracture: No evidence of a lytic or blastic process in the visualized spine. No evidence of acute or chronic fracture. Cervical soft tissues: The paraspinal soft tissues are within normal limits. Degenerative changes: There is mild to moderate osteophyte formation, with C5-6 disc space narrowing. C4-5 and C5-6 disc osteophyte complex formation is noted, resulting in severe left-sided neural foraminal narrowing. Facet arthrosis is present. No central canal stenosis. IMPRESSION: No acute fractures or subluxation demonstrated in the cervical spine. Cervical spine degenerative changes with C5-6 disc space narrowing. C4-5 and C5-6 disc osteophyte complex formation resulting in severe left-sided neural foraminal narrowing Commercial Instructor Supervisor: EVETTE Transcribe Date/Time: Apr 08 2024 2:05P Dictated by : ARIANNE BURROWS MD This examination was interpreted and the report reviewed and electronically signed by: ARIANNE BURROWS MD on Apr 08 2024 2:16PM EST [id number] [facility] CT LUMBAR SPINE WO IVCONon 0 04-08-2024 CT LUMBAR SPINE WO IVCON * * *Final Report* * * DATE OF EXAM: Apr 08 2024 1:34PM [facility] 0508 - CT LUMBAR SPINE WO IVCON / PROCEDURE REASON: Spine fracture, lumbar, traumatic * * * * Physician Interpretation * * * * EXAMINATION: CT LUMBAR SPINE WO IVCON CLINICAL HISTORY: Spine fracture, lumbar, traumatic TECHNIQUE: Spiral, high resolution axial unenhanced images were obtained from the thoracolumbar junction to the sacrum with sagittal and coronal planar reconstructions. MQ: CTLSPWO_3 CT Radiation dose: Integrated Dose-Length Product (DLP) for this visit = 1857 mGy*cm. CT Dose Reduction Employed: Automated exposure control(AEC) and iterative recon COMPARISON: None. RESULT: Counting reference: Lumbosacral junction. For the purposes of this report, L4-5 is considered the level of the iliac crest and assume there are 5 lumbar-type vertebrae. Anatomic variant: None. Ethical Hacker (topogram) images: No additional findings. Alignment: There is grade 1 L3 on L4 anterolisthesis. Bone marrow /fracture: No evidence of a lytic or blastic process in the visualized spine. There is a corticated small bone along the posterior L4-5 disc space, likely representing accessory bone or related to prior trauma. No acute fractures demonstrated. Moderate osteophyte formation is present, with facet arthrosis. Paraspinal soft tissues: The paraspinal soft tissues planes are maintained. Lower thoracic spine: The visualized lower thoracic bony canal and foramina are patent. L1-L2: Canal and foramina are patent. L2-L3: Canal and foramina are patent L3-L4: There is disc abutting Canal and foramina are patent L4-L5: There is disc bulging. Canal and foramina are patent L5-S1: There is focal midline disc herniation. Canal and foramina are patent Sacrum and iliac wings: The visualized sacrum and iliac wings are within normal limits. IMPRESSION: No acute fractures demonstrated in the lumbar spine. Lumbar spine degenerative changes with L4-5 disc space narrowing. Multilevel disc bulging/disc herniation. Commercial Instructor Supervisor: [facility] Transcribe Date/Time: Apr 08 2024 2:16P Dictated by : ARIANNE BURROWS MD This examination was interpreted and the report reviewed and electronically signed by: ARIANNE BURROWS MD on Apr 08 2024 2:26PM EST [id number] [facility] ED NOTEon 04-08-2024 ED NOTE HNO ID: [id number] Author: MEREDITH FOSTER RN Service: ? Author Type: Registered Nurse Type: ED Notes Filed: 04/08/2024 15:06 Note Text: Pt received written and verbal discharge instructions. Pt verbalizes understanding. All questions answered. Pt educated on medications and dosages.Instructed pt to follow up with PCP or follow-up DR. No acute distress noted. Instructed to come back to Emergency Room if symptoms worsen. All belongings with patient. Pt ambulated with steady gait out of ED. [facility] ED NOTE HNO ID: [id number] Author: MEREDITH FOSTER RN Service: ? Author Type: Registered Nurse Type: ED Notes Filed: 04/08/2024 15:06 Note Text: Patient is resting In bed with no needs at this time, safety is maintained With bed in lowest position. Patient is calm and cooperative and will continue to monitor. [facility] ED NOTE HNO ID: [id number] Author: MEREDITH FOSTER RN Service: ? Author Type: Registered Nurse Type: ED Notes Filed: 04/08/2024 14:23 Note Text: At CT scans [facility] ED NOTE HNO ID: [id number] Author: MEREDITH FOSTER RN Service: ? Author Type: Registered Nurse Type: ED Notes Filed: 04/08/2024 13:03 Note Text: Patient is resting In bed with no needs at this time, safety is maintained With bed in lowest position. Patient is calm and cooperative and will continue to monitor. [facility] ED NOTE HNO ID: [id number] Author: CHAD RAMON RN Service: ? Author Type: Registered Nurse Type: ED Notes Filed: 04/08/2024 12:38 Note Text: Pt to ED by EMS with C/O fall. 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 Pt states positive LOC. Pt states she woke up on the ground and couldn't remember what happened. Pt denies blood thinners. Pt endorses R hip pain, R foot is tingling, R side head behind ear.NAD noted at this time. 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 Patient states that she was heading to work, and believes she tripped and fell on uneven pavement and hit her head. States had LOC for approximately 45 seconds. Not anticoagulated. Is complaining of right hip pain, right knee pain, with right tingling to foot. Also complaining of mild right forearm pain. States that this is her 22nd fall over the last 4 to 5 years which she attributes to Guillain-Minoa. States that this is typical of her fall. Denies any lightheaded or dizziness precipitating fall. 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 FAMILY HISTORY Problem Relation Age of Onset Cancer Father Cancer Mother Heart Mother Cataract Mother Diabetes Sister Diabetes Brother Social History Tobacco Use Smoking status: Never Smokeless tobacco: Not on file Substance and Sexual Activity Alcohol use: No Drug use: No Sexual activity: Not on file Comment: did not ask ALLERGIES Allergen Reactions Demerol [Meperidine* Hives Review of Systems Constitutional: Negative for chills and fever. HENT: Negative for rhinorrhea and sore throat. Eyes: Negative. Respiratory: Negative for cough, shortness of breath and wheezing. Cardiovascular: Negative for chest pain, palpitations and leg swelling. Gastrointestinal: Negative for abdominal pain, constipation, diarrhea, nausea and vomiting. Genitourinary: Negative for dysuria, frequency, hematuria and urgency. Musculoskeletal: Positive for arthralgias. Skin: Negative. Neurological: Positive for numbness (tingling to right foot) and headaches. Negative for syncope and light-headedness. Hematological: Negative. Psychiatric/Behavioral: Negative. All other systems reviewed and are negative. Physical Exam Vitals [04/08/24 1232] BP Pulse Temp Temp src Resp SpO2 Weight Height 98/71 68 36.8 ?C (98.2 ?F) Oral 18 96 % 72.6 kg (160 lb) -- Physical Exam Vitals and nursing note reviewed. Constitutional: General: She is not in acute distress. Appearance: Normal appearance. She is normal weight. She is not ill-appearing, toxic-appearing or diaphoretic. HENT: Head: Normocephalic and atraumatic. No raccoon eyes, Jose's sign, abrasion, masses, right periorbital erythema or left periorbital erythema. Jaw: There is normal jaw occlusion. No trismus, tenderness, swelling, pain on movement or malocclusion. Comments: Mild tenderness to posterior right scalp Without erythema, step-off, fluctuance, or deformity Right Ear: External ear normal. Left Ear: External ear normal. Nose: Nose normal. No nasal deformity, laceration or nasal tenderness. Mouth/Throat: Lips: [place]. Mouth: Mucous membranes are moist. Pharynx: Oropharynx is clear. Eyes: Extraocular Movements: Extraocular movements intact. Conjunctiva/sclera: Conjunctivae normal. Pupils: Pupils are equal, round, and reactive to light. Cardiovascular: Rate and Rhythm: Normal rate and regular rhythm. Pulses: Normal pulses. Heart sounds: Normal heart sounds. Pulmonary: Effort: Pulmonary effort is normal. Breath sounds: Normal breath sounds. No stridor. No wheezing. Abdominal: General: Abdomen is flat. Bowel sounds are normal. Palpations: There is no mass. Tenderness: There is no abdominal tenderness. Hernia: No hernia is present. Musculoskeletal: Right shoulder: Normal. No tenderness or bony tenderness. Normal range of motion. Left shoulder: Normal. No tenderness or bony tenderness. Normal range of motion. Right upper arm: Normal. No bony tenderness. Left upper arm: Normal. No bony tenderness. Right elbow: Normal. No swelling. Normal range of motion. No tenderness. Left elbow: Normal. No swelling. Normal range of motion. No tenderness. Right forearm: Swelling (mild to dorsal lateral aspect with ecchymosis without bony tenderness) present. No bony tenderness. Left forearm: Normal. No bony tenderness. Right wrist: Normal. No bony tenderness. Left wrist: Normal. No bony tenderness. Cervical back: Normal range of motion and neck supple. No d (more content not included)... Normal [facility] XR HIP 3V PELV+ AP/LAT RTon 04-08-2024 XR HIP 3V PELV+ AP/LAT RT * * *Final Report* * * DATE OF EXAM: Apr 08 2024 2:14PM LUX 5352 - XR HIP 3V PELV+ AP/LAT RT / PROCEDURE REASON: Hip pain, acute, fx suspected, initial exam * * * * Physician Interpretation * * * * EXAMINATION: XR HIP 3V PELV+ AP/LAT RT, XR KNEE 2V AP/LAT RT, XR TIBIA FIBULA 2V AP/LAT RT CLINICAL HISTORY: Hip pain, acute, fx suspected, initial exam (accession [id number]), Trauma (accession [id number]), Osteomyelitis (accession [id number]) Technique: XR HIP 3V PELV+ AP/LAT RT, XR KNEE 2V AP/LAT RT, XR TIBIA FIBULA 2V AP/LAT RT -- NOT APPLICABLE (accession [id number]), RIGHT (accession [id number]), RIGHT (accession [id number]) with 3 (accession [id number]), 2 (accession [id number]), 2 (accession [id number]) views on 3 (accession [id number]), 2 (accession [id number]), 2 (accession [id number]) images Comparison: None RESULT: Pelvis and right hip: No acute fracture or dislocation. Hip joint spaces are maintained. Mild left sacroiliac degenerative disease. Right knee: No acute fracture or dislocation. Patellofemoral compartment joint space narrowing with marginal osteophytes. Enthesophyte on the superior patella. Right tibia/fibula: No acute fracture or dislocation IMPRESSION: No acute osseous abnormality Commercial Instructor Supervisor: [facility] Transcribe Date/Time: Apr 08 2024 2:26P Dictated by : BRIAN LOPEZ MD This examination was interpreted and the report reviewed and electronically signed by: BRIAN LOPEZ MD on Apr 08 2024 2:29PM EST [id number] [facility] XR KNEE 2V AP/LAT RTon 04-08 XR KNEE 2V AP/LAT RT * * *Final Report* * * DATE OF EXAM: Apr 08 2024 2:14PM LUX 5207 - XR KNEE 2V AP/LAT RT / PROCEDURE REASON: Trauma * * * * Physician Interpretation * * * * EXAMINATION: XR HIP 3V PELV+ AP/LAT RT, XR KNEE 2V AP/LAT RT, XR TIBIA FIBULA 2V AP/LAT RT CLINICAL HISTORY: Hip pain, acute, fx suspected, initial exam (accession [id number]), Trauma (accession [id number]), Osteomyelitis (accession [id number]) Technique: XR HIP 3V PELV+ AP/LAT RT, XR KNEE 2V AP/LAT RT, XR TIBIA FIBULA 2V AP/LAT RT -- NOT APPLICABLE (accession [id number]), RIGHT (accession [id number]), RIGHT (accession [id number]) with 3 (accession [id number]), 2 (accession [id number]), 2 (accession [id number]) views on 3 (accession [id number]), 2 (accession [id number]), 2 (accession [id number]) images Comparison: None RESULT: Pelvis and right hip: No acute fracture or dislocation. Hip joint spaces are maintained. Mild left sacroiliac degenerative disease. Right knee: No acute fracture or dislocation. Patellofemoral compartment joint space narrowing with marginal osteophytes. Enthesophyte on the superior patella. Right tibia/fibula: No acute fracture or dislocation IMPRESSION: No acute osseous abnormality Commercial Instructor Supervisor: EVETTE Transcribe Date/Time: Apr 08 2024 2:26P Dictated by : BRIAN LOPEZ MD This examination was interpreted and the report reviewed and electronically signed by: BRIAN LOPEZ MD on Apr 08 2024 2:29PM EST [id number] [facility] XR TIBIA FIBULA 2V AP/LAT RT on 04-08-2024 XR TIBIA FIBULA 2V AP/LAT RT * * *Final Report* * * DATE OF EXAM: Apr 08 2024 2:14PM LUX 5266 - XR TIBIA FIBULA 2V AP/LAT RT / PROCEDURE REASON: Osteomyelitis * * * * Physician Interpretation * * * * EXAMINATION: XR HIP 3V PELV+ AP/LAT RT, XR KNEE 2V AP/LAT RT, XR TIBIA FIBULA 2V AP/LAT RT CLINICAL HISTORY: Hip pain, acute, fx suspected, initial exam (accession [id number]), Trauma (accession [id number]), Osteomyelitis (accession [id number]) Technique: XR HIP 3V PELV+ AP/LAT RT, XR KNEE 2V AP/LAT RT, XR TIBIA FIBULA 2V AP/LAT RT -- NOT APPLICABLE (accession [id number]), RIGHT (accession [id number]), RIGHT (accession [id number]) with 3 (accession [id number]), 2 (accession [id number]), 2 (accession [id number]) views on 3 (accession [id number]), 2 (accession [id number]), 2 (accession [id number]) images Comparison: None RESULT: Pelvis and right hip: No acute fracture or dislocation. Hip joint spaces are maintained. Mild left sacroiliac degenerative disease. Right knee: No acute fracture or dislocation. Patellofemoral compartment joint space narrowing with marginal osteophytes. Enthesophyte on the superior patella. Right tibia/fibula: No acute fracture or dislocation IMPRESSION: No acute osseous abnormality Commercial Instructor Supervisor: [facility] Transcribe Date/Time: Apr 08 2024 2:26P Dictated by : BRIAN LOPEZ MD This examination was interpreted and the report reviewed and electronically signed by: BRIAN LOPEZ MD on Apr 08 2024 2:29PM EST [id number] [facility] CBC panel Auto (Bld)on 03-31 Erythrocyte distribution width (RBC) [Ratio] 13.2 % Normal 11.5-15.0 [facility] Comment on above: Order Comment: Speci men Type: BLOOD SPECIMEN Ordering Facility: [facility] Address: [address] [place] [address] Performed By: #### 5 8410-2 #### [facility] CLIA [id number] [address] [place] [address] [place] Hematocrit (Bld) [Volume fraction] 41.9 % Normal 36.0-46.0 [facility] Comment on above: Order Comment: Speci men Type: BLOOD SPECIMEN Ordering Facility: [facility] Address: [address] [place] [address] Performed By: #### 5 8410-2 #### [facility] CLIA [id number] [address] [place] [address] [place] Hemoglobin (Bld) [Mass/Vol] 13.7 g/dL Normal 11.5-15.5 [facility] Comment on above: Order Comment: Speci men Type: BLOOD SPECIMEN Ordering Facility: [facility] Address: [address] [place] [address] Performed By: #### 5 8410-2 #### [facility] CLIA [id number] [address] [place] [address] [place] MCH (RBC) [Entitic mass] 29.0 pg Normal 26.0-34.0 [facility] Comment on above: Order Comment: Speci men Type: BLOOD SPECIMEN Ordering Facility: [facility] Address: [address] [place] [address] Performed By: #### 5 8410-2 #### [facility] CLIA [id number] [address] [place] [address] [place] MCHC (RBC) [Mass/Vol] 32.7 g/dL Normal 30.5-36.0 [facility] Comment on above: Order Comment: Speci men Type: BLOOD SPECIMEN Ordering Facility: [facility] Address: [address] [place] [address] Performed By: #### 5 8410-2 #### [facility] CLIA [id number] [address] [place] [address] [place] MCV (RBC) [Entitic vol] 88.8 fL Normal 80.0-100.0 [facility] Comment on above: Order Comment: Speci men Type: BLOOD SPECIMEN Ordering Facility: [facility] Address: [address] [place] [address] Performed By: #### 5 8410-2 #### [facility] CLIA [id number] [address] [place] [address] [place] Nucleated RBC (Bld) [#/Vol] 10*3/uL Normal <0.01 [facility] Comment on above: Order Comment: Speci men Type: BLOOD SPECIMEN Ordering Facility: [facility] Address: [address] [place] [address] Performed By: #### 5 8410-2 #### [facility] CLIA [id number] [address] [place] [address] [place] Platelet mean volume (Bld) [Entitic vol] 9.8 fL Normal 9.0-12.7 [facility] Comment on above: Order Comment: Speci men Type: BLOOD SPECIMEN Ordering Facility: [facility] Address: [address] [place] [address] Performed By: #### 5 8410-2 #### [facility] CLIA [id number] [address] [place] [address] [place] Platelets (Bld) [#/Vol] 262 10*3/uL Normal 150-400 [facility] Comment on above: Order Comment: Speci men Type: BLOOD SPECIMEN Ordering Facility: [facility] Address: [address] [place] [address] Performed By: #### 5 8410-2 #### [facility] CLIA [id number] [address] [place] [address] [place] RBC (Bld) [#/Vol] 4.72 10*6/uL Normal 3.90-5.20 [facility] Comment on above: Order Comment: Speci men Type: BLOOD SPECIMEN Ordering Facility: [facility] Address: [address] [place] [address] Performed By: #### 5 8410-2 #### [facility] CLIA [id number] [address] [place] [address] [place] WBC (Bld) [#/Vol] 7.33 10*3/uL Normal 3.70-11.00 [facility] Comment on above: Order Comment: Speci men Type: BLOOD SPECIMEN Ordering Facility: [facility] Address: [address] [place] [address] Performed By: #### 5 8410-2 #### [facility] CLIA [id number] [address] [place] [address] [place] CNOVon 03-31-2024 CNOV Office Visit ([facility] ) -------- GERBER HILL ([id number]) 1960 F Date Time Provider Department 03/31/24 1:00 PM SABI CARDONA [facility] During your visit today, we recorded the following information about you: Pulse Blood pressure 68/minute 107/71 Sabi Cardona MD 03/31/2024 1:22 PM Signed [facility] [place] [address] [address] CC: Migraine Follow-up Visit Last visit: 01/11/2024 - depakote prescribed Interval History: Reports that Depakote has helped to reduce headaches Headaches are not as often and not as severe Takes nightly, tolerating well She is not needing to use Ubrelvy as often Takes it when headache gets to severe intensity. Had daith piercing on left a few weeks ago Answers submitted by the patient for this visit: Headache Questionnaire (Submitted on 03/31/2024) How many days of work or school have you missed due to headaches in the last month? : 0 In the last month, how many headache days did you experience ALL of the following symptoms: decreased productivity, light sensitivity and nausea?: 10 How many days have you been completely free of headache pain in the last month? : 15 Headache days per month: 15 ( Headache free days per month: 15 Current Headache Regimen: Preventative: Depakote 500 mg daily Cymbalta 60 mg daily Propranolol 10 mg daily Lyrica 100 mg TID Abortive: Ubrelvy Skelaxin prn Prior Therapies Duration of Use Dose Side effect Other Therapies Nerve blocks Analgesic Acetaminophen with codeine (Tylenol #3) Hydrocodone/Acetaminophe n (Vicodin, [place]) Anti-Convulsant Gabapentin (Neurontin) Pregabalin (Lyrica) Topiramate (Topamax, Trokendi XL, Qudexy) Anti-Depressant and Antipsychotic Amitriptyline (Elavil) Duloxetine (Cymbalta) Antiemetics Ondansetron Anti-Migraine Naratriptan (Amerge) Rizatriptan (Maxalt) Sumatriptan (Imitrex, Sumavel) Blood Pressure Lisinopril (Zestril) Propranolol (Inderal) MABs Erenumab (Aimovig) Galcanezumab (Emgality) GEPANTS Ubrogepant (Ubrelvy) Rimegepant (Nurtec) Botulinum Toxin Onabotulinum Toxin A (Botox) March 2019. X 1 round. base of skull, temples, occipital/parietal area, frontal area. None in shoulder. 13 injections. Muscle Relaxer Baclofen (Lioresal) Cyclobenzaprine (Flexeril) Over the Counter Medications Acetaminophen (Tylenol) Naproxen sodium (Aleve) KP review: HEADACHE SCORES: 09/30/2023 01/08/2024 03/31/2024 Headache Questions ER visits since last office visit: 1 1 Hospital stays since last office visit 0 0 Limited ADLs in the last month: 7 15 Days missed from work or school in the last month: 0 0 Days headache pain free in the last month: 4 15 Days per month with ALL of the following symptoms - decreased productivity, light sensitivity and nausea: 4 10 Initial improvement of headache after botox injection at last visit: Not applicable, I did not have a botox injection at my last visit Not applicable, I did not have a botox injection at my last visit Not applicable, I did not have a botox injection at my last visit Patient impression of improvement since last visit: Much worse Much worse No change 09/30/2023 01/08/2024 03/31/2024 HIT-6 HIT-6 74 (Severe impact) 72 (Severe impact) 68 (Severe impact) 09/30/2023 01/08/2024 03/31/2024 KATHE - 2/7 SCORES KATHE-2 Score 4 2 4 KATHE-7 Score 14 14 09/30/2023 01/08/2024 03/31/2024 Migraine Specific QOL - Higher scores indicate better HRQL Role Function-Restrictive Transformed Score (range: 0-100) 20 20 28.57 Role Function-Preventive Transformed Score (range: 0-100) 45 50 40 Emotional Function Transformed Score (range: 0-100) 66.67 80 40 09/30/2023 01/08/2024 03/31/2024 PHQ-9 Score 12 8 11 Physical Exam: Vital Signs: There were no vitals taken for this visit. GENERAL: well appearing, in no acute distress, alert SKIN: Color, texture, turgor normal. No rashes or lesions HEAD: Normocephalic/atraumatic . RESP: normal respiratory effort MSK: No gross joint deformities. NEUROLOGICAL: Mental Status: Alert, oriented to person, place and time, Follows commands, and Speech fluent and appropriate. Cranial Nerves: PERRL, face symmetric, no dysarthria, hearing grossly intact Motor: moves all extremities equally Gait: normal-based. 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 At last visit, Depakote was started for prevention and she reports good response with 50% reduction in headache frequency and severity. We will increase this to see if she can get more benefit as she is tolerating well. PLAN: Increase Depakote to 1000 mg daily Check labs - CBC, CMP Con (more content not included)... Normal [facility] Comprehensive metabolic 2000 panelon 03-31-2024 Albumin [Mass/Vol] 4.2 g/dL Normal 3.9-4.9 [facility] Comment on above: Order Comment: Ashlee pagan Type: BLOOD SPECIMEN Ordering Facility: [facility] Address: [address] [place] [address] Performed By: #### 2 4323-8 #### [facility] CLIA [id number] [address] [place] [address] [place] ALP [Catalytic activity/Vol] 88 U/L Normal 34-123 [facility] Comment on above: Order Comment: Speci men Type: BLOOD SPECIMEN Ordering Facility: [facility] Address: [address] [place] [address] Performed By: #### 2 4323-8 #### [facility] CLIA [id number] [address] [place] [address] [place] ALT [Catalytic activity/Vol] 34 U/L Normal 7-38 [facility] Comment on above: Order Comment: Speci men Type: BLOOD SPECIMEN Ordering Facility: [facility] Address: [facility] [place] [id number] Performed By: #### 2 4323-8 #### [facility] CLIA [id number] [address] [place] [address] [place] Anion gap [Moles/Vol] 12 mmol/L Normal 8-15 [facility] Comment on above: Order Comment: Speci men Type: BLOOD SPECIMEN Ordering Facility: [facility] Address: [address] [place] [address] Performed By: #### 2 4323-8 #### [facility] CLIA [id number] [address] [place] [address] [place] AST [Catalytic activity/Vol] 44 U/L High 13-35 [facility] Comment on above: Order Comment: Speci men Type: BLOOD SPECIMEN Ordering Facility: [facility] Address: [address] [place] [address] Performed By: #### 2 4323-8 #### [facility] CLIA [id number] [address] [place] [address] [place] Bilirubin [Mass/Vol] 0.4 mg/dL Normal 0.2-1.3 [facility] Comment on above: Order Comment: Speci men Type: BLOOD SPECIMEN Ordering Facility: [facility] Address: [address] [place], [place] [id number] Performed By: #### 2 4323-8 #### [facility] CLIA [id number] [address] [place] [address] [place] Calcium [Mass/Vol] 9.6 mg/dL Normal 8.5-10.2 [facility] Comment on above: Order Comment: Speci men Type: BLOOD SPECIMEN Ordering Facility: [facility] Address: [address] [place] [address] Performed By: #### 2 4323-8 #### [facility] CLIA [id number] [address] [place] [address] [place] Chloride [Moles/Vol] 102 mmol/L Normal 98-107 [facility] Comment on above: Order Comment: Speci men Type: BLOOD SPECIMEN Ordering Facility: [facility] Address: [address] [place] [address] Performed By: #### 2 4323-8 #### [facility] CLIA [id number] [address] [place] [address] [place] CO2 [Moles/Vol] 24 mmol/L Normal 22-30 [facility] Comment on above: Order Comment: Speci men Type: BLOOD SPECIMEN Ordering Facility: [facility] Address: [address] [place] [address] Performed By: #### 2 4323-8 #### [facility] CLIA [id number] [address] [place] [address] [place] Creatinine [Mass/Vol] 0.67 mg/dL Normal 0.58-0.96 [facility] Comment on above: Order Comment: Speci men Type: BLOOD SPECIMEN Ordering Facility: [facility] Address: [address] [place] [address] Performed By: #### 2 4323-8 #### [facility] CLIA [id number] [address] [place] [address] [place] Creatinine and Glomerular filtration rate.predicted panel (S/P/Bld) 98 mL/min/1.73m??? Normal >=60 [facility] Comment on above: Order Comment: Speci men Type: BLOOD SPECIMEN Ordering Facility: [facility] Address: [address] [place] [address] Result Comment: Rebekah mated Glomerular Filtration Rate (eGFR) is calculated using the 2020 CKD-EPI creatinine equation. This equation utilizes serum creatinine, sex, and age as parameters. The creatinine assay has traceable calibration to isotope dilution-mass spectrometry. Refer to KDIGO guidelines for clinical interpretation. In patients with unstable renal function, e.g. those with acute kidney injury, the eGFR may not accurately reflect actual GFR. Performed By: #### 2 4323-8 #### [facility] CLIA [id number] [address] [place] [address] [place] Glucose [Mass/Vol] 77 mg/dL Normal 74-99 [facility] Comment on above: Order Comment: Speci men Type: BLOOD SPECIMEN Ordering Facility: [facility] Address: [address] [place] [address] Result Comment: The [place] Diabetes Association (ADA) provides guidance for cutoff values for fasting glucose and random glucose. The ADA defines fasting as no caloric intake for at least 8 hours. Fasting plasma glucose results between 100 to 125 mg/dL indicate increased risk for diabetes (prediabetes). Fasting plasma glucose results greater than or equal to 126 mg/dL meet the criteria for diagnosis of diabetes. In the absence of unequivocal hyperglycemia, results should be confirmed by repeat testing. In a patient with classic symptoms of hyperglycemia or hyperglycemic crisis, random plasma glucose results greater than or equal to 200 mg/dL meet the criteria for diagnosis of diabetes. Reference: Standards of Medical Care in Diabetes 2016, [place] Diabetes Association. Diabetes Care. 2016.39(Suppl 1). Performed By: #### 2 4323-8 #### [facility] CLIA [id number] [address] [place] [address] [place] Potassium [Moles/Vol] 4.4 mmol/L Normal 3.7-5.1 [facility] Comment on above: Order Comment: Speci men Type: BLOOD SPECIMEN Ordering Facility: [facility] Address: [address] [place] [address] Performed By: #### 2 4323-8 #### [facility] CLIA [id number] [address] [place] [address] [place] Protein [Mass/Vol] 7.4 g/dL Normal 6.3-8.0 [facility] Comment on above: Order Comment: Speci men Type: BLOOD SPECIMEN Ordering Facility: [facility] Address: [address] [place] [address] Performed By: #### 2 4323-8 #### [facility] CLIA [id number] [address] [place] [address] [place] Sodium [Moles/Vol] 138 mmol/L Normal 136-144 [facility] Comment on above: Order Comment: Speci men Type: BLOOD SPECIMEN Ordering Facility: [facility] Address: [address] [place] [address] Performed By: #### 2 4323-8 #### [facility] CLIA [id number] [address] [place] [address] [place] Urea nitrogen [Mass/Vol] 19 mg/dL Normal 7-21 [facility] Comment on above: Order Comment: Speci men Type: BLOOD SPECIMEN Ordering Facility: [facility] Address: [address] [place] [address] Performed By: #### 2 4323-8 #### [facility] CLIA [id number] [address] [place] [address] [place] CBC panel Auto (Bld)on 01-10 Erythrocyte distribution width (RBC) [Ratio] 13.2 % 11.5 - 15.0 % [facility] Hematocrit (Bld) [Volume fraction] 42.7 % 36.0 - 46.0 % [facility] Hemoglobin (Bld) [Mass/Vol] 13.9 g/dL 11.5 - 15.5 g/dL [facility] Interpretation and review of laboratory results Normal [facility] MCH (RBC) [Entitic mass] 29.2 pg 26.0 - 34.0 pg [facility] MCHC (RBC) [Mass/Vol] 32.6 g/dL 30.5 - 36.0 g/dL [facility] MCV (RBC) [Entitic vol] 89.7 fL 80.0 - 100.0 fL [facility] Nucleated RBC (Bld) [#/Vol] NINF [facility] Platelet mean volume (Bld) [Entitic vol] 9.6 fL 9.0 - 12.7 fL [facility] Platelets (Bld) [#/Vol] 255 10*3/uL [facility] RBC (Bld) [#/Vol] 4.76 10*6/uL 3.90 - 5.2 0 m/uL [facility] WBC (Bld) [#/Vol] 5.45 10*3/uL [facility] Comprehensive metabolic 2000 panelon 01-11-2024 Albumin [Mass/Vol] 4.1 g/dL 3.9 - 4.9 g/dL [facility] ALP [Catalytic activity/Vol] 100 U/L 34 - 123 U/L [facility] ALT [Catalytic activity/Vol] 32 U/L 7 - 38 U/L [facility] Anion gap [Moles/Vol] 12 mmol/L 9 - 18 mmol/L [facility] AST [Catalytic activity/Vol] 46 U/L High 13 - 35 U/L [facility] Bilirubin [Mass/Vol] 0.4 mg/dL 0.2 - 1 .3 mg/dL [facility] Calcium [Mass/Vol] 9.7 mg/dL 8.5 - 10. 2 mg/dL [facility] Chloride [Moles/Vol] 105 mmol/L 97 - 10 5 mmol/L [facility] CO2 [Moles/Vol] 25 mmol/L 22 - 30 mmol/L [facility] Creatinine [Mass/Vol] 0.72 mg/dL 0.58 - 0.96 mg/dL [facility] GFR/1.73 sq M.predicted among non-blacks MDRD (S/P/Bld) [Vol rate/Area] 94 mL/min/{1.73_m2} - PINF [facility] Comment on above: Estimated Glomerular Filtration Rate (eGFR) is calculated using the 2020 CKD-EPI creatinine equation. This equation utilizes serum creatinine, sex, and age as parameters. The creatinine assay has traceable calibration to isotope dilution-mass spectrometry. Refer to KDIGO guidelines for clinical interpretation. In patients with unstable renal function, e.g. those with acute kidney injury, the eGFR may not accurately reflect actual GFR. Glucose [Mass/Vol] 78 mg/dL 74 - 99 mg/dL [facility] Comment on above: The [place] Diabete s Association (ADA) provides guidance for cutoff values for fasting glucose and random glucose. The ADA defines fasting as no caloric intake for at least 8 hours. Fasting plasma glucose results between 100 to 125 mg/dL indicate increased risk for diabetes (prediabetes). Fasting plasma glucose results greater than or equal to 126 mg/dL meet the criteria for diagnosis of diabetes. In the absence of unequivocal hyperglycemia, results should be confirmed by repeat testing. In a patient with classic symptoms of hyperglycemia or hyperglycemic crisis, random plasma glucose results greater than or equal to 200 mg/dL meet the criteria for diagnosis of diabetes. Reference: Standards of Medical Care in Diabetes 2016, [place] Diabetes Association. Diabetes Care. 2016.39(Suppl 1). Interpretation and review of laboratory results Abnormal [facility] Potassium [Moles/Vol] 3.8 mmol/L 3.7 - 5.1 mmol/L [facility] Protein [Mass/Vol] 7.0 g/dL 6.3 - 8.0 g/dL [facility] Sodium [Moles/Vol] 142 mmol/L 136 - 144 mmol/L [facility] Urea nitrogen [Mass/Vol] 14 mg/dL 7 - 21 mg/dL [facility] Absolute lymphocyte countOrd ered By: Saleem Hoyt on 12-04-2023 Lymphocytes Auto (Unsp spec) [#/Vol] 3.08 10*3/uL 0.83-4.51 [facility] Activated partial thrombopla stin time (aPTT) in platelet poor plasma by coagulation aOrdered By: Saleem Hoyt on 12-04-2023 aPTT Coag (PPP) [Time] 29.8 s 24.1-36.2 [facility] Automated lymphocyte count a s percentage of total leukocytesOrdered By: Saleem Hoyt on 12-04-2023 Lymphocytes/100 WBC Auto (Unsp spec) 44.4 % 19-41 [facility] Basophil percentageOrdered B y: Saleem Hoyt on 12-04-2023 Basophil percentage 0-5 SEEN /hpf 0-5 [facility] Basophils/100 WBC (Bld) 1.4 % 0-1 [facility] Bilirubin [Mass/Vol] 0.40 mg/dL 0.20-1.00 [facility] Comment on above: For patients on eltr ombopag therapy, use of Dimension [place] TBIL is not recommended. Chloride [Moles/Vol] 106 mmol/L 98-107 [facility] Eosinophils/100 WBC (Bld) 8.5 % 0-5 [facility] Glucose [Mass/Vol] 111 mg/dL 74-106 [facility] Comment on above: Fasting Glucose resu lt from 100 to 125 mg/dL suggests IMPAIRED HOMEOSTASIS per A.D.A. criteria. Hemoglobin (Bld) [Mass/Vol] 13.1 g/dL 12.0-15.0 [facility] Monocytes/100 WBC (Bld) 8.4 % 0-10 [facility] Neutrophils (Bld) [#/Vol] 2.6 10*3/uL 2.0-7.7 [facility] Neutrophils/100 WBC (Bld) 37.2 % 47-70 [facility] Potassium [Moles/Vol] 3.9 mmol/L 3.5-5.1 [facility] Protein [Mass/Vol] 7.1 g/dL 6.4-8.2 [facility] Sodium [Moles/Vol] 139 mmol/L 136-145 [facility] WBC (Bld) [#/Vol] 6.9 10*3/uL 4.4-11.0 [facility] Bilirubin Test strip Ql (U)O rdered By: Saleem Hoyt on 12-04-2023 Bilirubin Ql (U) 1 mg/dL Negative [facility] Comment on above: COLOR OF URINE MAY A FFECT DIPSTICK RESULTS. Determination of erythrocyte mean corpuscular volume (MCV)Ordered By: Saleem Hoyt on 12-04-2023 MCV (RBC) [Entitic vol] 89.2 fL 81-99 [facility] Direct bilirubinOrdered By: Saleem Hoyt on 12-04-2023 Bilirubin.direct [Mass/Vol] 0.14 mg/dL 0.00-0.30 [facility] Erythrocyte distribution wid th ratioOrdered By: Saleem Hoyt on 12-04-2023 Erythrocyte distribution width (RBC) [Ratio] 13.4 % 11.6-14.6 [facility] Erythrocyte distribution wid th standard deviationOrdered By: Saleem Hoyt on 12-04-2023 Erythrocyte distribution width (RBC) [Entitic vol] 44.1 fL 35.1-43.9 [facility] Hematocrit Auto (Bld) [Volum e fraction]Ordered By: Saleem Hoyt on 12-04-2023 Hematocrit (Bld) [Volume fraction] 39.6 % 37-47 [facility] Immature granulocytes/100 WB C Auto (Bld)Ordered By: Saleem Hoyt on 12-04-2023 Immature granulocytes/100 WBC (Bld) 0.100 % 0.0-0.9 [facility] Comment on above: IG% - Immature Granu locytes (promyelocytes, myelocytes and metamyelocytes) > 1% indicates that a LEFT SHIFT is Present. Ketones Test strip Ql (U)Ord ered By: Saleem Hoyt on 12-04-2023 Ketones Ql (U) 5 mg/dl Negative [facility] Laboratory - Chemistry and C hemistry - challengeOrdered By: Saleem Hoyt on 12-04-2023 ALP [Catalytic activity/Vol] 87 U/L 45-117 [facility] ALT [Catalytic activity/Vol] 44 U/L 13-56 [facility] CO2 [Moles/Vol] 28.0 mmol/L 21.0-32.0 [facility] Globulin (S) [Mass/Vol] 3.7 g/dL 2.2-4.[address] [facility] Lipase [Catalytic activity/Vol] 129 U/L - [facility] Comment on above: Please note:LIPASE r evised reference range effective 22. New Lipase methodology. Expected to produce lower values than the previous assay method. NEW Reference Range: 13 - 75 U/L Urea nitrogen/Creatinine [Mass ratio] 31.6 mg/mg 10-20 [facility] Laboratory - CoagulationOrde red By: Saleem Hoyt on 12-04-2023 INR Coag (Bld) [Relative time] 1.1 {INR} [facility] PT Coag (PPP) [Time] 13.8 s 11.7-14.9 [facility] - Drug toxicology Ordered By: Saleem Hoyt on 12-04-2023 Amphetamines Ql (U) Negative <1000 ng/mL [facility] Benzodiazepines Ql (U) Negative < 200 ng/mL [facility] Cannabinoids Screen Ql (U) Positive < 50 ng/mL [facility] Cocaine Ql (U) Negative < 300 ng/mL [facility] Opiates Ql (U) Negative < 300 ng/mL [facility] Laboratory - Hematology and Cell countsOrdered By: Saleem Hoyt on 12-04-2023 MCH (RBC) [Entitic mass] 29.5 pg 27.0-32.0 [facility] MCHC (RBC) [Mass/Vol] 33.1 g/dL 32-36 [facility] Nucleated RBC/100 WBC (Bld) [Ratio] 0 % 0-5 [facility] Platelet mean volume (Bld) [Entitic vol] 9.2 fL 6.2-12.0 [facility] Platelets (Bld) [#/Vol] 255 10*3/uL 150-450 [facility] Mucus LM Ql (Urine sed)Order ed By: Saleem Hoyt on 12-04-2023 Mucus Ql (Urine sed) 0 SEEN /hpf [facility] Nitrite Test strip Ql (U)Ord ered By: Saleem Hoyt on 12-04-2023 Nitrite Ql (U) Negative Negative [facility] No Panel InformationOrdered By: Saleem Hoyt on 12-04-2023 Estimated Creatinine Clearance Calc 62.28 ml/min [facility] Estimated GFR (MDRD) Amer 73 mL/min >60 [facility] Comment on above: GFR Calc Estimated GFR (MDRD) Non-Af Amer 61 mL/min >60 [facility] Comment on above: Non- GFR Calc Ethyl Alcohol Level < 3.0 mg/dL [facility] Comment on above: The serum:whole bloo d ethanol ratio is approximately 1.14and varies slightly with hematocrit. Medical Alcohol reference interval and critical value innon-tolerant individuals; 50 - 100 Impairment 100 Intoxication 100 - 250 Severe Poisoning 250 - 400 Deep/possible fatal coma MDMA (Ecstasy) Screen Negative < 500 ng/mL [facility] Troponin I High Sensitivity 5 pg/mL 3.0-54.0 [facility] Comment on above: Please Note: New Desiree t Units and Gender Specific Reference Ranges. For more information see Policy Stat Procedure [place] High Sensitivity Troponin (TNIH) and attachments. Urine Barbiturates Screen Negative < 200 ng/mL [facility] Urine Drug Screen Comment [facility] Comment on above: CONFIRMATORY TESTING FOR ALL POSITIVE URINE DRUG SCREENRESULTS WILL ONLY BE SENT OUT UPON PHYSICIAN ORDER. VISTA Urine Drug Screen methods provide only preliminaryanalytical test results. A more specific alternate chemicalmethod must be used in order to obtain a confirmedanalytical result. Gas chromatography/mass spectrometery(GC/MS) is the preferred confirmatory method. Clinicalconsideration and professional judgement should be appliedto any drug of abuse test result, particularly whenpreliminary positive results are used. URINE TCA TESTING MUST BE ORDERED SEPARATELY. USE TESTMNEMONIC: [facility] Urine Methadone Screen Negative < 300 ng/mL [facility] Urine RBC 0 SEEN /hpf 0-5 [facility] Protein Test strip Ql (U)Ord ered By: Saleem Hoyt on 12-04-2023 Protein Ql (U) 15 mg/dl Negative [facility] RBC Auto (Bld) [#/Vol]Ordere d By: Saleem Hoyt on 12-04-2023 RBC (Bld) [#/Vol] 4.44 10*6/uL 4.2-5.4 [facility] Serum or plasma calcium aguila urement (mass/volume)Ordered By: Saleem Hoyt on 12-04-2023 Calcium [Mass/Vol] 9.2 mg/dL 8.5-10.1 [facility] Serum or plasma creatinine m easurement (mass/volume)Ordered By: Saleem Hoyt on 12-04-2023 Creatinine [Mass/Vol] 0.98 mg/dL 0.55-1.02 [facility] Comment on above: The validity of the calculated GFR & GFRAA in patients over 70 years has not been determined. Clinical correlation is essential. Serum or plasma thyroid stim ulating hormone (TSH) measurement (units/volume)Ordered By: Saleem Hoyt on 12-04-2023 TSH Qn 0.87 uIU/mL 0.358-3.74 [facility] Serum or plasma urea nitroge n measurement (mass/volume)Ordered By: Saleem Hoyt on 12-04-2023 Urea nitrogen [Mass/Vol] 31 mg/dL 7-18 [facility] Squamous epithelial cells de tection in urine sediment by light microscopyOrdered By: Saleem Hoyt on 12-04-2023 Epithelial cells.squamous LM Ql (Urine sed) 0-5 SEEN /hpf 5-10 [facility] Thin prep Papanicolaou smear with manual screeningOrdered By: Saleem Hoyt on 12-04-2023 Thin prep Papanicolaou smear with manual screening 3.4 g/dL 3.2-5.0 [facility] Thin prep Papanicolaou smear with manual screening 38 U/L 15-37 [facility] Thin prep Papanicolaou smear with manual screening 5 5-15 [facility] Urine blood detectionOrdered By: Saleem Hoyt on 12-04-2023 RBC Ql (U) Negative Negative [facility] Urine clarityOrdered By: Anirudh Hoyt on 12-04-2023 Clarity (U) Clear Clear [facility] Urine color determinationOrd ered By: Saleem Hoyt on 12-04-2023 Color (U) Yellow Yellow [facility] Urine glucose detectionOrder ed By: Saleem Hoyt on 12-04-2023 Glucose Ql (U) 1000 mg/dl Normal [facility] Urine leukocyte esterase det ection by dipstickOrdered By: Saleem Hoyt on 12-04-2023 Leukocyte esterase Test strip Ql (U) 25 /ul Negative [facility] Urine pHOrdered By: Saleem prather on 12-04-2023 pH (U) 6.0 [pH] 5.0 - 8.0 [facility] Urine phencyclidine (PCP) de tectionOrdered By: Saleem Hoyt on 12-04-2023 Phencyclidine Ql (U) Negative < 25 ng/mL [facility] Urine sediment bacteria coun t by microscopy (number/high power field)Ordered By: Saleem Hoyt on 12-04-2023 Bacteria LM.HPF (Urine sed) [#/Area] 0 /[HPF] None Seen [facility] Urine specific gravity measu rementOrdered By: Saleem Hoyt on 12-04-2023 Specific gravity (U) [Rel density] 1.020 1.002-1.030 [facility] Urine urobilinogen measureme ntOrdered By: Saleem Hoyt on 12-04-2023 Urobilinogen Ql (U) 1 mg/dl Normal [facility] Basophil percentageOrdered B y: Arleen Lazar on 03-17-2023 Bilirubin [Mass/Vol] 0.60 mg/dL 0.20-1.00 [facility] Comment on above: For patients on eltr ombopag therapy, use of Dimension [place] TBIL is not recommended. Chloride [Moles/Vol] 104 mmol/L 98-107 [facility] Cholesterol [Mass/Vol] 116 mg/dL <200 [facility] Comment on above: <200 mg/dL Desirable 200-240 mg/dL Borderline >240 mg/dL High Risk Glucose [Mass/Vol] 96 mg/dL 74-106 [facility] Potassium [Moles/Vol] 3.9 mmol/L 3.5-5.1 [facility] Protein [Mass/Vol] 8.9 g/dL 6.4-8.2 [facility] Sodium [Moles/Vol] 135 mmol/L 136-145 [facility] Triglyceride [Mass/Vol] 189 mg/dL <[address] [facility] Comment on above: The drugs N-Acetylcy steine and Metamizole may falsely depress this assay.Serum Triglycerides Reference Interval Normal <150 mg/dL Borderline high 150 - 199 mg/dL High 200 - 499 mg/dL Very High > or = 500 mg/dL Laboratory - Chemistry and C hemistry - challengeOrdered By: Arleen Lazar on 03-17-2023 ALP [Catalytic activity/Vol] 111 U/L 45-117 [facility] ALT [Catalytic activity/Vol] 71 U/L 13-56 [facility] CO2 [Moles/Vol] 27.0 mmol/L 21.0-32.0 [facility] Globulin (S) [Mass/Vol] 5.0 g/dL 2.2-4.2 [facility] Urea nitrogen/Creatinine [Mass ratio] 16.3 mg/mg 10-20 [facility] No Panel InformationOrdered By: Arleen Lazar on 03-17-2023 Estimated GFR (MDRD) Amer 94 mL/min >60 [facility] Comment on above: GFR Calc Estimated GFR (MDRD) Non-Af Amer 77 mL/min >60 [facility] Comment on above: Non- GFR Calc Serum or plasma albumin aguila urement (mass/volume)Ordered By: Arleen Lazar on 03-17-2023 Albumin [Mass/Vol] 3.9 g/dL 3.2-5.0 [facility] Serum or plasma albumin/glob ulin mass ratioOrdered By: Arleen Lazar on 03-17-2023 Albumin/Globulin [Mass ratio] 0.8 {ratio} 0.9-2.4 [facility] Serum or plasma calcium aguila urement (mass/volume)Ordered By: Arleen Lazar on 03-17-2023 Calcium [Mass/Vol] 9.5 mg/dL 8.5-10.1 [facility] Serum or plasma cholesterol in HDL measurement (mass/volume)Ordered By: Arleen Lazar on 03-17-2023 Cholesterol in HDL [Mass/Vol] 41 mg/dL >40 [facility] Comment on above: The drugs N-Acetylcy steine and Metamizole may falsely depress this assay. Reference Range HDL <40 mg/dL Low HDL Cholesterol HDL >or= 60 mg/dL High HDL Cholesterol Serum or plasma cholesterol in VLDL measurement (mass/volume)Ordered By: Arleen Lazar on 03-17-2023 Cholesterol in VLDL [Mass/Vol] 38 mg/dL 5-40 [facility] Serum or plasma creatinine m easurement (mass/volume)Ordered By: Arleen Lazar on 03-17-2023 Creatinine [Mass/Vol] 0.80 mg/dL 0.55-1.02 [facility] Comment on above: The validity of the calculated GFR & GFRAA in patients over 70 years has not been determined. Clinical correlation is essential. Serum or plasma low density lipoprotein (LDL) cholesterol measurement (mass/volume)Ordered By: Arleen Lazar on 03-17-2023 Cholesterol in LDL [Mass/Vol] 37 mg/dL 0-130 [facility] Serum or plasma urea nitroge n measurement (mass/volume)Ordered By: Arleen Lazar on 03-17-2023 Urea nitrogen [Mass/Vol] 13 mg/dL 7-18 [facility] Thin prep Papanicolaou smear with manual screeningOrdered By: Arleen Lazar on 03-17-2023 Thin prep Papanicolaou smear with manual screening 60 U/L 15-37 [facility] Thin prep Papanicolaou smear with manual screening 4 5-15 [facility] 25(OH)D3 SerPl-mCncon 2022 25-hydroxyvitamin D3 [Mass/Vol] 24.6 ng/mL Low 31.0-80.0 [facility] Comment on above: Order Comment: Speci men Type: BLOOD SPECIMEN Ordering Facility: [facility] Address: [address] [address] Result Comment: Clas sification of 25 [place] Vitamin D status: Deficiency/Insufficiency: < or = 30 ng/ml. Sufficiency/Optimal Levels: 31-80 ng/mL Toxicity: > 100 ng/mL. Test performed by chemiluminescent immunoassay. Performed By: #### 1 989-3 #### [facility] CLIA [id number] [address] [facility] [address] [id number] [address] [place] CBC W Auto Differential pane l (Bld)on 12-01-2022 Basophils (Bld) [#/Vol] 0.15 10*3/uL High <0.11 [facility] Comment on above: Order Comment: Speci men Type: BLOOD SPECIMEN Ordering Facility: [facility] Address: [address] [place] [address] Performed By: #### 5 7021-8 #### [facility] CLIA [id number] [address] [place] [address] [place] Basophils/100 WBC (Bld) 1.5 % Normal [facility] Comment on above: Order Comment: Speci men Type: BLOOD SPECIMEN Ordering Facility: [facility] Address: [address] [address] Performed By: #### 5 7021-8 #### [facility] CLIA [id number] [address] [place] [address] [place] Differential cell count method Nom (Bld) Auto Normal [facility] Comment on above: Order Comment: Speci men Type: BLOOD SPECIMEN Ordering Facility: [facility] Address: [address] [address] Performed By: #### 5 7021-8 #### [facility] IA [id number] [address] [place] [address] [place] Eosinophils (Bld) [#/Vol] 0.56 10*3/uL High <0.46 [facility] Comment on above: Order Comment: Speci men Type: BLOOD SPECIMEN Ordering Facility: [facility] Address: [address] [address] Performed By: #### 5 7021-8 #### [facility] IA [id number] [address] [place] [address] [place] Eosinophils/100 WBC (Bld) 5.7 % Normal [facility] Comment on above: Order Comment: Speci men Type: BLOOD SPECIMEN Ordering Facility: [facility] Address: [address] [address] Performed By: #### 5 7021-8 #### [facility] IA [id number] [place] [address] [place] Erythrocyte distribution width (RBC) [Ratio] 14.1 % Normal 11.5-15.0 [facility] Comment on above: Order Comment: Speci men Type: BLOOD SPECIMEN Ordering Facility: [facility] Address: [address] [address] Performed By: #### 5 7021-8 #### [facility] IA [id number] [address] [place] [address] [place] Hematocrit (Bld) [Volume fraction] 48.8 % High 36.0-46.0 [facility] Comment on above: Order Comment: Speci men Type: BLOOD SPECIMEN Ordering Facility: [facility] Address: [address] [address] Performed By: #### 5 7021-8 #### [facility] IA [id number] [address] [place] [address] [place] Hemoglobin (Bld) [Mass/Vol] 15.8 g/dL High 11.5-15.5 [facility] Comment on above: Order Comment: Speci men Type: BLOOD SPECIMEN Ordering Facility: [facility] Address: [address] [address] Performed By: #### 5 7021-8 #### [facility] CLIA [id number] [address] [place] [address] [place] Immature granulocytes (Bld) [#/Vol] 10*3/uL Normal <0.10 [facility] Comment on above: Order Comment: Speci men Type: BLOOD SPECIMEN Ordering Facility: [facility] Address: [address] [address] Performed By: #### 5 7021-8 #### [facility] IA [id number] [address] [place] [address] [place] Immature granulocytes/100 WBC (Bld) 0.2 % Normal [facility] Comment on above: Order Comment: Speci men Type: BLOOD SPECIMEN Ordering Facility: [facility] Address: [address] [address] Performed By: #### 5 7021-8 #### [facility] IA [id number] [address] [place] [address] [place] Lymphocytes (Bld) [#/Vol] 2.66 10*3/uL Normal 1.00-4.00 [facility] Comment on above: Order Comment: Speci men Type: BLOOD SPECIMEN Ordering Facility: [facility] Address: [address] Performed By: #### 5 7021-8 #### [facility] IA [id number] [address] [place] [address] [place] Lymphocytes/100 WBC (Bld) 27.2 % Normal [facility] Comment on above: Order Comment: Speci men Type: BLOOD SPECIMEN Ordering Facility: [facility] Address: [address] [address] Performed By: #### 5 7021-8 #### [facility] CLIA [id number] [address] [facility] [address] MCH (RBC) [Entitic mass] 28.5 pg Normal 26.0-34.0 [facility] Comment on above: Order Comment: Speci men Type: BLOOD SPECIMEN Ordering Facility: [facility] Address: [address] [address] Performed By: #### 5 7021-8 #### [facility] IA [id number] [place] MCHC (RBC) [Mass/Vol] 32.4 g/dL Normal 30.5-36.0 [facility] Comment on above: Order Comment: Speci men Type: BLOOD SPECIMEN Ordering Facility: [facility] Address: [address] [address] Performed By: #### 5 7021-8 #### [facility] IA [id number] [address] [place] [address] MCV (RBC) [Entitic vol] 87.9 fL Normal 80.0-100.0 [facility] Comment on above: Order Comment: Speci men Type: BLOOD SPECIMEN Ordering Facility: [facility] Address: [address] [address] Performed By: #### 5 7021-8 #### [facility] IA [id number] [address] [facility] Monocytes (Bld) [#/Vol] 0.72 10*3/uL Normal <0.87 [facility] Comment on above: Order Comment: Speci men Type: BLOOD SPECIMEN Ordering Facility: [facility] Address: [address] [address] Performed By: #### 5 7021-8 #### [facility] IA [id number] [address] [place] [address] Monocytes/100 WBC (Bld) 7.4 % Normal [facility] Comment on above: Order Comment: Speci men Type: BLOOD SPECIMEN Ordering Facility: [facility] Address: [address] [address] Performed By: #### 5 7021-8 #### [facility] CLIA [id number] [address] [place] [address] [place] Neutrophils (Bld) [#/Vol] 5.67 10*3/uL Normal 1.45-7.50 [facility] Comment on above: Order Comment: Speci men Type: BLOOD SPECIMEN Ordering Facility: [facility] Address: [address] [address] Performed By: #### 5 7021-8 #### [facility] IA [id number] [address] [place] [address] [place] Neutrophils/100 WBC (Bld) 58.0 % Normal [facility] Comment on above: Order Comment: Speci men Type: BLOOD SPECIMEN Ordering Facility: [facility] Address: [address] [address] Performed By: #### 5 7021-8 #### [facility] IA [id number] [address] [place] [address] [place] Nucleated RBC (Bld) [#/Vol] 10*3/uL Normal <0.01 [facility] Comment on above: Order Comment: Speci men Type: BLOOD SPECIMEN Ordering Facility: [facility] Address: [address] [address] Performed By: #### 5 7021-8 #### [facility] IA [id number] [address] [place] [address] [place] Nucleated RBC/100 WBC (Bld) [Ratio] 0.0 /100 WBC Normal [facility] Comment on above: Order Comment: Speci men Type: BLOOD SPECIMEN Ordering Facility: [facility] Address: [address] [address] Performed By: #### 5 7021-8 #### [facility] IA [id number] [address] [place] [address] [place] Platelet mean volume (Bld) [Entitic vol] 9.5 fL Normal 9.0-12.7 [facility] Comment on above: Order Comment: Speci men Type: BLOOD SPECIMEN Ordering Facility: [facility] Address: [address] [address] Performed By: #### 5 7021-8 #### [facility] IA [id number] [address] [place] [address] [place] Platelets (Bld) [#/Vol] 399 10*3/uL Normal 150-400 [facility] Comment on above: Order Comment: Speci men Type: BLOOD SPECIMEN Ordering Facility: [facility] Address: [address] [address] Performed By: #### 5 7021-8 #### [facility] IA [id number] [address] [place] [address] [place] RBC (Bld) [#/Vol] 5.55 10*6/uL High 3.90-5.20 [facility] Comment on above: Order Comment: Speci men Type: BLOOD SPECIMEN Ordering Facility: [facility] Address: [address] [address] Performed By: #### 5 7021-8 #### [facility] IA [id number] [address] [place] [address] [place] WBC (Bld) [#/Vol] 9.78 10*3/uL Normal 3.70-11.00 [facility] Comment on above: Order Comment: Speci men Type: BLOOD SPECIMEN Ordering Facility: [facility] Address: [address] [place] [address] Performed By: #### 5 7021-8 #### [facility] IA [id number] [address] [place] [address] [place] Basophils (Bld) [#/Vol] 0.15 10*3/uL High <0.11 k/uL [facility] Basophils/100 WBC (Bld) 1.5 % [facility] Differential cell count method Nom (Bld) Auto [facility] Eosinophils (Bld) [#/Vol] 0.56 10*3/uL High <0.46 k/uL [facility] Eosinophils/100 WBC (Bld) 5.7 % [facility] Erythrocyte distribution width (RBC) [Ratio] 14.1 % 11.5 - 15.0 % [facility] Hematocrit (Bld) [Volume fraction] 48.8 % High 36.0 - 46.0 % [facility] Hemoglobin (Bld) [Mass/Vol] 15.8 g/dL High 11.5 - 15.5 g/dL [facility] Immature granulocytes (Bld) [#/Vol] <0.10 k/uL [facility] Immature granulocytes/100 WBC (Bld) 0.2 % [facility] Lymphocytes (Bld) [#/Vol] 2.66 10*3/uL 1.00 - 4.00 k/uL [facility] Lymphocytes/100 WBC (Bld) 27.2 % [facility] MCH (RBC) [Entitic mass] 28.5 pg 26.0 - 34.0 pg [facility] MCHC (RBC) [Mass/Vol] 32.4 g/dL 30.5 - 36.0 g/dL [facility] MCV (RBC) [Entitic vol] 87.9 fL 80.0 - 100.0 fL [facility] Monocytes (Bld) [#/Vol] 0.72 10*3/uL <0.87 k/uL [facility] Monocytes/100 WBC (Bld) 7.4 % [facility] Neutrophils (Bld) [#/Vol] 5.67 10*3/uL 1.45 - 7.50 k/uL [facility] Neutrophils/100 WBC (Bld) 58.0 % [facility] Nucleated RBC (Bld) [#/Vol] <0.01 k/uL [facility] Nucleated RBC/100 WBC (Bld) [Ratio] 0.0 /100 WBC [facility] Platelet mean volume (Bld) [Entitic vol] 9.5 fL 9.0 - 12.7 fL [facility] Platelets (Bld) [#/Vol] 399 10*3/uL 150 - 400 k/uL [facility] RBC (Bld) [#/Vol] 5.55 10*6/uL High 3.90 - 5.2 0 m/uL [facility] WBC (Bld) [#/Vol] 9.78 10*3/uL 3.70 - 11. 00 k/uL [facility] Comprehensive metabolic 2000 panelon 12-01-2022 Albumin [Mass/Vol] 4.4 g/dL Normal 3.9-4.9 [facility] Comment on above: Order Comment: Speci men Type: BLOOD SPECIMEN Ordering Facility: [facility] Address: [address] [address] Performed By: #### 2 4323-8 #### [facility] CLIA [id number] [address] [place] [address] [place] ALP [Catalytic activity/Vol] 161 U/L High 34-123 [facility] Comment on above: Order Comment: Speci men Type: BLOOD SPECIMEN Ordering Facility: [facility] Address: [address] [address] Performed By: #### 2 4323-8 #### [facility] IA [id number] [address] [place] [address] [place] ALT [Catalytic activity/Vol] 91 U/L High 7-38 [facility] Comment on above: Order Comment: Speci men Type: BLOOD SPECIMEN Ordering Facility: [facility] Address: [address] [address] Performed By: #### 2 4323-8 #### [facility] IA [id number] [address] [place] [address] [place] Anion gap [Moles/Vol] 13 mmol/L Normal 9-18 [facility] Comment on above: Order Comment: Speci men Type: BLOOD SPECIMEN Ordering Facility: [facility] Address: [address] Performed By: #### 2 4323-8 #### [facility] CLIA [id number] [address] [place] [address] [place] AST [Catalytic activity/Vol] 91 U/L High 13-35 [facility] Comment on above: Order Comment: Speci men Type: BLOOD SPECIMEN Ordering Facility: [facility] Address: [address] [address] Performed By: #### 2 4323-8 #### [facility] CLIA [id number] [address] [place] [address] [place] Bilirubin [Mass/Vol] 0.5 mg/dL Normal 0.2-1.3 [facility] Comment on above: Order Comment: Speci men Type: BLOOD SPECIMEN Ordering Facility: [facility] Address: [address] [address] Performed By: #### 2 4323-8 #### [facility] CLIA [id number] [address] [place] [address] [place] Calcium [Mass/Vol] 9.6 mg/dL Normal 8.5-10.2 [facility] Comment on above: Order Comment: Speci men Type: BLOOD SPECIMEN Ordering Facility: [facility] Address: [address] [address] Performed By: #### 2 4323-8 #### [facility] IA [id number] [address] [place] [address] [place] Chloride [Moles/Vol] 100 mmol/L Normal 97-105 [facility] Comment on above: Order Comment: Speci men Type: BLOOD SPECIMEN Ordering Facility: [facility] Address: [address] [address] Performed By: #### 2 4323-8 #### [facility] IA [id number] [address] [place] [address] [place] CO2 [Moles/Vol] 25 mmol/L Normal 22-30 [facility] Comment on above: Order Comment: Speci men Type: BLOOD SPECIMEN Ordering Facility: [facility] Address: [address] Performed By: #### 2 4323-8 #### [facility] IA [id number] [address] [place] [address] [place] Creatinine [Mass/Vol] 0.72 mg/dL Normal 0.58-0.96 [facility] Comment on above: Order Comment: Speci men Type: BLOOD SPECIMEN Ordering Facility: [facility] Address: [address] [address] Performed By: #### 2 4323-8 #### [facility] CLIA [id number] [address] [place] [address] [place] ESTIMATED GLOMERULAR FILTRATION RATE 95 mL/min/1.73m??? Normal >=60 [facility] Comment on above: Order Comment: Ashlee pagan Type: BLOOD SPECIMEN Ordering Facility: [facility] Address: [address] [place] [address] Result Comment: Rebekah mated Glomerular Filtration Rate (eGFR) is calculated using the 2020 CKD-EPI creatinine equation. This equation utilizes serum creatinine, sex, and age as parameters. The creatinine assay has traceable calibration to isotope dilution-mass spectrometry. Refer to KDIGO guidelines for clinical interpretation. In patients with unstable renal function, e.g. those with acute kidney injury, the eGFR may not accurately reflect actual GFR. Performed By: #### 2 4323-8 #### [facility] CLIA [id number] [address] [place] [address] [place] Glucose [Mass/Vol] 183 mg/dL High 74-99 [facility] Comment on above: Order Comment: Ashlee pagan Type: BLOOD SPECIMEN Ordering Facility: [facility] Address: [address] [place] [address] Result Comment: The [place] Diabetes Association (ADA) provides guidance for cutoff values for fasting glucose and random glucose. The ADA defines fasting as no caloric intake for at least 8 hours. Fasting plasma glucose results between 100 to 125 mg/dL indicate increased risk for diabetes (prediabetes). Fasting plasma glucose results greater than or equal to 126 mg/dL meet the criteria for diagnosis of diabetes. In the absence of unequivocal hyperglycemia, results should be confirmed by repeat testing. In a patient with classic symptoms of hyperglycemia or hyperglycemic crisis, random plasma glucose results greater than or equal to 200 mg/dL meet the criteria for diagnosis of diabetes. Reference: Standards of Medical Care in Diabetes 2016, [place] Diabetes Association. Diabetes Care. 2016.39(Suppl 1). Performed By: #### 2 4323-8 #### [facility] CLIA [id number] [address] [place] [address] [place] Potassium [Moles/Vol] 4.5 mmol/L Normal 3.7-5.1 [facility] Comment on above: Order Comment: Speci men Type: BLOOD SPECIMEN Ordering Facility: [facility] Address: [address] [address] Performed By: #### 2 4323-8 #### [facility] CLIA [id number] [address] [place] [address] [place] Protein [Mass/Vol] 8.6 g/dL High 6.3-8.0 [facility] Comment on above: Order Comment: Speci men Type: BLOOD SPECIMEN Ordering Facility: [facility] Address: [address] [address] Performed By: #### 2 4323-8 #### [facility] IA [id number] [address] [place] [address] [place] Sodium [Moles/Vol] 138 mmol/L Normal 136-144 [facility] Comment on above: Order Comment: Speci men Type: BLOOD SPECIMEN Ordering Facility: [facility] Address: [address] [address] Performed By: #### 2 4323-8 #### [facility] CLIA [id number] [address] [place] [address] [place] Urea nitrogen [Mass/Vol] 16 mg/dL Normal 7-21 [facility] Comment on above: Order Comment: Speci men Type: BLOOD SPECIMEN Ordering Facility: [facility] Address: [address] [address] Performed By: #### 2 4323-8 #### [facility] IA [id number] [address] [place] [address] [place] Albumin [Mass/Vol] 4.4 g/dL 3.9 - 4.9 g/dL [facility] ALP [Catalytic activity/Vol] 161 U/L High 34 - 123 U/L [facility] ALT [Catalytic activity/Vol] 91 U/L High 7 - 38 U/L [facility] Anion gap [Moles/Vol] 13 mmol/L 9 - 18 mmol/L [facility] AST [Catalytic activity/Vol] 91 U/L High 13 - 35 U/L [facility] Bilirubin [Mass/Vol] 0.5 mg/dL 0.2 - 1 .3 mg/dL [facility] Calcium [Mass/Vol] 9.6 mg/dL 8.5 - 10. 2 mg/dL [facility] Chloride [Moles/Vol] 100 mmol/L 97 - 10 5 mmol/L [facility] CO2 [Moles/Vol] 25 mmol/L 22 - 30 mmol/L [facility] Creatinine [Mass/Vol] 0.72 mg/dL 0.58 - 0.96 mg/dL [facility] Estimated Glomerular Filtration Rate 95 mL/min/1.73m >=60 mL/min/1.73m [facility] Glucose [Mass/Vol] 183 mg/dL High 74 - 99 mg/dL [facility] Potassium [Moles/Vol] 4.5 mmol/L 3.7 - 5.1 mmol/L [facility] Protein [Mass/Vol] 8.6 g/dL High 6.3 - 8.0 g/dL [facility] Sodium [Moles/Vol] 138 mmol/L 136 - 144 mmol/L [facility] Urea nitrogen [Mass/Vol] 16 mg/dL 7 - 21 mg/dL [facility] HbA1c (Bld)on 12-01-2022 Average glucose Estimated from glycated hemoglobin (Bld) [Mass/Vol] 166 mg/dL Normal [facility] Comment on above: Order Comment: Ashlee pagan Type: BLOOD SPECIMEN Ordering Facility: [facility] Address: [address] [place], [place] [id number] Result Comment: eAG: (Estimated average glucose) is a calculated value from HgbA1c and is outside industrial sales representative of the average blood glucose level in the last 2-3 month period. Performed By: #### 5 5454-3 #### [facility] CLIA [id number] [address] [facility] [id number] [place] [address] [place] HbA1c (Bld) [Mass fraction] 7.4 % High 4.3-5.6 [facility] Comment on above: Order Comment: Ashlee pagan Type: BLOOD SPECIMEN Ordering Facility: [facility] Address: [address] [id number] Result Comment: [place] Diabetes Association guidelines indicate that patients with HgbA1c in the range 5.7-6.4% are at increased risk for development of diabetes, and intervention by lifestyle modification may be beneficial. HgbA1c greater or equal to 6.5% is considered diagnostic of diabetes. Performed By: #### 5 5454-3 #### [facility] CLIA [id number] [address] [place] IMMUNOFIXATION SCREEN, SERUM on 12-01-2022 MPA RESULT No M protein is identified. Normal No M protein is identified. [facility] Comment on above: Order Comment: Speci men Type: BLOOD SPECIMEN Ordering Facility: [facility] Address: [address] [address] Performed By: #### I FESC #### [facility] CLIA [id number] [address] [place] [address] [place] STAFF REVIEW (MPA) Reviewed by Dr. Charity Kim MD [facility] Comment on above: Order Comment: Speci men Type: BLOOD SPECIMEN Ordering Facility: [facility] Address: [address] Performed By: #### I FESC #### [facility] CLIA [id number] [address] [place] [address] [place] IMMUNOGLOBULINS GAMon 2022 IgA [Mass/Vol] 383 mg/dL Normal 70-400 [facility] Comment on above: Order Comment: Speci men Type: BLOOD SPECIMEN Ordering Facility: [facility] Address: [address] Performed By: #### S ERIMM #### [facility] CLIA [id number] [address] [place] [address] [place] IgG [Mass/Vol] 1808 mg/dL High 700-1600 [facility] Comment on above: Order Comment: Speci men Type: BLOOD SPECIMEN Ordering Facility: [facility] Address: [address] Performed By: #### S ERIMM #### [facility] CLIA [id number] [facility] [place] [address] [place] IgM [Mass/Vol] 142 mg/dL Normal 40-230 [facility] Comment on above: Order Comment: Speci men Type: BLOOD SPECIMEN Ordering Facility: [facility] Address: [address] [place] [address] Performed By: #### S ERIMM #### [facility] CLIA [id number] [address] [place] [address] [place] KAPPA/CABRERA,FREE,SERon 2022 Immunoglobulin light chains.kappa.free (S) [Mass/Vol] 67.2 mg/L High 3.3-19.4 [facility] Comment on above: Order Comment: Speci [facility] Type: BLOOD SPECIMEN Ordering Facility: [facility] Address: [address] [place] [address] Result Comment: Rare ly, increased serum free light chains levels may not be detected or accurately quantified due to prozone phenomenon or in high viscosity samples using this immunoturbidimetric assay. Correlation with other laboratory results and clinical findings is recommended. The [place] Free Light Chain was performed using the Binding Site Optilite immunoturbidimetric method. Result obtained with different assay methods or kits cannot be used interchangeably. Performed By: #### K LFRS #### [facility] CLIA [id number] [address] [place] [address] [place] Immunoglobulin light chains.kappa/Immunoglob ulin light chains.lambda (S) [Mass ratio] 2.15 High 0.26-1.65 [facility] Comment on above: Order Comment: Speci men Type: BLOOD SPECIMEN Ordering Facility: [facility] Address: [address] [place] [address] Performed By: #### K LFRS #### [facility] CLIA [id number] [address] [place] [address] [place] Immunoglobulin light chains.lambda.free [Mass/Vol] 31.3 mg/L High 5.7-26.3 [facility] Comment on above: Order Comment: Speci men Type: BLOOD SPECIMEN Ordering Facility: [facility] Address: [address] [address] Result Comment: Rare ly, increased serum free light chains levels may not be detected or accurately quantified due to prozone phenomenon or in high viscosity samples using this immunoturbidimetric assay. Correlation with other laboratory results and clinical findings is recommended. The Lambda Free Light Chain was performed using the Binding Site Optilite immunoturbidimetric method. Result obtained with different assay methods or kits cannot be used interchangeably. Performed By: #### K LFRS #### [facility] CLIA [id number] [address] [place] [address] [place] MONOCLONAL PROT UR W/INTERPo n 12-01-2022 INTERPRETATION ([place]) Not Applicable Normal [facility] Comment on above: Order Comment: Speci men Type: URINE SPECIMEN Ordering Facility: [facility] Address: [address] [place], [place] [id number] Performed By: #### U RMPA #### [facility] CLIA [id number] [address] [place] [address] OF [place] STAFF REVIEW ([place]) Reviewed by Dr. Charity Kim MD Normal [facility] Comment on above: Order Comment: Speci men Type: URINE SPECIMEN Ordering Facility: [facility] Address: [address] [place], [place] [id number] Performed By: #### U RMPA #### [facility] CLIA [id number] [address] [place] [address] [place] UMPA RESULT No M protein is identified. Normal No M protein is identified. [facility] Comment on above: Order Comment: Speci men Type: URINE SPECIMEN Ordering Facility: [facility] Address: [address] [place], [place] [id number] Performed By: #### U RMPA #### [facility] CLIA [id number] [address] [place] [address] [place] Methylmalonate SerPl-sCncon 12-01-2022 Methylmalonate [Moles/Vol] 228 nmol/L Normal 79-376 [facility] Comment on above: Order Comment: Ashlee pagan Type: BLOOD SPECIMEN Ordering Facility: [facility] Address: [address] [facility] [place] [address] Result Comment: This test was developed and its performance characteristics determined by [facility] Grzegorz Villegas [facility] Pathology and Laboratory Medicine [place] ([facility]). It has not been cleared or approved by the FDA. [facility] is regulated under CLIA as qualified to perform high-complexity testing. This test is used for clinical purposes. It should not be regarded as investigational or for research. Performed By: #### 1 3964-2 #### [facility] CLIA [id number] [address] [place] [address] [place] VITAMIN B12 BLOODon 12-02-19 23 Cobalamin (Vitamin B12) [Mass/Vol] 682 pg/mL 232 - 1,245 pg/mL [facility] Vit B12 SerPl-mCncon 023 Cobalamin (Vitamin B12) [Mass/Vol] 682 pg/mL Normal 232-1245 [facility] Comment on above: Order Comment: Ashlee pagan Type: BLOOD SPECIMEN Ordering Facility: [facility] Address: [place] [address] Performed By: #### 2 132-9 #### [facility] CLIA [id number] [address] [place] [id number] [place] Basophil percentageOrdered B y: Arleen Lazar on 09-15-2022 Bilirubin [Mass/Vol] 0.50 mg/dL 0.20-1.00 [facility] Comment on above: For patients on eltr ombopag therapy, use of Dimension [place] TBIL is not recommended. Chloride [Moles/Vol] 103 mmol/L 98-107 [facility] Cholesterol [Mass/Vol] 197 mg/dL <200 [facility] Comment on above: <200 mg/dL Desirable 200-240 mg/dL Borderline >240 mg/dL High Risk Glucose [Mass/Vol] 118 mg/dL 74-106 [facility] Comment on above: Fasting Glucose resu lt from 100 to 125 mg/dL suggests IMPAIRED HOMEOSTASIS per A.D.A. criteria. Potassium [Moles/Vol] 4.3 mmol/L 3.5-5.1 [facility] Protein [Mass/Vol] 8.3 g/dL 6.4-8.2 [facility] Sodium [Moles/Vol] 140 mmol/L 136-145 [facility] Triglyceride [Mass/Vol] 243 mg/dL <199 [facility] Comment on above: The drugs N-Acetylcy steine and Metamizole may falsely depress this assay.Serum Triglycerides Reference Interval Normal <150 mg/dL Borderline high 150 - 199 mg/dL High 200 - 499 mg/dL Very High > or = 500 mg/dL Laboratory - Chemistry and C hemistry - challengeOrdered By: Arleen Lazar on 09-15-2022 ALP [Catalytic activity/Vol] 139 U/L 45-117 [facility] ALT [Catalytic activity/Vol] 90 U/L 13-56 [facility] CO2 [Moles/Vol] 29.0 mmol/L 21.0-32.0 [facility] Globulin (S) [Mass/Vol] 4.5 g/dL 2.2-4.[address] [facility] Urea nitrogen/Creatinine [Mass ratio] 24.3 mg/mg 10-20 [facility] No Panel InformationOrdered By: Arleen Lazar on 09-15-2022 Estimated GFR (MDRD) Amer 109 mL/min >60 [facility] Comment on above: GFR Calc Estimated GFR (MDRD) Non-Af Amer 90 mL/min >60 [facility] Comment on above: Non- GFR Calc Serum or plasma albumin aguila urement (mass/volume)Ordered By: Arleen Lazar on 09-15-2022 Albumin [Mass/Vol] 3.8 g/dL 3.2-5.0 [facility] Serum or plasma albumin/glob ulin mass ratioOrdered By: Arleen Lazar on 09-15-2022 Albumin/Globulin [Mass ratio] 0.8 {ratio} 0.9-2.4 [facility] Serum or plasma calcium aguila urement (mass/volume)Ordered By: Arleen Lazar on 09-15-2022 Calcium [Mass/Vol] 9.7 mg/dL 8.5-10.1 [facility] Serum or plasma cholesterol in HDL measurement (mass/volume)Ordered By: Arleen Lazar on 09-15-2022 Cholesterol in HDL [Mass/Vol] 44 mg/dL >40 [facility] Comment on above: The drugs N-Acetylcy steine and Metamizole may falsely depress this assay. Reference Range HDL <40 mg/dL Low HDL Cholesterol HDL >or= 60 mg/dL High HDL Cholesterol Serum or plasma cholesterol in VLDL measurement (mass/volume)Ordered By: Arleen Lazar on 09-15-2022 Cholesterol in VLDL [Mass/Vol] 49 mg/dL 5-40 [facility] Serum or plasma creatinine m easurement (mass/volume)Ordered By: Arleen Lazar on 09-15-2022 Creatinine [Mass/Vol] 0.70 mg/dL 0.55-1.02 [facility] Comment on above: The validity of the calculated GFR & GFRAA in patients over 70 years has not been determined. Clinical correlation is essential. Serum or plasma low density lipoprotein (LDL) cholesterol measurement (mass/volume)Ordered By: Arleen Lazar on 09-15-2022 Cholesterol in LDL [Mass/Vol] 104 mg/dL 0-130 [facility] Serum or plasma urea nitroge n measurement (mass/volume)Ordered By: Arleen Lazar on 09-15-2022 Urea nitrogen [Mass/Vol] 17 mg/dL 7-18 [facility] Thin prep Papanicolaou smear with manual screeningOrdered By: Arleen Lazar on 09-15-2022 Thin prep Papanicolaou smear with manual screening 64 U/L 15-37 [facility] Thin prep Papanicolaou smear with manual screening 8 5-15 [facility] Culture, urineOrdered By: Cindy An on 08-19-2022 Bacteria identified Cx Nom (U) Presumptive E. coli [facility] Culture, urine Bacteria identified Cx Nom (U) Presumptive E. coli [facility] Work Phone: Vital Signs Date Time Vital Sign Value Performing Clinician Faci lity 05-22-2025 19:00-0400 Diastolic blood pressure 78 mm[Hg] Dr. Aaron Chandler MD Work Phone: [facility] 05-22-2025 19:00-0400 Heart rate 65 /min Dr. Aaron Chandler MD Work Phone: [facility] 05-22-2025 19:00-0400 Respiratory rate 18 /min Dr. Aaron Chandler MD Work Phone: [facility] 05-22-2025 19:00-0400 SaO2% (BldA) [Mass fraction] 98 % Dr. Aaron Chandler MD Work Phone: 9([phone])219-442587 [place] [address] 05-22-2025 19:00-0400 Systolic blood pressure 118 mm[Hg] Dr. Aaron Chandler MD Work Phone: 4(915)479-217263 [address] 05-22-2025 18:17-0400 Body temperature 98.2 [degF] Dr. Aaron Chandler MD Work Phone: 6(362)041-475087 [place] [address] 05-22-2025 16:15-0400 Body height 167.[address] Aaron Chandler MD Work Phone: 7(220)248-585763 [address] 05-22-2025 16:15-0400 Body mass index (BMI) [Ratio] 27.1 kg/m2 Dr. Aaron Chandler MD Work Phone: 3(172)248-733587 [place] [address] 05-22-2025 16:15-0400 Body weight 76.[address] Aaron Chandler MD Work Phone: [facility] 11-26-2024 06:00-0400 Body temperature 98.1 [degF] Dr. Aaron Chandler MD Work Phone: [facility] 11-26-2024 06:00-0400 Diastolic blood pressure 66 mm[Hg] Dr. Aaron Chandler MD Work Phone: [facility] 11-26-2024 06:00-0400 Heart rate 77 /min Dr. Aaron Chandler MD Work Phone: [facility] 11-26-2024 06:00-0400 Respiratory rate 16 /min Dr. Aaron Chandler MD Work Phone: [facility] 11-26-2024 06:00-0400 SaO2% (BldA) [Mass fraction] 96 % Dr. Aaron Chandler MD Work Phone: [facility] 11-26-2024 06:00-0400 Systolic blood pressure 100 mm[Hg] Dr. Aaron Chandler MD Work Phone: [facility] 11-26-2024 02:31-0400 Body height 167.[address] Aaron Chandler MD Work Phone: [facility] 11-26-2024 02:31-0400 Body mass index (BMI) [Ratio] 27.1 kg/m2 Dr. Aaron Chandler MD Work Phone: [facility] 11-26-2024 02:31-0400 Body weight 76.[address] Aaron Chandler MD Work Phone: [facility] 11-17-2024 12:55-0400 Body mass index (BMI) [Ratio] 25.86 kg/m2 Sabi Cardona MD Work Phone: [facility] 11-17-2024 12:55-0400 Body weight 74.9 kg Sabi Cardona MD Work Phone: [facility] 11-17-2024 12:55-0400 Diastolic blood pressure 68 mm[Hg] Sabi Cardona MD Work Phone: [facility] 11-17-2024 12:55-0400 Heart rate 100 /min Sabi Cardona MD Work Phone: [facility] 11-17-2024 12:55-0400 SaO2% (BldA) [Mass fraction] 96 % Sabi Cardona MD Work Phone: [facility] 11-17-2024 12:55-0400 Systolic blood pressure 120 mm[Hg] Sabi Cardona MD Work Phone: [facility] 03-31-2024 13:08-0400 Diastolic blood pressure 71 mm[Hg] Sabi Cardona MD Work Phone: [facility] 03-31-2024 13:08-0400 Heart rate 68 /min Sabi Cardona MD Work Phone: [facility] 03-31-2024 13:08-0400 SaO2% (BldA) [Mass fraction] 95 % Sabi Cardona MD Work Phone: [facility] 03-31-2024 13:08-0400 Systolic blood pressure 107 mm[Hg] Sabi Cardona MD Work Phone: [facility] 01-11-2024 08:43-0400 Diastolic blood pressure 58 mm[Hg] Sabi Cardona MD Work Phone: [facility] 01-11-2024 08:43-0400 Heart rate 88 /min Sabi Cardona MD Work Phone: [facility] 01-11-2024 08:43-0400 Systolic blood pressure 109 mm[Hg] Sabi Cardona MD Work Phone: [facility] 12-04-2023 23:59-0400 Body temperature 98.1 [degF] [facility] 12-04-2023 23:59-0400 Diastolic blood pressure 78 mm[Hg] [facility] 12-04-2023 23:59-0400 Heart rate 78 /min [facility] 12-04-2023 23:59-0400 Respiratory rate 16 /min [facility] 12-04-2023 23:59-0400 SaO2% (BldA) [Mass fraction] 97 % [facility] 12-04-2023 23:59-0400 Systolic blood pressure 92 mm[Hg] [facility] 12-04-2023 21:17-0400 Body height 167.64 cm [facility] 12-04-2023 21:17-0400 Body mass index (BMI) [Ratio] 28 kg/m2 [facility] 12-04-2023 21:17-0400 Body weight 78.9 kg [facility] 08-23-2023 13:13-0500 Diastolic blood pressure 86 mm[Hg] Judy Nielsen MD Work Phone: [facility] 08-23-2023 13:13-0500 Systolic blood pressure 104 mm[Hg] Judy Nielsen MD Work Phone: [facility] 04-12-2023 12:22-0400 Diastolic blood pressure 77 mm[Hg] Judy Nielsen MD Work Phone: [facility] 04-12-2023 12:22-0400 Heart rate 87 /min Judy Nielsen MD Work Phone: [facility] 04-12-2023 12:22-0400 Systolic blood pressure 103 mm[Hg] Judy Nielsen MD Work Phone: [facility] 02-26-2023 09:24-0400 Body height 170.2 cm Mohrony Agrawal SYSTEMS CHECKOUT MECHANIC.REAL TIME ANALYST Work Phone: [facility] 02-26-2023 09:24-0400 Body weight 83.92 kg Mohrony Agrawal SYSTEMS CHECKOUT MECHANIC.REAL TIME ANALYST Work Phone: [facility] 02-26-2023 09:24-0400 Diastolic blood pressure 75 mm[Hg] Naima Vasquezdaazar SYSTEMS CHECKOUT MECHANIC.REAL TIME ANALYST Work Phone: [facility] 02-26-2023 09:24-0400 Heart rate 80 /min Naima Agrawal SYSTEMS CHECKOUT MECHANIC.REAL TIME ANALYST Work Phone: [facility] 02-26-2023 09:24-0400 SaO2% (BldA) [Mass fraction] 100 % Mohrony Vasquezdaazar SYSTEMS CHECKOUT MECHANIC.REAL TIME ANALYST Work Phone: [facility] 02-26-2023 09:24-0400 Systolic blood pressure 119 mm[Hg] Naima Vasquezdaazar SYSTEMS CHECKOUT MECHANIC.REAL TIME ANALYST Work Phone: [facility] 12-01-2022 09:04-0400 Diastolic blood pressure 73 mm[Hg] Judy Nielsen MD Work Phone: [facility] 12-01-2022 09:04-0400 Heart rate 80 /min Judy Nielsen MD Work Phone: [facility] 12-01-2022 09:04-0400 Systolic blood pressure 125 mm[Hg] Judy Nielsen MD Work Phone: [facility] 11-10-2022 10:03-0500 Body weight 89.4 kg Sabi Cardona MD Work Phone: [facility] 11-10-2022 10:03-0500 Diastolic blood pressure 71 mm[Hg] Sabi Cardona MD Work Phone: [facility] 11-10-2022 10:03-0500 Heart rate 84 /min Sabi Cardona MD Work Phone: [facility] 11-10-2022 10:03-0500 SaO2% (BldA) [Mass fraction] 95 % Sabi Cardona MD Work Phone: [facility] 11-10-2022 10:03-0500 Systolic blood pressure 120 mm[Hg] Sabi Cardona MD Work Phone: [facility] Encounters Encounter Date Encounter Type Care Provider Facility Start: 05-22-2025 Evaluation and management of inpatient Dr. Kamille Braden MD -Progressive Care Unit Work Phone: Start: 05-22-[address] Aaron Chandler MD Work Phone: -Progressive Care Unit Start: 05-03-2025 ambulatory Aaron Chandler Facility:[facility] Start: 04-18-2025 End: 04-18-[address] Aaron Chandler MD Work Phone: -[facility] [place] Start: 04-18-2025 End: 04-18-[address] Aaron Chandler MD -[facility] [place] Work Phone: Start: 04-18-2025 End: 04-18-2025 ambulatory Aaron Chandler Facility:[facility] Start: 04-05-2025 End: 04-05-[address] Aaron Chandler MD Work Phone: -[facility] [place] Start: 04-05-2025 End: 04-05-[address] Aaron Chandler MD -[facility] [place] Work Phone: Start: 04-05-2025 End: 04-05-2025 ambulatory Aaron Chandler Facility:[facility] Start: 03-06-2025 End: 03-06-2025 Telephone encounter Sabi Cardona MD Work Phone: Neurology Comment on above: Insurance Authorizat ion; [employer], [employer] Start: 02-28-2025 End: 03-02-2025 ambulatory ADAM G (REBECARod DESTINY Facility:[facility] Start: 02-22-2025 End: 02-22-[address] Aaron Chandler MD Work Phone: [facility] Work Phone: Start: 02-22-2025 End: 02-22-[address] Aaron Chandler MD -[facility] [place] Work Phone: Start: 02-21-2025 End: 02-21-[address] Aaron Chandler MD -[facility] [place] Work Phone: Start: 02-21-2025 End: 02-21-2025 Telemedicine consultation with patient Sabi Cardona MD Work Phone: Neurology Start: 02-21-2025 End: 02-22-2025 ambulatory Sabi Cardona MD Work Phone: Neurology Comment on above: Intractable migraine without aura and without status migrainosus (Primary Dx) Start: 02-21-2025 End: 02-21-2025 ambulatory Aaron Chandler Facility:[facility] Start: 01-02-2025 End: 01-02-2025 Telephone encounter Sabi Cardona MD Work Phone: Neurology Comment on above: Appointment Start: 11-26-2024 End: 11-26-2024 Emergency department patient visit Dr. Aaron Chandler MD Work Phone: -Emergency Department Work Phone: Start: 11-17-2024 End: 11-17-2024 ambulatory SABI CARDONA Facility:[facility] Start: 11-17-2024 End: 11-17-2024 Office outpatient visit 25 minutes Sabi Cardona MD Work Phone: Neurology Comment on above: Medication monitorin g encounter (Primary Dx); Chronic migraine without aura, intractable, without status migrainosus Start: 11-09-2024 End: 11-09-[address] Aaron Chandler MD Work Phone: [facility] Work Phone: Start: 11-09-2024 End: 11-09-[address] Aaron Chandler MD -Laboratory, [facility] Start: 11-09-2024 End: 11-09-2024 ambulatory Aaron Chandler Facility:[facility] Start: 07-15-2024 End: 07-15-2024 Emergency department patient visit Aaron Chandler Facility:[facility] Start: 07-04-2024 End: 07-04-2024 ambulatory Aaron Chandler Facility:[facility] Start: 06-02-2024 End: 06-02-2024 ambulatory Aaron Chandler Facility:[facility] Start: 04-08-2024 End: 04-08-2024 Emergency department patient visit ADAM Espinosa (HISTORICAL) DESTINY Facility:[facility] Start: 03-31-2024 End: 03-31-2024 ambulatory SABI CARDONA Facility:[facility] Start: 03-31-2024 End: 03-31-2024 Office outpatient visit 10 minutes Sabi Cardona MD Work Phone: Neurology Comment on above: Chronic migraine wit hout aura, intractable, without status migrainosus Start: 02-22-2024 End: 02-22-2024 Patient encounter procedure Yovani Powers OD Work Phone: Ophthalmology Comment on above: Type 2 diabetes justyn itus without retinopathy (HCC) (Primary Dx); Nuclear sclerotic cataract of both eyes; Bilateral presbyopia Start: 01-11-2024 End: 01-11-2024 Office outpatient visit 25 minutes Sabi Cardona MD Work Phone: Neurology Comment on above: Intractable chronic migraine without aura and with status migrainosus (Primary Dx); Medication monitoring encounter Start: 12-21-2023 End: 12-21-2023 ambulatory [facility] Work Phone: Start: 12-21-2023 End: 12-21-2023 Discharged Recurring [facility]-Physical Therapy Work Phone: Start: 12-04-2023 End: 12-05-2023 Emergency department patient visit [facility]-Emergency Department Work Phone: Start: 12-03-2023 Registered Recurring [facility]-Physical Therapy Work Phone: Start: 11-17-2023 Telephone encounter Henny Bautista MD Work Phone: Pain Management Comment on above: Automation Qtp Tester - O ther (PT update faxed back to PT ) Start: 11-09-2023 Registered Recurring [facility]-Physical Therapy Work Phone: Start: 11-08-2023 End: 11-08-2023 ambulatory [facility] Work Phone: Start: 11-08-2023 End: 11-08-2023 Patient encounter procedure [facility] [place] Work Phone: Start: 10-27-2023 E-mail encounter fro m caregiver Henny Saravia MD Work Phone: [facility] Start: 10-27-2023 Patient encounter procedure Henny Saravia MD Work Phone: Pain Management Comment on above: Upcoming Pain Manage ment Appointment Start: 08-23-2023 End: 08-23-2023 Patient encounter procedure Judy Nielsen MD Work Phone: Neurology Comment on above: Other chronic pain ( Primary Dx); Multifocal sensory motor inflammatory neuropathy (HCC); Motor neuron disorder (HCC) Start: 04-12-2023 End: 04-12-2023 Patient encounter procedure Judy Nielsen MD Work Phone: Neurology Comment on above: Peripheral neuropath y, idiopathic (Primary Dx); Motor neuron disorder (HCC); Multifocal sensory motor inflammatory neuropathy (HCC) Start: 03-30-2023 Refill Sabidipak boone MD Work Phone: Internal Medicine Comment on above: Refill Request Start: 03-17-2023 End: 03-17-2023 ambulatory [facility] Work Phone: Start: 03-17-2023 End: 03-17-2023 [facility] Start: 02-26-2023 End: 02-26-2023 Patient encounter procedure Naima Agrawal APRN.CNP Work Phone: Neurology Comment on above: Chronic migraine wit hout aura, intractable, without status migrainosus (Primary Dx) Start: 12-24-2022 Telephone encounter Sabi Cardona MD Work Phone: Neurology Comment on above: office note (faxed) Question Start: 12-01-2022 End: 12-02-2022 ambulatory JUDY NIELSEN Facility:[facility] Start: 12-01-2022 End: 12-01-2022 Patient encounter procedure Judy Nielsen MD Work Phone: Neurology Comment on above: 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 Polo) Start: 09-15-2022 End: 09-15-2022 ambulatory [facility] Work Phone: Start: 09-15-2022 End: 09-15-2022 Patient encounter procedure [facility]-Laboratory, [facility] Start: 08-17-2022 End: 08-17-2022 ambulatory [facility] Work Phone: Start: 08-17-2022 End: 08-17-2022 Patient encounter procedure [facility]-Laboratory, Specimen Start: 07-10-2022 End: 07-10-2022 ambulatory [facility] Work Phone: Start: 07-10-2022 End: 07-10-2022 Discharged Recurring [facility]-Physical Therapy Start: 06-29-2022 End: 06-29-2022 ambulatory [facility] Work Phone: Start: 06-29-2022 End: 06-29-2022 Patient encounter procedure [facility]-Radiology, [place] Procedures Date Procedure Procedure Detail Performing Clinician Start: 05-22-2025 CT angiography of he ad and neck Dr. Aaron Chandler MD Work Phone: Start: 05-22-2025 CT of head without contrast Dr. Aaron Chandler MD Work Phone: Start: 05-22-[address] Aaron Chandler MD Work Phone: Start: 04-18-2025 X-ray of knee, four or more views Dr. Aaron Chandler MD Work Phone: Start: 04-05-2025 Plain x-ray of hand Dr. Aaron Chandler MD Work Phone: Start: 04-05-2025 Plain x-ray of humerus Dr. Aaron Chandler MD Work Phone: Start: 04-05-2025 Plain X-ray of shoulder Dr. Aaron Chandler MD Work Phone: Start: 04-05-2025 Plain x-ray of wrist Dr Ian Chandler MD Work Phone: Start: 02-22-2025 X-ray of knee, four or more views Dr. Aaron Chandler MD Work Phone: Start: 02-21-2025 X-ray of foot, three or more views Dr. Aaron Chandler MD Work Phone: Start: 11-09-2024 Urine microalbumin/creatinine ratio measurement Dr. Aaron Chandler MD Work Phone: Start: 12-04-2023 Plain chest X-ray Start: 12-04-2023 CT of head without contrast Start: 11-08-2023 Plain x-ray of wrist Start: 06-29-2022 Plain x-ray of pelvi s and lower extremity Start: 06-29-2022 X-ray of lumbosacral spine Start: 01-18-2020 Lipid 1996 panel - S libra or Plasma Judy Nielsen MD Work Phone: Urine culture Urine culture Plan of Treatment Date Care Activity Detail Author Start: 03-31-2027 Diabetes Screening Diabetes Screening [facility] Start: 01-10-2027 Diabetes Screening Diabetes Screening [facility] Start: 12-01-2025 DIABETES SCREEN DIABETES SCREEN [facility] Start: 12-01-2025 Diabetes Screening Diabetes Screening [facility] Start: 05-22-2025 Verification routine [facility] Start: 05-22-2025 [facility] Start: 05-22-2025 Admission procedure [facility] Start: 05-22-2025 Hospital admission, emergency, from emergency room, medical nature [facility] Start: 05-22-2025 Electrocardiographic procedure [facility] Start: 05-22-2025 [facility] Start: 05-07-2025 Influenza vaccination [facility] Start: 04-25-2025 End: 04-25-2025 Patient encounter procedure 04/25/2025 2:00 PM EDT Office Visit [facility]HT Ophthalmology [address] [place], [place] [id number] Yovani Powers, OD [address] [place], [place] [address] Diagnostics, [facility] [address] [address] pt is aware of new loc Ophthalmology Comment on above: pt is aware of new loc Start: 02-23-2025 End: 02-23-2025 Patient encounter procedure 02/23/2025 1:00 PM EDT Office Visit Neurology [address] [facility] [place] [address] [place] [address] [place] [address] 3 month follow up Neurology Comment on above: 3 month follow up Start: 02-22-2025 End: 02-22-2025 Patient encounter procedure Ophthalmolog y Comment on above: Return in about 1 year (around 02/21/2025 ) for full diabetic exam. pt is aware of new l oc Start: 02-21-2025 Glaucoma screening Dilated Retinal Exam [facility] Start: 01-17-2025 Lipid panel Lipid Screening [facility] Start: 01-17-2025 LIPID SCREEN LIPID SCREEN [facility] Start: 12-18-2024 Advance Directive Discussion Advance Directive Discussion [facility] Start: 12-18-2024 Screening for osteoporosis Bone Density Screening [facility] Start: 11-26-2024 [facility] Start: 11-17-2024 End: 02-16-2025 CBC panel - Blood by Automated count COMPLETE BLOOD COUNT Lab Routine Medication monitoring encounter Expected: 11/17/2024, Expires: 02/16/2025 [facility] Comment on above: Expected: 11/17/2024, Expires: Start: 11-17-2024 End: 02-16-2025 Comprehensive metabolic 2000 panel - Serum or Plasma COMPREHENSIVE METABOLIC PANEL Lab Routine Medication monitoring encounter Expected: 11/17/2024, Expires: 02/16/2025 [facility] Work Phone: Comment on above: Expected: 11/17/2024, Expires: Start: 09-06-2024 Medicare Advantage Annual Wellness Visit Medicare Advantage Annual Wellness Visit [facility] Start: 08-01-2024 End: 08-01-2024 Patient encounter procedure 08/01/2024 3:00 PM EST Office Visit Neurology [address] [place] [address] [place] [address] [place] [address] Follow up Neurology Comment on above: Follow up Start: 05-07-2024 Covid-19 Vaccine () Covid-19 Vaccine () [facility] Start: 05-07-2024 Influenza vaccination [facility] Start: 03-31-2024 End: 03-31-2024 Patient encounter procedure 03/31/2024 1:00 PM EDT Office Visit Neurology [address] [place] [address] [place] [address] [place] [address] Follow up Neurology Comment on above: Follow up Start: 03-01-2024 End: 03-01-2024 Patient encounter procedure Neurology Comment on above: 6 month follow up Start: 02-11-2024 End: 05-12-2024 CBC panel - Blood by Automated count COMPLETE BLOOD COUNT Lab Routine Medication monitoring encounter Expected: 02/11/2024 (Approximate), Expires: 05/12/2024 [facility] Work Phone: Comment on above: Expected: 02/11/2024 (Approximate), Expi res: 05/12/2024 Start: 02-11-2024 End: 05-12-2024 Comprehensive metabolic 2000 panel - Serum or Plasma COMPREHENSIVE METABOLIC PANEL Lab Routine Medication monitoring encounter Expected: 02/11/2024 (Approximate), Expires: 05/12/2024 [facility] Comment on above: Expected: 02/11/2024 (Approximate), Expi res: 05/12/2024 Start: 02-07-2024 End: 02-07-2024 Patient encounter procedure 02/07/2024 10:00 AM EDT Office Visit Pain Management [address] [place] [address] Morena Hanna, SYSTEMS CHECKOUT MECHANIC.REAL TIME ANALYST [address] [place] [address] PAIN FOLLOW UP Pain Management Comment on above: PAIN FOLLOW UP Start: 02-02-2024 End: 02-02-2024 Patient encounter procedure 02/02/2024 12:45 PM EDT Office Visit [facility] Ophthalmology [address] [place] [address] Yovani Powers, OD [address] [place] [address] Annual diabetic exam Ophthalmology Comment on above: Annual diabetic exam Start: 12-04-2023 [facility] Start: 09-06-2023 Depression Assessment Depression Assessment [facility] Start: 06-03-2023 Hemoglobin A1c measurement HbA1C [facility] Start: 05-07-2023 Covid-19 Vaccine ( season) Covid-19 Vaccine () [facility] Start: 05-07-2023 Influenza vaccination [facility] Start: 12-01-2022 End: 01-31-2023 25-hydroxyvitamin D3 [Mass/volume] in Serum or Plasma [facility] Work Phone: Comment on above: Expected: 12/01/2022, Expires: 3 Start: 12-01-2022 End: 01-31-2023 Hemoglobin A1c in Blood [facility] Work Phone: Comment on above: Expected: 12/01/2022, Expires: 3 Start: 12-01-2022 End: 01-31-2023 Methylmalonate [Moles/volume] in Serum or Plasma [facility] Work Phone: Comment on above: Expected: 12/01/2022, Expires: 3 Start: 12-01-2022 End: 01-31-2023 MONOCLONAL PROT UR W/INTERP [facility] Work Phone: Comment on above: Expected: 12/01/2022, Expires: 3 Start: 12-01-2022 End: 01-31-2023 MONOCLONAL PROTEIN, SERUM (BLOOD) [facility] Work Phone: Comment on above: Expected: 12/01/2022, Expires: 3 Start: 09-06-2022 DEPRESSION ASSESSMENT DEPRESSION ASSESSMENT [facility] Start: 08-29-2022 DIABETES SCREEN DIABETES SCREEN [facility] Start: 05-07-2022 Influenza vaccination INFLUENZA (#1) [facility] Start: 2019 RSV Vaccine (1 - 1-dose 60+ series) RSV Vaccine (1 - 1-dose 60+ series) [facility] Start: 2019 RSV Vaccine (1 - Risk 60-74 years 1-dose series) RSV Vaccine (1 - Risk 60-74 years 1-dose series) [facility] Start: 12-18-2009 Pneumococcal Vaccine: 50+ (1 of 1 - PCV) Pneumococcal Vaccine: 50+ (1 of 1 - PCV) [facility] Start: 12-18-2009 SHINGRIX VACCINE (1 of 2) SHINGRIX VACCINE (1 of 2) [facility] Start: 12-18-2004 COLOGUARD (FIT-DNA) COLOGUARD (FIT-DNA) [facility] Start: 12-18-2004 Colonoscopy COLONOSCOPY [facility] Start: 12-18-2004 COLORECTAL CANCER SCREENING COLORECTAL CANCER SCREENING [facility] Start: 12-18-[address] COLONOGRAPHY [facility] Start: 12-18-2004 FECAL OCCULT BLOOD FECAL OCCULT BLOOD [facility] Start: 12-18-2004 Screening for malignant neoplasm of colon [facility] Start: 12-18-2004 SIGMOIDOSCOPY SIGMOIDOSCOPY [facility] Start: 1999 Mammography MAMMOGRAM [facility] Start: 1999 Screening for malignant neoplasm of breast Mammogram Screening [facility] Start: 12-18-1989 HPV TESTING HPV TESTING [facility] Start: 12-18-1989 Screening for malignant neoplasm of cervix HPV Testing [facility] Start: 12-18-1980 PAP TESTING PAP TESTING [facility] Start: 12-18-1980 Screening for malignant neoplasm of cervix [facility] Start: 12-18-1978 Pneumococcal Vaccine: 50+ (1 of 2 - PCV) Pneumococcal Vaccine: 50+ (1 of 2 - PCV) [facility] Start: 12-18-1978 Urine microalbumin profile [facility] Start: 12-18-1977 Annual PCP Team Chronic Disease Visit Annual PCP Team Chronic Disease Visit [facility] Start: 12-18-1977 Anxiety Screening Anxiety Screening [facility] Start: 12-18-1977 Depression Screening Depression Screening [facility] Start: 12-18-1977 Hepatitis B surface antibody level LDL Cholesterol [facility] Start: 12-18-1977 HEPATITIS C SCREENING HEPATITIS C SCREENING [facility] Start: 12-18-1977 HIV SCREENING HIV SCREENING [facility] Start: 12-18-1977 HIV screening HIV Screening [facility] Start: 12-18-1969 Diabetic foot examination Diabetic Foot Exam [facility] Start: 12-18-1969 Hepatitis B screening Urine Albumin:Creatinine Ratio [facility] Start: 06-19-1960 COVID-19 VACCINE (#1) COVID-19 VACCINE (#1) [facility] Patient Education [facility] Work Phone: Patient referral [facility] Work Phone: Troponin T.cardiac [Mass/volume] in Serum or Plasma by High sensitivity method [facility] Troponin T.cardiac [Mass/volume] in Serum or Plasma by High sensitivity method [facility] Immunizations Immunization Date Immunization Notes Care Provider Sherman ortiz 06-10-2016 influenza, injectabl e, quadrivalent, preservative free [facility] 06-10-2016 influenza, seasonal, injectable [facility] 06-10-2016 influenza virus vaccine, unspecified formulation Judy Nielsen MD Work Phone: [facility] 06-11-2015 influenza, injectabl e, quadrivalent, preservative free [facility] 06-11-2015 influenza, seasonal, injectable [facility] 05-31-2014 influenza, injectabl e, quadrivalent, preservative free [facility] 05-31-2014 influenza, seasonal, [facility] Payers Date Payer Category Payer Unknown [id number] 2024 Self-pay 2023 Medicare (Managed Care) [facility] DUAL COMPLETE HMO POS SNP [id number] 2023 Medicare [id number] 2023 Unknown [id number] 2022 Medicare [id number] 2022 Unknown [id number] Unknown [id number] Unknown [id number] Unknown [facility] HMO [id number] Unknown [id number] Unknown [id number] 462 Unknown [id number] 462 Unknown [id number] 462 Unknown [id number] 462 Unknown [id number] 462 Unknown [id number] 462 Unknown [id number] 462 Unknown [id number] 462 Unknown [id number] 462 Social History Date Type Detail Facility Start: 02-20-2016 End: 12-04-2023 Tobacco smoking status OKIS Unknown if ever smoked [facility] Start: 1960 Sex Assigned At Female [facility] Start: 07-15-2024 End: 05-22-2025 Tobacco smoking status NHIS Never smoked tobacco [facility] Start: 01-05-2014 End: 02-28-2025 Alcohol intake Current non-drinker of alcohol (finding) [facility] Start: 1960 Sex Assigned At Not on file [facility] Start: 01-25-2023 End: 02-26-2023 History of Social function [facility] Start: 01-25-2023 End: 02-26-2023 Tobacco use panel [facility] Adult Depression Screening Assessment 4 [facility] Start: 11-26-2022 Gender identity Identifies as female gender (finding) [facility] Start: 11-26-2022 Sexual orientation Heterosexual (fin ding) [facility] Start: 11-23-2024 End: 11-26-2024 Sex Female (finding) [facility] Functional Status Date Assessment Result Facility 03-02-2025 Are you deaf, or do you have serious difficulty hearing No 03/02/2025 2:51 PM EDT Marya Vasquez RN No [facility] 03-02-2025 Are you blind, or do you have serious difficulty seeing, even when wearing glasses No 03/02/2025 2:51 PM EDT Marya Vasquez RN No [facility] 03-02-2025 Do you have serious difficulty walking or climbing stairs No 03/02/2025 2:51 PM EDT Marya Vasquez RN No [facility] 03-02-2025 Do you have difficul ty dressing or bathing No 03/02/2025 2:51 PM EDT Marya Vasquez RN No [facility] 03-02-2025 Because of a physica l, mental, or emotional condition, do you have difficulty doing errands alone such as visiting a physician's office or shopping No 03/02/2025 2:51 PM EDT Marya Vasquez RN No [facility] 01-05-2014 Are you deaf, or do you have serious difficulty hearing No 01/05/2014 8:56 AM EDT Sue Hill MA No [facility] 01-05-2014 Are you blind, or do you have serious difficulty seeing, even when wearing glasses No 01/05/2014 8:56 AM EDT Sue Hill MA No [facility] 01-05-2014 Do you have serious difficulty walking or climbing stairs Yes 01/05/2014 8:56 AM EDT Sue Hill MA Yes [facility] 01-05-2014 Do you have difficul ty dressing or bathing No 01/05/2014 8:56 AM EDT Sue Hill MA No [facility] 01-05-2014 Because of a physica l, mental, or emotional condition, do you have difficulty doing errands alone such as visiting a physician's office or shopping No 01/05/2014 8:56 AM EDT Sue Hill MA No [facility] Mental Status Date Assessment Result Facility 05-22-2025 Cognitive function Appropriate;Cooperativ e [facility] Work Phone: 03-02-2025 Because of a physica l, mental, or emotional condition, do you have serious difficulty concentrating, remembering, or making decisions No 03/02/2025 2:51 PM EDT Marya Vasquez RN No [facility] 12-04-2023 Cognitive function Awake;Alert;A ppropriate; Follows Commands [facility] Work Phone: 01-05-2014 Because of a physica l, mental, or emotional condition, do you have serious difficulty concentrating, remembering, or making decisions No 01/05/2014 8:56 AM EDT Sue Hill MA No [facility] Clinical Notes 09-24-2022 to 05-22-2025 Telephone Encounter - Uma Green - 03/06/2025 11:04 AM EDTTelephone Encounter - Uma Green - 03/06/2025 11:04 AM Sabi Castillo MD - 02/21/2025 11:00 AM EDTPatient Instructions Note Date & Type Note Facility 05-22-2025 Radiology Diagnostic study note [facility] Imaging Services [address] [place] [address] STROKE CTA Head AND Neck W/Con MR#: [id number] Acct: [id number] Name: GERBER HILL Rep #: [id number] : 1960 F 64 From: Zaire Uribe MD PCP: Dr. Aaron Chandler MD Status: REG E R Study:STROKE CTA Head AND Neck W/Con Date of Exam: 05/22/25 Exam# [id number] Ordering Dr: Severino Kohli MD PROCEDURE: STROKE CTA HEAD AND NECK W/CON 05/22/2025 REASON FOR EXAM: NEURO DEFICIT, ACUTE, STROKE SUSPECTED TECHNIQUE: Procedure Code: CTCTA.ST.HN Modality: CT Procedure: STROKE CTA HEAD AND NECK W/CON Multiplanar Sagittal and Coronal images were obtained. 3D post processing was performed. CONTRAST: Isovue 370 VOLUME: 100 mL One or more dose reduction techniques were used (e.g., Automated exposure control, adjustment of the mA and/or kV according to patient size, use of iterative reconstruction technique). RADIATION DOSE SUMMARY: DLP: 667.18 mGycm COMPARISON: None. FINDINGS: CTA HEAD: Patent intracranial arterial vasculature. No large vessel occlusion, flow-limiting stenosis, saccular aneurysm, or vascular malformation identified. Dural venous sinuses appear patent. CTA NECK: Conventional aortic arch branching. Bilateral cervical carotid and codominant vertebral arteries are patent without significant stenosis. No aneurysm or dissection. CT/STROKE CTA Head AND Neck W/Con IMPRESSION: Widely patent intracranial and cervical arterial vasculature. Reading Location: [facility] CC: Dr. Kelsey Kohli MD; Dr. Aaron Chandler MD ~ Commercial Instructor Supervisor: Signed [facility] 05-22-2025 Radiology Diagnostic study note [facility] Imaging Services [address] [place], [place] [address] STROKE Brain/Head without Cont MR#: [id number] Acct: [id number] Name: GERBER HILL Rep #: [id number] : 1960 F 64 From: Zaire Uribe MD PCP: Dr. Aaron Chandler MD Status: REG E R Study:STROKE Brain/Head without Cont Date of Exam: 05/22/25 Exam# [id number] Ordering Dr: Severino Kohli MD PROCEDURE: STROKE CT BRAIN/HEAD WITHOUT CONTRAST 05/22/2025 REASON FOR EXAM: NEURO DEFICIT, ACUTE, STROKE SUSPECTED TECHNIQUE: Procedure Code: CTBR.ST Modality: CT Procedure: STROKE BRAIN/HEAD WITHOUT CONT Coronal and Sagittal reconstruction series were provided. One or more dose reduction techniques were used (e.g., Automated exposure control, adjustment of the mA and/or kV according to patient size, use of iterative reconstruction technique. RADIATION DOSE SUMMARY: CTDlvol: 44.99 mGy DLP: 779.24 mGycm COMPARISON: 12/04/2023 FINDINGS: No acute intracranial hemorrhage, extra-axial collection, mass effect or evidence of acute infarct. Ventricles and subarachnoid spaces are normal in size. Orbital contents are unremarkable. Intact skull base and calvarium. Clear paranasal sinuses and mastoid air cells. CT/STROKE Brain/Head without Cont IMPRESSION: No acute intracranial abnormality. Reading Location: [facility] CC: Dr. Kelsey Kohli MD; Dr. Aaron Chandler MD ~ Commercial Instructor Supervisor: Signed [facility] 04-19-2025 Radiology Diagnostic study note [facility] Imaging Services [address] [place] [address] Knee 4 or More Views MR#: [id number] Acct: [id number] Name: GERBER HILL Rep #: [id number] : 1960 F 64 From: Jean-Paul Alfonso MD PCP: Dr. Aaron Chandler MD Status: [facility] Study:Knee 4 or More Views Date of Exam: 04/18/25 Exam# [id number] Ordering Dr: Aaron Chandler MD PROCEDURE: KNEE 4 OR MORE VIEWS 04/18/2025 REASON FOR EXAM: FALL TECHNIQUE: KNEE 4 OR MORE VIEWS Laterality: COMPARISON: 02/22/2025. FINDINGS: No evidence acute fracture or dislocation. Mild degenerative changes of the knee. No knee joint effusion. RAD/Knee 4 or More Views IMPRESSION: Mild osteoarthrosis. No acute osseous abnormalities. Reading Location: [facility] CC: Dr. Aaron Chandler MD ~ Commercial Instructor Supervisor: Signed [facility] 04-05-2025 Radiology Diagnostic study note [facility] Imaging Services [address] [place], [place] [address] Shoulder min 2 Views MR#: [id number] Acct: [id number] Name: GERBER HILL Rep #: [id number] : 1960 F 64 From: Arun Calhoun MD PCP: Dr. Aaron Chandler MD Status: [facility] Study:Shoulder min 2 Views Date of Exam: 04/05/25 Exam# [id number] Ordering Dr: Aaron Chandler MD PROCEDURE: SHOULDER MIN 2 VIEWS 04/05/2025 REASON FOR EXAM: Pain, decreased range of motion TECHNIQUE: SHOULDER MIN 2 VIEWS four views total COMPARISON: None FINDINGS: Bones: No fracture or suspicious osseous lesion Joints: Age consistent glenohumeral and acromioclavicular joint arthrosis. Soft tissues: No foreign body or suspicious soft tissue swelling Other: RAD/Shoulder min 2 Views IMPRESSION: Age consistent degenerative changes, no acute findings Reading Location: [facility] CC: Dr. Aaron Chandler MD ~ Commercial Instructor Supervisor: Signed [facility] 04-05-2025 Radiology Diagnostic study note [facility] Imaging Services [address] [place], [place] [address] Wrist min 3 Views MR#: [id number] Acct: [id number] Name: GERBER HILL Rep #: [id number] : 1960 F 64 From: Arun Calhoun MD PCP: Dr. Aaron Chandler MD Status: REG C LI Study:Wrist min 3 Views Date of Exam: Exam# [id number] Ordering Dr: Aaron Chandler MD PROCEDURE: WRIST MIN 3 VIEWS 04/05/2025 REASON FOR EXAM: PAIN TECHNIQUE: WRIST MIN 3 VIEWS COMPARISON: 11/08/2023 FINDINGS: No demonstrated fracture or suspicious osseous lesion. There are extra-articular calcifications adjacent to the ulnar styloid likely from previous trauma. Age consistent narrowing of the radioscaphoid joint space and at the base of thethumb. No suspicious soft tissue swelling or foreign body. Overall, no interval change RAD/Wrist min 3 Views IMPRESSION: Stable degenerative changes, no acute findings or significant interval change Reading Location: [facility] CC: Dr. Aaron Chandler MD ~ Commercial Instructor Supervisor: Signed [facility] 04-05-2025 Radiology Diagnostic study note [facility] Imaging Services [address] [facility] [place], [place] [address] Humerus min 2 Views MR#: [id number] Acct: [id number] Name: GERBER HILL Rep #: [id number] : 1960 F 64 From: Joon Richards MD PCP: Dr. Aaron Chandler MD Status: REG C LI Study:Humerus min 2 Views Date of Exam: 04/05/25 Exam# [id number] Ordering Dr: Aaron Chandler MD PROCEDURE: HUMERUS MIN 2 VIEWS 04/05/2025 REASON FOR EXAM: PAIN TECHNIQUE: HUMERUS MIN 2 VIEWS COMPARISON: None FINDINGS: There is no fracture or dislocation identified. Mineralization is normal. There is no visible atherosclerosis. RAD/Humerus min 2 Views IMPRESSION: No fracture or dislocation is identified. Reading Location: [facility] CC: Dr. Aaron Chandler MD ~ Commercial Instructor Supervisor: Signed [facility] 04-05-2025 Radiology Diagnostic study note [facility] Imaging Services [address] [place] [address] Hand Min 3 Views MR#: [id number] Acct: [id number] Name: GERBER HILL Rep #: [id number] : 1960 F 64 From: Joon Richards MD PCP: Dr. Aaron Chandler MD Status: REG C LI Study:Hand Min 3 Views Date of Exam: Exam# [id number] Ordering Dr: Aaron Chandler MD PROCEDURE: HAND MIN 3 VIEWS 04/05/2025 REASON FOR EXAM: PAIN TECHNIQUE: HAND MIN 3 VIEWS COMPARISON: November 08, 2023 FINDINGS: There is no acute fracture or dislocation identified. There is moderate osteoarthritis of the distal interphalangeal joints radiocarpal articulation. There are multiple corticated osteochondral fragmentsof the ulnar styloid with the largest measuring 0.3 cm, unchanged. Mineralization is normal. There is no visible atherosclerosis. There is no focal soft tissue abnormality or visible radiopaque foreign body RAD/Hand Min 3 Views IMPRESSION: No acute fracture or dislocation is identified. Reading Location: [facility] CC: Dr. Aaron Chandler MD ~ Commercial Instructor Supervisor: Signed [facility] 03-06-2025 Telephone encounter Note Images from the original note were not included. [facility] 03-06-2025 Miscellaneous Notes Images from the original note were not included. documented in this encounter [facility] 03-02-2025 Note HNO ID: [id number] Author: LISBET LUCIANO MD Service: Neurology General Author Type: Physician Type: Progress Notes Filed: 03/02/2025 14:15 Note Text: CONSULT PROGRESS NOTES PATIENT NAME: Gerber Hill SERVICE DATE: 03/02/2025 SERVICE TIME: 2:14 PM ASSESSMENT AND PLAN Vertigo Patient's neur exam non focal On meclizine MRI Brain no acute changes Okay to D/C from neuro oint Will follow up as OP SUBJECTIVE CHIEF COMPLAINT: DIZZINESS PRIMARY SERVICE: Neurology. MEDICATIONS: Current Facility-Administered Medications Medication Dose Route Frequency divalproex ER 500 mg tab(s) (DEPAKOTE ER) 500 mg ORAL DAILY atorvastatin 10 mg tab(s) (LIPITOR) 10 mg ORAL AT BEDTIME atogepant tab 60 mg (QULIPTA) 60 mg ORAL DAILY propranolol ER 60 mg cap(s) (INDERAL LA) 60 mg ORAL DAILY linaclotide 145 mcg cap(s) (LINZESS) 145 mcg ORAL DAILY (6 AM) DULoxetine 60 mg cap(s) (CYMBALTA) 60 mg ORAL DAILY NaCl 0.9% iv flush bag 20 mL INTRAVENOUS PRN aluminum-magnesium hydroxide-simethicone 200-200-20 mg/5 mL 30 mL 30 mL ORAL DAILY PRN ondansetron 4 mg tab(s) (ZOFRAN) 4 mg ORAL q 6 H PRN Or ondansetron (PF) 4 mg injection (ZOFRAN) 4 mg INTRAVENOUS q 6 H PRN acetaminophen 650 mg tab(s) (TYLENOL) 650 mg ORAL q 6 H PRN melatonin 3 mg tab(s) 3 mg ORAL DAILY (8 PM) sodium chloride 0.9 % (flush) 2-10 mL (BD POSIFLUSH) 2-10 mL INTRAVENOUS DIRECTED PRN And perflutren lipid microspheres 1.1 mg/mL 1.3 mL injection (DEFINITY) 1.3 mL INTRAVENOUS DIRECTED PRN dextrose 40 % 15 g 15 g ORAL PRN Or glucagon 1 mg injection 1 mg INTRAMUSCULAR PRN Or dextrose 10% iv bolus 12.5 g INTRAVENOUS PRN insulin lispro injection (rapid acting) (ADMElog) SUBCUTANEOUS w MEALS insulin lispro injection (rapid acting) (ADMElog) SUBCUTANEOUS AT BEDTIME pregabalin 100 mg cap(s) (LYRICA) 100 mg ORAL BID meclizine 25 mg tab(s) (ANTIVERT) 25 mg ORAL TID iv contrast (radiology procedure) INTRAVENOUS DIRECTED PRN Patient Home Medications (stored in pharmacy) OTHER DAILY OBJECTIVE PHYSICAL EXAM: Patient Vitals for the past 24 hrs: BP Temp Temp src Pulse Resp SpO2 03/02/25 1200 106/81 36.8 ?C (98.3 ?F) Oral 71 16 98 % 03/02/25 0708 124/71 36.8 ?C (98.2 ?F) Oral 74 18 92 % 03/02/25 0317 124/90 36.8 ?C (98.2 ?F) Oral 70 18 94 % 03/02/25 0016 127/73 36.8 ?C (98.2 ?F) Oral 75 18 95 % 03/01/25 1929 121/63 36.8 ?C (98.2 ?F) Oral 72 18 97 % 03/01/25 1534 121/61 36.8 ?C (98.2 ?F) Oral 74 18 97 % Body mass index is 26.62 kg/m?. GENERAL: alert, no distress, cooperative NEURO: -Negative:cranial nerves 2-12 intact DATA: Diagnostic tests reviewed. SIGNATURE: Lisbet Luciano MD DATE: March 02, 2025 TIME: 2:14 PM [facility] 02-28-2025 Note HNO ID: [id number] Author: RUBA PIZANO APRN.REAL TIME ANALYST Service: Hospital Medicine Author Type: Nurse Practitioner Type: Progress Notes Filed: 03/01/2025 02:40 Note Text: Hospital Medicine Plan of Care Note SERVICE DATE: 02/28/2025 SERVICE TIME: 2152 PRIMARY REASON FOR ADMISSION:Near syncope, indeterminate pulmonary embolism on CTA Interval Events: 64 yr old female with a PMHx of recent right fifth toe fracture, DMII, anxiety, depression, HTN, IBS, migraines, HLD, motor neuron disorder, multifocal sensorimotor inflammatory neuropathy, DMII presents to the ED via EMS for concerns due to dizziness and near syncope. Patient reports she was working at the [employer] outdoors when she felt overheated, dizzy and shaky. She thought her blood sugar was low at the time however EMS noted blood sugar was 170 in transit. Denies any precipitating factors. Denies any recent illness or changes in medication. Reports feeling like her breathing was heavy and her could not respond to questions during episode. Although she felt syncopal, denies fully passing out. States that this has never happened previously. Denies any chest pain or shortness of breath. Did recently fractured her right fifth toe and is currently immobilized in a walking boot. No history of DVT or anticoagulation. Denies any illicit drug use or daily EtOH use. D-dimer elevated on labs prompting CT PE study. CT PE shows possibility of distal clot burden however definitive f thromboembolic disease unable to be established based on imaging quality. Patient empirically treated with 24-hour Lovenox in the setting of recent immobilization. On exam, she denies any CP or shortness of breath. Denies any further dizziness. Admitted to [facility] for further management with a consult placed to cardiology and neurology. Focused Exam (if performed): BP 117/94 Pulse 78 Temp 36.7 ?C (98.1 ?F) (Oral) Resp 15 Wt 74.8 kg (165 lb) SpO2 97% BMI 25.84 kg/m? GENERAL: Alert, no distress, cooperative OROPHARYNX: Lips, mucosa, and tongue normal. Teeth and gums normal. Oropharynx normal. CARDIAC: RRR ABDOMEN: Abdomen soft, non-tender, BS normal, No masses or organomegaly EXTREMITIES: Extremities normal, no deformities, edema, clubbing or skin discoloration. Good capillary refill., No ulcers NEURO: Gait normal. Reflexes normal and symmetric. Sensation grossly intact, Cranial nerves II-XII intact PULSES: 2+ radial, 2+ dorsalis pedis, 2+ carotid Near syncope/dizziness History of multifocal sensorimotor inflammatory Neuropathy History of intractable migraines Assessment and plan: -Experienced near syncope episode while at work today -EKG sinus rhythm, no ischemic changes -No neurological deficits noted -Neurology consult, cardiology consult -Orthostatic vital signs -Fall precautions - IV fluids -Echo ordered, telemetry monitoring -Daily labs Concern for distal pulmonary embolism Assessment and plan: -D-dimer positive -Recent decreased mobilization due to right toe fracture that is in boot -CTA chest: questionable findings of possible small clot burden distal pulmonary embolism, noting that these are not considered definite.No evidence of abnormality proximal to the distal segmental level. Treated with 24-hour Lovenox -Will need repeat CTA chest in a.m. -Reorder Lovenox as needed -Telemetry monitoring Intractable migraines Assessment and plan: - Continue home preventative measures: - Depakote 500 mg daily Cymbalta 60 mg daily Propranolol 60 mg daily Lyrica 100 mg TID I spent a total of 35 minutes on the date of the service which included preparing to see the patient, [id number] patient care, completing clinical documentation, obtaining and/or reviewing separately obtained history, performing a medically appropriate examination, counseling and educating the patient/family/caregiver, ordering medications, tests, or procedures, communicating with other HCPs (not separately reported), independently interpreting results (not separately reported), and communicating results to the patient/family/caregiver. This note was partially generated using [employer] voice recognition system, and there may be some incorrect words, spellings, and punctuation that were not noted in checking the note before saving. SIGNATURE: Ruba Pizano APRN.CNP PATIENT NAME: Gerber Hill DATE: February 28, 2025 TIME: 9:53 PM [facility] 02-23-2025 Radiology Diagnostic study note [facility] Imaging Services [address] [place] [address] [id number] Knee 4 or More Views MR#: [id number] Acct: [id number] Name: GERBER HILL Rep #: [id number] : 1960 F 64 From: Felipe Luna MD PCP: Dr. Aaron Chandler MD Status: REG C IFRAH Study:Knee 4 or More Views Date of Exam: 02/22/25 Exam# [id number] Ordering Dr: Aaron Chandler MD PROCEDURE: KNEE 4 OR MORE VIEWS 02/22/2025 REASON FOR EXAM: PAIN TECHNIQUE: KNEE 4 OR MORE VIEWS RIGHT KNEE. COMPARISON: NONE. FINDINGS: Enthesophyte formation at the upper pole of the patella. Mild osteopenia of the visualized bones. Degenerative joint disease. No fracture or dislocation is seen. No lytic or blastic bone lesion is noted. RAD/Knee 4 or More Views IMPRESSION: No evidence for acute abnormality. Reading [facility] [address] CC: Dr. Aaron Chandler MD ~ Commercial Instructor Supervisor: Signed [facility] 02-21-2025 Radiology Diagnostic study note [facility] Imaging Services [address] [place], [place] [address] Foot min 3 Views MR#: [id number] Acct: [id number] Name: GERBER HILL Rep #: [id number] : 1960 F 64 From: Pet er Peer DO PCP: Dr. Aaron Chandler MD Status: REG C LI Study:Foot min 3 Views Date of Exam: Exam# [id number] Ordering Dr: Aaron Chandler MD PROCEDURE: FOOT MIN 3 VIEWS 02/21/2025 REASON FOR EXAM: FALL, INJURY Initial encounter TECHNIQUE: FOOT MIN 3 VIEWS COMPARISON: None. FINDINGS: Bones: Generalize osteopenia. No grossly evident acute displaced fracture. Vertical lucency in the base of the proximal phalanx of the 5th digit. If there is point tenderness at this location a nondisplaced fracture may be present. Joints: The performance in irregularity of the proximal phalanx of the 5th digitenters the MTP joint Soft tissues: Suggestive of lateral soft tissue swelling over this is MTP area Other: RAD/Foot min 3 Views IMPRESSION: Possible nondisplaced fracture of the phalanx of the 5th digit Reading Location: [facility] CC: Dr. 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 [facility] [place] [address], [place] [address] [address] I have communicated my name and active licensure. The patient's identity and physical location were verified at the time of this visit. Either the patient or their legal outside industrial sales representative has been informed of the risks and benefits of -- and alternatives to -- treatment through a remote evaluation and consents to proceed with the evaluation remotely. CC: Migraine Virtual Follow-up Visit Last visit: 11/17/2024 - medications adjusted Interval History: Has been doing about the same - headaches occurring about 3x per week No worsening with lower dose of Depakote, but no improvement with higher dose of Propranolol Tremor has improved with lower dose of Depakote. She is still off balance Headaches start in the frontal region and radiate back, worse on the left side Stabbing and constant Usually lasts a few hours She uses Ubrelvy for rescue and it helps but does not always relieve the pain. Usually takes with Rahul Had a fall yesterday - slipped on water in her kitchen - hurt her foot/ankle. Will be seeing her PCP yesterday. She is not doing PT right now. Has to pay $40 copay for each visit and cannot afford it. She does exercise at [employer]. Headache days per month: 10-12 Headache free days per month: 20 Current Headache Regimen: Preventative: Depakote 500 mg daily Cymbalta 60 mg daily Propranolol 60 mg daily Lyrica 100 mg TID Abortive: Ubrelvy Prior Therapies Duration of Use Dose Side effect Other Therapies Nerve blocks Analgesic Acetaminophen with codeine (Tylenol #3) Hydrocodone/Acetaminophen (Vicodin, [place]) Anti-Convulsant Divalproex sodium (Depakote) Gabapentin (Neurontin) Pregabalin (Lyrica) Topiramate (Topamax, Trokendi XL, Qudexy) Anti-Depressant and Antipsychotic Amitriptyline (Elavil) Duloxetine (Cymbalta) Antiemetics Ondansetron Anti-Migraine Naratriptan (Amerge) Rizatriptan (Maxalt) Sumatriptan (Imitrex, Sumavel) Blood Pressure Lisinopril (Zestril) Propranolol (Inderal) MABs Erenumab (Aimovig) Fremanezumab (Ajovy) Galcanezumab (Emgality) GEPANTS Ubrogepant (Ubrelvy) Rimegepant (Nurtec) Botulinum Toxin Onabotulinum Toxin A (Botox) March 2019. X 1 round. base of skull, temples, occipital/parietal area, frontal area. None in shoulder. 13 injections. Muscle Relaxer Baclofen (Lioresal) Cyclobenzaprine (Flexeril) Over the Counter Medications Acetaminophen (Tylenol) Naproxen sodium (Aleve) KP review: HEADACHE SCORES: 03/31/2024 10/12/2024 02/16/2025 Headache Questions ER visits since last office visit: 1 0 0 Hospital stays since last office visit 0 4 10 Limited ADLs in the last month: 15 5 10 Days missed from work or school in the last month: 0 0 0 Days headache pain free in the last month: 15 5 Days per month with ALL of the following symptoms - decreased productivity, light sensitivity and nausea: 10 6 10 Initial improvement of headache after botox injection at last visit: Not applicable, I did not have a botox injection at my last visit Minimally improved Not applicable, I did not have a botox injection at my last visit PRN medication usage in the last month: 6 20 Patient impression of improvement since last visit: No change Minimally improved Much worse 03/31/2024 10/12/2024 02/16/2025 HIT-6 HIT-6 68 (Severe impact) 62 (Severe impact) Incomplete 03/31/2024 10/12/2024 02/16/2025 KATHE - 2/7 SCORES KATHE-2 Score 4 2 6 KATHE-7 Score 14 20 03/31/2024 10/12/2024 02/16/2025 Migraine Specific QOL - Higher scores indicate better HRQL Role Function-Restrictive Transformed Score (range: 0-100) 28.57 42.86 42.86 Role Function-Preventive Transformed Score (range: 0-100) 40 50 60 Emotional Function Transformed Score (range: 0-100) 40 80 73.33 03/31/2024 10/12/2024 02/16/2025 PHQ-9 Score 11 13 11 Limited Physical Exam on VV: Vital Signs: There were no vitals taken for this visit. GENERAL: well appearing, in no acute distress, alert HEAD: Normocephalic/atraumatic. NEUROLOGICAL: Mental Status: Alert, oriented to person, place and time, Follows commands, and Speech fluent and appropriate. 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 At last visit Depakote dose was reduced due to side effects (imbalance, tremor) and Propranolol was increased to address anxiety and headaches. Today reports headaches are about the same, occurring 10-12x per month. Reviewed other preventive options - will trial Qulipta. PLAN: Start Qulipta 60 mg daily Continue Depakote, Propranolol for now. If Qulipta is helpful will plan to come off these Continue Ubrelvy prn Follow-up: 3 months I spent a total of 20 minutes on the date of the service which included preparing to see the patient, [id number] patient care, completing clinical documentation, obtaining and/or reviewing separately obtained history, performing a medically appropriate examination, counseling and educating the patient/family/caregiver, and ordering medications, tests, or procedures. The above plan discussed with the patient. All questions answered. The patient verbalized understanding. Medical decision making was high complexity due to patient's multiple symptoms including Headache and pain, and counseling about diet, medications, and usp implications. The patient has my contact information and my chart sign up information. Sabi Cardona MD Neurology Staff 02/21/2025 We will request a precertification for a Calcitonin Gene-Related Peptide Receptor Antagonist (GEPANT) Atogepant for the prevention of episodic migraine. This patient meets ICHD-3 criteria for treatment of migraine with a small molecule CGRP antagonist GEPANT. The FDA has approved GEPANTS for the treatment of migraine. Specifically, the patient has 12 headaches per month, lasting 4 or more hours/day associated with photophobia, phonophobia, nausea for three or more months. Medication overuse headache has been ruled out.Patient will not use with another GEPANT. The patient has tried and failed the following : The following preventative medications have been tried without benefit: Anti-Convulsant Divalproex sodium (Depakote) Gabapentin (Neurontin) Pregabalin (Lyrica) Topiramate (Topamax, Trokendi XL, Qudexy) Anti-Depressant and Antipsychotic Amitriptyline (Elavil) Duloxetine (Cymbalta) Blood Pressure Lisinopril (Zestril) Propranolol (Inderal) MABs Erenumab (Aimovig) Fremanezumab (Ajovy) Galcanezumab (Emgality) Botulinum Toxin Onabotulinum Toxin A (Botox) March 2019. X 1 round. base of skull, temples, occipital/parietal area, frontal area. None in shoulder. 13 injections. The following abortive medications have been tried but require high frequency use which can lead to Medication Overuse Headache: Analgesic Acetaminophen with codeine (Tylenol #3) Hydrocodone/Acetaminophen (Vicodin, [place]) Anti-Migraine Naratriptan (Amerge) Rizatriptan (Maxalt) Sumatriptan (Imitrex, Sumavel) GEPANTS Ubrogepant (Ubrelvy) Rimegepant (Nurtec) Over the Counter Medications Acetaminophen (Tylenol) Naproxen sodium (Aleve) documented in this encounter [facility] 02-21-2025 Note HNO ID: [id number] Author: SABI CARDONA MD Service: ? Author Type: Physician Type: Progress Notes Filed: 02/21/2025 11:14 Note Text: [facility]ial [facility] [place] [address], [facility] [address] [address] I have communicated my name and active licensure. The patient's identity and physical location were verified at the time of this visit. Either the patient or their legal outside industrial sales representative has been informed of the risks and benefits of -- and alternatives to -- treatment through a remote evaluation and consents to proceed with the evaluation remotely. CC: Migraine Virtual Follow-up Visit Last visit: 11/17/2024 - medications adjusted Interval History: Has been doing about the same - headaches occurring about 3x per week No worsening with lower dose of Depakote, but no improvement with higher dose of Propranolol Tremor has improved with lower dose of Depakote. She is still off balance Headaches start in the frontal region and radiate back, worse on the left side Stabbing and constant Usually lasts a few hours She uses Ubrelvy for rescue and it helps but does not always relieve the pain. Usually takes with Rahul Had a fall yesterday - slipped on water in her kitchen - hurt her foot/ankle. Will be seeing her PCP yesterday. She is not doing PT right now. Has to pay $40 copay for each visit and cannot afford it. She does exercise at [employer]. Headache days per month: 10-12 Headache free days per month: 20 Current Headache Regimen: Preventative: Depakote 500 mg daily Cymbalta 60 mg daily Propranolol 60 mg daily Lyrica 100 mg TID Abortive: Ubrelvy Prior Therapies Duration of Use Dose Side effect Other Therapies Nerve blocks Analgesic Acetaminophen with codeine (Tylenol #3) Hydrocodone/Acetaminophen (Vicodin, [place]) Anti-Convulsant Divalproex sodium (Depakote) Gabapentin (Neurontin) Pregabalin (Lyrica) Topiramate (Topamax, Trokendi XL, Qudexy) Anti-Depressant and Antipsychotic Amitriptyline (Elavil) Duloxetine (Cymbalta) Antiemetics Ondansetron Anti-Migraine Naratriptan (Amerge) Rizatriptan (Maxalt) Sumatriptan (Imitrex, Sumavel) Blood Pressure Lisinopril (Zestril) Propranolol (Inderal) MABs Erenumab (Aimovig) Fremanezumab (Ajovy) Galcanezumab (Emgality) GEPANTS Ubrogepant (Ubrelvy) Rimegepant (Nurtec) Botulinum Toxin Onabotulinum Toxin A (Botox) March 2019. X 1 round. base of skull, temples, occipital/parietal area, frontal area. None in shoulder. 13 injections. Muscle Relaxer Baclofen (Lioresal) Cyclobenzaprine (Flexeril) Over the Counter Medications Acetaminophen (Tylenol) Naproxen sodium (Aleve) KP review: HEADACHE SCORES: 03/31/2024 10/12/2024 02/16/2025 Headache Questions ER visits since last office visit: 1 0 0 Hospital stays since last office visit 0 4 10 Limited ADLs in the last month: 15 5 10 Days missed from work or school in the last month: 0 0 0 Days headache pain free in the last month: 15 5 Days per month with ALL of the following symptoms - decreased productivity, light sensitivity and nausea: 10 6 10 Initial improvement of headache after botox injection at last visit: Not applicable, I did not have a botox injection at my last visit Minimally improved Not applicable, I did not have a botox injection at my last visit PRN medication usage in the last month: 6 20 Patient impression of improvement since last visit: No change Minimally improved Much worse 03/31/2024 10/12/2024 02/16/2025 HIT-6 HIT-6 68 (Severe impact) 62 (Severe impact) Incomplete 03/31/2024 10/12/2024 02/16/2025 KATHE - 2/7 SCORES KATHE-2 Score 4 2 6 KATHE-7 Score 14 20 03/31/2024 10/12/2024 02/16/2025 Migraine Specific QOL - Higher scores indicate better HRQL Role Function-Restrictive Transformed Score (range: 0-100) 28.57 42.86 42.86 Role Function-Preventive Transformed Score (range: 0-100) 40 50 60 Emotional Function Transformed Score (range: 0-100) 40 80 73.33 03/31/2024 10/12/2024 02/16/2025 PHQ-9 Score 11 13 11 Limited Physical Exam on VV: Vital Signs: There were no vitals taken for this visit. GENERAL: well appearing, in no acute distress, alert HEAD: Normocephalic/atraumatic. NEUROLOGICAL: Mental Status: Alert, oriented to person, place and time, Follows commands, and Speech fluent and appropriate. 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 At last visit Depakote dose was reduced due to side effects (imbalance, tremor) and Propranolol was increased to address anxiety and headaches. Today reports headaches are about the same, occurring 10-12x per month. Reviewed other pr (more content not included)... [facility] 01-02-2025 Miscellaneous Notes Called and left PT a VM in regards to her appointment on 02/23/25. Dr Cardona, will not be in clinic and will have to rescheduled. Patient can be added on for February 21 virtually on at 10:30,11 or 11:30AM. Or if patient wishes to be seen in Person she can be added on at February 16 for in-person or virtually after 8:30AM documented in this encounter [facility] 01-02-2025 Telephone encounter Note Called and left PT a VM in regards to her appointment on 02/23/25. Dr Cardona, will not be in clinic and will have to rescheduled. Patient can be added on for February 21 virtually on at 10:30,11 or 11:30AM. Or if patient wishes to be seen in Person she can be added on at February 16 for in-person or virtually after 8:30AM [facility] 11-26-2024 Discharge summary [facility] 11-17-2024 History of Present illness Narrative Images from the original note were not included. [facility] [place] [address], [address] [place] [address] CC: Migraine Follow-up Visit Last visit: 03/31/2024 - depakote dose increased Interval History: She reports that overall she has been doing well After the initial depakote increase, headaches subsided for a few months with rare breakthrough headache. Headaches have been increasing in the last 2 months Headaches now occurring 3x/week. Usually triggered when she is feeling more overwhelmed Some increased anxiety/psychosocial stressors, lacking community support. She will be starting counseling Headaches start in the frontal region and radiate back, worse on the left side Stabbing and constant Usually lasts a few hours She uses Ubrelvy for rescue and it helps but does not always relieve the pain She is having increased tremor and imbalance. Few falls in the last few months. Headache days per month: 10-12 Headache free days per month: 20 Current Headache Regimen: Preventative: Depakote 1000 mg daily Cymbalta 60 mg daily Propranolol 10 mg daily Lyrica 100 mg TID Abortive: Ubrelvy Prior Therapies Duration of Use Dose Side effect Other Therapies Nerve blocks Analgesic Acetaminophen with codeine (Tylenol #3) Hydrocodone/Acetaminophen (Vicodin, [place]) Anti-Convulsant Divalproex sodium (Depakote) Gabapentin (Neurontin) Pregabalin (Lyrica) Topiramate (Topamax, Trokendi XL, Qudexy) Anti-Depressant and Antipsychotic Amitriptyline (Elavil) Duloxetine (Cymbalta) Antiemetics Ondansetron Anti-Migraine Naratriptan (Amerge) Rizatriptan (Maxalt) Sumatriptan (Imitrex, Sumavel) Blood Pressure Lisinopril (Zestril) Propranolol (Inderal) MABs Erenumab (Aimovig) Fremanezumab (Ajovy) Galcanezumab (Emgality) GEPANTS Ubrogepant (Ubrelvy) Rimegepant (Nurtec) Botulinum Toxin Onabotulinum Toxin A (Botox) March 2019. X 1 round. base of skull, temples, occipital/parietal area, frontal area. None in shoulder. 13 injections. Muscle Relaxer Baclofen (Lioresal) Cyclobenzaprine (Flexeril) Over the Counter Medications Acetaminophen (Tylenol) Naproxen sodium (Aleve) KP review: HEADACHE SCORES: 01/08/2024 03/31/2024 10/12/2024 Headache Questions ER visits since last office visit: 1 1 0 Hospital stays since last office visit 0 0 4 Limited ADLs in the last month: 7 15 5 Days missed from work or school in the last month: 0 0 0 Days headache pain free in the last month: 4 15 Days per month with ALL of the following symptoms - decreased productivity, light sensitivity and nausea: 4 10 6 Initial improvement of headache after botox injection at last visit: Not applicable, I did not have a botox injection at my last visit Not applicable, I did not have a botox injection at my last visit Minimally improved PRN medication usage in the last month: 6 Patient impression of improvement since last visit: Much worse No change Minimally improved 01/08/2024 03/31/2024 10/12/2024 HIT-6 HIT-6 72 (Severe impact) 68 (Severe impact) 62 (Severe impact) 01/08/2024 03/31/2024 10/12/2024 KATHE - 2/7 SCORES KATHE-2 Score 2 4 2 KATHE-7 Score 14 01/08/2024 03/31/2024 10/12/2024 Migraine Specific QOL - Higher scores indicate better HRQL Role Function-Restrictive Transformed Score (range: 0-100) 20 28.57 42.86 Role Function-Preventive Transformed Score (range: 0-100) 50 40 50 Emotional Function Transformed Score (range: 0-100) 80 40 80 01/08/2024 03/31/2024 10/12/2024 PHQ-9 Score 8 11 13 Physical Exam: Vital Signs: BP 120/68 (BP Position: Sitting) Pulse 100 Wt 74.9 kg (165 lb 2 oz) SpO2 96% BMI 25.86 kg/m GENERAL: well appearing, in no acute distress, alert SKIN: Color, texture, turgor normal. No rashes or lesions HEAD: Normocephalic/atraumatic. RESP: normal respiratory effort MSK: No gross joint deformities. NEUROLOGICAL: Mental Status: Alert, oriented to person, place and time, Follows commands, and Speech fluent and appropriate. Cranial Nerves: PERRL, face symmetric, no dysarthria, hearing grossly intact Motor: moves all extremities equally Gait: normal-based. 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 She had initially done well with the increase in Depakote with reduction in headache frequency and severity, but now reporting increased headaches in the last 2 month. Psychosocial stressors/anxiety seem to have a notable contribution. Also describing tremor and imbalance which may be related to depakote. PLAN: Reduce depakote to 500 mg daily Increase propranolol to 60 mg daily to address anxiety and tremor Continue ubrelvy prn Agree with starting counseling Follow-up: 3 months I spent a total of 30 minutes on the date of the service which included preparing to see the patient, [id number] patient care, completing clinical documentation, obtaining and/or reviewing separately obtained history, performing a medically appropriate examination, counseling and educating the patient/family/caregiver, and ordering medications, tests, or procedures. My impression and recommendations were discussed at length with the patient (and family members, if present). The patient and family (if present) voiced understanding to my recommendations. All questions were answered. The patient was provided with a detailed after visit summary highlighting my impression and recommendations. Medical decision making was high complexity due to patient's multiple symptoms including headache and pain, and counseling about diet, medications, and usp implications.The patient has my contact information and MyChart sign up information. Sabi Cardona MD Neurology Staff 11/17/2024 Ger[facility] Hill has been previously approved for an Oral Calcitonin Gene-Related Peptide Receptor Antagonist (GEPANT) Ubrogepant for the rescue treatment of migraine. The patient has demonstrated the following: Provider attests patient has had a positive clinical response: Yes Patient will not use with another Oral Calcitonin Gene-Related Peptide Receptor Antagonist (GEPANT): Yes Patient's quality of life and ability to perform ADLs has improved: Yes The patient has tried and failed the following : We suggest the patient continue treatment with GEPANT Ubrogepant. The following preventative medications have been tried for three or more months without benefit: Anti-Convulsant Divalproex sodium (Depakote) Gabapentin (Neurontin) Pregabalin (Lyrica) Topiramate (Topamax, Trokendi XL, Qudexy) Anti-Depressant and Antipsychotic Amitriptyline (Elavil) Duloxetine (Cymbalta) Blood Pressure Lisinopril (Zestril) Propranolol (Inderal) MABs Erenumab (Aimovig) Fremanezumab (Ajovy) Galcanezumab (Emgality) Botulinum Toxin Onabotulinum Toxin A (Botox) March 2019. X 1 round. base of skull, temples, occipital/parietal area, frontal area. None in shoulder. 13 injections. The following abortive medications have been tried but require high frequency use which can lead to Medication Overuse Headache: Analgesic Acetaminophen with codeine (Tylenol #3) Hydrocodone/Acetaminophen (Vicodin, [place]) Anti-Migraine Naratriptan (Amerge) Rizatriptan (Maxalt) Sumatriptan (Imitrex, Sumavel) GEPANTS Ubrogepant (Ubrelvy) Rimegepant (Nurtec) Over the Counter Medications Acetaminophen (Tylenol) Naproxen sodium (Aleve) documented in this encounter [facility] 11-17-2024 Note HNO ID: [id number] Author: SABI CARDONA MD Service: ? Author Type: Physician Type: Progress Notes Filed: 11/17/2024 14:03 Note Text: [facility] [place] [address] [place] [address] CC: Migraine Follow-up Visit Last visit: 03/31/2024 - depakote dose increased Interval History: She reports that overall she has been doing well After the initial depakote increase, headaches subsided for a few months with rare breakthrough headache. Headaches have been increasing in the last 2 months Headaches now occurring 3x/week. Usually triggered when she is feeling more overwhelmed Some increased anxiety/psychosocial stressors, lacking community support. She will be starting counseling Headaches start in the frontal region and radiate back, worse on the left side Stabbing and constant Usually lasts a few hours She uses Ubrelvy for rescue and it helps but does not always relieve the pain She is having increased tremor and imbalance. Few falls in the last few months. Headache days per month: 10-12 Headache free days per month: 20 Current Headache Regimen: Preventative: Depakote 1000 mg daily Cymbalta 60 mg daily Propranolol 10 mg daily Lyrica 100 mg TID Abortive: Ubrelvy Prior Therapies Duration of Use Dose Side effect Other Therapies Nerve blocks Analgesic Acetaminophen with codeine (Tylenol #3) Hydrocodone/Acetaminophen (Vicodin, [place]) Anti-Convulsant Divalproex sodium (Depakote) Gabapentin (Neurontin) Pregabalin (Lyrica) Topiramate (Topamax, Trokendi XL, Qudexy) Anti-Depressant and Antipsychotic Amitriptyline (Elavil) Duloxetine (Cymbalta) Antiemetics Ondansetron Anti-Migraine Naratriptan (Amerge) Rizatriptan (Maxalt) Sumatriptan (Imitrex, Sumavel) Blood Pressure Lisinopril (Zestril) Propranolol (Inderal) MABs Erenumab (Aimovig) Fremanezumab (Ajovy) Galcanezumab (Emgality) GEPANTS Ubrogepant (Ubrelvy) Rimegepant (Nurtec) Botulinum Toxin Onabotulinum Toxin A (Botox) February/March 2019. X 1 round. base of skull, temples, occipital/parietal area, frontal area. None in shoulder. 13 injections. Muscle Relaxer Baclofen (Lioresal) Cyclobenzaprine (Flexeril) Over the Counter Medications Acetaminophen (Tylenol) Naproxen sodium (Aleve) KP review: HEADACHE SCORES: 01/08/2024 03/31/2024 10/12/2024 Headache Questions ER visits since last office visit: 1 1 0 Hospital stays since last office visit 0 0 4 Limited ADLs in the last month: 7 15 5 Days missed from work or school in the last month: 0 0 0 Days headache pain free in the last month: 4 15 Days per month with ALL of the following symptoms - decreased productivity, light sensitivity and nausea: 4 10 6 Initial improvement of headache after botox injection at last visit: Not applicable, I did not have a botox injection at my last visit Not applicable, I did not have a botox injection at my last visit Minimally improved PRN medication usage in the last month: 6 Patient impression of improvement since last visit: Much worse No change Minimally improved 01/08/2024 03/31/2024 10/12/2024 HIT-6 HIT-6 72 (Severe impact) 68 (Severe impact) 62 (Severe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 GBS, transferred to [facility] on 08/29/2019. She had no movement or feeling from waist down, numbness/tingling in both arms with weakness in thehands/fingers(could not remove cap of pen). She had an extensive w/u including imaging, CSF, blood work. MRI LS spine and thoracic spine w/wo contrast showed enhancement, CSF protein was 42. She was treated with 5 day course of IVIG. She was discharged to [facility](x 6 weeks). [facility] She was in the wheelchair upon discharge from [facility], was able to stand, arm strength was [...] do her PT exercises at home. She starteddriving short distances(5 miles) in May 2020. 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 She is now establishing with physicians in [place]. Currently, she lives in an apartment alone. [...] is currently driving. Since she moved to [place], she only had 1 PT session because of her co-pay($40). She is hoping to go towater therapy. She was going to [employer] since May 2022, went everyday until Aug [...] catches herself. She reports she goes to [employer] - machines for legs, arms); about to start going to the [employer]. She swims the [email or web address]) 3 days/week. She does not feel she needs to see PT given the activity she is doing. Feet are constantly burning with numbness/tingling. Muscle spasms have been 'crazy'. She mentions arms may be tingling from the elbows without triggers since Feb 2023, may last x 10-20minutes and recurs through the day. Prefers not [...] falls recently. She continues to go to [employer] - works on machines for legs/arms 3x/week. [...] 5/5 5/5 APB 5/5 5/5 FDP 2,3 01/08 01/08 FDP 4,5 01/08 5 FPL 01/08 Hip Flexors 01/08 01/08 Knee Extensors 01/08 01/08 Knee Flexors 01/08 01/08 Ankle DF 01/08 01/08 Ankle PF 01/08 01/08 Inversion 01/08 01/08 Eversion 01/08 01/08 Toe Flexion 01/08 01/08 Toe Extension 01/08 01/08 Coordination: intact finger to nose and heel to henderson Reflexes: B T Br K A Plantars R 2+ 2+ 2+ 2+ 2+ down L 2+ 2+ 2+ 2+ 2+ down Sensory: intact to light touch, pinprick, intact position and reduced vibration from ankles today Romberg's negative DIAGNOSTIC TESTS: MRI LS spine([facility]) - 01/27/21 Degenerative changes including right foraminal disc herniations at L2-L3 and L3- L4 and severe loss of disc height with degenerative endplate changes at L4-L5, stable compared to prior exam of 04/04/2020. No high grade spinal canal stenosis. MRI LS spine w/wo contrast([facility]) - 04/04/2020 Redemonstration of slight enhancement along the anterior nerve roots of the cauda quina, which could be seen with chronic inflammatory demyelinating polyneuropathy (CIDP). Mild to moderate degenerative changes are noted throughout the lumbar spine, most pronounced at L3-L4 and L4-L5. MRI LS spine w/wo contrast ([facility])- 01/18/20 1. Stable redemonstration of postcontrast enhancement of nerve roots within the cauda equina. Again, due to chronicity, this may represent CIDP. 2. Unchanged appearance of degenerative changes within the lumbosacral spine. MRI thoracic w/wo contrast ([facility])- 01/18/20 Stable redemonstration of anterior nerve root enhancement within the cauda equina. Given the chronicity of these findings, CIDP may be considered with a progressive granulomatous or neoplastic process felt less likely. MRI cervical spine w/wo contrast ([facility])- 01/18/20 Redemonstration of [id number] degenerative changes within the cervical spine, which is worst at C4-5 and C5-6. There is moderate to severe left foraminal stenosis at C4-5 and C5-6 with left C4-5 facet enhancing arthropathy MRI thoracic w/wo contrast ([facility]) - 08/29/2019 1. Enhancement of the anterior nerve roots comprising the cauda equina seen on the inferior most aspect of the sagittal postcontrast T1 weighted series. These imaging findings would support a diagnosis for Guillain-Minoa syndrome if clinical symptoms and signs are present. Other inflammatory processes such as CIDP, granulomatous infectious processes as and neoplastic processes can cause this appearance, but are thought to be less likely. MRI LS spine w/wo contrast ([facility]) - 08/29/2019 1. Findings of enhancement predominantly of anterior nerve roots of the cauda equina suggestive of the diagnosis of Guillain-Minoa or other inflammatory processes. This appearance is much less suggestive of possible neoplastic processes such as CSF spread ofintracranial neoplasm MRI c-spine w/wo contrast ([facility])- 08/30/2019 1. Mild degenerative changes within the cervical spine most prominent at the C4- 5 and C5-6 levels. No cord signal abnormality or cord compression is appreciated. MRI brain w/wo contrast ([facility]) - 08/30/2019 No acute intracranial process. Laboratory([facility]): HBA1C(02/19/22) 8.2 Lyme IgG, IgM (08/29/2019)- neg B12/MMA (08/31/19) 535/0.23 Paraneoplastic panel (08/29/2019) - neg except for minimally elevate P/Q calcium channel Ab( normalof </= 0.02, her value was 0.03) GQ1B [...] treatment options. Get records of EMGs from [facility] - she will retry to get [...] which included preparing to see the patient, [id number] patient care, completing clinical documentation, obtaining and/or reviewing separately obtained history, performing a medically appropriate examination, counseling and educating the pat ient/family/caregiver, and ordering medications, tests, or procedures. Judy Nielsen MD Neurology Please send a copy of note to: Gerber Hill [id number] [address] [facility] [id number] documented in this encounter[facility]08-07-[facility]23 History of Present illness Narrative* Judy Nielsen MD - 04/12/2023 12:30 PM EDT Neurology Follow-Up - April 12, 2023 Gerber Hill is following up for neuropathy. She was last seen on 12/01/22. Notes from previous visits are as follows: 12/01/22: She was living in [place] in 2019, taking care of her mother since 2014. In Aug 2019, she fell as she was trying to get out of bed, no feeling/strength in the legs. She could not move anything from waist down. Her brother was visiting and was brought to a [facility] hospital(08/25/2019, [facility]). The working diagnosis then was GBS, transferred to [facility] on 08/29/2019. She had no movement or feeling from waist down, numbness/tingling in both arms with weakness in thehands/fingers(could not remove cap of pen). She had an extensive w/u including imaging, CSF, blood work. MRI LS spine and thoracic spine w/wo contrast showed enhancement, CSF protein was 42. She was treated with 5 day course of IVIG. She was discharged to [facility](x 6 weeks). She had EMG (no results available in [facility]). She was in the wheelchair upon discharge from [facility], was able to stand, arm strength was [...] 2020 to Nov 2020). She moved to [facility] since Nov 2020. She continued to do her PT exercises at home. She starteddriving short distances(5 miles) in May 2020. 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 She is now establishing with physicians in [place]. Currently, she lives in an apartment alone. [...] is currently driving. Since she moved to [place], she only had 1 PT session because of her co-pay($40). She is hoping to go towater therapy. She was going to [employer] since May 2022, went everyday until Aug [...] 7.4; had elevated kappa and lambda free lightchains without evidence of M-protein. She is currently [...] catches herself. She reports she goes to [employer] - machines for legs, arms); about to start going to the [employer]. She swims the [email or web address]) 3 days/week. She does not feel she needs to see PT given the activity she is doing. Feet are constantly burning with numbness/tingling. Muscle spasms have been 'crazy'. She mentions arms may be tingling from the elbows without triggers since Feb 2023, may last x 10-20minutes and recurs through the day. Prefers not [...] 4+/5 Hip Flexors 5/5 5/5 Knee Extensors 5/ 5/5 Knee Flexors / 5/5 Ankle DF 5/5 5/5 Ankle PF 5/ 5/5 Inversion / 5/5 Eversion / 5/5 Toe Flexion / 4/5 Toe Extension / 4/5 Coordination: intact finger to nose and heel to henderson Reflexes: B T Br K A Plantars R 2+ 2+ 2+ 2+ 2+ down L 2+ 2+ 2+ 2+ 2+ down Sensory: intact to light touch, reduced pinprick from ankles and mid palms, intact position and reduced vibration at toes(normal at ankles) Romberg's negative DIAGNOSTIC TESTS: MRI LS spine([facility]) - 01/27/21 Degenerative changes including right foraminal disc herniations at L2-L3 and L3- L4 and severe loss of disc height with degenerative endplate changes at L4-L5, stable compared to prior exam of 04/04/2020. No high grade spinal canal stenosis. MRI LS spine w/wo contrast([facility]) - 04/04/2020 Redemonstration of slight enhancement along the anterior nerve roots of the cauda quina, which could be seen with chronic inflammatory demyelinating polyneuropathy (CIDP). Mild to moderate degenerative changes are noted throughout the lumbar spine, most pronounced at L3-L4 and L4-L5. MRI LS spine w/wo contrast ([facility])- 01/18/20 1. Stable redemonstration of postcontrast enhancement of nerve roots within the cauda equina. Again, due to chronicity, this may represent CIDP. 2. Unchanged appearance of degenerative changes within the lumbosacral spine. MRI thoracic w/wo contrast ([facility])- 01/18/20 Stable redemonstration of anterior nerve root enhancement within the cauda equina. Given the chronicity of these findings, CIDP may be considered with a progressive granulomatous or neoplastic process felt less likely. MRI cervical spine w/wo contrast ([facility])- 01/18/20 Redemonstration of meat-lw-buatzvgv degenerative changes within the cervical spine, which is worst at C4-5 and C5-6. There is moderate to severe left foraminal stenosis at C4-5 and C5-6 with left C4-5 facet enhancing arthropathy MRI thoracic w/wo contrast ([facility]) - 08/29/2019 1. Enhancement of the anterior nerve roots comprising the cauda equina seen on the inferior most aspect of the sagittal postcontrast T1 weighted series. These imaging findings would support a diagnosis for Guillain-Minoa syndrome if clinical symptoms and signs are present. Other inflammatory processes such as CIDP, granulomatous infectious processes as and neoplastic processes can cause this appearance, but are thought to be less likely. MRI LS spine w/wo contrast ([facility]) - 08/29/2019 1. Findings of enhancement predominantly of anterior nerve roots of the cauda equina suggestive of the diagnosis of Guillain-Minoa or other inflammatory processes. This appearance is much less suggestive of possible neoplastic processes such as CSF spread ofintracranial neoplasm MRI c-spine w/wo contrast ([facility])- 08/30/2019 1. Mild degenerative changes within the cervical spine most prominent at the C4- 5 and C5-6 levels. No cord signal abnormality or cord compression is appreciated. MRI brain w/wo contrast ([facility]) - 08/30/2019 No acute intracranial process. Laboratory([facility]): HBA1C(02/19/22) 8.2 Lyme IgG, IgM (08/29/2019)- neg B12/MMA (08/31/19) 535/0.23 Paraneoplastic panel (08/29/2019) - neg except for minimally elevate P/Q calcium channel Ab( normalof </= 0.02, her value was 0.03) GQ1B Ab (08/29/2019) neg CSF(08/29/19) WBC 1, RBC 1, gluc 60, protein 42 No bands, normal IgG index No malignant cells No growth on culture VZV PCR, HSV 1 PCR, HSV 2 PCR negative Lyme PCR neg Enterovirus PCR neg [place] neg Component Latest Ref Rng & Units 12/01/2022 Result ([facility]) No M protein is identified. No M protein is identified. Interpretation ([facility]) Not Applicable Staff Review ([facility]) Reviewed by Dr. Radha Kim MD IgG 700 - 1,600 mg/dL 1,808 (H) IgA 70 - 400 mg/dL 383 IgM 40 - 230 mg/dL 142 [place] Free, Serum 3.3 - 19.4 mg/L 67.2 (H) Lambda Free, Serum 5.7 - 26.3 mg/L 31.3 (H) K/L Ratio, Serum 0.26 - 1.65 2.15 (H) Hemoglobin A1C 4.3 - 5.6 % 7.4 (H) Estimated Average Glucose mg/dL 166 MPA Result No M protein is identified. No M protein is identified. Staff Review ([facility]) Reviewed by Dr. Radha Kim MD Vitamin [...] treatment options. Get records of EMGs from [facility] - she will be going there [...] which included preparing to see the patient, [id number] patient care, completing clinical documentation, obtaining and/or reviewing separately obtained history, performing a medically appropriate examination, counseling and educating the pat ient/family/caregiver, and communicating results to the patient/family/caregiver. Judy Nielsen MD Neurology Please send a copy of note to: Gerber Hill [phone] [address] [place] [id number] documented in this encounterPrem[facility]07-25-2023 Miscellaneous Notes* Telephone Encounter - Rosa Jarvis - 03/30/2023 8:45 AM EDT Patient requested a 90 day supply. Please [...] to the pharmacy. Please call patient at: [phone] Thank you, Rosa Jarvis documented in this encounterPremier Health06-23-2023 History of Present illness Narrative* Naima Agrawal APRN.REAL TIME ANALYST - 02/26/2023 9:30 AM EDT Images from the original note were not included. Outpatient [facility] - Follow Up Visit Accompanied by: self Primary Problem List: There is no problem list on file for this patient. Chief Complaint: migraine LV: 11/10/22 Dr. 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 Her exam is significant formild weakness in her proximal legs (L>R) and some difficulty walking, which has been chronic sinc e her diagnosis of GBS. Her headaches are [...] plan. 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 Since the last visit, the patient states that her headaches have improved. Seen in [facility] with our department, plan at the time was to continue her current medication regimen, she also had a referral to [facility] for neuropathy management. Aimovig has reduced hermigraine frequency and severity. She is virtually headache [...] PCP. Headaches: Onset of headaches: ~10-20 years acid remover time: worse over time - more frequent [...] none. Aura: blurred vision, Dots, and [place] (lighting bolts). Vision changes occur with most migraines Allodynia: [...] Acetaminophen with codeine (Tylenol #3) Hydrocodone/Acetaminophen (Vicodin, [place]) Anti-Convulsant Gabapentin (Neurontin) Pregabalin (Lyrica) Topiramate (Topamax, [...] Anxiety state CIDP (chronic inflammatory demyelinating polyneuropathy) ([facility]) 2020 Depression Diabetes mellitus ([facility]) Essential hypertension IBS (irritable bowel syndrome) Migraines [...] and discussed these with the patient: yes Naima Agrawal APRN.REAL TIME ANALYST HEADACHE SCORES: Headache Questions 11/10/2022 ID Migraine [...] Adult) Pulse 80 Ht 170.2 cm (5' 7) Wt 83.9 kg (185 lb) SpO2 100% [...] normal in rate, volume and articulation, and clear,coherent, and relevant. 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, cognition and general fund of knowledge [...] intractable, without status migrainosus (primary encounter diagnosis) Gerber Hill is a 62 year old year [...] PRN -Follow up 6 months Future considerations: Juanovy, Emgality Prior Authorizations: Gerber Hill has been previously approved for Calcitonin [...] require high frequency use which can lead toMedication Overuse Headache: Analgesic Acetaminophen with codeine (Tylenol #3) Hydrocodone/Acetaminophen (Vicodin, [place]) Anti-Migraine Naratriptan (Amerge) Rizatriptan (Maxalt) Sumatriptan (Imitrex, Sumavel) GEPANTS Ubrogepant (Ubrelvy) Rimegepant (Nurtec) Over the Counter Medications Acetaminophen (Tylenol) Naproxen sodium (Aleve) Gerber Pate Hill has been previously approved for [...] require high frequency use which can lead toMedication Overuse Headache: Analgesic Acetaminophen with codeine (Tylenol #3) Hydrocodone/Acetaminophen (Vicodin, [place]) Anti-Migraine Naratriptan (Amerge) Rizatriptan (Maxalt) Sumatriptan (Imitrex, [...] which included preparing to see the patient, hnnq-gc-vwyz patient care, completing clinical documentation, obtaining and/or reviewing separately obtained history, performing a medically appropriate examination, counseling and educating the patient/family/caregiver, and ordering medications, tests, or procedures. Naima Agrawal APRN.TITA Headache [facility] February 26, 2023 documented in this encounterPremier Health04-20-2023 Miscellaneous Notes* Telephone Encounter - Jarek Jane LPN - 12/24/2022 8:52 AM EDT Last office note faxed to number provided. Confirmation of delivery received * Telephone Encounter - Arleen Pleitez - 12/24/2022 8:11 AM EDT Gerber Hill is calling Judy Nielsen MD today to request last office visit notes from Dr Nielsen. Please fax to [phone]. Patient has been identified by name and birthdate. Person calling: Joseline @ Dr Lazar's office Was an appointment scheduled: No Closing statement: Results or non-symptom based questions: Thank you for calling [facility], your call will be returned within the next business day. Arleen Pleitez documented in this encounterPremier Health04-20-2023 Miscellaneous Notes* Telephone Encounter - Kacie Null Pss - 12/24/2022 8:11 AM EDT Faxed last office note dated 11/10/[address] Lolis Lazar's office at [phone]. documented in this encounterPremier Health03-28-2023 History of Present illness Narrative* Judy Nielsen MD - 12/01/2022 9:00 AM EDT Neurology Clinic - December 01, 2022 Reason for visit: Ms. Hill is referred by Sabi Cardona for my opinion regarding neuropathy. My [...] electronic medical records. She was living in [place] in 2019, taking care of her mother since 2014. In Aug 2019, she fell as she was trying to get out of bed, no feeling/strength in the legs. She could not move anything from waist down. Her brother was visiting and was brought to a community hospital(08/25/2019, [facility]). The working diagnosis then was GBS, transferred to [facility] on 08/29/2019. She had no movement or feeling from waist down, numbness/tingling in both arms with weakness in thehands/fingers(could not remove cap of pen). She had an extensive w/u including imaging, CSF, blood work. MRI LS spine and thoracic spine w/wo contrast showed enhancement, CSF protein was 42. She was treated with 5 day course of IVIG. She was discharged to [facility](x 6 weeks). She had EMG (no results available in CareEverywhere). She was in the wheelchair upon discharge from [facility], was able to stand, arm strength was [...] do her PT exercises at home. She starteddriving short distances(5 miles) in May 2020. 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 She is now establishing with physicians in [place]. Currently, she lives in an apartment alone. [...] is currently driving. Since she moved to [place], she only had 1 PT session because of her co-pay($40). She is hoping to go towater therapy. She was going to [employer] since May 2022, went everyday until Aug 2022 and felt her legs were better but got lazy and has not gone back. She is currently on cymbalta(depression /anxiety), baclofen and pregabalin(for neuropathy). She mentions to have on and off pain from the neuropathy - stabbing pains in the legs with tightening up. Per note dated 01/18/2020 from [facility]: She was admitted to our facility [...] the patient, however, while transitioning to the detention where she stayed for a month shefelt like her weakness had gotten worse. The [...] neuropathy which improved compared to Feb study andcontinued show motor neuropathy. The etiology of the patient's progressive weakness is unclear at this time, however question whether related to chronic multifocal sensory motor inflammatory neuropathy in the setting of positive fibroblast growth factor receptor 3 antibody, and borderline high Q/P type Ca channel ab. We have repeat ed these studies this admission with pending result [...] Drug use: No DATA: Radiology: MRI LS spine([facility]) - 01/27/21 Degenerative changes including right foraminal disc herniations at L2-L3 and L3- L4 and severe loss of disc height with degenerative endplate changes at L4-L5, stable compared to prior exam of 04/04/2020. No high grade spinal canal stenosis. MRI LS spine w/wo contrast([facility]) - 04/04/2020 Redemonstration of slight enhancement along the anterior nerve roots of the cauda quina, which could be seen with chronic inflammatory demyelinating polyneuropathy (CIDP). Mild to moderate degenerative changes are noted throughout the lumbar spine, most pronounced at L3-L4 and L4-L5. MRI LS spine w/wo contrast ([facility])- 01/18/20 1. Stable redemonstration of postcontrast enhancement of nerve roots within the cauda equina. Again, due to chronicity, this may represent CIDP. 2. Unchanged appearance of degenerative changes within the lumbosacral spine. MRI thoracic w/wo contrast ([facility])- 01/18/20 Stable redemonstration of anterior nerve root enhancement within the cauda equina. Given the chronicity of these findings, CIDP may be considered with a progressive granulomatous or neoplastic process felt less likely. MRI cervical spine w/wo contrast ([facility])- 01/18/20 Redemonstration of ayrl-av-ddtzfkrq degenerative changes within the cervical spine, which is worst at C4-5 and C5-6. There is moderate to severe left foraminal stenosis at C4-5 and C5-6 with left C4-5 facet enhancing arthropathy MRI thoracic w/wo contrast ([facility]) - 08/29/2019 1. Enhancement of the anterior nerve roots comprising the cauda equina seen on the inferior most aspect of the sagittal postcontrast T1 weighted series. These imaging findings would support a diagnosis for Guillain-Minoa syndrome if clinical symptoms and signs are present. Other inflammatory processes such as CIDP, granulomatous infectious processes as and neoplastic processes can cause this appearance, but are thought to be less likely. MRI LS spine w/wo contrast ([facility]) - 08/29/2019 1. Findings of enhancement predominantly of anterior nerve roots of the cauda equina suggestive of the diagnosis of Guillain-Minoa or other inflammatory processes. This appearance is much less suggestive of possible neoplastic processes such as CSF spread ofintracranial neoplasm MRI c-spine w/wo contrast ([facility])- 08/30/2019 1. Mild degenerative changes within the cervical spine most prominent at the C4- 5 and C5-6 levels. No cord signal abnormality or cord compression is appreciated. MRI brain w/wo contrast ([facility]) - 08/30/2019 No acute intracranial process. 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 Examination reveals distal hand and leg weakness with intact reflexes and reduced sensation to multiple modalities distally. 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 Discussed about GBS, prognosis and treatment options. Get records of EMGs from [facility] Blood work - CBC, CMP, HBA1C, [...] which included preparing to see the patient, eujb-vq-ojbg patient care, completing clinical documentation, obtaining and/or reviewing separately obtained history, performing a medically appropriate examination, counseling and educating the pat ient/family/caregiver, ordering medications, tests, or procedures, and communicating results to thepatient/family/caregiver. My final recommendations will be communicated back to the requesting physician by way of shared medical record or letter via US mail. Judy Nielsen MD Neurology Please send a copy of clinic note to: 1. Gerber Herlinda [id number] [facility] [address] 2. Sabi Galvin [address] [address] [address] [facility] [id number] documented in this encounterPremier Health03-16-2023 Miscellaneous Notes* Telephone Encounter - Lolis Guillaume - 11/19/2022 8:54 AM EDT Recall letter submitted. * Telephone Encounter - Lauren Michelle LPN - 11/18/2022 2:36 PM EDT Prior auth completed via [facility] for Ubrelvy 100mg Drug Ubrelvy 100MG tablets Form [employer] Medicare Part D Electronic Prior Authorization Form (2016 [facility]) Gerber Hill Blanco: [id number] - [place] Additional Information Required This medication or product was previously approved on [id number] from 2022-09-06 to 2023-09-05. Please note: This request was submitted electronically. Formulary lowering, tiering exception, cost reduction and/or pre-benefit determination review (including prospective Medicare hospice reviews) requests cannot be requested using this method of submission. Providers contact us at for further assistance. Lauren Michelle LPN November 18, 2022 2:37 PM * Telephone Encounter - Lisbeth Man - 11/17/2022 12:14 PM EDT Prior Authorization for Medications Requested by (MyChart, Pharmacy, Patient Call, Fax) : Patient Call Pharmacy Name: [facility] Phone # : [phone] Name of Medication : Ubrelvy Dose : 100 mg tablet If renewal, auth date expiration: NA Prescribing Provider: Dulce Bean OV: 11/10/22 with Spni Insurance Provider : [facility] Is insurance card scanned in, including Rx info? Yes Rx ID number: [id number] Rx BIN: [id number] Rx PCN: [id number] Rx Grp: COS Insurance Phone : CoverMyMeds Blanco: NA E-PA? Yes documented in this encounterPremier Health03-07-2023 Instructions* Patient Instructions* Ciaran Eid DO - 11/10/2022 11:06 AM EST Today's plan: [...] triggers. 2) Limit use of acute treatments (xomg-cju-vckreme medications, triptans, etc.) to no more than 2 days per week or 10 days per month to prevent medication overuse headache (rebound headache). 3) Follow a regular schedule (including weekends and holidays): A) Don't skip meals. B) 8 hours of sleep nightly. C) Avoid foods containing nitrates (deli meat, ham, ruggiero, sausage, hot dogs), tyramine (aged cheese - can only have Dutch cheese, cottage cheese, Velveeta and fresh mozarella (most pizza uses aged mozarella)), and MSG (Sudanese/ foods, Doritos, and Ramen noodles). Caffeine (coffee, [...] thus making them worse. Goal is to re-directattention away from headaches, toward daily activities and other distractions. documented in this encounterPremier Health03-07-2023 History of Present illness Narrative* Sabi Cardona MD - 11/10/2022 10:00 AM EST Images from the original note were not included. [facility] [place] [address] [place] [address] Referring: SELF PCP: Adam Espinosa (Historical) Destiny Accompanied by: unaccompanied CC: Migraine HPI: Gerber Hill is a 61 year old year old, right-handed woman who is here for the evaluation and management of the patient's migraines and establish care. 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 Previous records (physician notes, laboratory reports, and [...] Hgb A1C 8.6. MRI lumbar spine in with right disc herniation at L2-L3 and L3-L4 and some degenerative changes. Lives in apartment by herself. Performs all ADLs independently but is in significant pain. Uses a cane to ambulate at baseline. Onset of headaches: ~10-20 years acid remover time: worse over time - more frequent [...] none. Aura: blurred vision, Dots, and Scotoma (lighting bolts). Vision changes occur with most migraines Allodynia: [...] had prescription refilled since moving back to [place], last taken on 10/07/2022. Says [employer] works [...] Flexeril 5 mg TID prn - ineffective [place] 5-325 mg q6h prn - ineffective Naproxen [...] Acetaminophen with codeine (Tylenol #3) Hydrocodone/Acetaminophen (Vicodin, [place]) Anti-Convulsant Gabapentin (Neurontin) Pregabalin (Lyrica) Topiramate (Topamax, [...] and wo contrast Result Impression Redemonstration of jxvl-cy-wskoihwm degenerative changes within the cervical spine, which [...] right foraminal disc herniations at L2-L3 and L3- L4 and severe loss of disc height with [...] spontaneous and fluent without dysarthria. Short and usp memory, cognition and general fund of knowledgeare good. Attention span and concentration are excellent. Cranial Nerves: II-Visual quijano are full. Funduscopic examination reveals no papilledema. III, IV,-EOMI, PERRL, nystagmus absent, V-normal facial sensation to light touch. VII-face is symmetric without evidence of weakness. VIII- hearing intact. IX, X-palate elevates symmetrically. XI-SCM 5/5. [...] tandem walk. Romberg testing is normal. 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 Her exam is significant formild weakness in her proximal legs (L>R) and some difficulty walking, which has been chronic sinc e her diagnosis of GBS. Her headaches are [...] service of Headache staff, Dr. Dulce MD [facility] STAFF PHYSICIAN NOTE OF PERSONAL INVOLVEMENT IN [...] length with the patient (and family members, ifpresent). The patient and family (if present) voiced understanding to my recommendations. All questions were answered. The patient was provided with a detailed after visit summary highlighting my impression and recommendations. Medical decision making was high complexity due to patient's multiple symptoms including pain as evidenced by exam, and necessary counseling, and answering of patient and/or family questions. Sabi Cardona MD Staff Neurologist Headache &Facial Pain [...] taking a Gepant (Ubrelvy) for acute treatment ofher migraine. The following preventative medications have been [...] require high frequency use which can lead toMedication Overuse Headache: Analgesic Acetaminophen with codeine (Tylenol #3) Hydrocodone/Acetaminophen (Vicodin, [place]) Anti-Migraine Naratriptan (Amerge) Rizatriptan (Maxalt) Sumatriptan (Imitrex, [...] GEPANT. The FDA has approved GEPANTS for thetreatment of migraine. Specifically, the patient has 30 headaches per month, lasting 4 or more hours/day associated with photophobia, phonophobia, nausea for three or more months. Medication overuse headache has been ruled out.Patient will not use with another GEPANT. The patient has tried and failed the following : Anti-Migraine Naratriptan (Amerge) Rizatriptan (Maxalt) Sumatriptan (Imitrex, Sumavel) Analgesic Hydrocodone/Acetaminophen (Vicodin, [place]) Acetaminophen with codeine (Tylenol #3) documented in this encounterPremier Health01-19-2023 Miscellaneous Notes* Telephone Encounter - Mary Luque - 09/24/2022 1:09 PM EST I called and left the patient voice messages to the office. Left messages on phone# home# [phone] and # from referral [phone]. on file is a non-working number. * Telephone Encounter - Mary Luque - 09/23/2022 10:04 AM EST Received referral for the patient to be seen for Neuropathy and Migraine. Left the patient a voice message to call the office at [phone] and schedule an appointment. Sent the referral and records to scanning. * Telephone Encounter - Jessica Sim MA - 09/22/2022 5:55 PM EST Received fax referral for Neurology: Dr. Polo. DX:Neuropathy, migraine without mention of intractable migraine Will route to Amy. Jessica Sim MA documented in this encounterPremier HealthDischarge summary Author Luis Sheridan [facility] Note Date/Time November 26, 2024 6:1 2am [facility] Medical Records Department [address] [place] [address] Emergency Department Summary 11/26/24 MR#: [id number] Acct: [id number] Name: GERBER HILL Rep #:[id number] : 1960 63 From: Luis Sheridan DO PCP: Dr. Aaron Chandler MD Status:REG E R Location: ED HPI History of Present Illness Chief Complaint: Allergic Reaction Informant: patient Narrative Narrative: Patient is a 63-year-old female with past medical history of migraine headache diabetes and neuropathy. She states that this evening on 07/1130 she noticed there was some itching and tingling along the left side of her face/cheek. She states that as time passed that she noticed she was now having swelling to her cheek and lips. She states that she initially felt like it was slightly difficult to swallow when the symptoms first came on but she states that has resolved. She denies any shortness of breath but states she is concerned because the swelling is now progressing across her upper and lower lip. She denies any new exposures and states she has been taking her home medications as directed. 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 Neuropathy Migraines Home Medications ?Medication ?Instructions ?Recorded ?Last Taken ?Type famotidine 20 mg tablet 20 mg PO BID ##10 02/20/16 U nknown Rx atorvastatin 10 mg tablet 10 mg PO DAILY 12/04/23 Unkn own History duloxetine 60 mg capsule,delayed 60 mg PO DAILY Unknown History release linaclotide 145 mcg capsule 145 mcg PO DAILY 12/04/23 Unknown History (Linzess) lisinopril 2.5 mg tablet 2.5 mg PO DAILY 12/04/23 Unk nown History metaxalone 800 mg tablet 800 mg PO BID PRN PRN muscle spasm 12/04/23 Unknown History pregabalin 100 mg capsule (Lyrica) 100 mg PO Q8H 12/03 Unknown History semaglutide 1 mg/dose (4 mg/3 mL) 1 mg subcut SA 12/03 Unknown History subcutaneous pen injector (Ozempic) sitagliptin phosphate 100 mg 100 mg PO DAILY 12/04/23 Unknown History tablet (Januvia) Held on 11/26/24. Instructions: MD Ordered prednisone 20 mg tablet 40 mg (2 x 20 mg) PO DAILY 5 days 11/26/24 Unknown Rx #10 tabs Allergy/AdvReac Type Severity Reaction Status Date / Time famotidine (From Pepcid) Allergy Severe rash Verified 11/26/24 06:08 meperidine HCl (From Demerol) Allergy Hives Verified 11/26/24 02:34 gabapentin AdvReac HALLUCINATI Verified 11/26/24 02:34 ONS Social History Smoking Status: Never smoker ROS ROS ED Constitutional Constitutional ED: Denies chills or fever(s) Eyes Eyes: Denies blurry vision or change in vision ENT ENT ED: Reports other Details: Positive facial/lip swelling ; Denies sore throat Cardiovascular Cardiovascular: Denies chest pain Respiratory/Chest Respiratory/Chest: Denies cough or dyspnea Gastrointestinal Gastrointestinal: Denies abdominal pain, diarrhea, nausea or vomiting Genitourinary Genitourinary ED: Denies dysuria Musculoskeletal Musculoskeletal: Denies myalgias Integumentary Denies rash Neurologic Neurologic: Denies headache(s) Hematologic/Lymphatic Hematologic/Lymphatic: Denies easy bleeding or easy bruising Allergic/Immunologic Allergic/Immunologic ED: Reports mouth swelling; Denies tongue swelling or urticaria EXAM Physical Exam Const Vital Signs: 11/26/24 02:31 11/26/24 02:56 11/26/24 03:00 Temperature 97.9 F Temperature Source Oral Pulse Rate 65 77 76 Respiratory Rate 12 20 H 16 Respiratory Pattern Normal Blood Pressure 147/84 H 203/112 H Blood Pressure Mean 105 142 Pulse Ox 96 98 Oxygen Delivery Method Room Air 11/26/24 03:23 11/26/24 03:54 11/26/24 04:27 Temperature 98.3 F 98.2 F Temperature Source Oral Oral Pulse Rate 78 72 71 Respiratory Rate 18 13 15 Respiratory Pattern Blood Pressure 171/103 H 108/74 98/67 Blood Pressure Mean 125 85 77 Pulse Ox 97 94 93 Oxygen Delivery Method Room Air Room Air Room Air 11/26/24 05:00 11/26/24 05:30 Temperature 98 F 98.1 F Temperature Source Oral Oral Pulse Rate 73 73 Respiratory Rate 16 15 Respiratory Pattern Blood Pressure 102/77 103/71 Blood Pressure Mean 85 81 Pulse Ox 94 94 Oxygen Delivery Method Room Air Room Air Positive well nourished and well developed General Appearance ED: well developed; Negative for pallor HEENT HEENT Narrative: Patient has swelling of the left cheek that extends into the chin and across theupper and lower lip consistent with angioedema. There are no oral lesions noted on internal exam. No obvious dental caries or signs of dental abscess No tongue swelling noted No swelling in the posterior pharynx to suggest acute airway compromise Eyes PERRL and EOMs intact bilaterally General Eye ED: Negative for scleral icterus Neck supple Neck Narrative: No subcutaneous emphysema noted Chest Wall palpation of chest normal Resp normal respiratory effort and clear to auscultation bilaterally Resp Narrative: No nasal flaring retractions tachypnea or accessory muscle use Cardio regular rate and regular rhythm Rate: other Other Details: Heart is regular rate and rhythm Radial and carotid pulses are equal and symmetric GI normal to inspection, nondistended, normoactive bowel sounds, non-tender, non-distended and no masses Auscultation: normoactive bowel sounds Palpation: soft Extremity normal to inspection Extremity Narrative: No asymmetric edema no pitting edema negative Homans' sign bilaterally Neuro oriented x3, CN's II-XII intact bilaterally and no sensory deficits noted Sensorium / Orientation: alert Motor Exam: strength 5/5 throughout Psych mental status grossly normal Skin Skin Narrative: Soft tissue swelling of the left sided face/cheek which extends across the upperand lower lip and into the chin as documented above No obvious abscess formation or cellulitis noted General Skin Exam: Negative for jaundice or pallor MDM MDM MDM Narrative Medical decision making narrative: Patient arrived to the ER with stable vitals and in no acute respiratory distress. She reported that the facial swelling began around 11 or 1130 and didnot present until approximately 3 AM. Despite the prolonged timeframe and the exam showing facial swelling and lip swelling there was no tongue swelling or true airway compromise and no need for emergent stabilization with intubation. Chart review reveals that she is on lisinopril which is the most likely cause for her angioedema/allergic reaction. Because she had had facial and lip swelling she was given IM epinephrine in the generalized allergic reaction cocktail of Benadryl Solu-Medrol and Pepcid was added. After the patient received Pepcid she did developed a erythematous blanchable urticarial rash across the neck lower face chest and abdomen as well as upper arm most consistent with acute allergic reaction. As she is already been given Benadryl epinephrine and prednisone there is no further medication to provide at this time. As her history and exam does not suggest an infectious process and do not feel the needfor laboratory studies. With the patient having angioedema she was also given 1g of inhaled TXA. She was watched in the ER for slightly over 3 hours. After receiving all the medication and allowing time to progress the patient's swelling of the face and lips began to improve. On reevaluation there is no tongue swelling or signs of airway compromise. The patient states she feels much better at this time and as it has been approximately 6 hours since the onset of her symptoms and they are now starting to resolve without signs of rebound or airway compromise I do not feel need for admission or further observation in the ER and she is otherwise safe for discharge History & Record Review Discussion w/independent historian: Patient Discharge Plan Triage Chief Complaint: Allergic Reaction ED Provider: Luis Sheridan Dx/Rx/DC Orders Clinical Impression: Acute allergic reaction, Angioedema, Non-insulin dependent diabetes mellitus, Neuropathy Instructions: ED General Allergic Reactions, ED Angioedema Prescriptions: New prednisone 20 mg tablet 40 mg PO DAILY 5 Days Qty: 10 0RF No Action famotidine 20 MG tablet 20 mg PO BID Qty: 10 0RF atorvastatin 10 mg tablet 10 mg PO DAILY Ozempic 1 mg/dose (4 mg/3 mL) pen injector 1 mg subcut SA pregabalin [Lyrica] 100 mg capsule 100 mg PO Q8H lisinopril 2.5 mg tablet 2.5 mg PO DAILY metaxalone 800 mg tablet 800 mg PO BID PRN PRN (Reason: muscle spasm) duloxetine 60 mg capsule,delayed release(DR/EC) 60 mg PO DAILY Januvia 100 mg tablet 100 mg PO DAILY Linzess 145 mcg capsule 145 mcg PO DAILY Primary Care Provider: Aaron Chandler Referrals: Aaron Chandler MD [Primary Care Provider] - Activity Restrictions/Additional Instructions: Please stop taking your lisinopril and list this as an allergy as this is the most likely culprit for your facial and lip swelling. The swelling should continue to improve over the next 1 to 2 days. Continue with [id number] Benadryl for itching and swelling and use the steroid once a day as directed. If you develop difficulty swallowing or shortness of breath or have any further concerns please return to the ER for repeat evaluation Please also list Pepcid now as an allergy as you did develop a rash after the IVdose given in the ER Print Language: Ethiopian Disposition Disposition: Home, Self Care What to do if you have Problems For any increased pain, shortness of breath, bleeding, nausea or vomiting, chestpain, or any unexpected problems, contact your Primary Care Provider. Call [facility] ([phone]) or report to the closest Emergency Room. Call 911 if necessary. 11/26/24 0612 <Electronically signed by Luis Sheridan DO> Cosigner Signature (if applicable): CC: Dr. 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)- Primary Type II or unspecified type diabetes mellitus with neurological manifestations, not stated as uncontrolled Neuropathy Mononeuritis of unspecified site [facility] Diagnosis Chronic migraine without aura, intractable, without status migrainosus- Primary [facility] Diagnosis Peripheral neuropathy, idiopathic- Primary Unspecified hereditary and idiopathic peripheral neuropathy 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 [facility] Diagnosis Other chronic pain- Primary 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 Motor neuron disorder (HCC) Amyotrophic lateral sclerosis [facility] Diagnosis Intractable chronic migraine without aura and with status migrainosus- Primary Chronic migraine without aura, with intractable migraine, so stated, with status migrainosus Medication monitoring encounter Encounter for therapeutic drug monitoring [facility] Diagnosis Type 2 diabetes mellitus without retinopathy (HCC)- Primary Type II or unspecified type diabetes mellitus without mention of complication, not stated as uncontrolled Nuclear sclerotic cataract of both eyes Senile nuclear sclerosis Bilateral presbyopia Presbyopia [facility] Diagnosis Chronic migraine without aura, intractable, without status migrainosus [facility] Diagnosis Medication monitoring encounter- Primary Encounter for therapeutic drug monitoring Chronic migraine without aura, intractable, without status migrainosus [facility] Diagnosis Intractable migraine without aura and without status migrainosus- Primary Migraine without aura, with intractable migraine, so stated, without mention of status migrainosus [facility] Additional Instructions If any new or worsening symptoms [facility] Work Phone: Hospital Discharge instructions Additional Instructions Please stop taking your lisinopril and list this as an allergy as this is the most likely culprit for your facial and lip swelling. The swelling should continue to improve over the next 1 to 2 days. Continue with zryb-[id number] Benadryl for itching and swelling and use the steroid once a day as directed. If you develop difficulty swallowing or shortness of breath or have any further concerns please return to the ER for repeat evaluation Please also list Pepcid now as an allergy as you did develop a rash [facility]: Reason for referral (narrative)No reason for referral [facility] Work Phone: Chief Complaint and Reason for Visit Chief Complaint AXEL HIP AND LUMBAR S PINE XRAYS Chief Complaint AXEL HIP AND LUMBAR S PINE XRAYS BACK PAIN/RX HERE Chief Complaint DEGENERATION OF LUMB AR, INTERVERTEBRAL DISC Chief Complaint DEGENERATION OF LUMB AR, INTERVERTEBRAL DISC NUMBNESS & TINGLING Chief Complaint NUMBNESS & TINGLING DEGENERATION OF LUMBAR, INTERVERTEBRAL DISC Chief Complaint Admit Date angioedema November 26, 2024 2:3 0am Chief Complaint Admit Date angioedema November 26, 2024 2:3 0am FALL WITH INJURY February 21, 2025 1:57 pm Chief Complaint Admit Date FALL WITH INJURY February 21, 2025 1:57 pm XR SHOULDER,HUMERUS, WRIST, HAND April 052024 10:22am Chief Complaint Admit Date FALL WITH INJURY February 21, 2025 1:57 pm XR SHOULDER,HUMERUS, WRIST, HAND April 052024 10:22am fall April 18, 2025 10 :00am Chief Complaint Admit Date FALL WITH INJURY February 21, 2025 1:57 pm XR SHOULDER,HUMERUS, WRIST, HAND April 052024 10:22am fall Zuehl 13th, 2025 10 :00am CVA RULE OUT May 22, 2025 6:49pm Advance Directives Advance Directive Response Recorded Date/ Time Living Will No October 12 4:52pm Power of Head Refrigerating Engineer No October 12, 2014 4:52pm Advance Directive Response Recorded Date/ Time Living Will No October 12 3:52pm Power of Head Refrigerating Engineer No October 12, 2014 3:52pm Advance Directive Response Recorded Date/ Time Living Will No June 11 9:55pm Power of Head Refrigerating Engineer No June 11 9:55pm Advance Directive Response Recorded Date/ Time Living Will No December 04, 2023 9:34pm Power of Head Refrigerating Engineer No December 03 9:34pm Advance Directive Response Recorded Date/ Time Living Will No November 26, 2024 2:38am Do you have a Healthcare Power of Head Refrigerating Engineer? No November 26, 2024 2:38am Advance Directive Response Recorded Date/ Time Do you have a Healthcare Power of Head Refrigerating Engineer? No May 22, 2025 4:26pm Reason for Referral Specialty Diagnoses / Procedures Referred By Contac t Referred To Contact Neurology Diagnoses Neuropathy Procedures CONSULT TO NEUROLOGY OFFICE/OUTPATIENT 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) Procedures CONSULT TO PHYSICAL THERAPY PHYSICAL THERAPY EVALUATION HIGH COMPLEX [address] [place] [address] [place] [address] [facility] [place] [address] [place] [address] Referral ID Status Reason Start Date Expiration Date Visits Requested Visits Authorized [id number] Pending Review Auto-Generat ed Referral 12/01/2022 12/01/2023 1 1 Specialty Diagnoses / Procedures Referred By Contac t Referred To Contact Diagnoses Chronic migraine without aura, intractable, without status migrainosus Procedures PROVIDER ORDERED FOLLOW UP OFFICE/OUTPATIENT NEW HIGH MDM 60-74 MINUTES Naima Agrawal APRN.REAL TIME ANALYST [address] [place] [address] Referral ID Status Reason Start Date Expiration Date Visits Requested Visits Authorized [id number] Pending Review PCP Requested Referral 3 02/26/2024 1 1 Specialty Diagnoses / Procedures Referred By Contac t Referred To Contact Pain Management Diagnoses Other chronic pain Procedures CONSULT TO PAIN MGT OFFICE/OUTPATIENT NEW HIGH MDM 60-[place] [address] [place] [address] Referral ID Status Reason Start Date Expiration Date Visits Requested Visits Authorized [id number] Pending Review PCP Requested Referral 3 08/22/2024 1 1 Specialty Diagnoses / Procedures Referred By Contac t Referred To Contact Diagnoses Intractable chronic migraine without aura and with status migrainosus Procedures PROVIDER ORDERED FOLLOW UP OFFICE/OUTPATIENT NEW HIGH MDM [address] [place] [address] [place] [address] Referral ID Status Reason Start Date Expiration Date Visits Requested Visits Authorized [id number] Authorized PCP Requested Referral 03/13/2024 01/10/2025 1 1 Specialty Diagnoses / Procedures Referred By Bucky garcia Referred To Contact Diagnoses Chronic migraine without aura, intractable, without status migrainosus Procedures PROVIDER ORDERED FOLLOW UP OFFICE/OUTPATIENT NEW HIGH MDM [address] [place] [address] [place] [address] Referral ID Status Reason Start Date Expiration Date Visits Requested Visits Authorized [id number] Authorized PCP Requested Referral 03/31/2025 1 1 Summary Purpose Family History No Family History Records FoundNo Family History Records FoundNo Family History Records FoundNo Family History Records Found Additional Source Comments Goals (unrecognized section and content) Goals may be documented in a n alternate sectionGoals may be documented in an alternate sectionGoals may be documented in an alternate sectionGoals may be documented in an alternate sectionGoals may be documented in an alternate sectionGoals may be documented in an alternate sectionGoals may be documented in an alternate sectionGoals may be documented in an alternate sectionGoals may be documented in an alternate sectionGoals may be documented in an alternate sectionGoals may be documented in an alternate sectionGoals may be documented in an alternate sectionGoals may be documented in an alternate sectionGoals may be documented in an alternate sectionGoals may be documented in an alternate section Source Comments (unrecognize d section and content) In the event this informatio n is protected by the Federal Confidentiality of Alcohol and Drug Abuse Patient Records regulations: The Federal rules restrict any use of the information to criminally investigate or prosecute any alcohol or drug abuse patient.[facility] the event this information is protected by the Federal Confidentiality of Alcohol and Drug Abuse Patient Records regulations: The Federal rules restrict any use of the information to criminally investigate or prosecute any alcohol or drug abuse patient.[facility] the event this information is protected by the Federal Confidentiality of Alcohol and Drug Abuse Patient Records regulations: The Federal rules restrict any use of the information to criminally investigate or prosecute any alcohol or drug abuse patient.[facility] the event this information is protected by the Federal Confidentiality of Alcohol and Drug Abuse Patient Records regulations: The Federal rules restrict any use of the information to criminally investigate or prosecute any alcohol or drug abuse patient.[facility] HealthIn the event this information is protected by the Federal Confidentiality of Alcohol and Drug Abuse Patient Records regulations: The Federal rules restrict any use of the information to criminally investigate or prosecute any alcohol or drug abuse patient.[facility]In the event this information is protected by the Federal Confidentiality of Alcohol and Drug Abuse Patient Records regulations: The Federal rules restrict any use of the information to criminally investigate or prosecute any alcohol or drug abuse patient.[facility]In the event this information is protected by the Federal Confidentiality of Alcohol and Drug Abuse Patient Records regulations: The Federal rules restrict any use of the information to criminally investigate or prosecute any alcohol or drug abuse patient.[facility] the event this information is protected by the Federal Confidentiality of Alcohol and Drug Abuse Patient Records regulations: The Federal rules restrict any use of the information to criminally investigate or prosecute any alcohol or drug abuse patient.[facility] the event this information is protected by the Federal Confidentiality of Alcohol and Drug Abuse Patient Records regulations: The Federal rules restrict any use of the information to criminally investigate or prosecute any alcohol or drug abuse patient.[facility] the event this information is protected by the Federal Confidentiality of Alcohol and Drug Abuse Patient Records regulations: The Federal rules restrict any use of the information to criminally investigate or prosecute any alcohol or drug abuse patient.[facility] the event this information is protected by the Federal Confidentiality of Alcohol and Drug Abuse Patient Records regulations: The Federal rules restrict any use of the information to criminally investigate or prosecute any alcohol or drug abuse patient.[facility] the event this information is protected by the Federal Confidentiality of Alcohol and Drug Abuse Patient Records regulations: The Federal rules restrict any use of the information to criminally investigate or prosecute any alcohol or drug abuse patient.[facility] the event this information is protected by the Federal Confidentiality of Alcohol and Drug Abuse Patient Records regulations: The Federal rules restrict any use of the information to criminally investigate or prosecute any alcohol or drug abuse patient.[facility]In the event this information is protected by the Federal Confidentiality of Alcohol and Drug Abuse Patient Records regulations: The Federal rules restrict any use of the information to criminally investigate or prosecute any alcohol or drug abuse patient.[facility]In the event this information is protected by the Federal Confidentiality of Alcohol and Drug Abuse Patient Records regulations: The Federal rules restrict any use of the information to criminally investigate or prosecute any alcohol or drug abuse patient.[facility] the event this information is protected by the Federal Confidentiality of Alcohol and Drug Abuse Patient Records regulations: The Federal rules restrict any use of the information to criminally investigate or prosecute any alcohol or drug abuse patient.[facility] the event this information is protected by the Federal Confidentiality of Alcohol and Drug Abuse Patient Records regulations: The Federal rules restrict any use of the information to criminally investigate or prosecute any alcohol or drug abuse patient.[facility] the event this information is protected by the Federal Confidentiality of Alcohol and Drug Abuse Patient Records regulations: The Federal rules restrict any use of the information to criminally investigate or prosecute any alcohol or drug abuse patient.[facility] the event this information is protected by the Federal Confidentiality of Alcohol and Drug Abuse Patient Records regulations: The Federal rules restrict any use of the information to criminally investigate or prosecute any alcohol or drug abuse patient.[facility] Reason for Visit (unrecogniz ed section and content) Reason Comments Follow Up Specialty Diagnoses / Procedures Referred By Contac t Referred To Contact Diagnoses Chronic migraine without aura, intractable, without status migrainosus Procedures PROVIDER ORDERED FOLLOW UP OFFICE/OUTPATIENT NEW HIGH M[place] [address] [place] [address] [place] [address] Phone: tel: fax: Referral ID Status Reason Start Date Expiration Date V isits Requested Visits Authorized [id number] Closed PCP Requested Referral 07/31/2024 03/31/2025 1 1 Specialty Diagnoses / Procedures Referred By Contac t Referred To Contact Diagnoses Intractable chronic migraine without aura and with status migrainosus Procedures PROVIDER ORDERED FOLLOW UP OFFICE/OUTPATIENT NEW HIGH MDM [address] [place] [address] [place] [address] Referral ID Status Reason Start Date Expiration Date V isits Requested Visits Authorized [id number] Closed PCP Requested Referral 03/13/2024 01/10/2025 1 1 Reason Comments Outside Referral Requests PCP referred t o neurology: Dr. Polo Reason Comments New Patient Reason Comments Insurance Authorization [employer] Reason Comments New Patient Specialty Diagnoses / Procedures Referred By Contac t Referred To Contact Neurology Diagnoses Neuropathy Procedures CONSULT TO NEUROLOGY OFFICE/OUTPATIENT NEW HIGH MDM 60-[place] [address] [place] [id number] Referral ID Status Reason Start Date Expiration Date V isits Requested Visits Authorized [id number] Closed PCP Requested Referral 11/10/2022 11/10/2023 1 1 Reason Comments office note faxed Reason Comments Question Reason Comments Established Patient Follow-Up Chronic Migraine Reason Onset Date Comments Refill Request 03/30/2023 Reason Comments Established Patient Reason Comments Follow Up Patient states that she has been having a lot of numbness and tingling in her legs, hands, and fingers Reason Comments Automation Qtp Tester - Other PT update faxed back to PT Reason Comments Established Patient Follow-Up Referral ID Status Reason Start Date Expiration Date V isits Requested Visits Authorized [id number] Closed PCP Requested Referral 12/31/2023 09/30/2024 1 1 Reason Comments Diabetic Eye Exam Reason Comments Appointment Reason Comments Established Patient Reason Comments Insurance Authorization [employer], [employer] [facility] Care Teams (unrecognized sec tion and content) Chefs Relationship Specialty Start Date End Date Adam Dixon (Historical) PCP - General 01/07/05 Amy Salgado MD [address] [place] [address] Neurology 06/10/20 Lorena Campa W [address] [place] [address] Referring Family Medicine 02/26/22 Team Status: Active Member Role Status Dates Dr. Aaron Chandler MD Family Provider Active Arleen Lazar , Primary Care Provider Active Team Status: Inactive Member Role Status Dates Dr. Aaron Chandler MD Primary Care Provi narayan, Attending Provider, Referring Provider Active Team Status: Inactive Member Role Status Dates Dr. Aaron Chandler MD Attending Provider, Referring Pr ovider Active Arleen Lazar , Primary Care Provider Active Team Status: Inactive Member Role Status Dates Arleen Lazar , Primary Care Provider Active CHARLES Alfaro Attending Provider Active Team Status: Inactive Member Role Status Dates Arleen Lazar , Primary Care Provider, Attending Provider Active Chefs Relationship Specialty Start Date End Date Adam Dixon (Historical) PCP - General 01/07/05 Amy Salgado MD [address] [place], [place] [id number] Neurology 06/10/[address] [place] [address] Referring Family Medicine 02/26/22 Chefs Relationship Specialty Start Date End Date Adam Dixon (Historical) PCP - General 01/07/05 Amy Salgado MD [address] [place] [address] Neurology 06/10/[address] [address] Referring Family Medicine 02/26/22 Chefs Relationship Specialty Start Date End Date Adam Dixon (Historical) PCP - General 01/07/05 Amy Salgado MD [address] [place] [address] Neurology 06/10/[address] [place] [address] Referring Family Medicine 02/26/22 Chefs Relationship Specialty Start Date End Date Adam Dixon (Historical) PCP - General 01/07/05 Amy Salgado MD [address] [place], [place] [id number] Neurology 06/10/20 Lorena Campa [address] [place] [address] Referring Family Medicine 02/26/22 Chefs Relationship Specialty Start Date End Date Adam Dixon (Historical) PCP - General 01/07/05 Amy Salgado MD [address] [place], [place] [id number] Neurology 06/10/20 Lorena Campa [address] [place] [address], [place] [address] Referring Family Medicine 02/26/22 Chefs Relationship Specialty Start Date End Date Adam Dixon (Historical) PCP - General 01/07/05 Amy Salgado MD [address] [place], [place] [id number] Neurology 06/10/20 Lorena Campa MD [address] [place] [address], [address] Referring Family Medicine 02/26/22 Chefs Relationship Specialty Start Date End Date Adam Dixon (Historical) PCP - General 01/07/05 Amy Salgado MD [address] [place], [place] [id number] Neurology 06/10/20 Lorena Campa MD [address] [place] [address], [place] [address] Referring Family Medicine 02/26/22 Team Status: Active Member Role Status Dates Arleen Lazar DO Primary Care Provider Active Dr. Henny Saravia MD Attending Provider, Referring Pro vider Active Team Status: Inactive Member Role Status Dates Arleen Lazar DO Primary Care Provider Active Dr. Aaron Chandler MD Attending Provider, Referring Pr ovider Active Chefs Relationship Specialty Start Date End Date Adam Dixon (Historical) PCP - General 01/07/05 Amy Salgado MD [address] [place] [address] Neurology 06/10/20 Lorena Campa MD [address] [place] [address] Referring Family Medicine 02/26/22 Team Status: Active Member Role Status Dates Dr. Aaron Chandler MD Family Provider Active Dr. Aaron Chandler MD Primary Care Provider Active Team Status: Inactive Member Role Status Dates Dr. Aaron Chandler MD Primary Care Provider Active Dr. Saleem Hoyt DO Emergency Provider Active Team Status: Inactive Member Role Status Dates Arleen Lazar DO Primary Care Provider Active Dr. Henny Saravia MD Attending Provider, Referring Pro vider Active Team Status: Inactive Member Role Status Dates Dr. Aaron Chandler MD Primary Care Provider Active Dr. Saleem Hoyt DO Attending Provider, Emergency P rovider Active Chefs Relationship Specialty Start Date End Date Adam Dixon (Historical) PCP - General 01/07/05 Amy Salgado MD [address] [place] [address] Neurology 06/10/20 Lorena Campa MD [address] [place] [address] Referring Family Medicine 02/26/22 Chefs Relationship Specialty Start Date End Date Adam Dixon (Historical) PCP - General 01/07/05 Amy Salgado MD [address] [place] [address] Neurology 06/10/20 Lorena Campa MD [address] [place] [address] Referring Family Medicine 02/26/22 Chefs Relationship Specialty Start Date End Date Adam Dixon (Historical) PCP - General 01/07/05 Amy Salgado MD [address] [place], [place] [id number] Neurology 06/10/20 Lorena Campa MD [address] [place] [id number] Referring Family Medicine 02/26/22 Team Status: Inactive Member Role Status Dates Dr. Aaron Chandler MD Primary Care Provider Active Start: November 09, 2024 End: November 09, 2024 Dr. Aaron Chandler MD Attending Provider Active Start: November 09, 2024 End: November 09, 2024 Dr. Aaron Chandler MD Referring Provider Active Start: November 09, 2024 End: November 09, 2024 Team Status: Active Member Role Status Dates Dr. Aaron Chandler MD Primary Care Provider Active Team Status: Inactive Member Role Status Dates Dr. Aaron Chandler MD Primary Care Provider Active Start: November 26, 2024 End: November 26, 2024 Dr. Luis Sheridan DO Emergency Provider Active Start: November 26, 2024 End: November 26, 2024 Chefs Relationship Specialty Start Date End Date Adam Dixon (Historical) PCP - General 01/07/05 Amy Salgado MD [address] [place] [address] Neurology 06/10/20 Lorena Campa MD [address] [place] [address] Referring Family Medicine 02/26/22 Chefs Relationship Specialty Start Date End Date Adam Dixon (Historical) PCP - General 01/07/05 Amy Salgado MD [address] [place] [id number] Neurology 06/10/20 Lorena Campa MD [address] [place] [address] Referring Family Medicine 02/26/22 Team Status: Inactive Member Role Status Dates Dr. Aaron Chandler MD Primary Care Provider Active Start: November 26, 2024 End: November 26, 2024 Dr. Luis Sheridan DO Attending Provider Active Start: November 26, 2024 End: November 26, 2024 Dr. Luis Sheridan DO Emergency Provider Active Start: November 26, 2024 End: November 26, 2024 Team Status: Inactive Member Role Status Dates Dr. Aaron Chandler MD Primary Care Provider Active Start: February 21, 2025 End: February 21, 2025 Dr. Aaron Chandler MD Attending Provider Active Start: February 21, 2025 End: February 21, 2025 Dr. Aaron Chandler MD Referring Provider Active Start: February 21, 2025 End: February 21, 2025 Team Status: Active Member Role Status Dates Dr. Aaron Chandler MD Primary Care Provider Active Start: February 22, 2025 Dr. Aaron Chandler MD Attending Provider Active Start: February 22, 2025 Dr. Aaron Chandler MD Referring Provider Active Start: February 22, 2025 Team Status: Inactive Member Role Status Dates Dr. Aaron Chandler MD Primary Care Provider Active Start: February 22, 2025 End: February 22, 2025 Dr. Aaron Chandler MD Attending Provider Active Start: February 22, 2025 End: February 22, 2025 Dr. Aaron Chandler MD Referring Provider Active Start: February 22, 2025 End: February 22, 2025 Chefs Relationship Specialty Start Date End Date Adam Dixon (Historical) PCP - General 01/07/05 Amy Salgado MD [address] [place] [address] Neurology 06/10/20 Lorena Campa MD [address] [place] [address], [place] [address] Referring Family Medicine 02/26/22 Team Status: Active Member Role/Relationship Status Dates Dr. Aaron Chandler MD Primary Care Provider Active Team Status: Inactive Member Role/Relationship Status Dates Dr. Aaron Chandler MD Primary Care Provider Active Start: February 21, 2025 End: February 21, 2025 Dr. Aaron Chandler MD Attending Provider Active Start: February 21, 2025 End: February 21, 2025 Dr. Aaron Chandler MD Referring Provider Active Start: February 21, 2025 End: February 21, 2025 Team Status: Inactive Member Role/Relationship Status Dates Dr. Aaron Chandler MD Primary Care Provider Active Start: February 22, 2025 End: February 22, 2025 Dr. Aaron Chandler MD Attending Provider Active Start: February 22, 2025 End: February 22, 2025 Dr. Aaron Chandler MD Referring Provider Active Start: February 22, 2025 End: February 22, 2025 Team Status: Inactive Member Role/Relationship Status Dates Dr. Aaron Chandler MD Primary Care Provider Active Start: April 05, 2025 End: April 05, 2025 Dr. Aaron Chandler MD Attending Provider Active Start: April 05, 2025 End: April 05, 2025 Dr. Aaron Chandler MD Referring Provider Active Start: April 05, 2025 End: April 05, 2025 Team Status: Inactive Member Role/Relationship Status Dates Dr. Aaron Chandler MD Primary Care Provider Active Start: April 18, 2025 End: April 18, 2025 Dr. Aaron Chandler MD Attending Provider Active Start: April 18, 2025 End: April 18, 2025 Dr. Aaron Chandler MD Referring Provider Active Start: April 18, 2025 End: April 18, 2025 Team Status: Active Member Role/Relationship Status Dates Dr. Aaron Chandler MD Primary Care Provider Active Start: May 22, 2025 Dr. Kelsey Kohli MD Emergency Provider Active S tart: May 22, 2025 Dr. Kamille Braden MD Admit Provider Active Star t: May 22, 2025 Dr. Kamille Braden MD Attending Provider Active Start: May 22, 2025 INFORMATION SOURCE (unrecogn ized section and content) DATE CREATED AUTHOR 12/04/2022 [facility] DATE CREATED AUTHOR AUTHOR'S ORGANIZ ATION 03/03/2025 [facility] DATE CREATED AUTHOR AUTHOR'S ORGANIZ ATION 03/08/2025 [facility] DATE CREATED AUTHOR AUTHOR'S ORGANIZ ATION 05/04/2025 [facility] FOR RECORDS PERTAINING TO PATIENTS WHO ARE [...] BE BASED ON THE PRIMARY CLINICAL RECORDS. [employer] provides no warranty or guarantee of the accuracy or completeness of information in this document.
[2025-05-23] VITALS (7 sets, daily range): BP systolic 98–123; BP diastolic 57–89; PULSE 68–77; RESP 16–18; TEMP 36.4–36.8; O2SAT 94–98; BMI 26.3
[2025-05-23 05:59] LABS: Hematocrit 43.4 % (37-47); Hemoglobin 14.1 g/dL (12.0-15.0); Immature Granulocytes Count 0.030 X10^3/uL (0.0-0.0); Mean Corp Hgb Conc 32.5 g/dL (32-36); Mean Corpuscular Volume 88.0 fL (81-99); Mean Platelet Vol. 9.4 fl (6.2-12.0); NRBC Flagged by Analyzer 0 % (0-5); Platelet Count 265 K/mm3 (150-450); RBC Distribution Width CV 13.0 % (11.6-14.6); RBC Distribution Width SD 41.9 fl (35.1-43.9); Red Blood Count 4.93 M/mm3 (4.2-5.4); White Blood Count 7.7 K/mm3 (4.4-11.0)
[2025-05-23 06:20] LABS: Anion Gap 10 (5-15); BUN 17 mg/dL (4-19); BUN/Creat Ratio 24.6 RATIO (10-20); Calcium,Total 9.3 mg/dL (7.6-11.0); Carbon Dioxide 23.9 mmol/L (21.0-32.0); Chloride 105 mmol/L (98-108); Cholesterol 195 mg/dL (<=200); Estimated Creatinine Clearance 74.68 ml/min (50-250); Glucose 89 mg/dL (70-99); Low Density Lipoprotein Calc. 110 mg/dL; Magnesium 2.3 mg/dL (1.5-2.2); Potassium 4.2 mmol/L (3.3-5.1); Triglycerides 160 mg/dL; Very Low Density Lipoprotein 32 mg/dL (5-40); cholesterol:hdl ratio screen 3.68
--- NOTE | 2025-05-23 06:57 | PN.HOSP_ITS ---
Reason for Visit Chief Complaint: Double vision Subjective Subjective Patient is a 64-year-old lady who presented with dizziness incoordination diaphoresis and transient amnesia. Admitted to a monitored bed for subsequent eval Objective Data Objective Data Vital Signs: Vital Signs Temp Pulse Resp BP Pulse Ox O2 Del Method 97.5 F L 72 16 106/89 H 97 Room Air 05/23/25 03:20 05/23/25 03:20 05/23/25 03:20 05/23/25 03:20 05/23/25 03:20 05/23/25 05:57 Oxygen Delivery Method Room Air Weight: 76.3 kg Body Mass Index (BMI) 26.3 Intake & Output: Intake and Output for Last 24 Hours 05/21/25 05/22/25 05/23/25 23:59 23:59 23:59 Intake Total 1000 / 1000 Output Total 2 / 2 Balance 1000 / 1000 -2 / -2 Lab / Micro Data 05/23/25 05:11 05/23/25 05:11 Labs: Laboratory Results - last 24 hr 05/22/25 16:30: WBC 7.3, RBC 5.31, Hgb 15.4 H, Hct 46.3, MCV 87.2, MCH 29.0, MCHC 33.3, RDW Std Deviation 41.2, RDW Coeff of Arnoldo 13.0, Plt Count 282, MPV 9.5, Immature Gran % (Auto) 0.300, Neut % (Auto) 61.9, Lymph % (Auto) 26.5, Faulk % (Auto) 7.5, Eos % (Auto) 2.7, Baso % (Auto) 1.1 H, Absolute Neuts (auto) 4.5, Absolute Lymphs (auto) 1.94, Nucleated RBC % 0, PT 12.9, INR 1.0, APTT 25.5, Sodium 136, Potassium 3.5, Chloride 102, Carbon Dioxide 21.9, Anion Gap 13, BUN 23 H, Creatinine 0.72, Estim Creat Clear Calc 73.19, Est GFR (MDRD) Non-Af 92, B UN/Creatinine Ratio 32.0 H, Glucose 133 H, Calcium 9.8, Troponin T High Sens 14 05/22/25 18:55: Troponin T Hi Sens 2 Hr 11 05/22/25 21:09: Troponin T Hi Sens 4Hr 12 05/22/25 22:34: POC Glucose 101 05/23/25 05:11: WBC 7.7, RBC 4.93, Hgb 14.1, Hct 43.4, MCV 88.0, MCH 28.6, MCHC 32.5, RDW Std Deviation 41.9, RDW Coeff of Arnoldo 13.0, Plt Count 265, MPV 9.4, Immature Gran % (Auto) 0.400, Neut % (Auto) 50.1, Lymph % (Auto) 36.1, Faulk % (Auto) 8.8, Eos % (Auto) 3.2, Baso % (Auto) 1.4 H, Absolute Neuts (auto) 3.9, Absolute Lymphs (auto) 2.79, Nucleated RBC % 0, Sodium 139, Potassium 4.2, Chloride 105, Carbon Dioxide 23.9, Anion Gap 10, BUN 17, Creatinine 0.70, Estim Creat Clear Calc 74.68, Est GFR (MDRD) Non-Af 96, BUN/Creatinine Ratio 24.6 H, Glucose 89, Hemoglobin A1c 5.4, Calcium 9.3, Magnesium 2.3 H, Triglycerides 160, Cholesterol 195, LDL Cholesterol, Calc 110, VLDL Cholesterol 32, HDL Cholesterol 53, Cholesterol/HDL Ratio 3.68, TSH 3.280 05/23/25 05:47: POC Glucose 98 Radiography Diagnostic Testing: Radiology Impression Brain CT 05/22/25 16:51 IMPRESSION: No acute intracranial abnormality. Reading Location: [facility] Head/Neck CTA 05/22/25 16:51 IMPRESSION: Widely patent intracranial and cervical arterial vasculature. Reading Location: [facility] Physical Exam Narrative GENERAL: cooperative HEENT: Atraumatic; normocephalic EYES; Anicteric, Normal Conjunctiva NECK; supple, normal thyroid, RESPIRATORY: Diminished to auscultation CARDIOVASCULAR: Regular S1 S2, GI: soft, normoactive bowel sounds, : No Renal angle tenderness; EXTREMITIES: No edema, no clubbing, MUSCULOSKELETAL: no muscle wasting NEURO: Awake; no lateralizing signs. SKIN: superficial Bites to her right hand PSYCH; Flat affect Assessment & Plan Assessment/Plan (1) Double vision: PLAN: Plan Patient is a 64-year-old lady who presented with dizziness incoordination diaphoresis and transient amnesia. Admitted to a monitored bed for subsequent eval 1. Suspected CVA ? Possibly involving the posterior circulation.Patient presented with multiple symptoms including incoordination, dizziness double vision and transient amnesia. Admitted to a monitored bed. Every 4 neurochecks ordered patient started on aspirin and statin MRI and 2D echo and consultation placed to [facility]. 2. Recent cat bite ? Patient treated with Augmentin tetanus booster recommended 3. Dyslipidemia ?Patient is on statin therapy, continued at home dose 4. Essential hypertension ? Pursuing permissive hypertension until CVA is ruled out 5. Diabetes mellitus type II -patient's oral hypoglycemics held. Placed on Accu-Cheks a.c. and at bedtime and covered with sliding scale insulin 6. Depression/anxiety -Continue home medications 7. History of GBS ? 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 DVT prophylaxis ? On enoxaparin Time spent in the patient's overall evaluation,decision-making process, review of diagnostic data, adjustment of management, discussion with other providers, nursing nursing and ancillary staff involved in patient's care documentation, 50 Minutes Charges/Coding Visit Charges Inpatient E&M: 51771 Subs Hosp L3 NIHSS NIHSS Nursing Documentation NIHSS Nursing Documentation: NIHSS: Ischemic Stroke/TIA Start: 05/22/25 19:40 Text: For PCU Patients: NIH and Neuro Check every 4 Status: Active hours, PRN and with change in RN caregiver. Freq: [id number] Protocol: Activity Type Activity Date Activity User E-sign Co-sign Detail Recorded Client Recorded Date Recorded By Document 05/23/25 03:20 [id number] 05/23/25 05:04 LV 05/23/25 03:20 NIH Stroke Scale [NIHSS] A score of 0 is normal or asymptomatic . Total possible score is 42. Inpatient: RN or Physician to activate a stroke alert for onset of new stroke symptoms or with NIHSS increase >/= 3 points. Following change in neurological status, NIHSS will be performed per physician order or more frequently PRN. -1a. Level of Consciousness 0 - Alert; keenly responsive -1b. LOC Questions 0 - Answers BOTH questions correctly -1c. LOC Commands 0 - Performs BOTH tasks correctly -2. Best Gaze 0 - Normal -3. Visual 0 - No visual loss -4. Facial Palsy 0 - Normal symmetrical movements -5a. Left Arm 0 - No drift; arm holds 90 ( or 45) degrees for full 10 seconds -5b. Right Arm 0 - No drift; arm holds 90 ( or 45) degrees for full 10 seconds -6a. Left Leg 0 - No drift; leg holds 30- degree position for full 5 seconds -6b. Right Leg 0 - No drift; leg holds 30- degree position for full 5 seconds -7. Limb Ataxia 0 - Absent -8. Sensory 1 - Mild-to- moderate sensory loss; -9. Best Language 0 - No aphasia; normal -10. Dysarthria 0 - Normal -11. Extinction and Inattention 0 - No abnormality -Total 1 Query Text:A score of 0 is normal or asymptomatic. Total possible score is 42 . ED: Notify Physician for NIHSS increase by > / = 3 points. Inpatient: RN or Physician to activate a stroke alert for NIHSS increase of > / = 3 points. Coma Scale [Assess] -Eye Opening Spontaneous -Motor Obeys Commands -Verbal Oriented [Total] -Coma Scale Total 15
--- NOTE | 2025-05-23 12:53 | NEURO.CONS ---
Assessment and Plan: Neuro Assessment/Plan GERBER BANGURA is a 64 F with a past medical history of being evaluated by Teleneurology for dizziness and double Vision. She has intermittent double vision lasting for seconds that gets better with wearing prescription glasses .Also she denied any dizziness and was wondering about her feet being cold. Her CTA /MRI brain reviewed with no acute findings . Final official report is pending. Neuroretinitis due to cat scratch is a rare phenomenon and would be highly unlikely given her symptoms has been going on for at least a year Recommed ophthalmology consult as an outpatient No further recs from neurology team I personally attended this patient and spent a total time of 55 minutes evaluating this patient including clinical assessment, review of chart, medical history imaging, and determining appropriate treatment and workup. HPI Consult Data Date of Consult: 05/23/25 HPI Narrative HPI Narrative: As per hpi: 64-year-old female history of depression, hypertension, diabetes, migraines presented to [facility] ED 05/22/2025 due to dizziness and double vision that does not feel like past migraines. Last known well was 2 PM. Reportedly she was getting for her podiatry visit when she became diaphoretic and felt like her skin was crawling, shortly after when she got to her car she blacked out and does not remember actually driving to the appointment. When she got there she was very dizzy, lightheaded, diaphoretic and was seeing double. Symptoms have improved somewhat in the ED but still seeing double intermittently. In the ED temp 98.2, heart rate 79, blood pressure 103/73, respiratory rate 21 and pulse ox 97% on room air. CBC with white count 7.3, hemoglobin 15.4, BMP with BUN of 23 and a creatinine 0.72, glucose 133. CTA head and neck no LVO. Hospitalist contacted for stroke rule out. Patient evaluated with granddaughter at bedside. Patient reports that she was getting ready for her podiatry appointment earlier today and was having trouble getting dressed and was feeling weak, she drove to her appointment got double vision while she was driving, she is unsure if she had any loss of consciousness while she was driving but was able to get to the appointment. When she walked in she was pale and diaphoretic and grabbed the desk they told her to sit down, glucose was 125, not hypotensive when she was brought to the ED. Patient still reports having some problems with intermittent double vision and feels little bit weak all over and her main complaint was feeling jittery inside. She notes she has problems with neuropathy and has had problems with intermittent tingling and burning in the left thigh as well as numbness below the knee on the right without any acute changes. Denies any chest pain or shortness of breath. Does note a headache that started a couple of hours ago, does have problems with migraines but reports that it is very different and is usually predominantly hallmarked by nausea and does not note any history of neurological symptoms. Also of note patient did get bit by her cat twice on her hand this morning, fairly superficial but carmona are noted. On my evaluation, she told me that her double vision has been going on for at least a year and gets better with wearing her glasses. She denied any dizziness and was wondering about the feet being cold all the time. 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 Migraines Home Medications ?Medication ?Instructions ?Recorded ?Last Taken ?Type atorvastatin 10 mg tablet 10 mg PO DAILY 12/04/23 Unknown History duloxetine 60 mg capsule,delayed 60 mg PO DAILY 12/04/23 Unknown History release linaclotide 145 mcg capsule 145 mcg PO DAILY 12/04/23 Unknown History (Linzess) lisinopril 2.5 mg tablet 2.5 mg PO DAILY 12/04/23 Unknown History metaxalone 800 mg tablet 800 mg PO BID PRN PRN muscle spasm 12/04/23 Unknown History pregabalin 100 mg capsule (Lyrica) 100 mg PO Q8H 12/04/23 Unknown History semaglutide 1 mg/dose (4 mg/3 mL) 2 mg subcut SA 12/04/23 Unknown History subcutaneous pen injector (Ozempic) sitagliptin phosphate 100 mg 50 mg PO DAILY 12/04/23 Unknown History tablet (Januvia) Held on 11/26/24. 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 pets and animals: Yes (1 cat) Smoking Status: Never smoker Vital Signs Vital Signs Vital Signs: 05/22/25 16:15 05/22/25 16:51 05/22/25 16:51 Temperature 98.2 F Temperature Source Oral Pulse Rate 79 75 Pulse Rate [Lying] Pulse Rate [Sitting (for 1 minute prior to obtaining)] Pulse Rate [Standing (for 1 minute prior to obtaining)] Pulse Strength Respiratory Rate 21 H 20 H Respiratory Effort Respiratory Depth Respiratory Pattern Blood Pressure 103/73 95/72 Blood Pressure [Lying] Blood Pressure [Sitting (for 1 minute prior to obtaining)] Blood Pressure [Standing (for 1 minute prior to obtaining)] Blood Pressure Mean 83 79 Blood Pressure Mean [Lying] Blood Pressure Mean [Sitting (for 1 minute prior to obtaining)] Blood Pressure Mean [Standing (for 1 minute prior to obtaining)] Blood Pressure Source Blood Pressure Position Blood Pressure Location Pulse Ox 97 96 Oxygen Delivery Method Room Air Room Air Room Air 05/22/25 17:21 05/22/25 17:30 05/22/25 17:56 Temperature Temperature Source Pulse Rate 73 71 70 Pulse Rate [Lying] Pulse Rate [Sitting (for 1 minute prior to obtaining)] Pulse Rate [Standing (for 1 minute prior to obtaining)] Pulse Strength Respiratory Rate 25 H 19 H 19 H Respiratory Effort Respiratory Depth Respiratory Pattern Blood Pressure 108/79 106/79 115/75 Blood Pressure [Lying] Blood Pressure [Sitting (for 1 minute prior to obtaining)] Blood Pressure [Standing (for 1 minute prior to obtaining)] Blood Pressure Mean 88 88 88 Blood Pressure Mean [Lying] Blood Pressure Mean [Sitting (for 1 minute prior to obtaining)] Blood Pressure Mean [Standing (for 1 minute prior to obtaining)] Blood Pressure Source Blood Pressure Position Blood Pressure Location Pulse Ox 96 96 97 Oxygen Delivery Method Room Air Room Air Room Air 05/22/25 18:17 05/22/25 18:30 05/22/25 19:00 Temperature 98.2 F Temperature Source Pulse Rate 69 68 65 Pulse Rate [Lying] Pulse Rate [Sitting (for 1 minute prior to obtaining)] Pulse Rate [Standing (for 1 minute prior to obtaining)] Pulse Strength Respiratory Rate 20 H 18 18 Respiratory Effort Respiratory Depth Respiratory Pattern Blood Pressure 115/83 H 123/101 H 118/78 Blood Pressure [Lying] Blood Pressure [Sitting (for 1 minute prior to obtaining)] Blood Pressure [Standing (for 1 minute prior to obtaining)] Blood Pressure Mean 93 108 91 Blood Pressure Mean [Lying] Blood Pressure Mean [Sitting (for 1 minute prior to obtaining)] Blood Pressure Mean [Standing (for 1 minute prior to obtaining)] Blood Pressure Source Blood Pressure Position Blood Pressure Location Pulse Ox 97 99 98 Oxygen Delivery Method Room Air Room Air 05/22/25 19:30 05/22/25 19:35 05/22/25 20:30 Temperature 97.1 F L Temperature Source Temporal Pulse Rate 65 Pulse Rate [Lying] 65 Pulse Rate [Sitting (for 1 minute prior to obtaining)] 68 Pulse Rate [Standing (for 1 minute prior to obtaining)] 72 Pulse Strength Respiratory Rate 18 Respiratory Effort Normal Non-Labored Respiratory Depth Normal Respiratory Pattern Normal Blood Pressure 116/86 H Blood Pressure [Lying] 116/86 H Blood Pressure [Sitting (for 1 minute prior to obtaining)] 129/94 H Blood Pressure [Standing (for 1 minute prior to obtaining)] 127/89 H Blood Pressure Mean 96 Blood Pressure Mean [Lying] 96 Blood Pressure Mean [Sitting (for 1 minute prior to obtaining)] 105 Blood Pressure Mean [Standing (for 1 minute prior to obtaining)] 101 Blood Pressure Source Monitor Blood Pressure Position Semi-Fowlers Blood Pressure Location Right Arm Pulse Ox 99 99 Oxygen Delivery Method Room Air Room Air 05/22/25 22:00 05/22/25 23:20 05/23/25 01:08 Temperature 98.9 F 98.2 F Temperature Source Oral Oral Pulse Rate 72 70 Pulse Rate [Lying] Pulse Rate [Sitting (for 1 minute prior to obtaining)] Pulse Rate [Standing (for 1 minute prior to obtaining)] Pulse Strength Normal (2+) Respiratory Rate 18 16 Respiratory Effort Respiratory Depth Respiratory Pattern Blood Pressure 113/78 116/74 Blood Pressure [Lying] Blood Pressure [Sitting (for 1 minute prior to obtaining)] Blood Pressure [Standing (for 1 minute prior to obtaining)] Blood Pressure Mean 89 88 Blood Pressure Mean [Lying] Blood Pressure Mean [Sitting (for 1 minute prior to obtaining)] Blood Pressure Mean [Standing (for 1 minute prior to obtaining)] Blood Pressure Source Monitor Monitor Blood Pressure Position Semi-Fowlers Semi-Fowlers Blood Pressure Location Right Arm Left Arm Pulse Ox 95 96 Oxygen Delivery Method Room Air Room Air 05/23/25 01:31 05/23/25 03:20 05/23/25 05:57 Temperature 97.5 F L Temperature Source Temporal Pulse Rate 72 Pulse Rate [Lying] Pulse Rate [Sitting (for 1 minute prior to obtaining)] Pulse Rate [Standing (for 1 minute prior to obtaining)] Pulse Strength Respiratory Rate 16 Respiratory Effort Normal Non-Labored Respiratory Depth Normal Respiratory Pattern Normal Blood Pressure 106/89 H Blood Pressure [Lying] Blood Pressure [Sitting (for 1 minute prior to obtaining)] Blood Pressure [Standing (for 1 minute prior to obtaining)] Blood Pressure Mean 94 Blood Pressure Mean [Lying] Blood Pressure Mean [Sitting (for 1 minute prior to obtaining)] Blood Pressure Mean [Standing (for 1 minute prior to obtaining)] Blood Pressure Source Monitor Blood Pressure Position Supine Blood Pressure Location Right Arm Pulse Ox 96 97 Oxygen Delivery Method Room Air Room Air 05/23/25 07:20 05/23/25 08:55 05/23/25 10:00 Temperature 97.9 F Temperature Source Oral Pulse Rate 68 Pulse Rate [Lying] Pulse Rate [Sitting (for 1 minute prior to obtaining)] Pulse Rate [Standing (for 1 minute prior to obtaining)] Pulse Strength Respiratory Rate 18 Respiratory Effort Normal Non-Labored Respiratory Depth Normal Respiratory Pattern Normal Blood Pressure 123/87 H Blood Pressure [Lying] Blood Pressure [Sitting (for 1 minute prior to obtaining)] Blood Pressure [Standing (for 1 minute prior to obtaining)] Blood Pressure Mean 99 Blood Pressure Mean [Lying] Blood Pressure Mean [Sitting (for 1 minute prior to obtaining)] Blood Pressure Mean [Standing (for 1 minute prior to obtaining)] Blood Pressure Source Monitor Blood Pressure Position Supine Blood Pressure Location Right Arm Pulse Ox 98 Oxygen Delivery Method Room Air Room Air Room Air 05/23/25 10:54 Temperature 98 F Temperature Source Oral Pulse Rate 69 Pulse Rate [Lying] Pulse Rate [Sitting (for 1 minute prior to obtaining)] Pulse Rate [Standing (for 1 minute prior to obtaining)] Pulse Strength Respiratory Rate 16 Respiratory Effort Respiratory Depth Respiratory Pattern Blood Pressure 110/75 Blood Pressure [Lying] Blood Pressure [Sitting (for 1 minute prior to obtaining)] Blood Pressure [Standing (for 1 minute prior to obtaining)] Blood Pressure Mean 86 Blood Pressure Mean [Lying] Blood Pressure Mean [Sitting (for 1 minute prior to obtaining)] Blood Pressure Mean [Standing (for 1 minute prior to obtaining)] Blood Pressure Source Monitor Blood Pressure Position Sitting Blood Pressure Location Pulse Ox 96 Oxygen Delivery Method Room Air Weight Weight: 76.3 kg Body Mass Index (BMI) 26.3 Physical Exam Neuro Neuro Narrative: -? General: Laying comfortably in bed; in no acute distress. -? HENT: Normal oropharynx and mucosa. Normal external appearance of ears and nose. Exophthalmos. -? Neck: Supple, no pain or tenderness -? CV:? No peripheral edema. -? Pulmonary:? Normal respiratory effort. -? Ext: No cyanosis, edema, or deformity -? Skin: No rash. Normal palpation of skin.? -? Musculoskeletal: full range of motion; no joint tenderness. Normal digits and nails by inspection. No clubbing. -? NEURO: -? Mental Status: The patient was alert and oriented to time, place, and person. Normal recent/remote memory, concentration, and general fund of knowledge. -? Language: speech is .? Naming, repetition, fluency, and comprehension intact. -? Cranial Nerves: PERRL mm/brisk. EOMI, visual quijano full, no facial asymmetry, facial sensation intact, hearing intact, tongue midline, no evidence of atrophy or fibrillations. As performed by the nurse/GEN Sternocleidomastoid and trapezius were equally strong. Soft palate raises equally, no uvular deviations -? Motor: normal bulk, tone, and strength throughout. No pronator drift or satelliting. Upper and lower extremities equal bilaterally -? Tone: is normal and bulk is normal -? Sensation- Intact to light touch bilaterally -? Coordination: No dysmetria on [id number], finger follow finger or [id number]. Lab / Micro Data 05/23/25 05:11 05/23/25 05:11 Labs: Laboratory Results - last 24 hr 05/22/25 16:30: WBC 7.3, RBC 5.31, Hgb 15.4 H, Hct 46.3, MCV 87.2, MCH 29.0, MCHC 33.3, RDW Std Deviation 41.2, RDW Coeff of Arnoldo 13.0, Plt Count 282, MPV 9.5, Immature Gran % (Auto) 0.300, Neut % (Auto) 61.9, Lymph % (Auto) 26.5, Hanson % (Auto) 7.5, Eos % (Auto) 2.7, Baso % (Auto) 1.1 H, Absolute Neuts (auto) 4.5, Absolute Lymphs (auto) 1.94, Nucleated RBC % 0, PT 12.9, INR 1.0, APTT 25.5, Sodium 136, Potassium 3.5, Chloride 102, Carbon Dioxide 21.9, Anion Gap 13, BUN 23 H, Creatinine 0.72, Estim Creat Clear Calc 73.19, Est GFR (MDRD) Non-Af 92, BUN/Creatinine Ratio 32.0 H, Glucose 133 H, Calcium 9.8, Troponin T High Sens 14 05/22/25 18:55: Troponin T Hi Sens 2 Hr 11 05/22/25 21:09: Troponin T Hi Sens 4Hr 12 05/22/25 22:34: POC Glucose 101 05/23/25 05:11: WBC 7.7, RBC 4.93, Hgb 14.1, Hct 43.4, MCV 88.0, MCH 28.6, MCHC 32.5, RDW Std Deviation 41.9, RDW Coeff of Arnoldo 13.0, Plt Count 265, MPV 9.4, Immature Gran % (Auto) 0.400, Neut % (Auto) 50.1, Lymph % (Auto) 36.1, Hanson % (Auto) 8.8, Eos % (Auto) 3.2, Baso % (Auto) 1.4 H, Absolute Neuts (auto) 3.9, Absolute Lymphs (auto) 2.79, Nucleated RBC % 0, Sodium 139, Potassium 4.2, Chloride 105, Carbon Dioxide 23.9, Anion Gap 10, BUN 17, Creatinine 0.70, Estim Creat Clear Calc 74.68, Est GFR (MDRD) Non-Af 96, BUN/Creatinine Ratio 24.6 H, Glucose 89, Hemoglobin A1c 5.4, Calcium 9.3, Magnesium 2.3 H, Triglycerides 160, Cholesterol 195, LDL Cholesterol, Calc 110, VLDL Cholesterol 32, HDL Cholesterol 53, Cholesterol/HDL Ratio 3.68, TSH 3.280 05/23/25 05:47: POC Glucose 98 05/23/25 11:39: POC Glucose 175 H Imaging Radiology Impression Brain CT 05/22/25 16:51 IMPRESSION: No acute intracranial abnormality. Reading Location: [facility] Head/Neck CTA 05/22/25 16:51 IMPRESSION: Widely patent intracranial and cervical arterial vasculature. Reading Location: [facility] Echocardiogram 05/22/25 19:40 Interpretation Summary Normal LV size. Left ventricular systolic function is normal. Bubble contrast study is negative for PFO/ASD. The left ventricular ejection fraction is 60 %. Stage 1 diastolic dysfunction. Ordering Physician: Kamille Braden Referring Physician: Aaron Chandler Performed By: Suad Lopez RDCS Active Medications Active Medications Active Medications: Current Medications Generic Name Dose Route Start Last Admin Trade Name Freq PRN Reason Stop Dose Admin Acetaminophen 650 mg 05/22/25 19:40 Acetaminophen 325 Mg Tablet PO Q6H PRN PRN Pain 1-10 Or Fever >100.7 Albuterol Sulfate 2.5 mg 05/22/25 19:40 Albuterol 2.5 Mg/3 Ml Vial.Neb. INHALATION Q2H PRN PRN SOB &/OR WHEEZING Amoxicillin/Clavulanate Potassium 875 mg 05/22/25 21:00 05/23/25 11:13 Amox/Clavulanate 875 Mg Tablet PO 875 mg BIDCM EVERT Administration Aspirin 81 mg 05/23/25 08:00 05/23/25 11:13 Aspirin 81 Mg Tab.Chew PO 81 mg BREAKFAST EVERT Administration Atorvastatin Calcium 80 mg 05/22/25 22:00 05/22/25 22:29 Atorvastatin Calcium 80 Mg Tablet PO 80 mg QHS EVERT Administration Duloxetine HCl 60 mg 05/23/25 10:00 05/23/25 11:13 Duloxetine Hcl 60 Mg Capsule PO 60 mg DAILY EVERT Administration Enoxaparin Sodium 40 mg 05/23/25 10:00 05/23/25 11:36 Enoxaparin 40 Mg/0.4 Ml Syringe SC 40 mg DAILY EVERT Administration Glucagon 1 mg 05/22/25 19:40 Glucagon 1 Mg/Ml Syringe IM X1 PRN HYPOGLYCEMIA Protocol Hydralazine HCl 5 mg 05/22/25 19:40 Hydralazine 20 Mg/Ml Vial IV 05/23/25 19:41 Q30M PRN maintain BP parameters with HR <60 Sodium Chloride 250 mls @ 15 mls/hr 05/22/25 19:25 IV .[id number] PRN Saline Flush Sodium Chloride 250 mls @ 15 mls/hr 05/22/25 19:25 IV .[id number] PRN Additional IVPB Infusion Dextrose 250 mls @ 0 mls/hr 05/22/25 19:40 Dextrose 10%-Water IV .Q0M PRN HYPOGLYCEMIA Protocol As Directed Insulin Human Lispro 0 unit 05/22/25 22:00 05/23/25 05:48 Insulin Lispro 100 Unit/Ml Insuln.Pen SC Not Given ACHS EVERT Protocol Labetalol HCl 10 - 20 mg 05/22/25 19:40 Labetalol 20 Mg/4 Ml Vial IV 05/23/25 19:41 Q10M PRN PRN maintain BP parameters with HR >/=60 Lorazepam 0.5 mg 05/22/25 19:40 Lorazepam 0.5 Mg Tablet PO X1 PRN Anxiety with MRI Melatonin 10 mg 05/22/25 19:40 Melatonin 10 Mg Tablet PO QHS PRN PRN INSOMNIA Ondansetron HCl 4 mg 05/22/25 19:40 Ondansetron 4 Mg/2 Ml Vial IV Q8H PRN PRN NAUSEA/VOMITING Pregabalin 100 mg 05/22/25 20:10 05/23/25 05:45 Pregabalin 50 Mg Capsule PO 100 mg Q8H EVERT Administration Senna/Docusate Sodium 2 tablet 05/22/25 19:40 Senna/Docusate Sodium 1 Tablet PO BID PRN PRN Constipation Sodium Chloride 10 - 40 ml 05/22/25 19:25 0.9% Saline Lock 10 Ml Syringe IV UD PRN SALINE FLUSH NIHSS NIHSS Nursing Documentation NIHSS Nursing Documentation: NIHSS: Ischemic Stroke/TIA Start: 05/22/25 19:40 Text: For PCU Patients: NIH and Neuro Check every 4 Status: Active hours, PRN and with change in RN caregiver. Freq: [id number] Protocol: Activity Type Activity Date Activity User E-sign Co-sign Detail Recorded Client Recorded Date Recorded By Document 05/23/25 10:53 KG [id number] 05/23/25 10:54 KG 05/23/25 10:53 NIH Stroke Scale [NIHSS] A score of 0 is normal or asymptomatic . Total possible score is 42. Inpatient: RN or Physician to activate a stroke alert for onset of new stroke symptoms or with NIHSS increase >/= 3 points. Following change in neurological status, NIHSS will be performed per physician order or more frequently PRN. -1a. Level of Consciousness 0 - Alert; keenly responsive -1b. LOC Questions 0 - Answers BOTH questions correctly -1c. LOC Commands 0 - Performs BOTH tasks correctly -2. Best Gaze 0 - Normal -3. Visual 0 - No visual loss -4. Facial Palsy 0 - Normal symmetrical movements -5a. Left Arm 0 - No drift; arm holds 90 ( or 45) degrees for full 10 seconds -5b. Right Arm 0 - No drift; arm holds 90 ( or 45) degrees for full 10 seconds -6a. Left Leg 0 - No drift; leg holds 30- degree position for full 5 seconds -6b. Right Leg 0 - No drift; leg holds 30- degree position for full 5 seconds -7. Limb Ataxia 0 - Absent -8. Sensory 1 - Mild-to- moderate sensory loss; -9. Best Language 0 - No aphasia; normal -10. Dysarthria 0 - Normal -11. Extinction and Inattention 0 - No abnormality -Total 1 Query Text:A score of 0 is normal or asymptomatic. Total possible score is 42 . ED: Notify Physician for NIHSS increase by > / = 3 points. Inpatient: RN or Physician to activate a stroke alert for NIHSS increase of > / = 3 points. Coma Scale [Assess] -Eye Opening Spontaneous -Motor Obeys Commands -Verbal Oriented [Total] -Coma Scale Total 15
--- NOTE | 2025-05-23 13:15 | CHAPLAIN ---
Type of Pastoral Visit _x__ Initial Visit ___ Follow-up Visit ___ On-call Visit ___ General Patient Visit ___ Spiritual Assessment ___ Family Conference ___ Bereavement ___ Rapid Response ___ Code Blue ___ Other (describe below) Pastoral Care Referral From _x__ Patient ___ Family ___ Nurse ___ Physician ___ Scallop Cutter ___ Insight Leader ___ Other (describe below) Sacrament/Intervention _x__ Active listening ___ Anointing ___ Jain ___ Bereavement ___ Communion _x__ Donna exploration ___ _x__ Life review _x__ Prayer ___ Reconciliation ___ Sacrament of Sick ___ Supportive presence ___ Wedding ___ Other (describe below) Pastoral Comments after patient gives initial account of her health and waiting on results, she talks more openly about her life, experiences, and donna; pt welcomes spiritual care and prayer; pt talks about her life and relates her thoughts on donna and belief; pt goal today is to relax and get test results
--- NOTE | 2025-05-23 14:25 | NEURO.CONS ---
Assessment and Plan: Neuro Assessment/Plan GERBER BANGURA is a 64 F with a past medical history of hypertension, being evaluated by Teleneurology for vertigo and nausea. Her symptoms started abruptly while driving car yesterday. Continue to feel nauseated and room spinning sensation especially when moving. Based om symptoms, concern for peripheral vertigo. CTA and MRI brain reviewed. No acute findings. Recommend Meclizine 25 mg tid for 7 days and antiemetic along with Benadryl 25 mg. Recommend vestibular rehab as an outpatient. I personally attended this patient and spent a total time of 40 minutes evaluating this patient including clinical assessment, review of chart, medical history imaging, and determining appropriate treatment and workup. HPI Consult Data Date of Consult: 05/23/25 HPI Narrative HPI Narrative: HPI Narrative: As per hpi: 64-year-old female history of depression, hypertension, diabetes, migraines presented to [facility] ED 05/22/2025 due to dizziness and double vision that does not feel like past migraines. Last known well was 2 PM. Reportedly she was getting for her podiatry visit when she became diaphoretic and felt like her skin was crawling, shortly after when she got to her car she blacked out and does not remember actually driving to the appointment. When she got there she was very dizzy, lightheaded, diaphoretic and was seeing double. Symptoms have improved somewhat in the ED but still seeing double intermittently. In the ED temp 98.2, heart rate 79, blood pressure 103/73, respiratory rate 21 and pulse ox 97% on room air. CBC with white count 7.3, hemoglobin 15.4, BMP with BUN of 23 and a creatinine 0.72, glucose 133. CTA head and neck no LVO. Hospitalist contacted for stroke rule out. Patient evaluated with granddaughter at bedside. Patient reports that she was getting ready for her podiatry appointment earlier today and was having trouble getting dressed and was feeling weak, she drove to her appointment got double vision while she was driving, she is unsure if she had any loss of consciousness while she was driving but was able to get to the appointment. When she walked in she was pale and diaphoretic and grabbed the desk they told her to sit down, glucose was 125, not hypotensive when she was brought to the ED. Patient still reports having some problems with intermittent double vision and feels little bit weak all over and her main complaint was feeling jittery inside. She notes she has problems with neuropathy and has had problems with intermittent tingling and burning in the left thigh as well as numbness below the knee on the right without any acute changes. Denies any chest pain or shortness of breath. Does note a headache that started a couple of hours ago, does have problems with migraines but reports that it is very different and is usually predominantly hallmarked by nausea and does not note any history of neurological symptoms. Also of note patient did get bit by her cat twice on her hand this morning, fairly superficial but carmona are noted. On my evaluation, patient continue to have vertigo and nausea .symptoms gets worse with moving head from side to side. 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 Migraines Home Medications ?Medication ?Instructions ?Recorded ?Last Taken ?Type atorvastatin 10 mg tablet 10 mg PO DAILY 12/04/23 Unknown History duloxetine 60 mg capsule,delayed 60 mg PO DAILY 12/04/23 Unknown History release linaclotide 145 mcg capsule 145 mcg PO DAILY 12/04/23 Unknown History (Linzess) lisinopril 2.5 mg tablet 2.5 mg PO DAILY 12/04/23 Unknown History metaxalone 800 mg tablet 800 mg PO BID PRN PRN muscle spasm 12/04/23 Unknown History pregabalin 100 mg capsule (Lyrica) 100 mg PO Q8H 12/04/23 Unknown History semaglutide 1 mg/dose (4 mg/3 mL) 2 mg subcut SA 12/04/23 Unknown History subcutaneous pen injector (Ozempic) sitagliptin phosphate 100 mg 50 mg PO DAILY 12/04/23 Unknown History tablet (Januvia) Held on 11/26/24. 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 pets and animals: Yes (1 cat) Smoking Status: Never smoker Vital Signs Vital Signs Vital Signs: 05/22/25 16:15 05/22/25 16:51 05/22/25 16:51 Temperature 98.2 F Temperature Source Oral Pulse Rate 79 75 Pulse Rate [Lying] Pulse Rate [Sitting (for 1 minute prior to obtaining)] Pulse Rate [Standing (for 1 minute prior to obtaining)] Pulse Strength Respiratory Rate 21 H 20 H Respiratory Effort Respiratory Depth Respiratory Pattern Blood Pressure 103/73 95/72 Blood Pressure [Lying] Blood Pressure [Sitting (for 1 minute prior to obtaining)] Blood Pressure [Standing (for 1 minute prior to obtaining)] Blood Pressure Mean 83 79 Blood Pressure Mean [Lying] Blood Pressure Mean [Sitting (for 1 minute prior to obtaining)] Blood Pressure Mean [Standing (for 1 minute prior to obtaining)] Blood Pressure Source Blood Pressure Position Blood Pressure Location Pulse Ox 97 96 Oxygen Delivery Method Room Air Room Air Room Air 05/22/25 17:21 05/22/25 17:30 05/22/25 17:56 Temperature Temperature Source Pulse Rate 73 71 70 Pulse Rate [Lying] Pulse Rate [Sitting (for 1 minute prior to obtaining)] Pulse Rate [Standing (for 1 minute prior to obtaining)] Pulse Strength Respiratory Rate 25 H 19 H 19 H Respiratory Effort Respiratory Depth Respiratory Pattern Blood Pressure 108/79 106/79 115/75 Blood Pressure [Lying] Blood Pressure [Sitting (for 1 minute prior to obtaining)] Blood Pressure [Standing (for 1 minute prior to obtaining)] Blood Pressure Mean 88 88 88 Blood Pressure Mean [Lying] Blood Pressure Mean [Sitting (for 1 minute prior to obtaining)] Blood Pressure Mean [Standing (for 1 minute prior to obtaining)] Blood Pressure Source Blood Pressure Position Blood Pressure Location Pulse Ox 96 96 97 Oxygen Delivery Method Room Air Room Air Room Air 05/22/25 18:17 05/22/25 18:30 05/22/25 19:00 Temperature 98.2 F Temperature Source Pulse Rate 69 68 65 Pulse Rate [Lying] Pulse Rate [Sitting (for 1 minute prior to obtaining)] Pulse Rate [Standing (for 1 minute prior to obtaining)] Pulse Strength Respiratory Rate 20 H 18 18 Respiratory Effort Respiratory Depth Respiratory Pattern Blood Pressure 115/83 H 123/101 H 118/78 Blood Pressure [Lying] Blood Pressure [Sitting (for 1 minute prior to obtaining)] Blood Pressure [Standing (for 1 minute prior to obtaining)] Blood Pressure Mean 93 108 91 Blood Pressure Mean [Lying] Blood Pressure Mean [Sitting (for 1 minute prior to obtaining)] Blood Pressure Mean [Standing (for 1 minute prior to obtaining)] Blood Pressure Source Blood Pressure Position Blood Pressure Location Pulse Ox 97 99 98 Oxygen Delivery Method Room Air Room Air 05/22/25 19:30 05/22/25 19:35 05/22/25 20:30 Temperature 97.1 F L Temperature Source Temporal Pulse Rate 65 Pulse Rate [Lying] 65 Pulse Rate [Sitting (for 1 minute prior to obtaining)] 68 Pulse Rate [Standing (for 1 minute prior to obtaining)] 72 Pulse Strength Respiratory Rate 18 Respiratory Effort Normal Non-Labored Respiratory Depth Normal Respiratory Pattern Normal Blood Pressure 116/86 H Blood Pressure [Lying] 116/86 H Blood Pressure [Sitting (for 1 minute prior to obtaining)] 129/94 H Blood Pressure [Standing (for 1 minute prior to obtaining)] 127/89 H Blood Pressure Mean 96 Blood Pressure Mean [Lying] 96 Blood Pressure Mean [Sitting (for 1 minute prior to obtaining)] 105 Blood Pressure Mean [Standing (for 1 minute prior to obtaining)] 101 Blood Pressure Source Monitor Blood Pressure Position Semi-Fowlers Blood Pressure Location Right Arm Pulse Ox 99 99 Oxygen Delivery Method Room Air Room Air 05/22/25 22:00 05/22/25 23:20 05/23/25 01:08 Temperature 98.9 F 98.2 F Temperature Source Oral Oral Pulse Rate 72 70 Pulse Rate [Lying] Pulse Rate [Sitting (for 1 minute prior to obtaining)] Pulse Rate [Standing (for 1 minute prior to obtaining)] Pulse Strength Normal (2+) Respiratory Rate 18 16 Respiratory Effort Respiratory Depth Respiratory Pattern Blood Pressure 113/78 116/74 Blood Pressure [Lying] Blood Pressure [Sitting (for 1 minute prior to obtaining)] Blood Pressure [Standing (for 1 minute prior to obtaining)] Blood Pressure Mean 89 88 Blood Pressure Mean [Lying] Blood Pressure Mean [Sitting (for 1 minute prior to obtaining)] Blood Pressure Mean [Standing (for 1 minute prior to obtaining)] Blood Pressure Source Monitor Monitor Blood Pressure Position Semi-Fowlers Semi-Fowlers Blood Pressure Location Right Arm Left Arm Pulse Ox 95 96 Oxygen Delivery Method Room Air Room Air 05/23/25 01:31 05/23/25 03:20 05/23/25 05:57 Temperature 97.5 F L Temperature Source Temporal Pulse Rate 72 Pulse Rate [Lying] Pulse Rate [Sitting (for 1 minute prior to obtaining)] Pulse Rate [Standing (for 1 minute prior to obtaining)] Pulse Strength Respiratory Rate 16 Respiratory Effort Normal Non-Labored Respiratory Depth Normal Respiratory Pattern Normal Blood Pressure 106/89 H Blood Pressure [Lying] Blood Pressure [Sitting (for 1 minute prior to obtaining)] Blood Pressure [Standing (for 1 minute prior to obtaining)] Blood Pressure Mean 94 Blood Pressure Mean [Lying] Blood Pressure Mean [Sitting (for 1 minute prior to obtaining)] Blood Pressure Mean [Standing (for 1 minute prior to obtaining)] Blood Pressure Source Monitor Blood Pressure Position Supine Blood Pressure Location Right Arm Pulse Ox 96 97 Oxygen Delivery Method Room Air Room Air 05/23/25 07:20 05/23/25 08:55 05/23/25 10:00 Temperature 97.9 F Temperature Source Oral Pulse Rate 68 Pulse Rate [Lying] Pulse Rate [Sitting (for 1 minute prior to obtaining)] Pulse Rate [Standing (for 1 minute prior to obtaining)] Pulse Strength Respiratory Rate 18 Respiratory Effort Normal Non-Labored Respiratory Depth Normal Respiratory Pattern Normal Blood Pressure 123/87 H Blood Pressure [Lying] Blood Pressure [Sitting (for 1 minute prior to obtaining)] Blood Pressure [Standing (for 1 minute prior to obtaining)] Blood Pressure Mean 99 Blood Pressure Mean [Lying] Blood Pressure Mean [Sitting (for 1 minute prior to obtaining)] Blood Pressure Mean [Standing (for 1 minute prior to obtaining)] Blood Pressure Source Monitor Blood Pressure Position Supine Blood Pressure Location Right Arm Pulse Ox 98 Oxygen Delivery Method Room Air Room Air Room Air 05/23/25 10:00 05/23/25 10:54 Temperature 98 F Temperature Source Oral Pulse Rate 69 Pulse Rate [Lying] Pulse Rate [Sitting (for 1 minute prior to obtaining)] Pulse Rate [Standing (for 1 minute prior to obtaining)] Pulse Strength Normal (2+) Respiratory Rate 16 Respiratory Effort Respiratory Depth Respiratory Pattern Blood Pressure 110/75 Blood Pressure [Lying] Blood Pressure [Sitting (for 1 minute prior to obtaining)] Blood Pressure [Standing (for 1 minute prior to obtaining)] Blood Pressure Mean 86 Blood Pressure Mean [Lying] Blood Pressure Mean [Sitting (for 1 minute prior to obtaining)] Blood Pressure Mean [Standing (for 1 minute prior to obtaining)] Blood Pressure Source Monitor Blood Pressure Position Sitting Blood Pressure Location Pulse Ox 96 Oxygen Delivery Method Room Air Weight Weight: 76.3 kg Body Mass Index (BMI) 26.3 EEG Results Procedure Details EEG Procedure Details: GERBER BANGURA is a 64 year old F with a past medical history of , who presents for evaluation of Electroencephalogram on DATE at TIME Physical Exam Neuro Neuro Narrative: -? General: Laying comfortably in bed; in no acute distress. -? HENT: Normal oropharynx and mucosa. Normal external appearance of ears and nose. Exophthalmos. -? Neck: Supple, no pain or tenderness -? CV:? No peripheral edema. -? Pulmonary:? Normal respiratory effort. -? Ext: No cyanosis, edema, or deformity -? Skin: No rash. Normal palpation of skin.? -? Musculoskeletal: full range of motion; no joint tenderness. Normal digits and nails by inspection. No clubbing. -? NEURO: -? Mental Status: The patient was alert and oriented to time, place, and person. Normal recent/remote memory, concentration, and general fund of knowledge. -? Language: speech is fluent.? Naming, repetition, fluency, and comprehension intact. -? Cranial Nerves: PERRL 2 mm/brisk. EOMI, visual quijano full, no facial asymmetry, facial sensation intact, hearing intact, tongue midline, no evidence of atrophy or fibrillations. As performed by the nurse Sternocleidomastoid and trapezius were equally strong. Soft palate raises equally, no uvular deviations -? Motor: normal bulk, tone, and strength throughout. No pronator drift or satelliting. Upper and lower extremities equal bilaterally. -? Tone: is normal and bulk is normal -? Sensation- Intact to light touch bilaterally -? Coordination: No dysmetria on [id number], finger follow finger or [id number]. -? Lab / Micro Data 05/23/25 05:11 05/23/25 05:11 Labs: Laboratory Results - last 24 hr 05/22/25 16:30: WBC 7.3, RBC 5.31, Hgb 15.4 H, Hct 46.3, MCV 87.2, MCH 29.0, MCHC 33.3, RDW Std Deviation 41.2, RDW Coeff of Arnoldo 13.0, Plt Count 282, MPV 9.5, Immature Gran % (Auto) 0.300, Neut % (Auto) 61.9, Lymph % (Auto) 26.5, Morgan % (Auto) 7.5, Eos % (Auto) 2.7, Baso % (Auto) 1.1 H, Absolute Neuts (auto) 4.5, Absolute Lymphs (auto) 1.94, Nucleated RBC % 0, PT 12.9, INR 1.0, APTT 25.5, Sodium 136, Potassium 3.5, Chloride 102, Carbon Dioxide 21.9, Anion Gap 13, BUN 23 H, Creatinine 0.72, Estim Creat Clear Calc 73.19, Est GFR (MDRD) Non-Af 92, BUN/Creatinine Ratio 32.0 H, Glucose 133 H, Calcium 9.8, Troponin T High Sens 14 05/22/25 18:55: Troponin T Hi Sens 2 Hr 11 05/22/25 21:09: Troponin T Hi Sens 4Hr 12 05/22/25 22:34: POC Glucose 101 05/23/25 05:11: WBC 7.7, RBC 4.93, Hgb 14.1, Hct 43.4, MCV 88.0, MCH 28.6, MCHC 32.5, RDW Std Deviation 41.9, RDW Coeff of Arnoldo 13.0, Plt Count 265, MPV 9.4, Immature Gran % (Auto) 0.400, Neut % (Auto) 50.1, Lymph % (Auto) 36.1, Morgan % (Auto) 8.8, Eos % (Auto) 3.2, Baso % (Auto) 1.4 H, Absolute Neuts (auto) 3.9, Absolute Lymphs (auto) 2.79, Nucleated RBC % 0, Sodium 139, Potassium 4.2, Chloride 105, Carbon Dioxide 23.9, Anion Gap 10, BUN 17, Creatinine 0.70, Estim Creat Clear Calc 74.68, Est GFR (MDRD) Non-Af 96, BUN/Creatinine Ratio 24.6 H, Glucose 89, Hemoglobin A1c 5.4, Calcium 9.3, Magnesium 2.3 H, Triglycerides 160, Cholesterol 195, LDL Cholesterol, Calc 110, VLDL Cholesterol 32, HDL Cholesterol 53, Cholesterol/HDL Ratio 3.68, TSH 3.280 05/23/25 05:47: POC Glucose 98 05/23/25 11:39: POC Glucose 175 H Imaging Radiology Impression Brain CT 05/22/25 16:51 IMPRESSION: No acute intracranial abnormality. Reading Location: [facility] Head/Neck CTA 05/22/25 16:51 IMPRESSION: Widely patent intracranial and cervical arterial vasculature. Reading Location: [facility] Echocardiogram 05/22/25 19:40 Interpretation Summary Normal LV size. Left ventricular systolic function is normal. Bubble contrast study is negative for PFO/ASD. The left ventricular ejection fraction is 60 %. Stage 1 diastolic dysfunction. Ordering Physician: Kamille Braden Referring Physician: Aaron Chandler Performed By: Suad Lopez RDCS Active Medications Active Medications Active Medications: Current Medications Generic Name Dose Route Start Last Admin Trade Name Freq PRN Reason Stop Dose Admin Acetaminophen 650 mg 05/22/25 19:40 Acetaminophen 325 Mg Tablet PO Q6H PRN PRN Pain 1-10 Or Fever >100.7 Albuterol Sulfate 2.5 mg 05/22/25 19:40 Albuterol 2.5 Mg/3 Ml Vial.Neb. INHALATION Q2H PRN PRN SOB &/OR WHEEZING Amoxicillin/Clavulanate Potassium 875 mg 05/22/25 21:00 05/23/25 11:13 Amox/Clavulanate 875 Mg Tablet PO 875 mg BIDCM EVERT Administration Aspirin 81 mg 05/23/25 08:00 05/23/25 11:13 Aspirin 81 Mg Tab.Chew PO 81 mg BREAKFAST EVERT Administration Atorvastatin Calcium 80 mg 05/22/25 22:00 05/22/25 22:29 Atorvastatin Calcium 80 Mg Tablet PO 80 mg QHS EVERT Administration Duloxetine HCl 60 mg 05/23/25 10:00 05/23/25 11:13 Duloxetine Hcl 60 Mg Capsule PO 60 mg DAILY EVERT Administration Enoxaparin Sodium 40 mg 05/23/25 10:00 05/23/25 11:36 Enoxaparin 40 Mg/0.4 Ml Syringe SC 40 mg DAILY EVERT Administration Glucagon 1 mg 05/22/25 19:40 Glucagon 1 Mg/Ml Syringe IM X1 PRN HYPOGLYCEMIA Protocol Hydralazine HCl 5 mg 05/22/25 19:40 Hydralazine 20 Mg/Ml Vial IV 05/23/25 19:41 Q30M PRN maintain BP parameters with HR <60 Sodium Chloride 250 mls @ 15 mls/hr 05/22/25 19:25 IV .[id number] PRN Saline Flush Sodium Chloride 250 mls @ 15 mls/hr 05/22/25 19:25 IV .[id number] PRN Additional IVPB Infusion Dextrose 250 mls @ 0 mls/hr 05/22/25 19:40 Dextrose 10%-Water IV .Q0M PRN HYPOGLYCEMIA Protocol As Directed Insulin Human Lispro 0 unit 05/22/25 22:00 05/23/25 13:18 Insulin Lispro 100 Unit/Ml Insuln.Pen SC 1 units ACHS EVERT Administration Protocol Labetalol HCl 10 - 20 mg 05/22/25 19:40 Labetalol 20 Mg/4 Ml Vial IV 05/23/25 19:41 Q10M PRN PRN maintain BP parameters with HR >/=60 Lorazepam 0.5 mg 05/22/25 19:40 Lorazepam 0.5 Mg Tablet PO X1 PRN Anxiety with MRI Melatonin 10 mg 05/22/25 19:40 Melatonin 10 Mg Tablet PO QHS PRN PRN INSOMNIA Ondansetron HCl 4 mg 05/22/25 19:40 Ondansetron 4 Mg/2 Ml Vial IV Q8H PRN PRN NAUSEA/VOMITING Pregabalin 100 mg 05/22/25 20:10 05/23/25 13:31 Pregabalin 50 Mg Capsule PO 100 mg Q8H EVERT Administration Senna/Docusate Sodium 2 tablet 05/22/25 19:40 Senna/Docusate Sodium 1 Tablet PO BID PRN PRN Constipation Sodium Chloride 10 - 40 ml 05/22/25 19:25 0.9% Saline Lock 10 Ml Syringe IV UD PRN SALINE FLUSH NIHSS NIHSS Nursing Documentation NIHSS Nursing Documentation: NIHSS: Ischemic Stroke/TIA Start: 05/22/25 19:40 Text: For PCU Patients: NIH and Neuro Check every 4 Status: Active hours, PRN and with change in RN caregiver. Freq: [id number] Protocol: Activity Type Activity Date Activity User E-sign Co-sign Detail Recorded Client Recorded Date Recorded By Document 05/23/25 10:53 KG [id number] 05/23/25 10:54 KG 05/23/25 10:53 NIH Stroke Scale [NIHSS] A score of 0 is normal or asymptomatic . Total possible score is 42. Inpatient: RN or Physician to activate a stroke alert for onset of new stroke symptoms or with NIHSS increase >/= 3 points. Following change in neurological status, NIHSS will be performed per physician order or more frequently PRN. -1a. Level of Consciousness 0 - Alert; keenly responsive -1b. LOC Questions 0 - Answers BOTH questions correctly -1c. LOC Commands 0 - Performs BOTH tasks correctly -2. Best Gaze 0 - Normal -3. Visual 0 - No visual loss -4. Facial Palsy 0 - Normal symmetrical movements -5a. Left Arm 0 - No drift; arm holds 90 ( or 45) degrees for full 10 seconds -5b. Right Arm 0 - No drift; arm holds 90 ( or 45) degrees for full 10 seconds -6a. Left Leg 0 - No drift; leg holds 30- degree position for full 5 seconds -6b. Right Leg 0 - No drift; leg holds 30- degree position for full 5 seconds -7. Limb Ataxia 0 - Absent -8. Sensory 1 - Mild-to- moderate sensory loss; -9. Best Language 0 - No aphasia; normal -10. Dysarthria 0 - Normal -11. Extinction and Inattention 0 - No abnormality -Total 1 Query Text:A score of 0 is normal or asymptomatic. Total possible score is 42 . ED: Notify Physician for NIHSS increase by > / = 3 points. Inpatient: RN or Physician to activate a stroke alert for NIHSS increase of > / = 3 points. Coma Scale [Assess] -Eye Opening Spontaneous -Motor Obeys Commands -Verbal Oriented [Total] -Coma Scale Total 15
--- NOTE | 2025-05-23 15:35 | DS.PCM_ITS ---
Providers Date of Admission: 05/22/25 Primary Care Physician: Dr. Aaron Chandler MD Consultations 05/22/25 19:40 Consult: Tele-Neurology Routine Consulting Provider: [facility] Reason for Consult: Acute Ischemic Stroke/TIA EMERGENT Consult: No MD Notified: Yes Date Notified: 05/22/25 Time Notified: 20:34 Method of Notification: Answering Service Nursing Unit Staff Notify [facility] of Tele-Neurology Consult: Yes Reason For Visit: CVA RULE OUT Diagnosis Discharge Diagnosis (1) Double vision: Status: Acute Code(s): H53.2 - Diplopia Plan Patient is a 64-year-old lady who presented with dizziness incoordination diaphoresis and transient amnesia. Admitted to a monitored bed for subsequent eval 1. Incoordination ? Possibly involving the posterior circulation.Patient presented with multiple symptoms including incoordination, dizziness double vision and transient amnesia. Admitted to a monitored bed. Every 4 neurochecks ordered patient started on aspirin and statin MRI and [facility]D echo [facility] ? Patient MRI was negative for CVA. [facility] for patient to follow-up with ophthalmology as outpatient and appointment was scheduled for the patient prior to being discharged 2. Recent cat bite ? Patient treated with Augmentin tetanus booster recommended. Patient refuses tetanus booster. Prescription written for Augmentin on discharge 3. Dyslipidemia ?Patient is on statin therapy, continued at home dose 4. Essential hypertension ? Pursuing permissive hypertension until CVA is ruled out 5. Diabetes mellitus type II -patient's oral hypoglycemics held. Placed on Accu-Cheks a.c. and at bedtime and covered with sliding scale insulin 6. Depression/anxiety -Continue home medications 7. History of GBS ? 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 DVT prophylaxis ? On enoxaparin Time spent in the patient's overall evaluation,decision-making process, review of diagnostic data, adjustment of management, discussion with other providers, nursing nursing and ancillary staff involved in patient's care documentation, 50 Minutes Medications at Discharge Home Medications atorvastatin 10 mg tablet 10 mg PO DAILY 12/04/23 duloxetine 60 mg capsule,delayed release 60 mg PO DAILY 12/04/23 linaclotide 145 mcg capsule (Linzess) 145 mcg PO DAILY 12/04/23 lisinopril 2.5 mg tablet 2.5 mg PO DAILY 12/04/23 metaxalone 800 mg tablet 800 mg PO BID PRN PRN muscle spasm 12/04/23 pregabalin 100 mg capsule (Lyrica) 100 mg PO Q8H 12/04/23 semaglutide 1 mg/dose (4 mg/3 mL) subcutaneous pen injector (Ozempic) 2 mg subcut SA 12/04/23 sitagliptin phosphate 100 mg tablet (Januvia) 50 mg PO DAILY 12/04/23 amoxicillin 875 mg-potassium clavulanate 125 mg tablet 1 tab PO BIDCM #14 tabs 05/23/25 aspirin 81 mg chewable tablet 81 mg PO BREAKFAST #90 tabs 05/23/25 Physical Exam Narrative GENERAL: cooperative HEENT: Atraumatic; normocephalic EYES; Anicteric, Normal Conjunctiva NECK; supple, normal thyroid, RESPIRATORY: Diminished to auscultation CARDIOVASCULAR: Regular S1 S2, GI: soft, normoactive bowel sounds, : No Renal angle tenderness; EXTREMITIES: No edema, no clubbing, MUSCULOSKELETAL: no muscle wasting NEURO: Awake; no lateralizing signs. SKIN: superficial Bites to her right hand PSYCH; Flat affect Weight / BMI Weight Weight: 76.3 kg Body Mass Index (BMI) 26.3 ABG / Lab / Microbiology Data 05/23/25 05:11 05/23/25 05:11 Laboratory: Laboratory Results - last 24 hr 05/22/25 16:30: WBC 7.3, RBC 5.31, Hgb 15.4 H, Hct 46.3, MCV 87.2, MCH 29.0, MCHC 33.3, RDW Std Deviation 41.2, RDW Coeff of Arnoldo 13.0, Plt Count 282, MPV 9.5, Immature Gran % (Auto) 0.300, Neut % (Auto) 61.9, Lymph % (Auto) 26.5, Bates % (Auto) 7.5, Eos % (Auto) 2.7, Baso % (Auto) 1.1 H, Absolute Neuts (auto) 4.5, Absolute Lymphs (auto) 1.94, Nucleated RBC % 0, PT 12.9, INR 1.0, APTT 25.5, Sodium 136, Potassium 3.5, Chloride 102, Carbon Dioxide 21.9, Anion Gap 13, BUN 23 H, Creatinine 0.72, Estim Creat Clear Calc 73.19, Est GFR (MDRD) Non-Af 92, B UN/Creatinine Ratio 32.0 H, Glucose 133 H, Calcium 9.8, Troponin T High Sens 14 05/22/25 18:55: Troponin T Hi Sens 2 Hr 11 05/22/25 21:09: Troponin T Hi Sens 4Hr 12 05/22/25 22:34: POC Glucose 101 05/23/25 05:11: WBC 7.7, RBC 4.93, Hgb 14.1, Hct 43.4, MCV 88.0, MCH 28.6, MCHC 32.5, RDW Std Deviation 41.9, RDW Coeff of Arnoldo 13.0, Plt Count 265, MPV 9.4, Immature Gran % (Auto) 0.400, Neut % (Auto) 50.1, Lymph % (Auto) 36.1, Bates % (Auto) 8.8, Eos % (Auto) 3.2, Baso % (Auto) 1.4 H, Absolute Neuts (auto) 3.9, Absolute Lymphs (auto) 2.79, Nucleated RBC % 0, Sodium 139, Potassium 4.2, Chloride 105, Carbon Dioxide 23.9, Anion Gap 10, BUN 17, Creatinine 0.70, Estim Creat Clear Calc 74.68, Est GFR (MDRD) Non-Af 96, BUN/Creatinine Ratio 24.6 H, Glucose 89, Hemoglobin A1c 5.4, Calcium 9.3, Magnesium 2.3 H, Triglycerides 160, Cholesterol 195, LDL Cholesterol, Calc 110, VLDL Cholesterol 32, HDL Cholesterol 53, Cholesterol/HDL Ratio 3.68, TSH 3.280 05/23/25 05:47: POC Glucose 98 05/23/25 11:39: POC Glucose 175 H Radiography Diagnostic Testing: Radiology Impression Brain CT 05/22/25 16:51 IMPRESSION: No acute intracranial abnormality. Reading Location: [facility] Head/Neck CTA 05/22/25 16:51 IMPRESSION: Widely patent intracranial and cervical arterial vasculature. Reading Location: [facility] Echocardiogram 05/22/25 19:40 Interpretation Summary Normal LV size. Left ventricular systolic function is normal. Bubble contrast study is negative for PFO/ASD. The left ventricular ejection fraction is 60 %. Stage 1 diastolic dysfunction. Ordering Physician: Kamille Braden Referring Physician: Aaron Chandler Performed By: Suad Lopez RDCS D/C Instructions Discharge Activity: - (Do not drive until cleared by ophthalmology) Call your doctor if you observe: Fever of 101 or Higher, Shortness of breath, Fainting spells and Chest pain DC O2, CPAP, BIPAP Needs Home O2 Discharge instructions: No Meaningful Use Info Meaningful Use Meaningful Use Diagnoses (Choose all that apply): None applicable Discharge Plan Admission Admit Date/Time: 05/22/25 18:49 Attending Provider: Allen Armendariz Primary Care Provider: Aaron Chandler Consulting Providers: Alexis Sullivan; Emiliano Stovall; Naida Parker; Poonam Katz; Lyla Bagley; Silverio Reyes; Ying Hill; Olvin Kirkpatrick; Serafin Cerna; Brandon Campo; Gisela Benedict; Zenaida Cole; Cole Nunez; Tory Garza; Ashley Loya; Trisha Bailey; Lincoln Briceno; Dulce Montes; Sánchez Lara; Malena Naranjo; Sabino Geronimo; Kamille Braden Discharge Orders/Prescriptions Prescriptions: New aspirin 81 mg Tablet,Chewable 81 mg PO BREAKFAST Qty: 90 0RF amoxicillin-pot clavulanate 875-125 mg Tablet 1 tab PO BIDCM Qty: 14 0RF Continued atorvastatin 10 mg tablet 10 mg PO DAILY Ozempic 1 mg/dose (4 mg/3 mL) pen injector 2 mg subcut SA pregabalin [Lyrica] 100 mg capsule 100 mg PO Q8H lisinopril 2.5 mg tablet 2.5 mg PO DAILY metaxalone 800 mg tablet 800 mg PO BID PRN PRN (Reason: muscle spasm) duloxetine 60 mg capsule,delayed release(DR/EC) 60 mg PO DAILY Januvia 100 mg tablet 50 mg PO DAILY Patient Comments: pt is taking-med not on hold Linzess 145 mcg capsule 145 mcg PO DAILY Referrals / Follow Up: Aaron Chandler MD [Primary Care Provider, Family Practice] - Within 1 Week Yan Oseguera MD [Med Staff - Active Staff, Surgery] - Within 1 Week Disposition Disposition (needs filled in before D/C Order can be placed): Home, Self Care Charges/Coding Visit Charges Inpatient E&M: 31053 Disch Hosp >30min
--- NOTE | 2025-05-23 15:46 | CASEMGMT ---
Reviewed PT, OT and ST kate. ANNEMARIE CM into pt room, pt lying in bed in no distress. Pt denies any homegoing needs at this time. Pt states she lives alone and uses a cane for ambulation. Pt states she feels safe to return home. DC order in.
--- NOTE | 2025-05-23 16:04 | CASEMGMT ---
Social Work Per physician note pt negative for stroke, therefore PHQ9 not completed. AMIRAH Araujo
--- NOTE | 2025-05-23 19:40 | MRI_ITS ---
PROCEDURE: BRAIN WITHOUT CONTRAST 05/23/2025 REASON FOR EXAM: CONCERN FOR CVA/TIA TECHNIQUE: Procedure Code: MRIBR Modality: MR Procedure: BRAIN WITHOUT CONTRAST Multiplanar and multisequence images were obtained. COMPARISON: CT head May 22, 2025. FINDINGS: Brain: A few foci of hyperintense signal on T2 and FLAIR in the white matter which are nonspecific but most likely due to chronic small-vessel ischemia. No restricted diffusion. No hemorrhage. No mass-effect or midline shift. Ventricles: Normal. Major Intracranial Vessels: Patent. Sinuses: Clear. Mastoids: Clear. MRI/Brain without Contrast IMPRESSION: No acute brain abnormalities. A few foci of hyperintense signal on T2 and FLAIR in the white matter which are nonspecific but most likely due to chronic small-vessel ischemia. Reading Location: [id number]
== END 2025-05-23 16:44 | disposition home or self-care (01) ==
LOC: ED 18:03 → PCU 18:51
PROVIDERS: Admitting Provider Internal Medicine; Emergency Provider Student in an Organized Health Care Education/Training Program; PCP Family Medicine; Visit Provider Internal Medicine
DX: R55 Syncope and collapse (principal); E11.40 Type 2 diabetes mellitus with diabetic neuropathy, unspecified; I10 Essential (primary) hypertension; R11.0 Nausea; H53.2 Diplopia; E78.5 Hyperlipidemia, unspecified; Z79.899 Other long term (current) drug therapy; Z79.85 Long-term (current) use of injectable non-insulin antidiabetic drugs; S61.459A Open bite of unspecified hand, initial encounter; W55.01XA Bitten by cat, initial encounter; F41.9 Anxiety disorder, unspecified; F32.A Depression, unspecified
CPT/HCPCS: 36415; 70450; 70496; 70498; 70551; 80048; 80061; 82962; 83036; 83735; 84443; 84484; 85025; 85610; 85730; 92610; 93005; 93306; 94762; 96360; 96361; 96372; 97161; 97166; 97802; 99221; 99285; Q9967; A4216; G0378

== ENCOUNTER → 2025-05-24 | Outpatient (CLI) | payer MEDICARE, SELFPAY ==
[2025-05-31 15:08] LABS: ACHR Recep AB, Blocking 24 % (0-25)
== END | disposition home or self-care (01) ==
LOC: MTLAB 15:15
PROVIDERS: PCP Family Medicine; Referring Provider Family Medicine; Visit Provider Family Medicine
DX: H53.2 Diplopia (principal)
CPT/HCPCS: 36415; 83519

== ENCOUNTER → 2025-06-08 | Outpatient (CLI) | payer MEDICARE, SELFPAY ==
[2025-06-15 17:08] LABS: ACHR Recep AB, Blocking 18 % (0-25)
== END | disposition home or self-care (01) ==
PROVIDERS: PCP Family Medicine
DX: H53.2 Diplopia (principal)
CPT/HCPCS: 36415; 83519